=== PATIENT | male | born 1960 | race Caucasian/White ===

== ENCOUNTER → 2016-11-17 | Outpatient (CLI) | payer OTHER | END | disposition home or self-care (01) | LOC: RADMRIMAIN 17:49 | PROVIDERS: ATTEND Psychiatry & Neurology Neurology | DX: Z53.9 Procedure and treatment not carried out, unspecified reason (principal) ==

== ENCOUNTER → 2016-11-17 | Outpatient (CLI) | payer OTHER ==
--- NOTE | 2016-11-17 19:25 | MR ---
EXAMINATION TYPE: MR cspine/lspine wo con DATE OF EXAM: 11/17/2016 COMPARISON: CT lumbar spine 04/13/2016, CT cervical spine 04/13/2016 HISTORY: neck and low back pain x1 year, getting worse TECHNIQUE: Multiplanar, multisequence imaging of the lumbar and cervical spine is performed without I V contrast. FINDINGS: Cervical spine MRI: There is multilevel spondylosis. Endplate discogenic marrow signal change is pres ent with associated loss of disc height and signal especially C3-4, C4-5 and C5-6. Cervical cord sign al is maintained. Cervical vertebral bodies show preserved height, minimal retrolisthesis grade 1 C2- 3, C3-4, C4-5. Hypertrophic change is suspected a component of diffuse idiopathic skeletal hyperostos is. C2-3: No significant abnormality C3-4: There is uncovertebral joint hypertrophy facet arthropathy encroaching to cause left-sided fora gregor encroachment. Posterior extension of endplate disc complex contacts the cervical cord, there is mild to moderate central stenosis. C4-5: Posterior extension of endplate disc complex causes anterior mass effect on the thecal sac and may contact the anterior cervical cord, there is right-sided greater than left foraminal encroachment . C5-6: Moderate to severe spinal stenosis is present due to posterior extension of endplate disc compl ex, there is bilateral foraminal encroachment. C6-7: Unremarkable C7-T1: Within normal limits IMPRESSION: Multilevel degenerative disc disease, foraminal encroachment, spinal stenosis greatest at C5-6. Lumbar spine MRI: Lumbar vertebral bodies show preserved height and alignment. There is multilevel sp ondylosis. Some endplate discogenic marrow signal changes noted. Schmorl's node present at the superi or endplate of L2. L5-S1: Facet arthropathy change with hypertrophy of the ligamentum flavum is noted. Circumferential p osterior broad-based disc bulge extends laterally to cause bilateral foraminal encroachment. L4-5: Facet arthropathy changes encroaches upon the lateral recesses left greater than right. No sign ificant foraminal encroachment or central stenosis. No evident disc herniation. L3-4: Posterior broad-based disc bulge causes anterior mass effect on the thecal sac. Hypertrophic ch rohit of the ligamentum flavum causes lateral recess encroachment, only minimal central canal stenosis . Right-sided greater than left foraminal encroachment due to circumferential extension of endplate d isc complex. L2-3: Minimal posterior broad-based disc bulge causes only slight anterior mass effect on the thecal sac. There is some facet arthropathy change. L1-2: Facet arthropathy with hypertrophic change of the ligamentum flavum encroaches on the lateral r ecesses left greater than right. No significant foraminal encroachment or sizable disc herniation. IMPRESSION: Multilevel degenerative disc disease, facet arthropathy, foraminal encroachment.
== END ==
LOC: RADMRIMAIN 17:46
PROVIDERS: ATTEND Psychiatry & Neurology Neurology
DX: M99.71 Connective tissue and disc stenosis of intervertebral foramina of cervical region (principal); M50.30 Other cervical disc degeneration, unspecified cervical region; M51.36 Other intervertebral disc degeneration, lumbar region; M46.86 Other specified inflammatory spondylopathies, lumbar region; M99.73 Connective tissue and disc stenosis of intervertebral foramina of lumbar region
CPT/HCPCS: 72141; 72148

== ENCOUNTER → 2017-06-07 | Outpatient (CLI) | payer OTHER ==
[2017-06-07 13:56] LABS: Appearance,Urine Clear (Clear); Bilirubin,Urine Negative (Negative); Blood,Urine Negative (Negative); Color,Urine Yellow; Glucose,Urine (UA) Negative (Negative); Ketones,Urine Negative (Negative); Leukocyte Esterase,Urine Negative (Negative); Nitrite,Urine Negative (Negative); PH, Urine 5.5 (5.0-8.0); Protein,Urine Negative (Negative); Specific Gravity,Urine 1.011 (1.001-1.035); Urobilinogen,Urine <2.0 mg/dL (<2.0)
--- NOTE | 2017-06-07 16:31 | XR ---
EXAMINATION TYPE: XR chest 2V DATE OF EXAM: 06/07/2017 COMPARISON: Prior chest x-ray 01/25/2016 HISTORY: Preop TECHNIQUE: Frontal and lateral views of the chest are obtained. FINDINGS: No significant interval change. Prominent lung volume could be indicative of underlying CO PD. Flowing anterior osteophytes in the thoracic spine could be due to diffuse idiopathic skeletal hy perostosis. Apical pleural thickening is stable on the right. The heart is small. Pulmonary vasculari ty and michelle not significantly changed. IMPRESSION: No acute cardiopulmonary process. Stable apical pleural scarring. Correlate for COPD, CHRISTOPHER TONG.
== END | disposition home or self-care (01) ==
LOC: LABPAT 13:09
PROVIDERS: ATTEND Orthopaedic Surgery Orthopaedic Surgery of the Spine
DX: Z01.818 Encounter for other preprocedural examination (principal); J98.4 Other disorders of lung; M48.02 Spinal stenosis, cervical region
CPT/HCPCS: 71046; 81003; 93005

== ENCOUNTER → 2017-06-10 | Outpatient (CLI) | payer OTHER ==
[2017-06-10 10:59] LABS: Basophils # (A) 0.1 k/uL (0-0.2); Basophils % (A) 1 %; Eosinophils # (A) 0.2 k/uL (0-0.7); Eosinophils % (A) 2 %; HCT 47.8 % (39.0-53.0); HGB 15.4 gm/dL (13.0-17.5); Lymphocytes # (A) 1.4 k/uL (1.0-4.8); Lymphocytes % (A) 21 %; MCH 31.1 pg (25.0-35.0); MCHC 32.1 g/dL (31.0-37.0); MCV 96.9 fL (80.0-100.0); Mean Platelet Volume 7.2; Monocytes # (A) 0.7 k/uL (0-1.0); Monocytes % (A) 10 %; Neutrophils # (A) 4.5 k/uL (1.3-7.7); Neutrophils % (A) 65 %; Platelet Count 188 k/uL (150-450); RBC 4.94 m/uL (4.30-5.90); RDW 13.2 % (11.5-15.5); WBC 6.9 k/uL (3.8-10.6)
[2017-06-10 11:15] LABS: INR 1.1 (<1.2); Partial Thromboplastin Time 23.1 sec (22.0-30.0); Prothrombin Time 10.4 sec (9.0-12.0)
[2017-06-10 11:18] LABS: Anion Gap 7 mmol/L; Blood Urea Nitrogen 10 mg/dL (9-20); Calcium 9.1 mg/dL (8.4-10.2); Carbon Dioxide 29 mmol/L (22-30); Chloride 105 mmol/L (98-107); Glucose 91 mg/dL (74-99); Potassium 4.4 mmol/L (3.5-5.1); Sodium 141 mmol/L (137-145)
== END | disposition home or self-care (01) ==
LOC: LABPAT 10:10
PROVIDERS: ATTEND Orthopaedic Surgery Orthopaedic Surgery of the Spine
DX: Z01.818 Encounter for other preprocedural examination (principal); M48.02 Spinal stenosis, cervical region
CPT/HCPCS: 36415; 80048; 85025; 85610; 85730

== ENCOUNTER 2017-06-21 05:39 | Inpatient (IN) | payer OTHER ==
[2017-06-15 08:55] VITALS: BMI 23.0
[~2017-06-21 05:39] MED LIST: BACITRACIN 50,000 UNIT, POLYMYXIN B 500,000 UNIT in SODIUM CHLORIDE 0.9% IRRIGATIO 1,00... IRRIGATION ONE; ceFAZolin IN SWFI 2 GM/20 ML SYRINGE IVP ONE
[2017-06-21] MEDS ORDERED: LACTATED RINGERS 1,000 ML IV SCH (05:53)
[2017-06-21] MEDS ORDERED: DEXAMETHASONE SOD PHOSPHATE 10 MG/ML 1 ML VIAL IV ONE (05:53)
[2017-06-21] MEDS ORDERED: HYDROmorphone 0.5 MG/0.5 ML SYRINGE IVP PRN (05:53)
[2017-06-21] MEDS ORDERED: ONDANSETRON 4 MG/2 ML VIAL IVP ONE (05:53)
[2017-06-21] MEDS ORDERED: LIDOCAINE 1% 20 ML VIAL (10MG/ML) FOR IV START INTRADERMA ONE (06:42)
[2017-06-21] MEDS ORDERED: BUPIVACAINE (PF) 0.25% 30 ML VIAL SQ ONE (08:02)
[2017-06-21] MEDS ORDERED: THROMBIN (BOVINE) 5,000 UNIT VIAL TOPICAL ONE (08:13)
[2017-06-21] MEDS ORDERED: GELATIN SPONGE,ABSORB (LARGE) 1 EACH SPONGE TOPICAL ONE (08:13)
--- NOTE | 2017-06-21 09:00 | XR ---
Cervical spine HISTORY: Needle placement Single lateral view of the cervical spine submitted. Correlation to MR cervical spine 11/17/2016 There is a needle at the intervertebral disc space of C4-5. Degenerative disc changes are again noted . Endotracheal tube noted incidentally. There are overlying leads, probe in the nasopharynx region. IMPRESSION: Orthopedic localization.
[2017-06-21] MEDS ORDERED: DIAZEPAM 5 MG TAB PO PRN (10:07)
[2017-06-21] MEDS ORDERED: MAGNESIUM HYDROXIDE 2,400 MG/10 ML CUP PO PRN (10:07)
[2017-06-21] MEDS ORDERED: MORPHINE SULFATE 4 MG/ML SYRINGE IVP PRN (10:07)
[2017-06-21] MEDS ORDERED: HYDROcodone/APAP 5-325MG 1 EACH TAB PO PRN (10:08)
[2017-06-21] MEDS ORDERED: ONDANSETRON 4 MG/2 ML VIAL IVP PRN (10:08)
--- NOTE | 2017-06-21 10:14 | P.OP ---
Date of Procedure: 06/21/17 Preoperative Diagnosis: Severe cervical stenosis C3 4 C4 5 C5 6 Large osteophyte C3 4 C4 5 C5 6 Degenerative disc disease Upper extremity radiculopathy Upper extremity weakness Postoperative Diagnosis: Same Anesthesia: GETA Pathology: none sent Condition: stable Disposition: PACU Description of Procedure: BRIEF OPERATIVE NOTE Preoperative Diagnosis: Severe cervical stenosis C3 4 C4 5 C5 6, herniated nucleus was stenosis C3 4 C4 5 C5 6, large osteophyte C3 4 C4 5 C5 6, degenerative disc disease, upper extremity radiculopathy, upper extremity weakness Postoperative Diagnosis: Same Procedure: Anterior cervical decompression with discectomy and fusion C3 4 C4 5 C5 6 Removal of large osteophyte C3 4 C4 5 C5 6 Placement of interbody graft C3 4 C4 5 C5 6 Application of anterior cervical plate C3 4 5 6 Surgeon: Dr. Cooper Process Control Operator: Mikey Johnson is present throughout the entire the case persistence during positioning, dissection, exposure, visualization, and all crucial elements of the case as well as closure. Anesthesia: General anesthesia per anesthesiologist Estimated blood loss: Approximately 100 mL Complications: None apparent Components implanted: K2M Garfield anterior cervical plate system and screws with Vikos interbody allograft bone graft and 1 mL of DBX bone putty Disposition: To recovery room in good stable condition. OPERATIVE INDICATIONS The patient has had long-standing issues in their neck and upper extremities. His found have severe disc degeneration and very large osteophytes at his anterior cervical spine. He also had severe stenosis at C3 4 C4 5 C5 6 which correlated with his neck and upper extremity symptoms. The patient has been through conservative treatment. He is not having a prolonged benefit despite aggressive conservative care We discussed various treatment options including surgery, and the patient wishes to proceed with surgery We discussed the risk, patient's alternatives and benefits of surgery including but not limited to, risk of bleeding risk of infection, risk of need for further surgery, risk of decreased, loss of motion, muscle function, malunion nonunion, hardware failure , nerve damage, paralysis, heart attack, and . OPERATIVE SUMMARY After discussing all the risks, patient alternatives and benefits at length, the patient elected to proceed with surgical intervention, signed informed consent, and presented for their procedure. The patient was seen and examined in the preoperative holding area and the surgical site was marked. The patient was given antibiotics and brought to the operating room. The patient was positioned on the operating room table in a supine position being careful to pad any bony prominences and pressure points. The patient was sedated and intubated by anesthesia in standard fashion. Once the airway and C- spine were stabilized the patient's arms were padded and tucked at her side, with her shoulders gently taped. The head was placed in a donut pad with the neck in good neutral alignment and position. We were careful to maintain the patient's cervical spine and good neutral alignment and position throughout. The patient was prepped and draped in a normal standard fashion. An appropriate timeout and keystone protocol performed. We were able to proceed with the surgery. The local wound area was infiltrated with local anesthetic. An incision was made transversely approximately 2-1/2 cm over the appropriate levels at C4 5. Dissection was taken down subcutaneously to the level of the platysma which was split in line with its fibers. Dissection was taken with a carotid approach, with the trachea and esophagus medial and the carotid sheath laterally. We dissected down to the anterior surface of the vertebral bodies. There are very large osteophytes throughout his anterior cervical spine from C3 to C6 which were exposed. Intraoperative x-ray was taken which showed a marker at the appropriate level of C4 5. With the appropriate level positively confirmed, we were able to proceed with discectomy at the appropriate levels starting at C56 and then moving C4 5 and then moving C3 4. All of the operative levels were exposed appropriately. I had to remove very large osteophytes from each of the levels in order down to the anterior vertebral body appropriately. The patient had all their twitches back, and there was no evidence of recurrent laryngeal issue. The wound was copiously irrigated and suctioned dry as had been done periodically throughout the case. At the appropriate level/levels, from C3 to C6 I established an annulotomy with an 11 blade scalpel. A discectomy was performed with a combination of pituitary rongeurs, curettes, a high-speed bur, and Kerrison rongeurs. Note was made of severe disc degeneration at each of the levels with significant disc protrusion and herniation causing significant stenosis particular to the right. The posterior longitudinal ligament was taken down as were any posterior osteophytes. This gave good central and bilateral foraminal decompression. There is no evidence of any dural tear or leak. The endplates were prepared with a high-speed bur. With the endplates in good parallel position, I was able to size for the appropriate size interbody graft. The wound was irrigated and suctioned dry the graft was prepared and malleted into position. It had good alignment and position with the anterior surface flush with the anterior surface of the vertebral bodies. This was done similarly the appropriate levels first at C56 and then C4 5 and at C34. With the grafts intact, I was able to measure and contour and appropriate sized plate. The plate was positioned at the midline over the appropriate levels from C3 to C6. Screw holes were established with a hand drill and drill guide. Screws were placed in good alignment and position with excellent bony purchase. They were seated under the locking device. The construct was checked and found to be stable. Intraoperative x-ray was taken which showed good alignment and position of the implants at the appropriate levels. There was no evidence of any dural tear or leak. Good hemostasis was maintained. The wound was copiously irrigated and suctioned dry as had been done periodically throughout the case. The platysma was closed with absorbable suture. The subcutaneous tissue was closed. The subcuticular tissue was closed with absorbable suture. The wound was cleaned and dried and dressed appropriately. A soft cervical collar was placed appropriately. The patient was woken up by anesthesia, extubated, transferred back gently to their hospital bed and brought to the recovery room in good stable condition. The patient will be admitted to the hospital for appropriate postoperative care , medical management and monitoring. We will continue to follow them closely about the postoperative course.
[2017-06-21] MEDS ORDERED: MORPHINE SULFATE 10 MG/ML SYRINGE IVP ONE (10:42)
[2017-06-21] MEDS: MORPHINE SULFATE 4 MG/ML SYRINGE IVP PRN ×5 (10:42→21:43)
[2017-06-21] MEDS: SODIUM CHLORIDE 0.9% 1,000 ML IV SCH ×2 (12:10→20:22)
--- NOTE | 2017-06-21 13:26 | XR ---
Limited cervical spine HISTORY: Status post anterior cervical fusion and discectomy Single lateral view of the cervical spine correlated to previous of same date earlier time. There is been interval anterior cervical fusion and discectomy at C3-C6. Intervertebral spacing veloc ity in place. Patient is intubated. There are overlying artifacts. Alignment not significantly change d, near-anatomic. IMPRESSION: Orthopedic follow-up.
[2017-06-21] MEDS: ceFAZolin IN SWFI 2 GM/20 ML SYRINGE IVP SCH (16:22)
[2017-06-21] MEDS: HYDROcodone/APAP 10-325MG 1 EACH TAB PO PRN (20:22)
[2017-06-21] MEDS: BENZOCAINE/MENTHOL LOZENG 1 EACH LOZENGE MUCOUS MEM PRN (22:21)
[2017-06-22] MEDS: ceFAZolin IN SWFI 2 GM/20 ML SYRINGE IVP SCH (00:50)
[2017-06-22] MEDS: MORPHINE SULFATE 4 MG/ML SYRINGE IVP PRN (04:14)
[2017-06-22] MEDS: HYDROcodone/APAP 10-325MG 1 EACH TAB PO PRN (06:03)
[2017-06-22] MEDS: BENZOCAINE/MENTHOL LOZENG 1 EACH LOZENGE MUCOUS MEM PRN (08:14)
[2017-06-22] MEDS: SODIUM CHLORIDE 0.9% 1,000 ML IV SCH (08:15)
[2017-06-22 08:18] VITALS: BP 133/88; PULSE 51; RESP 16; TEMP 98.8
--- NOTE | 2017-06-22 08:39 | P.DS ---
Providers Date of admission: 06/21/17 05:39 Attending physician: Barrett Cooper Primary care physician: [facility] [place] Course: The patient presented on the day of admission as per his operative note. He underwent anterior cervical decompression with discectomy and fusion at C3 to C6 for his severe cervical stenosis with large osteophytes degenerative disc disease and upper extremity radiculopathy. He feels his symptoms have made some mild improvement thus far and his neck is doing well. He has been able to have some soft foods and is ambulatory around his room and into the hallways. Physical Exam The incision site is clean dry and intact. There is no erythema no drainage. There is no purulence no evidence of infection. His neck is soft and supple. There is some mild swelling at his anterior neck without any tension. Abdomen soft and nontender. Chest has good excursion with deep inspiration and expiration. The patient has active and passive range of motion intact at the upper and lower extremities. There is no acute change in neurologic status. He has good strength in his bilateral upper and lower extremities unchanged from prior to surgery. Hospital Course Postoperative day #1 status post anterior cervical discectomy with decompression and fusion C3 4 C4 5 and C5 6 for his severe cervical stenosis with degenerative disc disease large osteophytes at upper extremity radiculopathy The patient has been making good progress postoperatively. They have completed the prophylactic antibiotics without any signs or symptoms of infection. The patient has been able to advance their diet, and is tolerating diet adequately. The pain was initially controlled with IV medications and is now controlled appropriately with oral medications. The patient has been able to increase their mobilization. The patient has progressed appropriately. I think they are in good stable condition for discharge today. I like him to ice his anterior neck to help alleviate some the swelling over the next few days. They will be sent home with appropriate prescriptions. I answered their questions to the best of my ability in a language that they can understand and they are agreeable with the plan. They will follow up as directed in approximately 2 weeks or sooner if he is having any problems. Patient Condition at Discharge: Good Plan - Discharge Summary Discharge Rx Participant: Yes New Discharge Prescriptions: New HYDROcodone/APAP 10-325MG [Davis 10-325] 1 tab PO Q6H PRN #90 tab PRN Reason: Pain No Action Metoprolol Tartrate [Lopressor] 25 mg PO DAILY Naproxen 500 mg PO BID PRN PRN Reason: Headache HYDROcodone/APAP 10-325MG [Davis 10-325] 1 tab PO Q6H PRN PRN Reason: Pain Discharge Medication List Metoprolol Tartrate [Lopressor] 25 mg PO DAILY 01/25/16 [History] Naproxen 500 mg PO BID PRN 04/13/16 [History] HYDROcodone/APAP 10-325MG [Davis 10-325] 1 tab PO Q6H PRN 06/15/17 [History] HYDROcodone/APAP 10-325MG [Davis 10-325] 1 tab PO Q6H PRN #90 tab 06/22/17 [Rx] Follow up Appointment(s)/Referral(s): Barrett Cooper DO [Doctor of Osteopathic Medicine] - 2 Weeks (With Mikey Campuzano at Dr. Cooper's office) Activity/Diet/Wound Care/Special Instructions: Keep site clean. May shower with waterproof Tegaderm intact. On Monday the patient may remove dressing and then may shower with area uncovered, but leave Steri-Strips intact and allow them to fray off on their own. Avoid heavy or rigorous activity. No repetitive activities. No overhead work. May ambulate to tolerance. Ice to anterior neck 3-4 times a day over the next 3-4 days. Discharge Disposition: HOME SELF-CARE
[2017-06-22] MEDS ORDERED: METOPROLOL TARTRATE 25 MG TAB PO SCH (09:00)
[2017-06-22] MEDS ORDERED: SENNOSIDES-DOCUSATE SODIUM 1 EACH TAB PO SCH ×2 (09:00)
== END 2017-06-22 09:50 | disposition home or self-care (01) | DRG 473 ==
LOC: 2ORMAIN 05:39 → 5MS5E 10:17 → 5ONC 15:32
PROVIDERS: ADMIT Orthopaedic Surgery Orthopaedic Surgery of the Spine; ATTEND Orthopaedic Surgery Orthopaedic Surgery of the Spine
PROC: 0RB30ZZ Excision of Cervical Vertebral Disc, Open Approach (ICD-10-PCS; 2017-06-21)
PROC: 0RG20K0 Fusion of 2 or more Cervical Vertebral Joints with Nonautologous Tissue Substitute, Anterior Approach, Anterior Column, Open Approach (ICD-10-PCS; principal; 2017-06-21 08:00)
DX: M48.02 Spinal stenosis, cervical region (principal); F17.210 Nicotine dependence, cigarettes, uncomplicated; I10 Essential (primary) hypertension; M25.78 Osteophyte, vertebrae; M47.22 Other spondylosis with radiculopathy, cervical region; M50.11 Cervical disc disorder with radiculopathy, high cervical region; M51.16 Intervertebral disc disorders with radiculopathy, lumbar region; M47.26 Other spondylosis with radiculopathy, lumbar region; H91.90 Unspecified hearing loss, unspecified ear; Z79.899 Other long term (current) drug therapy
CPT/HCPCS: 72020; 86850; 86900; 86901

== ENCOUNTER → 2018-05-29 | Outpatient (CLI) | payer OTHER ==
[2018-05-29 10:19] LABS: Basophils # (A) 0.1 k/uL (0-0.2); Basophils % (A) 1 %; Eosinophils # (A) 0.1 k/uL (0-0.7); Eosinophils % (A) 2 %; HCT 41.7 % (39.0-53.0); HGB 13.3 gm/dL (13.0-17.5); Lymphocytes # (A) 1.4 k/uL (1.0-4.8); Lymphocytes % (A) 23 %; MCH 30.6 pg (25.0-35.0); MCHC 31.9 g/dL (31.0-37.0); MCV 95.9 fL (80.0-100.0); Mean Platelet Volume 7.4; Monocytes # (A) 0.5 k/uL (0-1.0); Monocytes % (A) 8 %; Neutrophils # (A) 3.7 k/uL (1.3-7.7); Neutrophils % (A) 63 %; Platelet Count 165 k/uL (150-450); RBC 4.35 m/uL (4.30-5.90); RDW 13.4 % (11.5-15.5); WBC 5.8 k/uL (3.8-10.6)
[2018-05-29 16:33] LABS: Albumin 4.5 g/dL (3.80-4.90); Albumin/Globulin Ratio 2.5 (1.60-3.17); Anion Gap 6.3 mmol/L (4.00-12.00); Calcium 9.1 mg/dL (8.7-10.3); Carbon Dioxide 27.7 mmol/L (21.6-31.8); Globulin 1.8 g/dL (1.6-3.3); Potassium 4.8 mmol/L (3.5-5.5); Total Bilirubin 0.6 mg/dL (0.3-1.2); Total Protein 6.3 g/dL (6.2-8.2)
[2018-05-29 17:09] LABS: Total Protein,CSF 36 mg/dL (12-60)
[2018-05-29 17:19] LABS: Appearance,CSF Clear; CSF Tube Number 4; CSF Tube Volume 3; Nucleated Cells, CSF 1 u/L (0-5); Red Blood Cell,CSF 0 u/L (0-10)
[2018-05-29 17:25] LABS: Folate, Serum 10.7 ng/mL; Vitamin D 25 Hydroxy 10.5 ng/mL (30.0-100.0)
[2018-05-29 18:35] LABS: Hepatitis B Core IgM Non-Reactive (Non-Reactive); Hepatitis B Surface AB- Quant 3.5 mIU/mL
[2018-05-29 20:10] LABS: Hemoglobin A1C 5.2 % (4.0-6.0)
[2018-05-31 07:40] LABS: Vit B1(Thiamine) 63 ug/L (38-122)
[2018-05-31 12:04] LABS: IgG - CSF 1.4 mg/dL (0.0 - 3.4); IgG/Albumin Index (CSF) 0.46 (0.00 - 0.77); Immunoglobulin G 819 mg/dL (700 - 1600)
== END | disposition home or self-care (01) ==
LOC: LABWHC1 08:38
PROVIDERS: ATTEND Psychiatry & Neurology Pain Medicine
DX: G37.9 Demyelinating disease of central nervous system, unspecified (principal)
CPT/HCPCS: 36415; 80053; 82040; 82042; 82306; 82607; 82746; 82784; 83036; 83873; 83916; 84157; 84207; 84425; 84439; 84443; 84481; 84591; 85025; 86704; 86705; 86706; 86787; 87340; 87390; 87801; 89050

== ENCOUNTER → 2018-06-15 | Outpatient (CLI) | payer OTHER | END | disposition home or self-care (01) | LOC: LABWHC1 12:06 | PROVIDERS: ATTEND Psychiatry & Neurology Pain Medicine | DX: E55.9 Vitamin D deficiency, unspecified (principal) | CPT/HCPCS: 36415; 82306 ==

== ENCOUNTER 2018-08-04 17:15 | Emergency (ER) | payer OTHER ==
[2018-08-04 17:26] VITALS: BP 140/84; PULSE 74; TEMP 97.2
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
[2018-08-04 19:04] LABS: Amphetamine Screen,Urine Not Detected (NotDetected); Barbiturate Screen,Urine Not Detected (NotDetected); Benzodiazepines Screen,Urine Not Detected (NotDetected); Cocaine Screen,Urine Not Detected (NotDetected); Methadone Screen, Urine Not Detected (NotDetected); Opiate Screen,Urine Not Detected (NotDetected); Oxycodone Screen, Urine Not Detected (NotDetected); Phencyclidine Screen,Urine Not Detected (NotDetected); Tricyclic Antidepressant,Urine Not Detected (NotDetected); Urn Cannabinoid Scrn Not Detected (NotDetected)
[2018-08-04 19:55] VITALS: RESP 19
== END 2018-08-04 23:05 | disposition home or self-care (01) ==
LOC: EC 17:15
DX: F10.129 Alcohol abuse with intoxication, unspecified (principal); F17.200 Nicotine dependence, unspecified, uncomplicated; Z79.899 Other long term (current) drug therapy
CPT/HCPCS: 80306; 82075; 99285

== ENCOUNTER 2018-09-24 11:17 | Day surgery (SDC) | payer OTHER, MEDICARE ==
[2018-09-24 12:45] VITALS: TEMP 97.8
[2018-09-24] MEDS ORDERED: LACTATED RINGERS 1,000 ML IV ONE (12:56)
[2018-09-24] MEDS ORDERED: LIDOCAINE 1% 20 ML VIAL (10MG/ML) FOR IV START INTRADERMA ONE (12:57)
[2018-09-24] MEDS ORDERED: LIDOCAINE 1% INJ 10MG/ML (20 ML MDV) ONE (13:07)
[2018-09-24] MEDS ORDERED: PROPOFOL 10 MG/ML 20 ML VIAL IV ONE (13:07)
--- NOTE | 2018-09-24 13:39 | P.PCN ---
Date of Procedure: 09/24/18 Procedure(s) Performed: Procedure: Total colonoscopy. Preoperative diagnosis: Screening for neoplasia. Postoperative diagnosis: Less than ideal preparation, otherwise, exam within normal limits. Preparation: HalfLytely prep. Sedation: Was provided by anesthesia. Brief clinical history: The patient is a 58-year-old male who is scheduled for this evaluation for screening for neoplasia age being his risk factor. There is no family history of colon cancer. The patient has no abdominal complaints, ove rt bleeding or anemia. Apparently, he was noted to have blood in his stools. This would be his first colonoscopy. Procedure: With the patient on his left lateral decubitus position and after informed consent and adequate sedation, the perianal area was inspected and it did not show any fissures or fistulas. There were no masses felt on digital rectal examination. The Olympus CFH 190 L videocolonoscope was then inserted in the rectum in the usual fashion and advanced to the cecum. Unfortunately, the preparation was less than ideal and there was thick fecal secretions and fecal debris in various areas that I could not completely wash. The mucosa appeared healthy. No obvious polyps or tumors were seen or any obvious diverticular disease or other pathology. I retroflexed the endoscope in the rectum before the endoscope was withdrawn. The patient tolerated the procedure well. Plan: In the absence of family history of colon cancer of finding of polyps today, I recommended repeat exam in 10 years. However, in light of his less than ideal preparation, I would start by repeat colonoscopy in 5 years before going to the 10 years schedule. He will follow-up with you as planned.
[2018-09-24 13:45] VITALS: PULSE 73; RESP 18
[2018-09-24 13:48] VITALS: BP 134/80
[2018-09-24] MEDS ORDERED: LACTATED RINGERS 1,000 ML IV SCH (13:48)
[2018-09-24] MEDS ORDERED: LIDOCAINE 1% 20 ML VIAL (10MG/ML) FOR IV START INTRADERMA PRN (13:48)
== END 2018-09-24 14:02 | disposition home or self-care (01) ==
LOC: ORWHC2ENDO 11:17
DX: K92.1 Melena (principal); K21.9 Gastro-esophageal reflux disease without esophagitis; I10 Essential (primary) hypertension; H91.90 Unspecified hearing loss, unspecified ear; Z79.899 Other long term (current) drug therapy
CPT/HCPCS: 45378; J2001; J2704

== ENCOUNTER 2019-03-30 19:30 | Observation (INO) | payer OTHER, MEDICARE ==
[2019-03-30 19:39] VITALS: RESP 18
[2019-03-30] MEDS ORDERED: SODIUM CHLORIDE 0.9% 500 ML 500 ML IV STA (19:40)
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
[2019-03-30 20:07] LABS: Basophils % (A) 1 %; Eosinophils # (A) 0.1 k/uL (0-0.7); Eosinophils % (A) 2 %; HCT 39.4 % (39.0-53.0); HGB 13.7 gm/dL (13.0-17.5); Lymphocytes # (A) 1.8 k/uL (1.0-4.8); Lymphocytes % (A) 34 %; MCH 33.1 pg (25.0-35.0); MCHC 34.6 g/dL (31.0-37.0); MCV 95.5 fL (80.0-100.0); Mean Platelet Volume 7.7; Monocytes # (A) 0.3 k/uL (0-1.0); Monocytes % (A) 6 %; Neutrophils % (A) 56 %; Platelet Count 159 k/uL (150-450); RBC 4.13 m/uL (4.30-5.90); RDW 13.8 % (11.5-15.5); WBC 5.4 k/uL (3.8-10.6)
[2019-03-30 20:17] LABS: Calcium 8.8 mg/dL (8.4-10.2); Magnesium 1.7 mg/dL (1.6-2.3); Partial Thromboplastin Time 26.5 sec (22.0-30.0); Prothrombin Time 10.5 sec (9.0-12.0); Total Bilirubin 0.4 mg/dL (0.2-1.3); Total Protein 6.5 g/dL (6.3-8.2)
--- NOTE | 2019-03-30 20:41 | XR ---
EXAMINATION TYPE: XR chest 2V DATE OF EXAM: 03/30/2019 COMPARISON: Chest x-ray 04/06/2018 HISTORY: Chest pain TECHNIQUE: Frontal and lateral views of the chest are obtained. FINDINGS: Cardiomediastinal silhouette is within normal limits. The lungs are hyperinflated with prominent inte rstitial markings, in keeping with emphysematous changes. No focal airspace consolidation. No pleural effusion or pneumothorax. Lower cervical ACDF has been performed. There are mid/lower thoracic findi ngs of diffuse idiopathic skeletal hyperostosis. IMPRESSION: 1. No acute cardiopulmonary process. 2. Emphysematous changes.
[2019-03-30 22:36] LABS: Appearance,Urine Clear (Clear); Bilirubin,Urine Negative (Negative); Blood,Urine Negative (Negative); Color,Urine Light Yellow; Glucose,Urine (UA) Negative (Negative); Ketones,Urine Negative (Negative); Leukocyte Esterase,Urine Negative (Negative); Nitrite,Urine Negative (Negative); PH, Urine 5.5 (5.0-8.0); Protein,Urine Negative (Negative); Specific Gravity,Urine 1.007 (1.001-1.035); Urobilinogen,Urine <2.0 mg/dL (<2.0)
[2019-03-30 22:48] LABS: Amphetamine Screen,Urine Not Detected (NotDetected); Barbiturate Screen,Urine Detected (NotDetected); Benzodiazepines Screen,Urine Not Detected (NotDetected); Cocaine Screen,Urine Not Detected (NotDetected); Methadone Screen, Urine Not Detected (NotDetected); Opiate Screen,Urine Not Detected (NotDetected); Oxycodone Screen, Urine Not Detected (NotDetected); Phencyclidine Screen,Urine Not Detected (NotDetected); Tricyclic Antidepressant,Urine Not Detected (NotDetected); Urn Cannabinoid Scrn Not Detected (NotDetected)
[2019-03-30] MEDS ORDERED: NITROGLYCERIN SL TABS 0.4 MG TAB SUBLINGUAL PRN (22:57)
[2019-03-31] MEDS ORDERED: HYDROcodone/APAP 7.5-325MG 1 EACH TAB PO PRN (00:44)
[2019-03-31] MEDS: GABAPENTIN 300 MG CAP PO SCH ×2 (00:56→19:53)
[2019-03-31 02:42] LABS: Cholesterol 139 mg/dL (<200); HDL Cholesterol 55 mg/dL (40-60); LDL Cholesterol,Calculated 55 mg/dL (0-99); Triglycerides 143 mg/dL (<150)
[2019-03-31] MEDS: ASPIRIN 325 MG TAB PO SCH (17:39)
[2019-03-31] MEDS ORDERED: BUTALB/APAP/CAFF 50-325-40MG TAB PO PRN (17:53)
[2019-04-01] MEDS ORDERED: IPRATROPIUM-ALBUTEROL 3 ML NEB INHALATION PRN (00:12)
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
[2019-04-01] MEDS ORDERED: DOBUTamine DRIP for NUC MED 500 MG in DEXTROSE/WATER 1 250ML.BAG IV ONE (07:00)
[2019-04-01] MEDS ORDERED: PANTOPRAZOLE 40 MG TABLET PO SCH (07:30)
[2019-04-01] MEDS ORDERED: BACLOFEN 10 MG TAB PO SCH (09:00)
[2019-04-01] MEDS ORDERED: LORATADINE 10 MG TAB PO SCH (09:00)
[2019-04-01] MEDS ORDERED: MONTELUKAST 10 MG TAB PO SCH (09:00)
[2019-04-01] MEDS ORDERED: ATORVASTATIN 10 MG TAB PO SCH (09:00)
[2019-04-01] MEDS ORDERED: METOPROLOL TARTRATE 25 MG TAB PO SCH (09:00)
[2019-04-01 10:35] VITALS: TEMP 98.1
[2019-04-01 11:49] VITALS: BP 149/99; PULSE 63
--- NOTE | 2019-04-01 12:07 | P.DS ---
Providers Date of admission: 03/30/19 22:57 Attending physician: Michelle Talbert Consults: 03/30/19 22:57 Consult Physician Urgent Consulting Provider: [facility] Consult Reason/Comments: chest pain - smoker, HTN Do you want consulting provider notified?: Yes, Notify in am Primary care physician: Serafin Mcdonald [facility] Course: 59-year-old male with a known history of hypertension, GERD, hearing disorder and chronic neck pain, spinal stenosis and history of neck surgery and chronic intermittent left upper and lower extremity numbness, on follow-up with his neurologist as an outpatient came to ER with complaints of chest pain is with shortness of breath and nausea. Patient says that she was eating dinner and suddenly developed pressure-like sensation mainly mid retrosternal felt like heaviness and someone sitting on his chest. Patient did have nausea and 1 episode of vomiting. Patient says that she also had left upper and lower extremity numbness at the time. No diaphoresis. No headache or dizziness or lightheadedness. Patient presents to ER where EMS. Patient does smoke an daily basis. UDS is positive for barbiturates Troponin 3 negative EKG showed normal sinus rhythm. Chest x-ray showed no acute cardiopulmonary process. 04/01/2019 Patient doesn't have any chest pain anymore. Patient will undergo stresses if that's negative patient will be discharged patient just pain appears to be secondary to gastric reflux disease we'll cut down his aspirin to baby aspirin patient will continue his Protonix patient will follow with primary care physician as an outpatient. PHYSICAL EXAMINATION: GENERAL: The patient is alert and oriented x3, not in any acute distress. Well developed, well nourished. HEENT: Pupils are round and equally reacting to light. EOMI. No scleral icterus. No conjunctival pallor. Normocephalic, atraumatic. No pharyngeal erythema. No thyromegaly. CARDIOVASCULAR: S1 and S2 present. No murmurs, rubs, or gallops. PULMONARY: Chest is clear to auscultation, no wheezing or crackles. ABDOMEN: Soft, nontender, nondistended, normoactive bowel sounds. No palpable organomegaly. MUSCULOSKELETAL: No joint swelling or deformity. EXTREMITIES: No cyanosis, clubbing, or pedal edema. NEUROLOGICAL: Gross neurological examination did not reveal any focal deficits. SKIN: No rashes. For rest of the chronic medical problems hospital physician course please refer to dictation of H&P from Dr. Talbert from yesterday Patient Condition at Discharge: Stable Plan - Discharge Summary Discharge Rx Participant: Yes New Discharge Prescriptions: New Aspirin 81 mg PO DAILY #30 chewable Continue HYDROcodone/APAP 7.5-325MG [[place] 7.5-325] 1 tab PO TID PRN PRN Reason: Pain Baclofen [Lioresal] 10 mg PO DAILY Metoprolol Tartrate [Lopressor] 25 mg PO DAILY Pantoprazole [Protonix] 40 mg PO DAILY Atorvastatin [Lipitor] 30 mg PO DAILY Butalb/Acetaminophen/Caffeine [Fioricet 50-325-40] 1 tab PO TID PRN PRN Reason: Headache Gabapentin [Neurontin] 900 mg PO QAM Gabapentin [Neurontin] 600 mg PO HS Loratadine 10 mg PO DAILY Montelukast [Singulair] 10 mg PO DAILY Discontinued Aspirin 325 mg PO DAILY PRN PRN Reason: Headache Discharge Medication List Baclofen [Lioresal] 10 mg PO DAILY 08/04/18 [History] HYDROcodone/APAP 7.5-325MG [[place] 7.5-325] 1 tab PO TID PRN 08/04/18 [History] Metoprolol Tartrate [Lopressor] 25 mg PO DAILY 09/11/18 [History] Pantoprazole [Protonix] 40 mg PO DAILY 09/11/18 [History] Atorvastatin [Lipitor] 30 mg PO DAILY 03/30/19 [History] Butalb/Acetaminophen/Caffeine [Fioricet 50-325-40] 1 tab PO TID PRN 03/30/19 [History] Gabapentin [Neurontin] 600 mg PO HS 03/30/19 [History] Gabapentin [Neurontin] 900 mg PO QAM 03/30/19 [History] Loratadine 10 mg PO DAILY 03/30/19 [History] Montelukast [Singulair] 10 mg PO DAILY 03/30/19 [History] Aspirin 81 mg PO DAILY #30 chewable 04/01/19 [Rx] Follow up Appointment(s)/Referral(s): Lexii Betancourt MD [Primary Care Provider] - 3 Days Discharge Disposition: HOME SELF-CARE
[2019-04-01] MEDS: ASPIRIN 325 MG TAB PO SCH (13:03)
--- NOTE | 2019-04-01 13:04 | P.PN ---
Subjective Progress Note Date: 04/01/19 This is a 59-year-old gentleman with history of hypertension, GERD, spinal stenosis with prior neck surgery who presented to the hospital with symptoms of chest pain, shortness of breath and nausea. Patient also complained of some left upper extremity numbness and left lower extremity numbness. EKG on presentation here showed normal sinus rhythm with no acute changes. Troponins were negative 3. The patient was seen in consultation yesterday by cardiology and recommended today to undergo a dobutamine stress echo which was performed today. The patient was seen and examined this morning, denied any further chest discomfort. Objective - Vital Signs Vital signs: Vital Signs Temp 98.1 F 04/01/19 11:46 Pulse 63 04/01/19 11:46 Resp 18 04/01/19 11:46 BP 149/99 04/01/19 11:46 Pulse Ox 93 L 04/01/19 08:00 Intake & Output 03/31/19 04/01/19 04/01/19 18:59 06:59 18:59 Intake Total 480 Balance 480 Weight 67 kg Intake: Oral 480 Other: # Voids 1 - Exam PHYSICAL EXAMINATION: GENERAL: 59-year-old gentleman in no acute distress at the time of my examination HEENT: Head is atraumatic, normocephalic. Pupils equal, round. Sclera anicteric. Conjunctiva are clear. Mucous membranes of the mouth are moist. Neck is supple. There is no elevated jugular venous pressure. No carotid bruit is heard. HEART EXAMINATION: Heart S1, S2 normal. No murmur or gallop heard. CHEST EXAMINATION: Lungs are clear to auscultation and precussion. No chest wall tenderness is noted on palpation or with deep breathing. ABDOMEN: Soft, nontender. Bowel sounds are heard. No organomegaly noted. EXTREMITIES: 2+ peripheral pulses with no evidence of peripheral edema and no calf tenderness noted. NEUROLOGIC patient is awake, alert and oriented 3 . . - Labs CBC & Chem 7: 03/30/19 19:50 03/30/19 19:50 Assessment and Plan Plan: Assessment and plan #1 atypical chest discomfort with negative troponins, no EKG changes noted. #2 drug screen positive for barbiturates #3 nicotine dependence #4 spinal stenosis Plan Patient scheduled today to undergo dobutamine echocardiographic study as well as an echo. If those are normal then from our perspective the patient be discharged home today. DNP note has been reviewed, I agree with a documented findings and plan of care. Patient was seen and examined.
--- NOTE | 2019-04-01 15:55 | ECHOS ---
STRESS ECHOCARDIOGRAM DATE: April 01, 2019 INDICATIONS: Chest pain MEDICATIONS: BASELINE HEART RATE: 64 BASELINE BLOOD PRESSURE: 133/75 MAXIMUM HEART RATE: 148. MAXIMUM BLOOD PRESSURE: 143/46 85% MPHR: 135 100% MPHR: 159 METS: MAXIMUM STAGE REACHED: 3 TOTAL EXERCISE TIME: 7:00 CLINICAL INFORMATION: STRESS DATA: Heart rate is 64, pressure is 133/75 mmHg. Baseline EKG showed sinus mechanism. The dobutamine infusion at a dose of 10 mcg/kg per minute was initiated and increased to 30 mcg/kg per minute per protocol. Max heart rate was 140 which is about 88% of maximum predicted heart rate. Maximum blood pressure was 143/46 mmHg. Clinically the patient did not experience any symptoms of chest pain or chest discomfort during the testing or on recovery. The EKG did not show any significant ST or T-wave abnormalities concerning for ischemia. ECHOCARDIOGRAM IMAGES: On echocardiogram images from parasternal long axis view, parasternal short axis view apical 4 chamber and apical 2 chamber view were obtained as the baseline images, at low dose dobutamine infusion, at peak heart rate as well as on recovery. The echocardiogram images showed good augmentation in the left ventricular systolic function without any evidence of wall motion abnormalities concerning for ischemia. CONCLUSION: 1. Normal EKG in response to dobutamine. 2. Normal echocardiogram in response to dobutamine. MMODL / IJN: [id number] /
--- NOTE | 2019-04-01 17:46 | CONS ---
CONSULTATION DATE OF CONSULTATION: 03/31/2019 Mr. Rahman is a 59-year-old gentleman who is seen for the evaluation of chest pain. Patient's medical records reviewed. The patient has a history of hypertension, hearing disorder, chronic neck pain, spinal stenosis, history of neck surgery. The patient came with a complaint of chest pain. Patient had a left precordial chest discomfort which lasted only for 4-5 minutes. It was not associated with any significant shortness of breath. The patient has been having occasional chest pain on and off and has been followed by Dr. Prieto Lobo in the past. He has a previous cardiac workup which has been negative. According to the patient he says he had a cardiac catheterization done, but we do not have any records in the chart here. The patient at present is pain-free. The patient continues to smoke 1 pack per day. PAST MEDICAL HISTORY: Includes history of spinal stenosis, hearing disorder, the patient has implantation and right ear with bilateral hearing aids. MEDICATIONS: Home medications include baclofen, metoprolol 25 mg daily, Protonix once a day, Lipitor 30 mg daily, aspirin once a day, gabapentin and Singulair 10 mg daily. PHYSICAL EXAMINATION: At present reveals a 59-year-old gentleman who does not appear to be in any acute distress. The patient's blood pressure is 132/81 mmHg, heart rate is 61 per minute, oxygen saturation is 95%. Head ENT examination is negative. Neck is supple. There is no increase in jugular venous pressure. Both the carotid pulses are felt. There is no bruit. Chest is symmetrical. Heart the PMI is not felt. First and second heart sounds are normal. Lungs are clinically clear to auscultation and percussion. Abdomen is negative. Extremities: Peripheral pulsations are 2+. EKG shows a normal sinus rhythm without any acute changes. Cardiac enzymes are normal. FINAL IMPRESSION: This patient is admitted with chest pain. The chest pain is atypical chest pain. EKGs and cardiac enzymes are normal. Patient had a previous cardiac workup which has been normal. In view of that, we will recommend the patient to be evaluated with a stress echocardiographic study. If the stress test is normal, patient can be discharged home and follow up with Dr. Prieto Lobo as an outpatient. Thank you for the consultation. MMODL / IJN: [id number] /
== END 2019-04-01 18:05 | disposition home or self-care (01) ==
LOC: EC 19:30 → 3SCARD 22:57
PROVIDERS: ADMIT Internal Medicine; ATTEND Internal Medicine
DX: R07.89 Other chest pain (principal); R78.89 Finding of other specified substances, not normally found in blood; J43.9 Emphysema, unspecified; K21.9 Gastro-esophageal reflux disease without esophagitis; H91.90 Unspecified hearing loss, unspecified ear; I10 Essential (primary) hypertension; M48.00 Spinal stenosis, site unspecified; M54.2 Cervicalgia; M54.9 Dorsalgia, unspecified; G89.29 Other chronic pain; R20.0 Anesthesia of skin; F17.210 Nicotine dependence, cigarettes, uncomplicated; Z79.899 Other long term (current) drug therapy; Z79.82 Long term (current) use of aspirin; Z97.4 Presence of external hearing-aid; Z87.19 Personal history of other diseases of the digestive system; Z90.89 Acquired absence of other organs; Z98.890 Other specified postprocedural states; Z96.89 Presence of other specified functional implants; Z87.828 Personal history of other (healed) physical injury and trauma; Z98.42 Cataract extraction status, left eye; Z98.41 Cataract extraction status, right eye; Z80.9 Family history of malignant neoplasm, unspecified
CPT/HCPCS: 93005 ×2; 96360; 99285; 36415; 93351; 83880; 80061; 80053; 83690; 83735; 84484 ×2; 85025; 85610; 85730; 81003; 80306; 71046; G0378 ×3

== ENCOUNTER → 2020-02-05 | Outpatient (CLI) | payer MEDICARE, OTHER ==
[2020-02-06 03:51] LABS: Chol/HDL Ratio 3.04; LDL Cholesterol,Calculated 92.8 mg/dL (0.0-131.0); VLDL Calculation 17.2 mg/dL (5.00-40.00)
== END | disposition home or self-care (01) ==
LOC: LABWHC1 13:21
PROVIDERS: ATTEND Psychiatry & Neurology Pain Medicine
DX: Z51.81 Encounter for therapeutic drug level monitoring (principal)
CPT/HCPCS: 36415; 80061

== ENCOUNTER → 2020-02-12 | Outpatient (CLI) | payer MEDICARE, OTHER ==
--- NOTE | 2020-02-12 08:34 | CT ---
EXAMINATION TYPE: CT angio head neck DATE OF EXAM: 02/12/2020 HISTORY: Left sided arm numbness and involuntary movements COMPARISON: None. CT DLP: 1210.9 mGycm. Automated Exposure Control for Dose Reduction was Utilized. TECHNIQUE: CT head performed without contrast. CTA scan of the head and neck are performed without a nd with IV Contrast, patient injected with 65 mL of Isovue 370, axial images are obtained, coronal an d sagittal reformatted images are reviewed. Three-D reconstructed images are created on an [facility] [employer] workstation and reviewed. FINDINGS: Carotid/Vascular Structures: Normal. Vessel origins from aortic arch. Right common carotid artery anurag ws normal origin from right brachiocephalic artery. Moderate eccentric calcified plaque right carotid bulb extends into proximal internal carotid artery where there is more moderate mixed and noncalcifi ed plaque. Stenosis approaching but under 50% is present. Remainder of right common and internal awad tid artery shows no significant stenosis. Minimal calcified plaque supraclinoid segment. Mild to moderate mixed plaque begins just past carotid bulb without significant stenosis in proximal left internal carotid artery. Remainder of common and internal carotid artery show no significant rivka que or stenosis. Patent bilateral external carotid arteries with focal moderate noncalcified plaque o n the right causing stenosis approaching 50%. No significant plaque or stenosis on the left. There is slightly larger dominant left vertebral artery. Vertebral arteries are patent to basilar maria eugenia ction. There is hypoplastic bilateral posterior indicating arteries. There is no significant focal st enosis or aneurysmal change in the posterior circulation. There is a hypoplastic anterior communicati ng artery. There is no significant focal stenosis or aneurysmal change in the anterior circulation. Other: Noncontrast CT shows no acute intracranial hemorrhage or midline shift. Evidence of right mast oid surgery. Mild age related atrophy and chronic small vessel ischemic changes. Mild to moderate emphysematous change of visualized upper lungs with moderate right apical consolidat ion and/or atelectatic change Anterior fusion plate with artificial disc material at C3-C6 levels. Satisfactory alignment. Severe a nterior spurring C2-C3 level. Mild to moderate spurring and disc space narrowing C6-C7 level. Nasal septum deviated to right of midline. IMPRESSION: 1. Mild to moderate plaque near bilateral carotid bulbs extending into proximal internal carotid sigrid rosemarie, findings greater on the right. No hemodynamically significant stenosis seen in either internal carotid artery. 2. No significant stenosis or aneurysmal change at the level of the [place].
== END | disposition home or self-care (01) ==
LOC: RADCTMAIN 07:13
PROVIDERS: ATTEND Psychiatry & Neurology Neurology
DX: I65.23 Occlusion and stenosis of bilateral carotid arteries (principal)
CPT/HCPCS: 70496; 70498; Q9967

== ENCOUNTER 2020-04-16 18:15 | Emergency (ER) | payer MEDICARE, OTHER ==
[2020-04-16 18:19] VITALS: BP 132/98; PULSE 92; RESP 18; TEMP 98.1
[2020-04-16] MEDS ORDERED: HYDROmorphone 1 MG/ML 1 ML SYRINGE IM STA (18:22)
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
--- NOTE | 2020-04-16 19:23 | XR ---
History: ITS.REASON XR Reason: pain Exam: XR PELVIS 2 images Comparison: 04/13/2016 FINDINGS: No fracture or dislocation. Patient is rotated to the right. Considering rotation the SI joints and pubic symphysis appear within limits. IMPRESSION: No fracture or dislocation. Exam: XR RIGHT HIP 2 views Comparison: FINDINGS: No fracture or dislocation. Mild to moderate lateral joint space narrowing again suggested. Shape and appearance of the right femoral head again appears unchanged. IMPRESSION: No fracture or dislocation. Mild to moderate lateral joint space narrowing again suggested.
--- NOTE | 2020-04-16 19:25 | XR ---
History: ITS.REASON XR Reason: pain Exam: XR L SPINE 3 views Comparison: FINDINGS: No evidence of acute fracture or malalignment. Spondylosis/discogenic change noted. IMPRESSION: No evidence of acute fracture or malalignment.
[2020-04-16] MEDS ORDERED: predniSONE 10 MG TAB PO STA ×2 (19:31→19:34)
== END 2020-04-16 20:08 | disposition home or self-care (01) ==
LOC: EC 18:15
DX: M25.551 Pain in right hip (principal); M48.061 Spinal stenosis, lumbar region without neurogenic claudication; K21.9 Gastro-esophageal reflux disease without esophagitis; I10 Essential (primary) hypertension; F17.200 Nicotine dependence, unspecified, uncomplicated; Z98.42 Cataract extraction status, left eye; Z98.41 Cataract extraction status, right eye; Z79.899 Other long term (current) drug therapy; Z86.14 Personal history of Methicillin resistant Staphylococcus aureus infection
CPT/HCPCS: 99283 ×2; 96372 ×2; 72100; 73502; J1170; J7512

== ENCOUNTER 2020-06-21 17:33 | Inpatient (IN) | payer MEDICARE, OTHER ==
[2020-06-21] MEDS ORDERED: SODIUM CHLORIDE 0.9% 1,000 ML IV STA (17:56)
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
[2020-06-21 18:28] LABS: African American GFR (CKD) >90 (>60 ml/min/1.73 sqM); Alcohol 56 mg/dL; Anion Gap 7 mmol/L; Blood Urea Nitrogen 12 mg/dL (9-20); Carbon Dioxide 21 mmol/L (22-30); Chloride 102 mmol/L (98-107); Glucose 116 mg/dL (74-99); Magnesium 1.8 mg/dL (1.6-2.3); Non-African American GFR(CKD) 80 (>60 ml/min/1.73 sqM); Potassium 3.9 mmol/L (3.5-5.1); Sodium 130 mmol/L (137-145)
[2020-06-21 18:43] LABS: Basophils % (A) 1 %; Eosinophils # (A) 0.3 k/uL (0-0.7); Eosinophils % (A) 6 %; HCT 37.1 % (39.0-53.0); HGB 13.1 gm/dL (13.0-17.5); Lymphocytes % (A) 23 %; MCH 33.7 pg (25.0-35.0); MCHC 35.3 g/dL (31.0-37.0); MCV 95.4 fL (80.0-100.0); Mean Platelet Volume 9.1; Monocytes # (A) 0.3 k/uL (0-1.0); Monocytes % (A) 8 %; Neutrophils # (A) 2.7 k/uL (1.3-7.7); Neutrophils % (A) 61 %; RBC 3.89 m/uL (4.30-5.90); RDW 13.4 % (11.5-15.5); WBC 4.5 k/uL (3.8-10.6)
[2020-06-21 19:19] LABS: Platelet Count 60 k/uL (150-450)
[2020-06-21] MEDS ORDERED: NALOXONE 0.4 MG/ML 1 ML VIAL IV PRN (19:47)
[2020-06-21] MEDS ORDERED: LORazepam 2 MG/ML INJ IV PRN ×4 (19:48→19:52)
[2020-06-21] MEDS ORDERED: THIAMINE 100 MG/ML 2 ML VIAL IM STA (19:52)
[2020-06-21] MEDS: SODIUM CHLORIDE 0.9% 1,000 ML IV SCH (20:14)
[2020-06-21] MEDS: THIAMINE 100 MG TAB PO SCH (20:23)
[2020-06-21] MEDS ORDERED: HYDROcodone/APAP 7.5-325MG 1 EACH TAB PO PRN (21:01)
[2020-06-21] MEDS ORDERED: BUTALB/APAP/CAFF 50-325-40MG TAB PO PRN (21:01)
[2020-06-21] MEDS ORDERED: TEMAZEPAM 15 MG CAP PO PRN (21:02)
[2020-06-21] MEDS: MECLIZINE 25 MG TAB PO SCH (21:12)
[2020-06-21 22:45] LABS: Appearance,Urine Clear (Clear); Bilirubin,Urine Negative (Negative); Blood,Urine Negative (Negative); Color,Urine Colorless; Glucose,Urine (UA) Negative (Negative); Ketones,Urine Negative (Negative); Leukocyte Esterase,Urine Negative (Negative); Nitrite,Urine Negative (Negative); Protein,Urine Negative (Negative); Specific Gravity,Urine 1.006 (1.001-1.035); Urobilinogen,Urine <2.0 mg/dL (<2.0)
[2020-06-21 23:09] LABS: Amphetamine Screen,Urine Not Detected (NotDetected); Barbiturate Screen,Urine Detected (NotDetected); Benzodiazepines Screen,Urine Not Detected (NotDetected); Cocaine Screen,Urine Not Detected (NotDetected); Methadone Screen, Urine Not Detected (NotDetected); Opiate Screen,Urine Not Detected (NotDetected); Oxycodone Screen, Urine Not Detected (NotDetected); Phencyclidine Screen,Urine Not Detected (NotDetected); Tricyclic Antidepressant,Urine Not Detected (NotDetected); Urn Cannabinoid Scrn Not Detected (NotDetected)
--- NOTE | 2020-06-21 23:20 | HP ---
HISTORY AND PHYSICAL CHIEF COMPLAINTS: Seizure disorder. HISTORY OF PRESENT ILLNESS: This 60-year-old gentleman with a past medical history of multiple medical problems including GERD, history of hypertension, history of musculoskeletal disease, history of spinal stenosis, history of hearing difficulty, history of MRSA, being followed by Dr. Betancourt in the outpatient setting is complaining of multiple seizures. The patient was apparently evaluated by Dr. Acuna and nonepileptic seizures considered as a possibility. The patient admitted for evaluation and treatment. There is no history of fever, rigors. No headache, loss of consciousness or seizures. The patient is found to be hyponatremia. Patient reports the patient also drinks about 1 or 2 drinks per day. The serum alcohol was found to be 56. PAST MEDICAL HISTORY: History of GERD, hypertension, history muscular spinal stenosis. MEDICATIONS: Prior to admission include home medications, omeprazole, Lopressor, Antivert, loratadine, Latanoprost, Gill. Neurontin, Fioricet p.r.n., Lipitor, aspirin. Doses are reviewed. ALLERGIES: None. FAMILY HISTORY: History of cancer in the family. SOCIAL HISTORY: History of smoking, alcohol as mentioned earlier. REVIEW OF SYSTEMS: ENT diminished hearing. No diminished vision. CARDIOVASCULAR: No angina or palpitations. RESPIRATIONS: No cough, hemoptysis. GI: No nausea or vomiting. : No dysuria or hematuria. NERVOUS SYSTEM as mentioned earlier. ALLERGY/IMMUNOLOGY: No asthma or hayfever. MUSCULOSKELETAL: As mentioned earlier. HEMATOLOGY/ONCOLOGY: No history of anemia. ENDOCRINE: No history of diabetes or hypothyroidism. CONSTITUTIONAL: As mentioned earlier. DERMATOLOGY negative. RHEUMATOLOGY: Negative. PSYCHIATRIC: As mentioned earlier. PHYSICAL EXAMINATION: The patient is alert and oriented times three. Pulse 79, blood pressure 128/76, respiration 18, temperature 97.2, pulse ox 99% on room air. HEENT: Conjunctivae normal. Oral mucosa moist. NECK is no jugular venous distention. No carotid bruit. No lymph node enlargement. Cardiovascular system: S1, S2 muffled. No S3, no S4. RESPIRATORY: Breath sounds diminished in the bases. No rhonchi. No crackles. ABDOMEN: Soft, nontender. No mass palpable. LEGS: No edema. No swelling. NERVOUS SYSTEM: Higher functions as mentioned earlier. Moves all 4 limbs. No focal motor or sensory deficits. LYMPHATICS: No lymph nodes palpable in the neck, axillae or groin. SKIN: No ulcer, no rash and no bleeding. JOINTS: No active deforming arthropathy. LABS: WBC 4.2, hemoglobin 13.1, platelets 60. Sodium 130. ASSESSMENT: 1. Acute seizure disorder with possible breakthrough seizures. 2. History of previous seizure or nonepileptic seizures. 3. Thrombocytopenia. 4. History of ETOH. 5. Hyponatremia. 6. Elevated random glucose. 7. Mild hypercalcemia. 8. History of hypertension. 9. History of hearing difficulty. 10.Gastroesophageal reflux disease. 11.History of degenerative joint disease. 12.History of spinal stenosis. 13.History bilateral hearing aids. 14.History of MRSA. 15.History of tonsillectomy. 16.History of nicotine dependence. 17.History of ETOH. 18.FULL CODE. RECOMMENDATIONS AND DISCUSSION: This 60-year-old gentleman presented with multiple complex medical issues, we will monitor the patient closely. Continue the current management. Symptomatic treatment. I recommend empiric Keppra and neurology evaluation. EEG has been done previously. Otherwise, resume the home medications. CIWA protocol. Prognosis guarded because of multiple complex medical issues. Further recommendations to follow. A copy of dictation being forwarded to Dr. Betancourt who is the primary physician. MMODL / IJN: [id number] /
[2020-06-22 09:28] LABS: African American GFR (CKD) 82.9 (60.0-200.0); Albumin 3.7 g/dL (3.80-4.90); Albumin/Globulin Ratio 1.54 (1.60-3.17); Anion Gap 3.5 mmol/L (4.00-12.00); BUN/Creat Ratio 11.82 Ratio (12.00-20.00); Calcium 8.3 mg/dL (8.7-10.3); Carbon Dioxide 25.5 mmol/L (21.6-31.8); Globulin 2.4 g/dL (1.6-3.3); Non-African American GFR(CKD) 71.6 (60.0-200.0); Potassium 4.3 mmol/L (3.5-5.5); Total Bilirubin 0.2 mg/dL (0.3-1.2); Total Protein 6.1 g/dL (6.2-8.2)
[2020-06-22] MEDS: ASPIRIN 81 MG PO SCH (10:12)
[2020-06-22] MEDS: PANTOPRAZOLE 40 MG TABLET PO SCH (10:12)
[2020-06-22] MEDS: BACLOFEN 10 MG TAB PO SCH ×2 (10:13→20:40)
[2020-06-22] MEDS: METOPROLOL TARTRATE 25 MG TAB PO SCH (10:13)
[2020-06-22] MEDS: GABAPENTIN 300 MG CAP PO SCH ×2 (10:13→15:06)
[2020-06-22] MEDS: THIAMINE 100 MG TAB PO SCH ×2 (10:13→16:59)
[2020-06-22] MEDS: MECLIZINE 25 MG TAB PO SCH ×3 (10:13→20:40)
[2020-06-22] MEDS: LORATADINE 10 MG TAB PO SCH (10:14)
[2020-06-22] MEDS ORDERED: levETIRAcetam 500 MG TAB PO STA (10:15)
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
[2020-06-22 11:18] LABS: African American GFR (CKD) 93.1 (60.0-200.0); Calcium 8.1 mg/dL (8.7-10.3); Non-African American GFR(CKD) 80.3 (60.0-200.0); Potassium 4.5 mmol/L (3.5-5.5)
[2020-06-22 13:18] LABS: Basophils # (A) 0.04 X 10*3/uL (0.00-0.10); Basophils % (A) 0.7 %; Eosinophils # (A) 0.15 X 10*3/uL (0.04-0.35); Eosinophils % (A) 2.7 %; HCT 39.8 % (39.6-50.0); HGB 13.3 g/dL (13.0-17.0); Lymphocytes # (A) 1.27 X 10*3/uL (0.90-5.00); Lymphocytes % (A) 23.2 %; MCH 32.1 pg (27.0-32.0); MCHC 33.4 g/dL (32.0-37.0); MCV 96.1 fL (80.0-97.0); Mean Platelet Volume 10.4 fL (9.5-12.2); Monocytes # (A) 0.62 X 10*3/uL (0.20-1.00); Monocytes % (A) 11.3 %; Neutrophils # (A) 3.38 X 10*3/uL (1.80-7.70); Neutrophils % (A) 61.9 %; Platelet Count 124 X 10*3/uL (140-440); RBC 4.14 X 10*6/uL (4.40-5.60); RDW 13.8 % (11.5-14.5); WBC 5.47 X 10*3/uL (4.50-10.00)
--- NOTE | 2020-06-22 13:18 | CT ---
EXAMINATION TYPE: CT brain wo con DATE OF EXAM: 06/22/2020 HISTORY: multiple seizures in short time per patient CT DLP: 1099.4 mGycm. Automated Exposure Control for Dose Reduction was Utilized. TECHNIQUE: CT scan of the head is performed without contrast. COMPARISON: CT brain April 13, 2016. FINDINGS: There is no acute intracranial hemorrhage or midline shift identified. There is mild diff use ventricular and sulcal prominence consistent with diffuse age-related cerebral atrophy. Caballero-whit e matter differentiation fairly well-maintained. The globes are intact and the visualized sinuses ar e clear. IMPRESSION: No acute intracranial hemorrhage or midline shift. There is mild diffuse age-related ce rebral atrophy redemonstrated.
[2020-06-22] MEDS: MULTIVITAMINS, THERA 1 EACH TAB PO SCH (15:06)
[2020-06-22] MEDS: FOLIC ACID 1 MG TAB PO SCH (15:06)
--- NOTE | 2020-06-22 16:38 | EEG ---
ELECTROENCEPHALOGRAM REPORT DATE OF SERVICE: 06/22/2020. CLINICAL HISTORY: This is a 60-year-old gentleman with recurrent jerking of the left upper and lower extremities. The video EEG is obtained to evaluate for seizure and epileptiform activity. Relevant medication is Keppra. EEG TYPE: A routine 21 channel EEG is performed with video using the 10/20 electrode placement system. DESCRIPTION: Wakefulness and drowsiness are obtained. During wakefulness, there is a posterior dominant rhythm of low to moderate voltage, reactive, well modulated, of 9-10 hertz activity. During drowsiness, there is slowing attenuation of the background activity. There is no physiological stage II sleep. The interictal and ictal none. ACTIVATION PROCEDURES: Photic stimulation did not evoke a posterior driving response. There is no abnormality during the photic stimulation. Hyperventilation is performed and there is no abnormality during hyperventilation. CLINICAL INTERPRETATION: This is a normal routine EEG. There are no focal slowing, epileptiform discharge or seizure on the EEG. Clinical correlation is recommended. XIOMARA / DEBORAH: [id number] / RODNEY
[2020-06-22] MEDS: SODIUM CHLORIDE 0.9% 1,000 ML IV SCH (20:00)
--- NOTE | 2020-06-22 20:10 | PN ---
PROGRESS NOTE DATE OF SERVICE: 06/22/2020 This 60-year-old gentleman admitted with seizure disorder also had a history of significant ETOH. Dr. Ramey has seen the patient. Diffuse mild cerebral atrophy is noted on the CT scan and Dr. Ramey has recommended Keppra 500 mg twice daily on an empirical basis. EEG was done which showed a normal routine EEG. Past medical history reviewed. REVIEW OF SYSTEMS: CARDIOVASCULAR SYSTEM: No angina, palpitations. RESPIRATORY SYSTEM: As mentioned earlier. GI: As mentioned earlier. : No dysuria or retention. NERVOUS SYSTEM: No numbness, weakness. CURRENT MEDICATIONS: Reviewed. They include Fioricet, [place], aspirin, Lipitor, folic acid, Neurontin. Doses are reviewed. PHYSICAL EXAMINATION: Alert and oriented x3. Pulse 78, blood pressure 148/80, respiration 18, temperature 98.2. HEENT: Conjunctivae normal. NECK: No jugular venous distention. CARDIOVASCULAR SYSTEM: S1, S2 muffled. RESPIRATORY SYSTEM: Breath sounds diminished at the bases. No rhonchi. No crackles. ABDOMEN: Soft, non-tender. LEGS: No edema. No swelling. NERVOUS SYSTEM: No focal deficit. LABS: WBC 4.7, hemoglobin 13.2, platelets 124. Other labs are noted. UA noted. ASSESSMENT: 1. Acute seizure disorder with possible breakthrough seizures. 2. History of previous seizure or nonepileptic seizures. 3. History of ETOH. 4. Thrombocytopenia. 5. Hyponatremia. 6. Elevated random glucose. 7. Mild hypercalcemia. 8. History of hypertension. 9. History of hearing difficulties. 10.Gastroesophageal reflux disease. 11.History of degenerative joint disease. 12.History of spinal stenosis. 13.History of bilateral hearing acquired immunodeficiency syndrome. 14.History of methicillin-resistant Staphylococcus aeruginosa. 15.History of tonsillectomy. 16.History of nicotine dependence. 17.FULL CODE. RECOMMENDATIONS AND DISCUSSION: I recommend to continue current medications, continue with the monitoring, symptomatic treatment. Otherwise at this time I would recommend continuing with Keppra. CIWA protocol. Gait training. Alcohol cessation advised. Possible rehab. Prognosis guarded because of multiple complex medical issues. Further recommendations to follow. MMODL / IJN: [id number] /
[2020-06-22] MEDS: levETIRAcetam 500 MG TAB PO SCH (20:40)
[2020-06-22] MEDS ORDERED: GABAPENTIN 300 MG CAP PO SCH (21:00)
[2020-06-22] MEDS ORDERED: ATORVASTATIN 20 MG TAB PO SCH (21:00)
[2020-06-22] MEDS ORDERED: LATANOPROST 0.005% OPHTH DROPS 2.5 ML BTL BOTH EYES SCH (21:00)
[2020-06-23] MEDS: ASPIRIN 81 MG PO SCH (08:12)
[2020-06-23] MEDS: METOPROLOL TARTRATE 25 MG TAB PO SCH (08:12)
[2020-06-23] MEDS: BACLOFEN 10 MG TAB PO SCH (08:13)
[2020-06-23] MEDS: PANTOPRAZOLE 40 MG TABLET PO SCH (08:13)
[2020-06-23] MEDS: levETIRAcetam 500 MG TAB PO SCH (08:13)
[2020-06-23] MEDS: MECLIZINE 25 MG TAB PO SCH (08:13)
[2020-06-23] MEDS: LORATADINE 10 MG TAB PO SCH (08:14)
[2020-06-23] MEDS: THIAMINE 100 MG TAB PO SCH (08:14)
[2020-06-23] MEDS: GABAPENTIN 300 MG CAP PO SCH ×2 (08:14→12:54)
[2020-06-23 09:18] LABS: African American GFR (CKD) 105.7 (60.0-200.0); Anion Gap 2.5 mmol/L (4.00-12.00); BUN/Creat Ratio 14.44 Ratio (12.00-20.00); Calcium 8.7 mg/dL (8.7-10.3); Carbon Dioxide 28.5 mmol/L (21.6-31.8); Non-African American GFR(CKD) 91.2 (60.0-200.0); Potassium 4.3 mmol/L (3.5-5.5)
[2020-06-23 09:24] LABS: Basophils # (A) 0.05 X 10*3/uL (0.00-0.10); Basophils % (A) 0.9 %; Eosinophils # (A) 0.16 X 10*3/uL (0.04-0.35); HCT 41.2 % (39.6-50.0); HGB 13.7 g/dL (13.0-17.0); Lymphocytes # (A) 1.61 X 10*3/uL (0.90-5.00); Lymphocytes % (A) 29.7 %; MCH 32.2 pg (27.0-32.0); MCHC 33.3 g/dL (32.0-37.0); MCV 96.7 fL (80.0-97.0); Mean Platelet Volume 10.4 fL (9.5-12.2); Monocytes # (A) 0.69 X 10*3/uL (0.20-1.00); Monocytes % (A) 12.7 %; Neutrophils # (A) 2.89 X 10*3/uL (1.80-7.70); Neutrophils % (A) 53.3 %; Platelet Count 126 X 10*3/uL (140-440); RBC 4.26 X 10*6/uL (4.40-5.60); RDW 14.1 % (11.5-14.5); WBC 5.42 X 10*3/uL (4.50-10.00)
[2020-06-23] MEDS: MULTIVITAMINS, THERA 1 EACH TAB PO SCH (12:54)
[2020-06-23] MEDS: FOLIC ACID 1 MG TAB PO SCH (12:55)
[2020-06-23 13:42] VITALS: BP 151/80; PULSE 63; RESP 17; TEMP 97.7
--- NOTE | 2020-06-23 15:53 | P.PN ---
Subjective Progress Note Date: 06/23/20 The patient was seen at bedside and that he stated that he is doing much better today compared that to his initial presentation. He denies any further jerking of any extremities. He denies of any paresthesia, visual disturbance, headaches, difficulty getting his words out. Objective - Vital Signs Vital signs: Vital Signs Temp 97.7 F 06/23/20 13:41 Pulse 63 06/23/20 13:41 Resp 17 06/23/20 13:41 BP 151/80 06/23/20 13:41 Pulse Ox 99 06/23/20 13:41 Intake & Output 06/22/20 06/23/20 06/23/20 18:59 06:59 18:59 Intake Total 530 1330 Balance 530 1330 Intake: Intake, IV Titration 230 230 Amount Sodium Chloride 0.9% 1, 230 230 000 ml @ 20 mls/hr IV . Q24H JERICA Rx#:[id number] Oral 300 1100 Other: # Voids 2 2 - Exam GENERAL: The patient is lying in bed and is not in acute distress. NEUROLOGICAL: Higher mental function: The patient is awake, alert, oriented to self, place and time. Patient is following commands. No aphasia and no neglect. Cranial nerves: The pupils are round, equal and reactive to light and accommodation. Visual thomas are full to confrontation throughout. Extraocular movement is intact no nystagmus is noted. Facial sensation is normal to touch throughout. The facial strength is normal throughout. Hearing is normal bilaterally to hand rub. Tongue is midline and moved [id number]-[id number] without any difficulty. No dysarthria is noted. Shoulder shrug is normal bilaterally. Motor: Gait is deferred. The strength is 5 over 5 throughout. Normal tone and bulk. Cerebellum: Normal finger to nose bilaterally. Sensation: Sensation is normal to touch throughout. Reflexes (right/left): 3+ over bilateral patellar. Otherwise 2+ throughout. Plantars are downgoing bilaterally. - Labs CBC & Chem 7: 06/23/20 06:35 06/23/20 06:35 Labs: Abnormal Lab Results - Last 24 Hours (Table) 06/23/20 06/23/20 Range/Units 06:35 06:35 RBC 4.26 L (4.40-5.60) X 10*6/uL MCH 32.2 H (27.0-32.0) pg Plt Count 126 L (140-440) X 10*3/uL Chloride 110 H (96-109) mmol/L Anion Gap 2.50 L (4.00-12.00) mmol/L Assessment and Plan Assessment: This is a 60-year-old gentleman that presented to the emergency department on 06/21/2020 for recurrent seizure episodes. Patient stated that he had similar episodes the last 2-3 years and had extensive workup by his neurologist (Dr. Acuna) and at [facility] and he was told all work-up was normal and uncertain what those episodes were. He is not on antiepileptic drug. * Recurrent jerking of left side seems focal seizure without loss of consciousness (had witnessed 8 episodes of numbness of left upper and lower extremity then jerking of left upper extremity lasting 10-15 seconds). (These episode seem atypical for alcohol withdrawl seizures). Patient stated he had extensive work-up by his neurologist and was told it was uncertain of the episodes. * Mild hyponatremia likely due to significant alcohol use (sodium is 130) * Thrombocytopenia likely due to significant alcohol use * History of significant Cervical stenosis s/p decompression and fusion 2-3 years ago * Chronic alcohol use (alcohol level at 56) and cutting down in the last one month * History of hypertension * Tobacco use (1/2 PPD for years) Plan: The patient was started on CIWA protocol and we'll defer the management to the primary team. Patient was started on folic acid 1 mg daily and thiamine 100 mg 1 tablet twice a day by the ED team. ionized calcium: 4.9 (normal). CT of the head: It is reported as no acute intracranial hemorrhage or midline shift. There is mild diffuse age-related cerebral atrophy redemonstrated. Routine EE06/22/2020 is normal routine EEG. There are no focal slowing, perform discharges or seizure on EEG. Continue Keppra 500mg 1 tab bid. Patient is to follow-up with his neurologist locally at [place] as well as he follows up at [place] and was told to follow-up with his neurologist since he had extensive workup and MRI so we will not pursue with further workup Consider patient to get long-term EEG or epilepsy monitoring unit to the exactly dealing with whether these episodes are truly seizure or nonepileptic in nature as an outpatient. The patient was counseled on alcohol cessation and tobacco use. Upon discharge the patient needs to follow-up with his neurologist (Dr. Acuna) within 1-2 week (has appointment on 07/06/20) and he said he follows-up at [facility]. Regarding his seizures, patient is to avoid driving for 6 months per [place] DMV untill seizure free. He is to avoid heavy machinery, avoid heights or swimming unassisted. The plan is discussed with the patient and his nurse. There is no further workup needed at this time. Patient is clear from a neurology perspective. Ja Ramey MD Neuro-Hospitalist Time with Patient: Less than 30
--- NOTE | 2020-06-23 22:18 | DS ---
DISCHARGE SUMMARY DATE OF SERVICE: 06/23/2020 FINAL DIAGNOSES: 1. Acute seizure disorder with possible breakthrough seizures. 2. Previous history of seizures or nonepileptic seizure. 3. History of ETOH. 4. Thrombocytopenia. 5. Hyponatremia. 6. Elevated random glucose. 7. Mild hypercalcemia. 8. History of hypertension. 9. History of hearing difficulty. 10.Gastroesophageal reflux disease. 11.Degenerative joint disease. 12.History of spinal stenosis. 13.Bilateral hearing difficulties. 14.History of methicillin-resistant Staphylococcus aeruginosa. 15.History of tonsillectomy. 16.History of nicotine dependence. 17.FULL CODE. DISCHARGE DISPOSITION: The patient will be discharged in stable condition with guarded prognosis. Neurology cleared the patient for discharge. HISTORY OF PRESENT ILLNESS: This 60-year-old gentleman with a past medical history of multiple medical problems was admitted with seizure disorder and multiple other medical problems, as mentioned earlier. The patient was treated symptomatically. Neurology saw the patient. Medications were adjusted. Recommended close outpatient followup. EEG did not show any acute abnormality. On exam, vitals are stable. CARDIOVASCULAR SYSTEM: S1, S2 muffled. ABDOMEN: Soft. NERVOUS SYSTEM: No focal deficit. DISCHARGE ADVICE AND MEDICATIONS: 1. Diet is cardiac. 2. Activity limited until followup. 3. Follow up with Dr. Betancourt in 2-3 days. 4. Follow up with Dr. Acuna as recommended. 5. Antivert 25 mg p.o. t.i.d. 6. Butalbital 1 tablet t.i.d. p.r.n. 7. Latanoprost 1 drop daily. 8. Lioresal 10 mg b.i.d. 9. Lipitor 20 mg at bedtime. 10.Lopressor 25 mg daily. 11.Loratadine 10 mg daily. 12.Neurontin 300 mg b.i.d. at bedtime. 13.[place] 7.5 mg t.i.d. p.r.n. 14.Omeprazole 40 mg daily. 15.Aspirin 81 mg daily. 16.Folic acid 1 mg daily. 17.Keppra 500 mg p.o. b.i.d. 18.Multivitamins 1 p.o. daily. 19.Thiamine 100 mg p.o. b.i.d. MMODL / IJN: [id number] / [facility]
== END 2020-06-23 15:50 | disposition home or self-care (01) | DRG 101 ==
LOC: EC 17:33 → SUPCPDRO 17:33 → 4SSUR 19:47
PROVIDERS: ADMIT Hospitalist; ATTEND Hospitalist
DX: G40.909 Epilepsy, unspecified, not intractable, without status epilepticus (principal); E87.1 Hypo-osmolality and hyponatremia; E83.52 Hypercalcemia; D69.59 Other secondary thrombocytopenia; F17.210 Nicotine dependence, cigarettes, uncomplicated; H91.8X3 Other specified hearing loss, bilateral; I10 Essential (primary) hypertension; K21.9 Gastro-esophageal reflux disease without esophagitis; M19.90 Unspecified osteoarthritis, unspecified site; M48.00 Spinal stenosis, site unspecified; Z71.41 Alcohol abuse counseling and surveillance of alcoholic; Z71.6 Tobacco abuse counseling; Y90.2 Blood alcohol level of 40-59 mg/100 ml; Z79.82 Long term (current) use of aspirin; Z79.899 Other long term (current) drug therapy; Z80.9 Family history of malignant neoplasm, unspecified; Z86.14 Personal history of Methicillin resistant Staphylococcus aureus infection; Z97.4 Presence of external hearing-aid; Z20.822 Contact with and (suspected) exposure to COVID-19; Z98.49 Cataract extraction status, unspecified eye; Z72.89 Other problems related to lifestyle; Z98.1 Arthrodesis status; Z90.89 Acquired absence of other organs
CPT/HCPCS: 36415; 70450; 80048; 80053; 80306; 80320; 81003; 82330; 83735; 85025; 87635; 93005; 94760; 95816; 96360; 96361; 96372; 99285

== ENCOUNTER 2020-10-07 18:14 | Observation (INO) | payer MEDICARE, OTHER ==
[2020-10-07 18:29] LABS: Basophils % (A) 1 %; Eosinophils # (A) 0.2 k/uL (0-0.7); Eosinophils % (A) 3 %; HCT 37.2 % (39.0-53.0); HGB 12.9 gm/dL (13.0-17.5); Lymphocytes # (A) 1.6 k/uL (1.0-4.8); Lymphocytes % (A) 26 %; MCH 33.7 pg (25.0-35.0); MCHC 34.7 g/dL (31.0-37.0); MCV 97.2 fL (80.0-100.0); Monocytes # (A) 0.6 k/uL (0-1.0); Monocytes % (A) 9 %; Neutrophils # (A) 3.7 k/uL (1.3-7.7); Neutrophils % (A) 60 %; Platelet Count 106 k/uL (150-450); RBC 3.82 m/uL (4.30-5.90); RDW 13.7 % (11.5-15.5); WBC 6.2 k/uL (3.8-10.6)
[2020-10-07 18:44] LABS: Partial Thromboplastin Time 25.2 sec (22.0-30.0); Prothrombin Time 10.7 sec (9.0-12.0)
[2020-10-07 18:46] LABS: Albumin 3.8 g/dL (3.5-5.0); Calcium 8.7 mg/dL (8.4-10.2); Magnesium 1.9 mg/dL (1.6-2.3); Potassium 4.1 mmol/L (3.5-5.1); Total Bilirubin 0.4 mg/dL (0.2-1.3); Total Protein 6.2 g/dL (6.3-8.2)
--- NOTE | 2020-10-07 19:14 | XR ---
EXAMINATION TYPE: XR chest 2V DATE OF EXAM: 10/07/2020 COMPARISON: Prior chest x-ray 03/30/2019, CT 02/12/2020 HISTORY: Chest pain TECHNIQUE: Frontal and lateral views of the chest are obtained. FINDINGS: There is no focal air space opacity, pleural effusion, or pneumothorax seen. The cardiac silhouette size is within normal limits. Apical pleural thickening on the right is stable, postop francoise nges again noted to the cervical spine, there are overlying leads The osseous structures are intact, there is thoracic spondylosis. IMPRESSION: No acute cardiopulmonary process. There is underlying emphysema.
[2020-10-07] MEDS ORDERED: NALOXONE 0.4 MG/ML 1 ML VIAL IV PRN (19:30)
[2020-10-07] MEDS ORDERED: ACETAMINOPHEN TAB 325 MG TAB PO PRN (19:30)
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
[2020-10-07] MEDS: MORPHINE SULFATE 4 MG/ML SYRINGE IV PRN (19:38)
[2020-10-08] MEDS: MORPHINE SULFATE 4 MG/ML SYRINGE IV PRN ×3 (03:28→12:07)
[2020-10-08] MEDS ORDERED: CAFFEINE CITRATE 60 MG/3 ML VIAL IV PRN (08:21)
[2020-10-08] MEDS ORDERED: AMINOPHYLLINE 500 MG/20 ML VIAL IV PRN (08:21)
[2020-10-08] MEDS ORDERED: REGADENOSON 0.4 MG/5 ML SYRINGE IV PRN (08:21)
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
--- NOTE | 2020-10-08 12:24 | NM ---
EXAMINATION TYPE: NM stress lexiscan cardiolite DATE OF EXAM: 10/08/2020 COMPARISON: NONE HISTORY: Chest pain TECHNIQUE: After the intravenous administration of 9.77 mCi Tc 99m Sestamibi - Cardiolite resting SP ECT images acquired 60 minutes post injection. The patient received 0.4mg Lexiscan, 25 mCi Tc 99m Sestamibi - Stress images obtained 40 minutes post injection FINDINGS: Review of stress and rest SPECT images demonstrates no distinct perfusion abnormality. Gated analysi s shows normal wall motion with an estimated left ventricular ejection fraction of 62 %. IMPRESSION: No scintigraphic evidence for reversible ischemia.
[2020-10-08] MEDS ORDERED: BACLOFEN 10 MG TAB PO PRN (13:11)
[2020-10-08] MEDS ORDERED: HYDROcodone/APAP 7.5-325MG 1 EACH TAB PO PRN (13:11)
[2020-10-08] MEDS ORDERED: PANTOPRAZOLE 40 MG TABLET PO SCH (13:15)
[2020-10-08 14:49] LABS: Amylase 97 U/L (30-110); Lipase 572 U/L (23-300)
[2020-10-08] MEDS ORDERED: MORPHINE SULFATE 4 MG/ML SYRINGE IVP PRN (15:22)
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
--- NOTE | 2020-10-08 15:48 | EST ---
EXERCISE STRESS DATE OF SERVICE: 10/08/2020 LUMASON: INDICATIONS: Chest pain MEDICATIONS: BASELINE HEART RATE: 64 BASELINE BLOOD PRESSURE: 137/75 MAXIMUM HEART RATE: 103 MAXIMUM BLOOD PRESSURE: 153/79 85% MPHR: 134 100% MPHR: 158 METS: N/A MAXIMUM STAGE REACHED: N/A TOTAL EXERCISE TIME: N/A CLINICAL INFORMATION: Baseline rhythm is sinus mechanism rate 64, normal axis and intervals nonspecific ST-T wave changes baseline blood pressure 137/75 mmHg. Patient received injection of Lexiscan. Electrocardiograph monitoring revealed rare PVCs. There was no evidence of diagnostic ischemic ST deviation. Cardiolite was injected per protocol. CONCLUSION: 1. Nondiagnostic electrocardiograph stress testing. 2. Nuclear images will be reported separately. MMODL / IJN: [id number] /
[2020-10-08] MEDS: SODIUM CHLORIDE 0.9% 1,000 ML IV SCH (16:16)
[2020-10-08] MEDS: PANTOPRAZOLE 40 MG TABLET PO SCH (17:58)
[2020-10-08] MEDS: THIAMINE 100 MG TAB PO SCH (17:58)
[2020-10-08] MEDS: levETIRAcetam 500 MG TAB PO SCH (20:14)
[2020-10-08] MEDS: HEPARIN SODIUM,PORCINE/PF 5,000 UNIT/0.5 ML SYRINGE SQ SCH (20:15)
[2020-10-08] MEDS ORDERED: ATORVASTATIN 10 MG TAB PO SCH (21:00)
[2020-10-08] MEDS ORDERED: LATANOPROST 0.005% OPHTH DROPS 2.5 ML BTL BOTH EYES SCH (21:00)
[2020-10-08] MEDS ORDERED: GABAPENTIN 300 MG CAP PO SCH (21:00)
[2020-10-09] MEDS: SODIUM CHLORIDE 0.9% 1,000 ML IV SCH (06:15)
[2020-10-09 07:53] VITALS: BP 128/75; PULSE 75; RESP 18; TEMP 97.6
[2020-10-09] MEDS: THIAMINE 100 MG TAB PO SCH (08:38)
[2020-10-09] MEDS: PANTOPRAZOLE 40 MG TABLET PO SCH (08:39)
[2020-10-09] MEDS: levETIRAcetam 500 MG TAB PO SCH (08:39)
[2020-10-09] MEDS: HEPARIN SODIUM,PORCINE/PF 5,000 UNIT/0.5 ML SYRINGE SQ SCH (08:39)
[2020-10-09] MEDS ORDERED: MULTIVITAMINS, THERA 1 EACH TAB PO SCH (09:00)
[2020-10-09] MEDS ORDERED: LOSARTAN 25 MG TAB PO SCH (09:00)
[2020-10-09] MEDS ORDERED: FOLIC ACID 1 MG TAB PO SCH (09:00)
[2020-10-09] MEDS ORDERED: GABAPENTIN 300 MG CAP PO SCH (09:00)
[2020-10-09] MEDS ORDERED: ASPIRIN 81 MG PO SCH (09:00)
[2020-10-09] MEDS ORDERED: METOPROLOL TARTRATE 25 MG TAB PO SCH (09:00)
[2020-10-09] MEDS ORDERED: CLOPIDOGREL 75 MG TAB PO SCH (09:00)
--- NOTE | 2020-10-10 22:58 | P.DS ---
Providers Date of admission: 10/07/20 19:30 Expected date of discharge: 10/09/20 Attending physician: Kelly Colbert Primary care physician: [facility] Hospital Course: Final Diagnosis Acute pancreatitis likely EtOH related Atypical chest pain. Ruled out ACS. Lexiscan Stress test is negative. Alcohol use on a daily basis Mild thrombocytopenia with platelet count 106 Ongoing nicotine addiction GERD Hypertension Hearing disorder/deafness on hearing aids Peripheral neuropathy bilateral lower extremity likely etiology related. DVT prophylaxis Discharge disposition Patient is being discharged in a stable condition with guarded prognosis to home. Patient will follow-up with the [facility] in the outpatient setting upon discharge. Total time taken is greater than 35 minutes. Hospital course Patient is a 60-year-old male with a known history of GERD, hypertension, hearing disorder, currently with a smoker and daily alcohol use quit 3 weeks ago placed to ER with the complaints of chest pain. Patient states that he d eveloped chest pain mid retrosternal and epigastric region 7 out of 10 in severity, around 5:45 AM yesterday morning and has been present on and off since then. No complaints of radiation of the pain. Patient has is with shortness of breath. No headache or dizziness or lightheadedness. No fever no chills. No cough or sputum production. No leg swelling. Denied any recent illnesses. Otherwise patient does smoke on a daily basis and states that he quit drinking alcohol about 3 weeks ago. Laboratory data showed WBC 6.2 hemoglobin 12.9 and platelets 102 Sodium 134 potassium 4.1 chloride 103 bicarb is 26 BUN 14 and creatinine 1.06 Magnesium 1.9, AST and ALT 19 alk phos 78 Lipase level DLXXII, amylase 97 Troponin 3 negative and d-dimer is 0.41 10/09/2020 Patient is seen in follow up this morning and tolerating diet with improvement in abdominal pain. Patient is asking to go home. Patient was evaluated by cardiology and will follow up outpatient. Stress test was negative. Patient in structed to avoid alcohol and follow strict diet. Currently no reports of chest pain, shortness of breath, or palpitations. Patient is afebrile. No reports of nausea or vomiting and patient is tolerating diet. Patient will be discharged to home today. On exam vital signs are stable. Cardio S1, S2 are muffled. Respiratory system shows diminished breath sounds at the bases with some expiratory wheezing noted. Abdomen is soft and nontender. Nervous system shows no focal deficits. Please refer to medication reconciliation sheet for a list of medications. Patient Condition at Discharge: Stable Plan - Discharge Summary Discharge Rx Participant: No New Discharge Prescriptions: Continue HYDROcodone/APAP 7.5-325MG [[place] 7.5-325] 1 tab PO TID PRN PRN Reason: Pain Baclofen [Lioresal] 10 mg PO BID PRN PRN Reason: Muscle Pain Metoprolol Tartrate [Lopressor] 25 mg PO DAILY Atorvastatin [Lipitor] 10 mg PO HS Butalb/Acetaminophen/Caffeine [Fioricet 50-325-40] 1 tab PO TID PRN PRN Reason: Headache Gabapentin [Neurontin] 300 mg PO BID@0900,1300 Gabapentin [Neurontin] 600 mg PO HS Loratadine 10 mg PO DAILY PRN PRN Reason: Allergy Symptoms Aspirin 81 mg PO DAILY #30 chewable Latanoprost/Pf [Latanoprost 0.005% Eye Drop] 1 drop BOTH EYES HS Meclizine [Antivert] 25 mg PO TID PRN PRN Reason: Vertigo Omeprazole 40 mg PO DAILY Thiamine [Vitamin B-1] 100 mg PO BID-W/MEALS 30 Days #60 tab Multivitamins, Thera [Multivitamin (formulary)] 1 tab PO DAILY Folic Acid 1 mg PO DAILY Naproxen [Naprosyn] 500 mg PO BID PRN PRN Reason: Pain Clopidogrel Bisulfate [Plavix] 75 mg PO DAILY Losartan Potassium [Cozaar] 25 mg PO DAILY levETIRAcetam [Keppra] 500 mg PO BID Lidocaine 5% Patch [Lidoderm 5% Patch] 1 patch TOPICAL DAILY PRN PRN Reason: Pain Discharge Medication List Baclofen [Lioresal] 10 mg PO BID PRN 08/04/18 [History] HYDROcodone/APAP 7.5-325MG [[place] 7.5-325] 1 tab PO TID PRN 08/04/18 [History] Metoprolol Tartrate [Lopressor] 25 mg PO DAILY 09/11/18 [History] Atorvastatin [Lipitor] 10 mg PO HS 03/30/19 [History] Butalb/Acetaminophen/Caffeine [Fioricet 50-325-40] 1 tab PO TID PRN 03/30/19 [History] Gabapentin [Neurontin] 300 mg PO BID@0900,1300 12/07/19 [History] Gabapentin [Neurontin] 600 mg PO HS 03/30/19 [History] Loratadine 10 mg PO DAILY PRN 03/30/19 [History] Aspirin 81 mg PO DAILY #30 chewable 04/01/19 [Rx] Latanoprost/Pf [Latanoprost 0.005% Eye Drop] 1 drop BOTH EYES HS 06/21/20 [History] Meclizine [Antivert] 25 mg PO TID PRN 06/21/20 [History] Omeprazole 40 mg PO DAILY 06/21/20 [History] Thiamine [Vitamin B-1] 100 mg PO BID-W/MEALS 30 Days #60 tab 06/23/20 [Rx] Clopidogrel Bisulfate [Plavix] 75 mg PO DAILY 10/07/20 [History] Folic Acid 1 mg PO DAILY 10/07/20 [History] Lidocaine 5% Patch [Lidoderm 5% Patch] 1 patch TOPICAL DAILY PRN 10/07/20 [His tory] Losartan Potassium [Cozaar] 25 mg PO DAILY 10/07/20 [History] Multivitamins, Thera [Multivitamin (formulary)] 1 tab PO DAILY 10/07/20 [History] Naproxen [Naprosyn] 500 mg PO BID PRN 10/07/20 [History] levETIRAcetam [Keppra] 500 mg PO BID 10/07/20 [History] Follow up Appointment(s)/Referral(s): [facility],Clinic [Primary Care Provider] - 1-2 days Patient Instructions/Handouts: Pancreatitis (GEN), Low Fiber Diet (GEN), Full Liquid Diet (GEN) Activity/Diet/Wound Care/Special Instructions: Activity Limited until follow-up Follow-up with primary care provider upon discharge Continue current heart healthy diet Follow-up cardiology outpatient Avoid alcohol intake Continue with full liquid diet for now and slowly advanced to low fiber as tolerated Discharge Disposition: HOME SELF-CARE
== END 2020-10-09 12:43 | disposition home or self-care (01) ==
LOC: EC 18:14 → 6NMEDSUR 19:30
PROVIDERS: ADMIT Hospitalist; ATTEND Hospitalist
DX: K85.90 Acute pancreatitis without necrosis or infection, unspecified (principal); R07.89 Other chest pain; F10.99 Alcohol use, unspecified with unspecified alcohol-induced disorder; D69.6 Thrombocytopenia, unspecified; Z20.822 Contact with and (suspected) exposure to COVID-19; F17.210 Nicotine dependence, cigarettes, uncomplicated; K21.9 Gastro-esophageal reflux disease without esophagitis; I10 Essential (primary) hypertension; E78.5 Hyperlipidemia, unspecified; G57.93 Unspecified mononeuropathy of bilateral lower limbs; H91.90 Unspecified hearing loss, unspecified ear; J43.9 Emphysema, unspecified; I42.9 Cardiomyopathy, unspecified; M48.00 Spinal stenosis, site unspecified; H26.9 Unspecified cataract; Z79.899 Other long term (current) drug therapy; Z79.82 Long term (current) use of aspirin; Z16.24 Resistance to multiple antibiotics; Z97.4 Presence of external hearing-aid; Z80.9 Family history of malignant neoplasm, unspecified
CPT/HCPCS: 96376 ×2; 96372 ×2; 96374; 99285; 36415; 93005 ×2; 93017; 85379; 80053; 82150; 83690; 83735; 84484 ×2; 85025; 85610; 85730; 87635; 71046; 78452; G0378 ×3; A9500; J2270 ×2; J2785; J1644 ×2

== ENCOUNTER 2020-10-14 17:43 | Emergency (ER) | payer MEDICARE, OTHER ==
[2020-10-14 18:12] VITALS: BP 125/66; PULSE 68; RESP 18; TEMP 98.1
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
[2020-10-14 19:16] LABS: Basophils # (A) 0.1 k/uL (0-0.2); Basophils % (A) 1 %; Eosinophils # (A) 0.2 k/uL (0-0.7); Eosinophils % (A) 3 %; HCT 36.3 % (39.0-53.0); HGB 12.2 gm/dL (13.0-17.5); Lymphocytes # (A) 1.1 k/uL (1.0-4.8); Lymphocytes % (A) 19 %; MCH 33.1 pg (25.0-35.0); MCHC 33.5 g/dL (31.0-37.0); MCV 98.7 fL (80.0-100.0); Mean Platelet Volume 7.5; Monocytes # (A) 0.4 k/uL (0-1.0); Monocytes % (A) 8 %; Neutrophils # (A) 3.7 k/uL (1.3-7.7); Neutrophils % (A) 67 %; RBC 3.67 m/uL (4.30-5.90); RDW 13.8 % (11.5-15.5); WBC 5.6 k/uL (3.8-10.6)
[2020-10-14 19:18] LABS: Platelet Count 221 k/uL (150-450)
[2020-10-14 19:43] LABS: Albumin 3.5 g/dL (3.5-5.0); Calcium 8.9 mg/dL (8.4-10.2); Potassium 4.3 mmol/L (3.5-5.1); Total Bilirubin 0.4 mg/dL (0.2-1.3); Total Protein 5.8 g/dL (6.3-8.2)
[2020-10-14 20:22] LABS: Amphetamine Screen,Urine Not Detected (NotDetected); Barbiturate Screen,Urine Detected (NotDetected); Benzodiazepines Screen,Urine Not Detected (NotDetected); Cocaine Screen,Urine Not Detected (NotDetected); Methadone Screen, Urine Not Detected (NotDetected); Opiate Screen,Urine Not Detected (NotDetected); Oxycodone Screen, Urine Not Detected (NotDetected); Phencyclidine Screen,Urine Not Detected (NotDetected); Tricyclic Antidepressant,Urine Not Detected (NotDetected); Urn Cannabinoid Scrn Not Detected (NotDetected)
== END 2020-10-14 21:32 | disposition home or self-care (01) ==
LOC: EC 17:43
DX: R56.9 Unspecified convulsions (principal); I10 Essential (primary) hypertension; K21.9 Gastro-esophageal reflux disease without esophagitis; F17.200 Nicotine dependence, unspecified, uncomplicated; Z79.82 Long term (current) use of aspirin; Z79.899 Other long term (current) drug therapy
CPT/HCPCS: 36415; 80053; 80306; 85025; 99285

== ENCOUNTER 2021-03-01 18:24 | Observation (INO) | payer MEDICARE, OTHER ==
[2021-03-01] MEDS ORDERED: ASPIRIN 81 MG PO STA (18:34)
[2021-03-01] MEDS ORDERED: NITROGLYCERIN OINT 1 INCH/GM PACKET TOPICAL STA (18:34)
[2021-03-01] MEDS ORDERED: NITROGLYCERIN SL TABS 0.4 MG TAB SUBLINGUAL STA (18:34)
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
[2021-03-01 18:54] LABS: Basophils % (A) 1 %; Eosinophils # (A) 0.1 k/uL (0-0.7); Eosinophils % (A) 1 %; HCT 40.9 % (39.0-53.0); HGB 14.1 gm/dL (13.0-17.5); Lymphocytes # (A) 1.9 k/uL (1.0-4.8); Lymphocytes % (A) 32 %; MCH 33.6 pg (25.0-35.0); MCHC 34.5 g/dL (31.0-37.0); MCV 97.5 fL (80.0-100.0); Mean Platelet Volume 7.2; Monocytes # (A) 0.3 k/uL (0-1.0); Monocytes % (A) 5 %; Neutrophils # (A) 3.4 k/uL (1.3-7.7); Neutrophils % (A) 58 %; Platelet Count 200 k/uL (150-450); RDW 13.8 % (11.5-15.5); WBC 5.8 k/uL (3.8-10.6)
[2021-03-01 19:05] LABS: ALT 29 U/L (4-49); AST 56 U/L (17-59); African American GFR (CKD) >90 (>60 ml/min/1.73 sqM); Albumin 3.8 g/dL (3.5-5.0); Alkaline Phosphatase 61 U/L (38-126); Anion Gap 13 mmol/L; Blood Urea Nitrogen 7 mg/dL (9-20); Calcium 8.5 mg/dL (8.4-10.2); Carbon Dioxide 17 mmol/L (22-30); Chloride 93 mmol/L (98-107); Glucose 94 mg/dL (74-99); Magnesium 1.6 mg/dL (1.6-2.3); Non-African American GFR(CKD) >90 (>60 ml/min/1.73 sqM); Potassium 4.2 mmol/L (3.5-5.1); Sodium 123 mmol/L (137-145); Total Bilirubin 0.5 mg/dL (0.2-1.3); Total Protein 6.3 g/dL (6.3-8.2)
[2021-03-01 19:18] LABS: INR 0.9 (<1.2); Partial Thromboplastin Time 26.7 sec (22.0-30.0); Prothrombin Time 10.2 sec (9.0-12.0)
[2021-03-01] MEDS ORDERED: NITROGLYCERIN SL TABS 0.4 MG TAB SUBLINGUAL PRN (19:44)
--- NOTE | 2021-03-01 20:02 | XR ---
EXAMINATION TYPE: XR chest 2V DATE OF EXAM: 03/01/2021 COMPARISON: 10/07/2020 HISTORY: Chest pain TECHNIQUE: 2 views FINDINGS: Heart is normal. Lungs are clear of infiltrate. There is no heart failure. There is pleural thickening at the right lung apex. There is no pleural effusion. There are chest leads. Bony thorax is intact. IMPRESSION: There is increasing pleural thickening at the right lung apex which is slowly increasing compared to old chest x-rays back to 2015. This probably relates to scarring. Normal heart.
[2021-03-01] MEDS: SODIUM CHLORIDE 0.9% 1,000 ML IV SCH (20:23)
[2021-03-01] MEDS: NITROGLYCERIN OINT 1 INCH/GM PACKET TOPICAL SCH (23:48)
[2021-03-01] MEDS ORDERED: ONDANSETRON 4 MG/2 ML VIAL IVP PRN (23:54)
[2021-03-02] MEDS: NITROGLYCERIN OINT 1 INCH/GM PACKET TOPICAL SCH (03:49)
[2021-03-02] MEDS: METOPROLOL TARTRATE 25 MG TAB PO SCH (08:37)
[2021-03-02] MEDS: LOSARTAN 25 MG TAB PO SCH (08:37)
[2021-03-02] MEDS ORDERED: ASPIRIN 325 MG TAB PO SCH (09:00)
[2021-03-02] MEDS: ASPIRIN 81 MG PO SCH (10:05)
[2021-03-02] MEDS: SODIUM CHLORIDE 0.9% 1,000 ML IV SCH ×2 (10:09→20:02)
--- NOTE | 2021-03-02 10:19 | CONS ---
CONSULTATION Mr. Rahman is a 61-year-old male who is followed by Dr. Lobo and Dr. Betancourt and presented with symptoms of chest discomfort. The discomfort occurred yesterday at home, worse when he was eating, lasted for a few hours. At the time of my evaluation, he is pain-free. The patient has no prior documented history of obstructive coronary artery disease. He was in the hospital in September of this year with symptoms of chest discomfort and at that time underwent myocardial perfusion imaging that revealed no evidence of inducible ischemia. Patient is reasonably active physically, has no significant chest discomfort or dyspnea on exertion. He denies any dizziness or palpitations. He denies any clear PND, orthopnea or peripheral edema. His coronary risk factors are remarkable for history of chronic tobacco use, history of hypertension. He is nondiabetic. He is hyperlipidemic. MEDICATIONS: His medications include Lipitor 10 mg daily, Neurontin, hydrocodone, losartan 25 mg daily, Lopressor 25 mg daily, omeprazole, thiamine and Keppra. REVIEW OF SYSTEMS: RESPIRATORY SYSTEM: He has dyspnea on exertion, history of chronic tobacco use. GI SYSTEM: No recent GI bleeding. No peptic ulcer disease. SYSTEM: No dysuria or hematuria. NERVOUS SYSTEM: No history of seizure. He was told that he may have had a stroke in the past by Dr. Acuna. PHYSICAL EXAMINATION: Ezbxv-gkicl-oyrg-old male, alert, oriented, in no apparent distress. Blood pressure running in the 130s to 150s with a heart rate in the 90s. HEAD: Normocephalic. EYES: Sclerae anicteric. NECK: Good carotid upstroke. No bruit. No jugular venous distention. LUNGS: Clear to auscultation. HEART: Regular rate and rhythm. S1, S2. No S3. No S4. No rub. Chest wall no tenderness. According to him, there was tenderness in the chest yesterday reproducing the pain. ABDOMEN: Soft, nontender. Positive bowel sounds. No organomegaly. EXTREMITIES: No edema. Intact distal pulses. LAB DATA: Troponin less than 0.012 for three samples. BUN creatinine 7 and 0.66. Potassium 4.2, hemoglobin 14.1. EKG revealed a sinus mechanism, rate of 102, normal axis and intervals, nonspecific ST-T wave changes. Chest x-ray revealed no evidence of congestive heart failure. IMPRESSION: 1. Chest discomfort with some atypical features for ischemic heart disease, probably noncardiac. Patient had myocardial perfusion imaging obtained recently that revealed no evidence of inducible ischemia. 2. History of hypertension. 3. History of chronic tobacco use. 4. Hyperlipidemia. RECOMMENDATIONS: From the cardiac standpoint, no further cardiac workup is needed at this time. Patient should be able to be discharged home and followed as an outpatient with Dr. Lobo. Thank you for this consult. Will follow with you. MMODL / IJN: [id number] /
[2021-03-02 10:53] LABS: Chol/HDL Ratio 1.77 Ratio; HDL Cholesterol 87.7 mg/dL (40.00-60.00)
[2021-03-02 11:17] LABS: Triglycerides 47.8 mg/dL (0.00-149.00); VLDL Calculation 9.56 mg/dL (5.00-40.00)
[2021-03-02] MEDS ORDERED: HYDROcodone/APAP 7.5-325MG 1 EACH TAB PO PRN (18:28)
[2021-03-02] MEDS ORDERED: MECLIZINE 25 MG TAB PO PRN (18:28)
[2021-03-02] MEDS ORDERED: NAPROXEN 250 MG TAB PO PRN (18:28)
[2021-03-02] MEDS ORDERED: BUTALB/APAP/CAFF 50-325-40MG TAB PO PRN (18:28)
[2021-03-02] MEDS ORDERED: BACLOFEN 10 MG TAB PO PRN (18:28)
[2021-03-02] MEDS: PANTOPRAZOLE 40 MG TABLET PO SCH (19:59)
[2021-03-02] MEDS: levETIRAcetam 500 MG TAB PO SCH (20:00)
--- NOTE | 2021-03-02 20:02 | HP ---
HISTORY AND PHYSICAL DATE OF SERVICE: 03/02/2021. CHIEF COMPLAINT: Chest pain. HISTORY OF PRESENT ILLNESS: This 61-year-old gentleman with a past medical history of multiple medical problems including chest pain, history of hearing disorder, history of hypertension, history of DJD, history of spinal stenosis, being followed by Dr. Betancourt in the outpatient setting, was complaining of chest pain. The patient came to the emergency room and the pain was mostly on the central part and the pain aggravated after vacuuming the floor, and the patient being closely monitored. The troponins are found to be less than 0.012. Cholesterol level is also normal. Covid 19 was negative. The patient's sodium is found to be 123. The EKG showed some nonspecific ST-T changes and chest x-ray was also done showed some increasing pleural thickening. Cardiology has seen the patient and recommended to continue observation. The patient apparently recently had a myocardial perfusion imaging which did not show any acute abnormality. There is no history of fever, rigors, chills at this time. PAST MEDICAL HISTORY: History of chest pain, GERD, hearing defect, hypertension, musculoskeletal disorder. MEDICATIONS: Home medications are: Keppra, vitamin B12, omeprazole, Naprosyn, Lopressor, Antivert, Cozaar, [place], Neurontin, folic acid, Fioricet, Lioresal, Lipitor, aspirin. Doses reviewed. ALLERGIES: None. FAMILY HISTORY: Family history of cancer in the family. SOCIAL HISTORY: History of occasional alcohol intake and history of daily smoking. The patient had 2- 24 ounce beers also. REVIEW OF SYSTEMS: ENT: No diminished vision. Diminished hearing present. CARDIOVASCULAR as mentioned. RESPIRATORY: As mentioned earlier. GI: No nausea. No vomiting. : No dysuria. NERVOUS SYSTEM: No numbness or weakness. ALLERGY/IMMUNOLOGY: No asthma or hayfever. MUSCULOSKELETAL: As mentioned earlier. HEMATOLOGY/ONCOLOGY: No history of anemia. ENDOCRINE: No history of diabetes or hypothyroidism. CONSTITUTIONAL: As mentioned earlier. DERMATOLOGY negative. RHEUMATOLOGY Negative. PSYCHIATRIC: As mentioned earlier. PHYSICAL EXAMINATION: Alert and oriented times three. Pulse 79, blood pressure 153/76, respirations 16, temperature 98.8, pulse ox 97% on room air. HEENT: Conjunctivae normal. NECK: No JVD. CARDIOVASCULAR: S1, S2 muffled. RESPIRATION: Breath sounds diminished in the bases. No rhonchi. No crackles. ABDOMEN: Soft, nontender. No mass palpable. LEGS: No edema. No swelling. NERVOUS SYSTEM: Higher functions as mentioned earlier. Moves all four limbs. No focal motor or sensory deficits. LYMPHATICS: No lymph nodes palpable in the neck, axillae or groin. SKIN: No ulcers. No rashes. No bleeding. JOINTS: No active deforming arthropathy. LABS: WBC 5.8 and sodium 133, potassium 123. ASSESSMENT: 1. Chest pain for evaluation. Rule out unstable angina. 2. Hyponatremia. 3. Recent negative stress test. 4. History of gastroesophageal reflux disease. 5. Hard of hearing. 6. Hypertension. 7. History of spinal stenosis. 8. History of MRSA. 9. History of ear surgery. 10.History of nicotine dependence. 11.Possible alcohol bingeing. RECOMMENDATIONS: This 61-year-old gentleman who presented with multiple complex medical issues, at this time, I recommend to continue the current management. Continue symptomatic treatment. We will increase ambulation and continue symptomatic treatment. I would also recommend observation for any alcohol withdrawal symptoms. Home medication will be continued. Prognosis guarded because of multiple complex medical issues. Further recommendations to follow. A copy of this dictation being forwarded to Dr. Betancourt who is the primary physician. Proton pump inhibitors also will be recommended. MMODL / IJN: [id number] /
[2021-03-02] MEDS ORDERED: GABAPENTIN 300 MG CAP PO SCH (21:00)
[2021-03-02] MEDS ORDERED: ATORVASTATIN 10 MG TAB PO SCH (21:00)
[2021-03-02 22:36] LABS: Appearance,Urine Clear (Clear); Bilirubin,Urine Negative (Negative); Blood,Urine Negative (Negative); Color,Urine Yellow; Glucose,Urine (UA) Negative (Negative); Ketones,Urine Negative (Negative); Leukocyte Esterase,Urine Negative (Negative); Nitrite,Urine Negative (Negative); PH, Urine 7.5 (5.0-8.0); Protein,Urine Negative (Negative); Specific Gravity,Urine 1.009 (1.001-1.035); Urobilinogen,Urine <2.0 mg/dL (<2.0)
[2021-03-03] MEDS ORDERED: THIAMINE 100 MG TAB PO SCH (07:30)
[2021-03-03] MEDS: PANTOPRAZOLE 40 MG TABLET PO SCH (08:57)
[2021-03-03] MEDS ORDERED: FOLIC ACID 1 MG TAB PO SCH (09:00)
[2021-03-03] MEDS ORDERED: NON FORMULARY DRUG (Omeprazole [Omeprazole] 40 MG Capsule.Dr) PO SCH (09:00)
[2021-03-03] MEDS: ASPIRIN 81 MG PO SCH (09:12)
[2021-03-03] MEDS: METOPROLOL TARTRATE 25 MG TAB PO SCH (09:13)
[2021-03-03] MEDS: levETIRAcetam 500 MG TAB PO SCH (09:13)
[2021-03-03] MEDS: LOSARTAN 25 MG TAB PO SCH (09:14)
[2021-03-03] MEDS: GABAPENTIN 300 MG CAP PO SCH ×2 (09:16→12:01)
[2021-03-03] MEDS: SODIUM CHLORIDE 0.9% 1,000 ML IV SCH (10:25)
[2021-03-03 12:43] LABS: African American GFR (CKD) 110.2 (60.0-200.0); Anion Gap 10.5 mmol/L (4.00-12.00); BUN/Creat Ratio 7.63 Ratio (12.00-20.00); Blood Urea Nitrogen 6.1 mg/dL (9.0-27.0); Calcium 8.5 mg/dL (8.7-10.3); Carbon Dioxide 22.5 mmol/L (21.6-31.8); Non-African American GFR(CKD) 95.1 (60.0-200.0); Potassium 4.2 mmol/L (3.5-5.5)
[2021-03-03 12:53] LABS: Basophils # (A) 0.03 X 10*3/uL (0.00-0.10); Basophils % (A) 0.6 %; Eosinophils # (A) 0.06 X 10*3/uL (0.04-0.35); Eosinophils % (A) 1.3 %; HCT 39.3 % (39.6-50.0); HGB 13.3 g/dL (13.0-17.0); Lymphocytes # (A) 1.62 X 10*3/uL (0.90-5.00); Lymphocytes % (A) 34.7 %; MCH 32.2 pg (27.0-32.0); MCHC 33.8 g/dL (32.0-37.0); MCV 95.2 fL (80.0-97.0); Mean Platelet Volume 9.8 fL (9.5-12.2); Monocytes # (A) 0.73 X 10*3/uL (0.20-1.00); Monocytes % (A) 15.6 %; Neutrophils # (A) 2.22 X 10*3/uL (1.80-7.70); Neutrophils % (A) 47.6 %; Platelet Count 137 X 10*3/uL (140-440); RBC 4.13 X 10*6/uL (4.40-5.60); WBC 4.67 X 10*3/uL (4.50-10.00)
[2021-03-03 13:50] VITALS: BP 117/70; PULSE 67; RESP 14; TEMP 97.4
--- NOTE | 2021-03-03 23:07 | DS ---
DISCHARGE SUMMARY DATE OF SERVICE: 03/03/2021 FINAL DIAGNOSES: 1. Chest pain, possible unstable angina. Myocardial infarction ruled out. 2. Hyponatremia. 3. Recent negative stress test. 4. History of gastroesophageal reflux disease. 5. History of hard of hearing. 6. Hypertension. 7. History of spinal stenosis. 8. History of MRSA. 9. History of ear surgery. 10.History nicotine dependence. 11.Possible alcohol bingeing. DISCHARGE DISPOSITION: The patient will be discharged in stable condition with guarded prognosis. HISTORY OF PRESENT ILLNESS: This 61-year-old gentleman with a past medical history of multiple medical problems, being followed by Dr. Betancourt in the outpatient setting, was admitted with chest pain. Cardiology saw the patient and recommended outpatient followup. Myocardial infarction was ruled out. The patient also had hyponatremia, possibly secondary to alcohol. Sodium improved to 132 and the patient will be discharged in stable condition with guarded prognosis at this time. Calcium was 8.5, glucose 117, platelets 137. On exam, vitals are stable. CARDIOVASCULAR: S1, S2 muffled. Abdomen soft. Nervous system: No focal deficits. DISCHARGE ADVICE AND MEDICATIONS: 1. Diet is cardiac. 2. Activity limited until followup. 3. Follow up with Dr. Betancourt in 2-3 days. 4. Follow up with Dr. Prieto Lobo in 2 weeks. 5. Antivert 25 mg t.i.d. p.r.n. 6. Cozaar 25 mg p.o. daily. 7. Butalbital 50/325 mg p.o. t.i.d. 8. Folic acid 1 mg p.o. daily. 9. Keppra 1000 mg p.o. daily. 10.Lioresal 10 mg b.i.d. p.r.n. 11.Lipitor 10 mg at bedtime. 12.Lopressor 25 mg p.o. daily. 13.Naprosyn 500 mg p.o. b.i.d. 14.Neurontin 300 mg p.o. b.i.d. and mg p.o. at bedtime. 15.[place] 7.5 mg t.i.d. p.r.n. 16.Omeprazole 40 mg p.o. daily. 17.Aspirin 81 mg p.o. daily. 18.Protonix 40 mg b.i.d. 19.Thiamine 100 mg p.o. b.i.d. Once again, the patient will be discharged in stable condition with guarded prognosis. XIOMARA / DEBORAH: [id number] / RODNEY
== END 2021-03-03 15:27 | disposition home or self-care (01) ==
LOC: EC 18:24 → 6NMEDSUR 19:44
PROVIDERS: ADMIT Hospitalist; ATTEND Hospitalist
DX: R07.89 Other chest pain (principal); E87.1 Hypo-osmolality and hyponatremia; K21.9 Gastro-esophageal reflux disease without esophagitis; E78.5 Hyperlipidemia, unspecified; Z20.822 Contact with and (suspected) exposure to COVID-19; I10 Essential (primary) hypertension; J92.9 Pleural plaque without asbestos; M48.00 Spinal stenosis, site unspecified; H91.90 Unspecified hearing loss, unspecified ear; M62.9 Disorder of muscle, unspecified; Z79.899 Other long term (current) drug therapy; Z79.02 Long term (current) use of antithrombotics/antiplatelets; Z79.82 Long term (current) use of aspirin; M19.90 Unspecified osteoarthritis, unspecified site; Z98.41 Cataract extraction status, right eye; Z98.42 Cataract extraction status, left eye; Z96.1 Presence of intraocular lens; Z97.4 Presence of external hearing-aid; Z86.14 Personal history of Methicillin resistant Staphylococcus aureus infection; Z80.9 Family history of malignant neoplasm, unspecified
CPT/HCPCS: 99285; 96361 ×2; 96374; 36415; 93005; 85379; 84300; 83930; 80061; 80053; 80048; 85652; 83735; 84484 ×2; 85025 ×2; 85610; 85730; 86140; 81003; 83935; 87635; 71046; G0378 ×3; J2405

== ENCOUNTER 2021-04-05 12:14 | Emergency (ER) | payer MEDICARE, OTHER ==
[2021-04-05] MEDS ORDERED: MECLIZINE 25 MG TAB PO STA (13:03)
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
--- NOTE | 2021-04-05 13:59 | CT ---
EXAMINATION TYPE: CT brain wo con DATE OF EXAM: 04/05/2021 COMPARISON: 06/22/2020 HISTORY: 61-year-old male Headache with dizziness TECHNIQUE: Examination was done in axial plane without intravenous contrast. Coronal and sagittal r econstructions performed. CT DLP: 1089.4 mGycm Automated exposure control for dose reduction was used. FINDINGS: There is no evidence of acute intracranial hemorrhage, acute ischemic changes, mass, mass-effect, or extra-axial fluid collection. There is no effacement of cerebral sulci or basal subarachnoid cister ns. There is no hydrocephalus. There is no midline shift. Caballero-white matter distinction is preserv ed. Partially empty sella is unchanged. Mild patchy white matter hypodensities unchanged. Rightward nasal septal deviation. Previous resection changes into the right mastoid air cells. Orbits and globes are intact. IMPRESSION: Mild patchy burden of chronic small vessel ischemic disease. No acute intracranial abnormality seen. Previous right mastoidectomy.
[2021-04-05 14:08] LABS: Basophils % (A) 1 %; Eosinophils # (A) 0.1 k/uL (0-0.7); Eosinophils % (A) 2 %; HCT 40.1 % (39.0-53.0); HGB 13.3 gm/dL (13.0-17.5); Lymphocytes # (A) 1.8 k/uL (1.0-4.8); Lymphocytes % (A) 27 %; MCH 33.9 pg (25.0-35.0); MCHC 33.1 g/dL (31.0-37.0); MCV 102.3 fL (80.0-100.0); Macrocytosis Slight; Mean Platelet Volume 8.2; Monocytes # (A) 0.5 k/uL (0-1.0); Monocytes % (A) 8 %; Neutrophils # (A) 3.9 k/uL (1.3-7.7); Neutrophils % (A) 60 %; Platelet Count 163 k/uL (150-450); RBC 3.93 m/uL (4.30-5.90); RDW 13.9 % (11.5-15.5); WBC 6.5 k/uL (3.8-10.6)
[2021-04-05 14:22] LABS: Partial Thromboplastin Time 23.7 sec (22.0-30.0); Prothrombin Time 10.4 sec (9.0-12.0)
[2021-04-05 14:27] LABS: ALT 19 U/L (4-49); AST 25 U/L (17-59); African American GFR (CKD) >90 (>60 ml/min/1.73 sqM); Albumin 3.7 g/dL (3.5-5.0); Alkaline Phosphatase 60 U/L (38-126); Anion Gap 6 mmol/L; Blood Urea Nitrogen 10 mg/dL (9-20); Carbon Dioxide 26 mmol/L (22-30); Chloride 104 mmol/L (98-107); Glucose 87 mg/dL (74-99); Non-African American GFR(CKD) >90 (>60 ml/min/1.73 sqM); Potassium 4.2 mmol/L (3.5-5.1); Sodium 136 mmol/L (137-145); Total Bilirubin 0.3 mg/dL (0.2-1.3); Total Protein 6.2 g/dL (6.3-8.2)
[2021-04-05 15:41] VITALS: BP 118/80; PULSE 64; RESP 20; TEMP 98.6
== END 2021-04-05 15:39 | disposition home or self-care (01) ==
LOC: EC 12:14
DX: R42 Dizziness and giddiness (principal); B20 Human immunodeficiency virus [HIV] disease; K21.9 Gastro-esophageal reflux disease without esophagitis; I10 Essential (primary) hypertension; F17.200 Nicotine dependence, unspecified, uncomplicated; H91.90 Unspecified hearing loss, unspecified ear; Z79.899 Other long term (current) drug therapy
CPT/HCPCS: 36415; 70450; 80053; 83735; 84484; 85025; 85610; 85730; 93005; 99284

== ENCOUNTER 2021-06-16 15:23 | Observation (INO) | payer MEDICARE, OTHER ==
[2021-06-16] MEDS ORDERED: SODIUM CHLORIDE 0.9% 1,000 ML IV STA ×2 (17:04→20:30)
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
[2021-06-16 17:49] LABS: ALT 34 U/L (4-49); AST 77 U/L (17-59); African American GFR (CKD) >90 (>60 ml/min/1.73 sqM); Albumin 4.3 g/dL (3.5-5.0); Alkaline Phosphatase 78 U/L (38-126); Anion Gap 13 mmol/L; Blood Urea Nitrogen 5 mg/dL (9-20); Carbon Dioxide 22 mmol/L (22-30); Chloride 95 mmol/L (98-107); Glucose 65 mg/dL (74-99); Non-African American GFR(CKD) >90 (>60 ml/min/1.73 sqM); Potassium 4.4 mmol/L (3.5-5.1); Sodium 130 mmol/L (137-145); Total Bilirubin 0.6 mg/dL (0.2-1.3); Total Protein 7.1 g/dL (6.3-8.2)
[2021-06-16 17:50] LABS: Basophils % (A) 1 %; Eosinophils # (A) 0.1 k/uL (0-0.7); Eosinophils % (A) 1 %; HCT 45.7 % (39.0-53.0); HGB 14.9 gm/dL (13.0-17.5); Lymphocytes # (A) 1.9 k/uL (1.0-4.8); Lymphocytes % (A) 43 %; MCH 32.3 pg (25.0-35.0); MCHC 32.7 g/dL (31.0-37.0); Mean Platelet Volume 7.1; Monocytes # (A) 0.3 k/uL (0-1.0); Monocytes % (A) 7 %; Neutrophils % (A) 44 %; Platelet Count 189 k/uL (150-450); RBC 4.62 m/uL (4.30-5.90); RDW 13.6 % (11.5-15.5); WBC 4.5 k/uL (3.8-10.6)
[2021-06-16 17:55] LABS: Prothrombin Time 10.5 sec (9.0-12.0)
--- NOTE | 2021-06-16 17:58 | XR ---
EXAMINATION TYPE: XR chest 2V DATE OF EXAM: 06/16/2021 COMPARISON: 03/01/2021 HISTORY: Weakness TECHNIQUE: Frontal and lateral views of the chest are obtained. FINDINGS: There is no focal air space opacity, pleural effusion, or pneumothorax seen. The cardiac silhouette size is within normal limits. The osseous structures are intact. Bilateral nipple shadow s seen. IMPRESSION: No acute cardiopulmonary process.
[2021-06-16 19:17] LABS: Appearance,Urine Clear (Clear); Bilirubin,Urine Negative (Negative); Blood,Urine Negative (Negative); Color,Urine Light Yellow; Glucose,Urine (UA) Negative (Negative); Ketones,Urine 1+ (Negative); Leukocyte Esterase,Urine Negative (Negative); Nitrite,Urine Negative (Negative); Protein,Urine Negative (Negative); Specific Gravity,Urine 1.003 (1.001-1.035); Urobilinogen,Urine <2.0 mg/dL (<2.0)
[2021-06-16] MEDS ORDERED: ACETAMINOPHEN TAB 325 MG TAB PO PRN (20:31)
[2021-06-16] MEDS ORDERED: NALOXONE 0.4 MG/ML 1 ML VIAL IV PRN (20:31)
[2021-06-17 03:01] LABS: Basophils # (A) 0.1 k/uL (0-0.2); Basophils % (A) 2 %; Eosinophils # (A) 0.1 k/uL (0-0.7); Eosinophils % (A) 2 %; HCT 41.5 % (39.0-53.0); HGB 13.9 gm/dL (13.0-17.5); Lymphocytes # (A) 1.5 k/uL (1.0-4.8); Lymphocytes % (A) 38 %; MCH 33.2 pg (25.0-35.0); MCHC 33.6 g/dL (31.0-37.0); MCV 98.8 fL (80.0-100.0); Mean Platelet Volume 7.3; Monocytes # (A) 0.3 k/uL (0-1.0); Monocytes % (A) 7 %; Neutrophils # (A) 1.9 k/uL (1.3-7.7); Neutrophils % (A) 48 %; Platelet Count 153 k/uL (150-450); RDW 13.5 % (11.5-15.5)
[2021-06-17 08:13] VITALS: BP 143/75; PULSE 75; RESP 18; TEMP 98.6
[2021-06-17 10:07] LABS: African American GFR (CKD) 116.4 (60.0-200.0); Albumin 3.8 g/dL (3.8-4.9); Albumin/Globulin Ratio 1.9 (1.60-3.17); Anion Gap 11.9 mmol/L (10.00-18.00); Calcium 8.5 mg/dL (8.7-10.3); Carbon Dioxide 25.1 mmol/L (20.0-27.5); Non-African American GFR(CKD) 100.4 (60.0-200.0); Potassium 4.2 mmol/L (3.5-5.5); Total Bilirubin 0.2 mg/dL (0.30-1.20); Total Protein 5.8 g/dL (6.2-8.2)
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
--- NOTE | 2021-06-17 12:03 | P.DS ---
Providers Date of admission: 06/16/21 20:31 Attending physician: Kelly Colbert Primary care physician: Serafin Mcdonald [facility] Course: Refer to my history of present illness for further details Plan - Discharge Summary New Discharge Prescriptions: No Action HYDROcodone/APAP 7.5-325MG [[place] 7.5-325] 1 tab PO TID PRN PRN Reason: Pain Baclofen [Lioresal] 10 mg PO BID PRN PRN Reason: Muscle Pain Metoprolol Tartrate [Lopressor] 25 mg PO DAILY Atorvastatin [Lipitor] 10 mg PO HS Butalb/Acetaminophen/Caffeine [Fioricet 50-325-40] 1 tab PO TID PRN PRN Reason: Headache Gabapentin [Neurontin] 300 mg PO BID@0900,1300 Gabapentin [Neurontin] 600 mg PO HS Meclizine [Antivert] 25 mg PO TID PRN PRN Reason: Vertigo Omeprazole 40 mg PO DAILY Naproxen [Naprosyn] 500 mg PO BID PRN PRN Reason: Pain levETIRAcetam [Keppra] 1,000 mg PO DIRECTED Lidocaine 5% Patch [Lidoderm] 1 patch TOPICAL HS Aspirin 81 mg PO DAILY 30 Days #30 tab Discharge Medication List Baclofen [Lioresal] 10 mg PO BID PRN 08/04/18 [History] HYDROcodone/APAP 7.5-325MG [[place] 7.5-325] 1 tab PO TID PRN 08/04/18 [History] Metoprolol Tartrate [Lopressor] 25 mg PO DAILY 09/11/18 [History] Atorvastatin [Lipitor] 10 mg PO HS 03/30/19 [History] Butalb/Acetaminophen/Caffeine [Fioricet 50-325-40] 1 tab PO TID PRN 03/30/19 [History] Gabapentin [Neurontin] 300 mg PO BID@0900,1300 03/30/19 [History] Gabapentin [Neurontin] 600 mg PO HS 03/30/19 [History] Meclizine [Antivert] 25 mg PO TID PRN 06/21/20 [History] Omeprazole 40 mg PO DAILY 06/21/20 [History] Naproxen [Naprosyn] 500 mg PO BID PRN 10/07/20 [History] levETIRAcetam [Keppra] 1,000 mg PO DIRECTED 03/01/21 [History] Aspirin 81 mg PO DAILY 30 Days #30 tab 03/03/21 [Rx] Lidocaine 5% Patch [Lidoderm] 1 patch TOPICAL HS 06/16/21 [History] Follow up Appointment(s)/Referral(s): Lexii Betancourt MD [Primary Care Provider] - 3 Days Patient Instructions/Handouts: Dehydration (DC) Discharge Disposition: HOME SELF-CARE
== END 2021-06-17 12:26 | disposition home or self-care (01) ==
LOC: EC 15:23 → 6NMEDSUR 20:31
PROVIDERS: ADMIT Hospitalist; ATTEND Hospitalist
DX: E86.0 Dehydration (principal); E87.1 Hypo-osmolality and hyponatremia; E87.2 Acidosis; E86.1 Hypovolemia; I10 Essential (primary) hypertension; K21.9 Gastro-esophageal reflux disease without esophagitis; E78.5 Hyperlipidemia, unspecified; G40.909 Epilepsy, unspecified, not intractable, without status epilepticus; M48.00 Spinal stenosis, site unspecified; H91.93 Unspecified hearing loss, bilateral; F17.210 Nicotine dependence, cigarettes, uncomplicated; Z20.822 Contact with and (suspected) exposure to COVID-19; Z79.82 Long term (current) use of aspirin; Z79.899 Other long term (current) drug therapy; Z97.4 Presence of external hearing-aid; Z96.89 Presence of other specified functional implants; Z87.828 Personal history of other (healed) physical injury and trauma; Z98.1 Arthrodesis status; Z86.14 Personal history of Methicillin resistant Staphylococcus aureus infection; Z98.49 Cataract extraction status, unspecified eye; Z86.16 Personal history of COVID-19; Z98.890 Other specified postprocedural states; Z71.6 Tobacco abuse counseling; Z80.9 Family history of malignant neoplasm, unspecified
CPT/HCPCS: 96361 ×2; 96365; 99285; 36415; 93005; 80053 ×2; 85652; 83605 ×2; 84484; 85025 ×2; 85610; 85730; 86140; 81003; 87040; 84145; 87635; 71046; G0378 ×2; J0696

== ENCOUNTER → 2021-07-20 | Outpatient (CLI) | payer OTHER ==
--- NOTE | 2021-07-20 11:42 | CT ---
EXAMINATION TYPE: CT chest wo con DATE OF EXAM: 07/20/2021 INDICATION: Abnormal PHYSICAL CT DLP: 142.2 mGy.cm Automated Exposure Control for Dose Reduction was Utilized. TECHNIQUE AND CONTRAST: CT scan of the chest without IV contrast administration. COMPARISON: No previous CT scan is available for comparison. FINDINGS: Right apical pleural-based thick fibrotic changes/scarring with traction bronchiectasis and right hil ar up lifting. 12 mm pleural-based nodule is seen at the posterior aspect of the right lung base. Oth er scattered smaller bilateral pulmonary nodules measuring up to 4 mm. Centrilobular emphysematous ch anges most evident involving the right lower lobe. Patent trachea and main bronchi. No pleural effusi on. No gross cardiomegaly. Scattered arterial and coronary atherosclerotic calcifications. No pathologica lly enlarged lymph nodes in the chest by this nonenhanced CT scan. No pericardial effusion. Unremarka ble upper abdomen. Degenerative changes of the thoracic spine. No gross aggressive bone lesion. IMPRESSION: Right apical pulmonary chronic fibrotic changes and COPD changes as described above. 12 mm right lung base nodule, for further PET scan assessment. Alternatively, follow-up CT scan in 2- 3 months can be considered. Other incidental findings as described above.
== END | disposition home or self-care (01) ==
LOC: RADCTMAIN 11:00
PROVIDERS: ATTEND Family Medicine
DX: J84.10 Pulmonary fibrosis, unspecified (principal); J44.9 Chronic obstructive pulmonary disease, unspecified; R91.1 Solitary pulmonary nodule
CPT/HCPCS: 71250

== ENCOUNTER 2021-08-25 04:15 | Emergency (ER) | payer MEDICARE, OTHER ==
[2021-08-25 04:37] VITALS: BP 121/74; PULSE 78; RESP 16; TEMP 97.9
--- NOTE | 2021-08-25 04:57 | XR ---
EXAMINATION TYPE: XR Hip Complete LT DATE OF EXAM: 08/25/2021 COMPARISON: NONE HISTORY: Fall. Pain TECHNIQUE: 2 views FINDINGS: There is no fracture nor dislocation. There is mild acetabular spurring. Acetabulum is inta ct. Sacroiliac joint is intact. IMPRESSION: No acute abnormality of the left hip.
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
== END 2021-08-25 06:39 | disposition home or self-care (01) ==
LOC: EC 04:15
DX: S79.812A Other specified injuries of left hip, initial encounter (principal); K21.9 Gastro-esophageal reflux disease without esophagitis; Z79.83 Long term (current) use of bisphosphonates; I10 Essential (primary) hypertension; F17.200 Nicotine dependence, unspecified, uncomplicated; W18.30XA Fall on same level, unspecified, initial encounter
CPT/HCPCS: 73502; 99284

== ENCOUNTER → 2021-11-05 | Outpatient (CLI) | payer MEDICARE, OTHER ==
--- NOTE | 2021-11-05 15:10 | PE ---
EXAMINATION TYPE: PET CT fusion skull to thigh DATE OF EXAM: 11/05/2021 COMPARISON: Chest CT July 20, 2021 HISTORY: Solitary pulmonary nodule, abnormal CT TECHNIQUE: Following the intravenous administration of 10.1 mCi of F-18 FDG, whole body images are p erformed from the skull base to the midthigh. Images are reviewed on the computer in the coronal, ax ial, and sagittal planes. Reconstructed rotating images are created on independent workstation and r eviewed on the computer. A localization and attenuation correction CT is performed in conjunction w ith the PET scan. Blood glucose level equals 55 SCAN: Initial Scan FINDINGS: SKULL BASE AND NECK: No areas abnormal hypermetabolic uptake. CHEST, MEDIASTINUM, AND HILAR REGION: Persistent mild underlying emphysematous change. Persistent mil [id number] right apical pleural/parenchymal scarring. Prior visualized 12 mm right basilar nodule posteriorly is redemonstrated near axial image 135 measuring 12 x 4 mm and is ametabolic. No areas of abnormal hypermetabolic uptake. ABDOMEN AND PELVIS: Normal excretion. Patient has little intra-abdominal fat. No adrenal masses. No a bnormal hypermetabolic uptake. OSSEOUS STRUCTURES: No abnormal hypermetabolic uptake. OTHER CT: Calcified plaque bilateral carotid bulb level. Multilevel spurring in the spine. Facet arth ropathy lower lumbar levels. IMPRESSION: No abnormal hypermetabolic uptake to suggest malignancy. Continued CT monitoring of small pulmonary nodules is advised.
== END | disposition home or self-care (01) ==
LOC: RADPETMAIN 11:45
DX: R91.1 Solitary pulmonary nodule (principal); R91.8 Other nonspecific abnormal finding of lung field
CPT/HCPCS: 78815; A9552

== ENCOUNTER 2021-11-10 16:03 | Observation (INO) | payer MEDICARE, OTHER ==
[2021-11-10] MEDS ORDERED: SODIUM CHLORIDE 0.9% 1,000 ML IV STA (17:02)
[2021-11-10 17:21] LABS: Glucose,Whole Blood 84 mg/dL (70-110)
[2021-11-10 17:26] LABS: Basophils # (A) 0.1 k/uL (0-0.2); Basophils % (A) 1 %; Eosinophils # (A) 0.2 k/uL (0-0.7); Eosinophils % (A) 5 %; HCT 39.2 % (39.0-53.0); HGB 12.8 gm/dL (13.0-17.5); Lymphocytes # (A) 1.9 k/uL (1.0-4.8); Lymphocytes % (A) 41 %; MCH 32.8 pg (25.0-35.0); MCHC 32.6 g/dL (31.0-37.0); MCV 100.6 fL (80.0-100.0); Macrocytosis Slight; Mean Platelet Volume 7.3; Monocytes # (A) 0.3 k/uL (0-1.0); Monocytes % (A) 5 %; Neutrophils # (A) 2.1 k/uL (1.3-7.7); Neutrophils % (A) 45 %; Platelet Count 210 k/uL (150-450); RBC 3.89 m/uL (4.30-5.90); RDW 13.9 % (11.5-15.5); WBC 4.7 k/uL (3.8-10.6)
[2021-11-10 17:35] LABS: Partial Thromboplastin Time 26.2 sec (22.0-30.0); Prothrombin Time 10.7 sec (9.0-12.0)
[2021-11-10 17:40] LABS: ALT 67 U/L (4-49); AST 74 U/L (17-59); African American GFR (CKD) >90 (>60 ml/min/1.73 sqM); Albumin 3.7 g/dL (3.5-5.0); Alkaline Phosphatase 61 U/L (38-126); Anion Gap 7 mmol/L; Blood Urea Nitrogen 3 mg/dL (9-20); Calcium 8.1 mg/dL (8.4-10.2); Carbon Dioxide 22 mmol/L (22-30); Chloride 101 mmol/L (98-107); Glucose 81 mg/dL (74-99); Non-African American GFR(CKD) >90 (>60 ml/min/1.73 sqM); Potassium 4.2 mmol/L (3.5-5.1); Sodium 130 mmol/L (137-145); Total Bilirubin 0.2 mg/dL (0.2-1.3); Total Protein 6.1 g/dL (6.3-8.2)
--- NOTE | 2021-11-10 17:55 | CT ---
EXAMINATION TYPE: CT brain wo con DATE OF EXAM: 11/10/2021 COMPARISON: 04/23/2021 HISTORY: left side weakness CT DLP: 1066.4 mGycm Automated exposure control for dose reduction was used. Ventricles have normal size. There is no mass effect or midline shift. No sign of intracranial hemorr noy. The calvarium is intact. No evidence of cerebral edema. Skull base is intact. There is previous surgery at the right mastoid sinus. There is normal sella turcica. IMPRESSION: No acute intracranial abnormality. No change.
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
--- NOTE | 2021-11-10 19:00 | US ---
EXAMINATION TYPE: US venous doppler duplex LE LT DATE OF EXAM: 11/10/2021 6:32 PM COMPARISON: US 2009 CLINICAL HISTORY: calf pain. Left calf pain SIDE PERFORMED: Left TECHNIQUE: The lower extremity deep venous system is examined utilizing real time linear array sonog earl with graded compression, doppler sonography and color-flow sonography. VESSELS IMAGED: Common Femoral Vein Deep Femoral Vein Greater Saphenous Vein * Femoral Vein Popliteal Vein Small Saphenous Vein * Proximal Calf Veins (* superficial vessels) Left Leg: Appears negative for DVT IMPRESSION: No evidence of deep vein thrombosis in the left leg.
[2021-11-10] MEDS ORDERED: NALOXONE 0.4 MG/ML 1 ML VIAL IV PRN (19:43)
[2021-11-10] MEDS ORDERED: ASPIRIN 325 MG TAB PO STA (19:43)
[2021-11-10] MEDS: SODIUM CHLORIDE 0.9% 1,000 ML IV SCH (20:07)
[2021-11-10] MEDS: HYDROcodone/APAP 7.5-325MG 1 EACH TAB PO PRN (22:27)
[2021-11-10] MEDS: ATORVASTATIN 10 MG TAB PO SCH (22:28)
[2021-11-11] MEDS: ASPIRIN 81 MG PO SCH (07:52)
[2021-11-11] MEDS: GABAPENTIN 300 MG CAP PO SCH ×2 (07:52→15:47)
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
[2021-11-11] MEDS: SODIUM CHLORIDE 0.9% 1,000 ML IV SCH (10:20)
[2021-11-11] MEDS ORDERED: MECLIZINE 25 MG TAB PO PRN (12:17)
[2021-11-11 13:01] LABS: African American GFR (CKD) >90 (>60 ml/min/1.73 sqM); Anion Gap 3 mmol/L; Blood Urea Nitrogen 10 mg/dL (9-20); Calcium 8.5 mg/dL (8.4-10.2); Carbon Dioxide 26 mmol/L (22-30); Chloride 104 mmol/L (98-107); Glucose 83 mg/dL (74-99); Non-African American GFR(CKD) >90 (>60 ml/min/1.73 sqM); Potassium 4.6 mmol/L (3.5-5.1); Sodium 133 mmol/L (137-145)
--- NOTE | 2021-11-11 14:03 | CT ---
EXAMINATION TYPE: CT lumbar spine wo con CT DLP: 364.7 mGycm, Automated exposure control for dose reduction was used. DATE OF EXAM: 11/11/2021 1:13 PM COMPARISON: CT PET 11/03/2021. CLINICAL INDICATION:Male, 61 years old with history of left leg weakness. back pain, Back pain TECHNIQUE: Multiple axial images were obtained from the midportion of T11 through the sacroiliac amy nts. Soft tissue and bone windows in coronal and sagittal planes were obtained and reviewed. FINDINGS: Alignment: There are 5 lumbar type vertebral bodies within normal alignment. Bone: There is an acute fracture through the left iliac bone without displacement. Multilevel osteophyte formation present throughout the spine. Mild loss of disc height is scattered t hroughout the spine. Mild degeneration changes of the sacroiliac joints. Discs: T12-L1: No spinal canal or neural foraminal stenosis is identified. L1-L2: No spinal canal stenosis is identified. Facet joint arthropathy is present resulting in severe bilateral neural foraminal stenosis. L2-L3: No spinal canal stenosis is identified. Facet joint arthropathy is present resulting in modera te bilateral neural foraminal stenosis. L3-L4: Disc bulge with mild to moderate spinal canal stenosis. Spinal canal stenosis is identified. F acet joint arthropathy is present resulting in severe right and moderate left neural foraminal stenos is. L4-L5: Disc bulge with facet arthropathy with mild spinal canal stenosis.Facet joint arthropathy is present resulting in moderate bilateral neural foraminal stenosis. L5-S1: No spinal canal stenosis is identified. Facet joint arthropathy is present resulting in modera te to severe bilateral neural foraminal stenosis. Other: Moderate to severe atherosclerosis of the arterial vasculature. IMPRESSION: 1. Acute fracture through the left iliac bone without displacement. Correlate with history of trauma, consider full evaluation of the pelvic structures with CT pelvis without IV contrast. 2. Multilevel disc degeneration changes with multilevel neural foraminal stenosis narrowing worse at L5-S1 bilaterally, right L3-L4 and bilateral L1 and L2 with neural foraminal stenosis.
--- NOTE | 2021-11-11 15:08 | MR ---
EXAMINATION TYPE: MR brain wo/w con DATE OF EXAM: 11/11/2021 COMPARISON: PET 11/05/2021, CT brain 11/10/2021 HISTORY: Seizure TECHNIQUE: Multiplanar, multisequence images of the brain and brainstem is performed without and with IV contras t, utilizing 6 mL intravenous Gadavist . FINDINGS: Diffusion weighted images demonstrate no evidence of a recent infarct or other diffusion ab normality. There is no extra-axial fluid collection with scattered high T2 signal areas/foci through out the deep white matter signal abnormality. The ventricular system and cisternal spaces are normal in size and appearance. The brain volume is age appropriate. Midline structures demonstrate normal morphology. The craniocervical junction appears within normal limits. Post contrast images demonstrate no abnormal enhancement. The dural venous sinuses appear pa tent. The visualized sinuses are clear and the globes are intact. IMPRESSION: 1. No evidence of intracranial mass, acute/subacute infarct, or abnormal enhancement. 2. Nonspecific white matter changes, likely related to small vessel ischemic disease
[2021-11-11] MEDS: PANTOPRAZOLE 40 MG TABLET PO SCH (15:47)
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
--- NOTE | 2021-11-11 18:04 | EEG ---
ELECTROENCEPHALOGRAM REPORT DATE OF SERVICE: 11/11/2021 CLINICAL HISTORY: This is a 61-year-old gentleman with episodes of jerking of the left side. The video EEG is obtained to evaluate for seizure epileptiform activity. Relevant medication is Depakote. EEG TYPE: A routine 21-channel EEG is performed with video using the 10/20 electrode system. DESCRIPTION: Wakefulness is obtained. During awake state, the posterior-dominant rhythm consists of low to moderate voltage of 8 to 8.5 hertz activity. There was no physiological stage 2 sleep architecture. There is no focal slowing. Interictal and ictal is none. ACTIVATION PROCEDURE: Photic stimulation did not evoke a posterior driving response. There is no abnormality during the photic stimulation. Hyperventilation is not performed. CLINICAL INTERPRETATION: This is a normal routine EEG. There is no focal slowing, epileptiform discharges or seizure on the EEG. Clinical correlation is recommended. XIOMARA / DEBORAH: [id number] /
[2021-11-11] MEDS: levETIRAcetam 500 MG TAB PO SCH (21:28)
[2021-11-11] MEDS: HYDROcodone/APAP 7.5-325MG 1 EACH TAB PO PRN (21:28)
[2021-11-11] MEDS: DIVALPROEX ER 500 MG TAB.ER.24H PO SCH (21:28)
[2021-11-11] MEDS: ATORVASTATIN 10 MG TAB PO SCH (21:28)
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
[2021-11-12] MEDS: SODIUM CHLORIDE 0.9% 1,000 ML IV SCH ×2 (00:34→13:10)
[2021-11-12] MEDS ORDERED: HEPARIN SODIUM,PORCINE/PF 5,000 UNIT/0.5 ML SYRINGE SQ SCH (08:00)
[2021-11-12 08:27] VITALS: BP 147/80; PULSE 63; RESP 16; TEMP 98.7
[2021-11-12] MEDS: ASPIRIN 81 MG PO SCH (08:42)
[2021-11-12] MEDS: PANTOPRAZOLE 40 MG TABLET PO SCH (08:42)
[2021-11-12] MEDS: levETIRAcetam 500 MG TAB PO SCH (08:42)
[2021-11-12] MEDS: DIVALPROEX ER 500 MG TAB.ER.24H PO SCH (08:42)
[2021-11-12] MEDS: GABAPENTIN 300 MG CAP PO SCH (08:46)
[2021-11-12] MEDS ORDERED: METOPROLOL TARTRATE 25 MG TAB PO SCH (09:00)
[2021-11-12] MEDS ORDERED: CLOPIDOGREL 75 MG TAB PO SCH (09:00)
[2021-11-12 09:08] LABS: ALT 58 U/L (10-49); AST 48 U/L (14-35); African American GFR (CKD) 110.2 (60.0-200.0); Albumin 3.6 g/dL (3.8-4.9); Alkaline Phosphatase 72 U/L (41-126); BUN/Creat Ratio 10.88 Ratio (12.00-20.00); Blood Urea Nitrogen 8.7 mg/dL (9.0-27.0); Chloride 101 mmol/L (96-109); Glucose 86 mg/dL (70-110); Non-African American GFR(CKD) 95.1 (60.0-200.0); Potassium 4.4 mmol/L (3.5-5.5); Sodium 135 mmol/L (135-145); Total Bilirubin <0.15 mg/dL (0.30-1.20); Total Protein 5.6 g/dL (6.2-8.2)
--- NOTE | 2021-11-12 10:30 | P.PN ---
Subjective Progress Note Date: 11/12/21 The patient is seen at bedside and states he is doing better. No further jerking of any extremities. I spoke with inpatient pharmacy and he notified them he was not taking Keppra but to me he stated he was taking it and possibly missed a pill rarely. He denies of any new neurological deficits. Objective - Vital Signs Vital signs: Vital Signs Temp 98.7 F 11/12/21 08:00 Pulse 63 11/12/21 08:00 Resp 16 11/12/21 08:46 BP 147/80 11/12/21 08:00 Pulse Ox 99 11/12/21 08:00 FiO2 Intake & Output 11/11/21 11/12/21 11/12/21 18:59 06:59 18:59 Intake Total 940 118 Balance 940 118 Intake: Oral 940 118 Other: Voiding Method Urinal Urinal Urinal # Voids 2 - Exam GENERAL: The patient is lying in bed and is not in acute distress. NEUROLOGICAL: Higher mental function: The patient is awake, alert, oriented to self, place and time. Patient is following commands. No aphasia and no neglect. Cranial nerves: The pupils are round, equal and reactive to light and accommodation. Visual thomas are full to confrontation throughout. Extraocular movement is intact no nystagmus is noted. Facial sensation is normal to touch throughout. The facial strength is normal throughout. Hearing is mildly decreasedl bilaterally to hand rub (patient has hearing aids on). Tongue is midline and moved [id number] without any difficulty. No dysarthria is noted. Shoulder shrug is normal bilaterally. Motor: Gait is antalgic and slight drift on left side (patient stated old). The strength is left knee extension is 4+ to 5- and ankle dorsiflexion/flexion is 4+ (stated old). Otherwise 5 over 5 throughout. Normal tone and bulk. Cerebellum: Normal finger to nose bilaterally. Sensation: Sensation is normal to touch throughout. Plantars are downgoing bilaterally. Some other workup in our facility during his hospital visit consisted of AST of 74 ALT of 67, calcium is 8.1, sodium is 130. CT of the head is reported as no acute intracranial abnormality. No change. I personally reviewed the CT of the head and I agree with the report Venous duplex of lower extremities reported as no evidence of DVT in the left leg Routine EEG is normal. There is no focal slowing, epileptiform discharges or seizure on EEG. MRI the brain is reported as no evidence of intracranial mass, acute/subacute infarct or abnormal enhancement. Nonspecific white matter changes, likely related to small vessel ischemic disease. CT lumbar is reported as acute fracture through the left iliac bone without displacement. Correlate with history of trauma, consider full evaluation of the pelvis structure with CT pelvis without IV contrast. Multilevel disc degeneration changes with multilevel neural 4 mental stenosis narrowing worse at L5-S1 bilaterally, right L3-L4 and bilateral L1-L2 with neuroforaminal stenosis. In the body reported as reported that patient has moderate to severe bilateral neuroforaminal stenosis over L5-S1 CT pelvis is written reported as redemonstration of the left posterior iliac bone fracture with no displacement. No additional fracture within the pelvis are identified. This does appear to extend to the sacroiliac joint on the left. End stage osteoarthritis of the hips - Labs CBC & Chem 7: 11/10/21 17:08 11/12/21 04:44 Labs: Abnormal Lab Results - Last 24 Hours (Table) 11/11/21 11/12/21 Range/Units 12:25 04:44 Sodium 133 L (137-145) mmol/L Anion Gap 7.00 L (10.00-18.00) mmol/L BUN 8.7 L (9.0-27.0) mg/dL BUN/Creatinine Ratio 10.88 L (12.00-20.00) Ratio Total Bilirubin <0.15 L (0.30-1.20) mg/dL AST 48 H (14-35) U/L ALT 58 H (10-49) U/L Total Protein 5.6 L (6.2-8.2) g/dL Albumin 3.6 L (3.8-4.9) g/dL Assessment and Plan Assessment: Uncontrollable jerking of left side for the past 3-4 years without LOC appears possible focal motor seizures. Patient stated he had extensive work-up by his outpatient neuroogist (multiple EEG's, MRI Brain, C-spine and L-spine and were negative cause of his symptoms that was reported to him). He stated he has missed Keppra rarely. Is on Keppra and Depakote. Acute left iliac fracture Left lower leg weakness and according to him this is chronic Lumbosacral neural foraminal stenosis prominent in L5-S1 Cervical stenosis status post decompression and fusion Chronic mild hyponatremia Chronic alcohol use and he stated that he cut down and now he currently socially drinks alcohol Hypertension Tobacco use Plan: Continue Depakote 500mg ER 1 tab bid and Keppra 500mg 1 tab bid his home medications. Consulted Dr. Cooper (Orthopedic team). I highly recommend the patient to obtain an epilepsy monitoring unit as outpatient since according to him he is having 3-4 episodes of jerking on the left side to capture these episodes. Every 4 hours neuro checks Physical therapy and occupation therapy are consulted. Patient was counseled on tobacco cessation We'll defer the rest of the medical management to the primary team Upon discharge the patient needs to follow-up with his neurologist (Dr. Acuna's team) within 1-2 weeks. No additional work-up is needed from neurological perspective. Will sign off. Please reconsult if needed. Ja Ramey M.D. Neuro-Hospitalist Time with Patient: Less than 30
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
--- NOTE | 2021-11-17 16:31 | P.DS ---
Providers Date of admission: 11/10/21 19:43 Expected date of discharge: 11/12/21 Attending physician: Kelly Colbert Consults: 11/10/21 19:43 Consult Physician Routine Consulting Provider: Ja Ramey Consult Reason/Comments: Left leg weakness, gait instability Do you want consulting provider notified?: Yes 11/11/21 15:39 Consult Physician Routine Consulting Provider: Moise Valenzuela Consult Reason/Comments: iliac fracture Do you want consulting provider notified?: Yes Primary care physician: Serafin Shultz Hospital Course: Final diagnosis Left sided iliac bone fracture. Left lower extremity weakness unable to bear weight. History of jerking movements of the left side for the past 3 to 4 years. Patient had neurologic work-up as an outpatient which was essentially negative as per patient Cervical degenerative disc disease and cervical stenosis Mild hypovolemic hyponatremia Hypertension Hearing result/deafness and right ear implant Current everyday smoker DVT prophylaxis Discharge disposition Patient is being discharged in a stable condition with guarded prognosis to home . Patient will follow-up with Dr. Betancourt in the outpatient setting upon discharge. Patient is to follow-up with orthopedics Dr. Cooper as scheduled. Total time taken is greater than 35 minutes. Hospital course This is a 61-year-old male who was recently admitted with increasing leg we akness and multiple falls with difficulty and ambulate in. Patient was evaluated by neurology along with orthopedics and patient normally follows with Dr. Cooper and recommend follow-up as patient was seen by orthopedics here recommending conservative management as there was an acute fracture through the left iliac bone without any displacement. Patient has been walking with no difficulties and agreeable to follow-up in the outpatient setting. Patient to continue with pain management and also follow-up with primary care provider on discharge. Patient reports to feeling well and would like to go home. Currently no reports of chest pain, shortness of breath, or palpitations. Patient is afebrile. No reports of nausea or vomiting and patient is tolerating diet. Patient will be discharged home today. Physical exam: Gen: This is a 61-year-old male awake, alert and oriented 3, thin built HEENT: Head is atraumatic, normocephalic. Pupils equal, round. Sclerae is anicteric. NECK: Supple. No JVD. No lymphadenopathy. No thyromegaly. LUNGS: Clear to auscultation. No wheezes or rhonchi. No intercostal retractions. HEART: Regular rate and rhythm. No murmur. ABDOMEN: Soft. Bowel sounds are present. No masses. No tenderness. EXTREMITIES: No pedal edema. No calf tenderness. NEUROLOGICAL: Patient is awake, alert and oriented x3. Cranial nerves 2 through 12 are grossly intact. Please refer to medication reconciliation sheet for a list of medications. The impression and plan of care has been dictated by Irina Schwartz, Nurse Practitioner as directed. Dr. Gali MD I have performed a history and examination and MDM of this patient, discussed the same with the dictator, and agree with the dictator's assessment and plan as written ,documented as a scribe. Based on total visit time, I have performed more than 50% of the visit. Patient Condition at Discharge: Stable Plan - Discharge Summary Discharge Rx Participant: Yes New Discharge Prescriptions: Continue HYDROcodone/APAP 7.5-325MG [[place] 7.5-325] 1 tab PO TID PRN PRN Reason: Pain Baclofen [Lioresal] 10 mg PO BID PRN PRN Reason: Muscle Pain Metoprolol Tartrate [Lopressor] 25 mg PO DAILY Atorvastatin [Lipitor] 10 mg PO HS Butalb/Acetaminophen/Caffeine [Fioricet 50-325-40] 1 tab PO TID PRN PRN Reason: Headache Gabapentin [Neurontin] 300 mg PO BID@0900,1300 Gabapentin [Neurontin] 600 mg PO HS Meclizine [Antivert] 25 mg PO TID PRN PRN Reason: Vertigo Omeprazole 40 mg PO DAILY Naproxen [Naprosyn] 500 mg PO BID PRN PRN Reason: Pain Divalproex ER [Depakote ER] 500 mg PO BID Clopidogrel [Plavix] 75 mg PO DAILY levETIRAcetam [Keppra] 500 mg PO BID Aspirin 81 mg PO DAILY 30 Days #30 tab Discharge Medication List Baclofen [Lioresal] 10 mg PO BID PRN 08/04/18 [History] HYDROcodone/APAP 7.5-325MG [[place] 7.5-325] 1 tab PO TID PRN 08/04/18 [History] Metoprolol Tartrate [Lopressor] 25 mg PO DAILY 09/11/18 [History] Atorvastatin [Lipitor] 10 mg PO HS 03/30/19 [History] Butalb/Acetaminophen/Caffeine [Fioricet 50-325-40] 1 tab PO TID PRN 03/30/19 [History] Gabapentin [Neurontin] 300 mg PO BID@0900,1300 03/30/19 [History] Gabapentin [Neurontin] 600 mg PO HS 03/30/19 [History] Meclizine [Antivert] 25 mg PO TID PRN 06/21/20 [History] Omeprazole 40 mg PO DAILY 06/21/20 [History] Naproxen [Naprosyn] 500 mg PO BID PRN 10/07/20 [History] Aspirin 81 mg PO DAILY 30 Days #30 tab 03/03/21 [Rx] Clopidogrel [Plavix] 75 mg PO DAILY 11/10/21 [History] Divalproex ER [Depakote ER] 500 mg PO BID 11/10/21 [History] levETIRAcetam [Keppra] 500 mg PO BID 11/11/21 [History] Follow up Appointment(s)/Referral(s): Lexii Betancourt MD [Primary Care Provider] - 1-2 days Barrett Cooper DO [Doctor of Osteopathic Medicine] - 1 Week Activity/Diet/Wound Care/Special Instructions: Activity Limited until follow-up Follow-up primary care provider on discharge Follow-up with Dr. Cooper orthopedics in the outpatient setting Continue taking medications as prescribed Discharge Disposition: HOME SELF-CARE
== END 2021-11-12 14:43 | disposition home or self-care (01) ==
LOC: EC 16:03 → 6NMEDSUR 19:43
PROVIDERS: ADMIT Hospitalist; ATTEND Hospitalist
DX: E86.0 Dehydration (principal); S32.302A Unspecified fracture of left ilium, initial encounter for closed fracture; X58.XXXA Exposure to other specified factors, initial encounter; I10 Essential (primary) hypertension; E87.1 Hypo-osmolality and hyponatremia; E86.1 Hypovolemia; Z86.16 Personal history of COVID-19; F17.210 Nicotine dependence, cigarettes, uncomplicated; Z96.20 Presence of otological and audiological implant, unspecified; M51.37 Other intervertebral disc degeneration, lumbosacral region; M48.07 Spinal stenosis, lumbosacral region; I20.9 Angina pectoris, unspecified; K21.9 Gastro-esophageal reflux disease without esophagitis; H91.90 Unspecified hearing loss, unspecified ear; G40.909 Epilepsy, unspecified, not intractable, without status epilepticus; Z86.14 Personal history of Methicillin resistant Staphylococcus aureus infection; Z98.1 Arthrodesis status; Z98.49 Cataract extraction status, unspecified eye; Z80.9 Family history of malignant neoplasm, unspecified; Z79.02 Long term (current) use of antithrombotics/antiplatelets; Z79.82 Long term (current) use of aspirin; Z79.899 Other long term (current) drug therapy
CPT/HCPCS: 96361 ×3; 96372; 96360; 99285; 36415; 95816; 93005; 97162; 80053 ×2; 80048; 84484; 85025; 85610; 85730; 93971; 72192; 72131; 70450; 70553; G0378 ×3; A9585; J1644

== ENCOUNTER 2021-12-31 12:55 | Emergency (ER) | payer MEDICARE, OTHER ==
[2021-12-31 13:03] VITALS: TEMP 98.1
[2021-12-31] MEDS ORDERED: ONDANSETRON 4 MG/2 ML VIAL IVP STA (13:28)
[2021-12-31] MEDS ORDERED: SODIUM CHLORIDE 0.9% 1,000 ML IV STA (13:28)
[2021-12-31 13:47] LABS: Basophils % (A) 1 %; Eosinophils # (A) 0.1 k/uL (0-0.7); Eosinophils % (A) 1 %; HCT 40.7 % (39.0-53.0); HGB 13.6 gm/dL (13.0-17.5); Lymphocytes # (A) 1.9 k/uL (1.0-4.8); Lymphocytes % (A) 27 %; MCH 32.8 pg (25.0-35.0); MCHC 33.3 g/dL (31.0-37.0); MCV 98.3 fL (80.0-100.0); Mean Platelet Volume 8.3; Monocytes # (A) 0.5 k/uL (0-1.0); Monocytes % (A) 7 %; Neutrophils # (A) 4.4 k/uL (1.3-7.7); Neutrophils % (A) 63 %; Platelet Count 112 k/uL (150-450); RBC 4.14 m/uL (4.30-5.90); RDW 14.4 % (11.5-15.5); WBC 6.9 k/uL (3.8-10.6)
[2021-12-31 14:00] LABS: INR 0.9 (<1.2); Partial Thromboplastin Time 26.6 sec (22.0-30.0); Prothrombin Time 10.2 sec (9.0-12.0)
[2021-12-31 14:10] LABS: ALT 25 U/L (4-49); AST 55 U/L (17-59); African American GFR (CKD) >90 (>60 ml/min/1.73 sqM); Albumin 4.2 g/dL (3.5-5.0); Alkaline Phosphatase 66 U/L (38-126); Anion Gap 14 mmol/L; Blood Urea Nitrogen 5 mg/dL (9-20); Calcium 8.6 mg/dL (8.4-10.2); Carbon Dioxide 21 mmol/L (22-30); Chloride 91 mmol/L (98-107); Glucose 101 mg/dL (74-99); Magnesium 1.6 mg/dL (1.6-2.3); Non-African American GFR(CKD) >90 (>60 ml/min/1.73 sqM); Sodium 126 mmol/L (137-145); Total Bilirubin 0.6 mg/dL (0.2-1.3); Total Protein 6.5 g/dL (6.3-8.2)
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
[2021-12-31 14:28] LABS: Appearance,Urine Clear (Clear); Bilirubin,Urine Negative (Negative); Blood,Urine Negative (Negative); Color,Urine Yellow; Glucose,Urine (UA) Negative (Negative); Ketones,Urine Negative (Negative); Leukocyte Esterase,Urine Negative (Negative); Nitrite,Urine Negative (Negative); PH, Urine 5.5 (5.0-8.0); Protein,Urine Negative (Negative); Specific Gravity,Urine 1.007 (1.001-1.035); Urobilinogen,Urine <2.0 mg/dL (<2.0)
[2021-12-31 14:53] VITALS: BP 155/80; PULSE 78; RESP 16
== END 2021-12-31 14:51 | disposition home or self-care (01) ==
LOC: EC 12:55
DX: E86.0 Dehydration (principal); E87.1 Hypo-osmolality and hyponatremia; I10 Essential (primary) hypertension; K21.9 Gastro-esophageal reflux disease without esophagitis; Z79.83 Long term (current) use of bisphosphonates; F17.200 Nicotine dependence, unspecified, uncomplicated; Z20.822 Contact with and (suspected) exposure to COVID-19
CPT/HCPCS: 36415; 93005; 80053; 83735; 85025; 85610; 85730; 81003; 87635; 99284; 96374; 96361; J2405

== ENCOUNTER 2022-05-17 14:54 | Emergency (ER) | payer MEDICARE, OTHER ==
[2022-05-17 15:09] VITALS: RESP 18; TEMP 97.2
[2022-05-17] MEDS ORDERED: MORPHINE SULFATE 4 MG/ML SYRINGE IV STA (15:38)
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
[2022-05-17 16:07] LABS: Basophils % (A) 1 %; Eosinophils # (A) 0.1 k/uL (0-0.7); Eosinophils % (A) 2 %; HCT 39.3 % (39.0-53.0); HGB 13.1 gm/dL (13.0-17.5); Lymphocytes # (A) 1.1 k/uL (1.0-4.8); Lymphocytes % (A) 17 %; MCH 32.4 pg (25.0-35.0); MCHC 33.4 g/dL (31.0-37.0); Mean Platelet Volume 7.5; Monocytes # (A) 0.4 k/uL (0-1.0); Monocytes % (A) 7 %; Neutrophils # (A) 4.7 k/uL (1.3-7.7); Neutrophils % (A) 72 %; Platelet Count 195 k/uL (150-450); RBC 4.05 m/uL (4.30-5.90); RDW 14.5 % (11.5-15.5); WBC 6.5 k/uL (3.8-10.6)
[2022-05-17 16:16] LABS: ALT 18 U/L (4-49); AST 26 U/L (17-59); African American GFR (CKD) >90 (>60 ml/min/1.73 sqM); Albumin 3.9 g/dL (3.5-5.0); Alkaline Phosphatase 75 U/L (38-126); Anion Gap 3 mmol/L; Blood Urea Nitrogen 9 mg/dL (9-20); Calcium 8.7 mg/dL (8.4-10.2); Carbon Dioxide 26 mmol/L (22-30); Chloride 105 mmol/L (98-107); Glucose 86 mg/dL (74-99); Magnesium 1.9 mg/dL (1.6-2.3); Non-African American GFR(CKD) >90 (>60 ml/min/1.73 sqM); Potassium 4.2 mmol/L (3.5-5.1); Sodium 134 mmol/L (137-145); Total Bilirubin 0.5 mg/dL (0.2-1.3); Total Protein 6.5 g/dL (6.3-8.2)
[2022-05-17 16:24] LABS: Partial Thromboplastin Time 24.3 sec (22.0-30.0); Prothrombin Time 10.8 sec (9.0-12.0)
--- NOTE | 2022-05-17 16:28 | XR ---
EXAMINATION TYPE: XR chest 2V DATE OF EXAM: 05/17/2022 COMPARISON: 06/16/2021 HISTORY: Shortness of breath TECHNIQUE: Frontal and lateral views of the chest are obtained. FINDINGS: Scattered senescent parenchymal changes noted. Hyperinflation compatible with COPD. No evidence for infiltrate. No evidence for atelectasis. Heart size is stable. Mediastinal structures are stable and grossly unremarkable. No evidence for hilar prominence. Degenerative changes dorsal spine. IMPRESSION: 1. No evidence for acute pulmonary disease.
[2022-05-17 19:00] VITALS: BP 136/86; PULSE 65
== END 2022-05-17 19:13 | disposition home or self-care (01) ==
LOC: EC 14:54
DX: M54.6 Pain in thoracic spine (principal); K21.9 Gastro-esophageal reflux disease without esophagitis; F17.200 Nicotine dependence, unspecified, uncomplicated; Z79.82 Long term (current) use of aspirin; Z79.899 Other long term (current) drug therapy; Z79.02 Long term (current) use of antithrombotics/antiplatelets
CPT/HCPCS: 36415; 85379; 80053; 83735; 84484; 85025; 85610; 85730; 71046; 99284; 96374; J2270; 93005

== ENCOUNTER → 2023-01-06 | Outpatient (CLI) | payer MEDICARE, OTHER ==
--- NOTE | 2023-01-06 12:47 | CT ---
EXAMINATION TYPE: CT chest w con DATE OF EXAM: 01/06/2023 COMPARISON: 07/20/2021, 11/05/2021 HISTORY: 62-year-old male h/o lung nodule f/u TECHNIQUE: Contiguous axial scanning of the chest after the administration of 100 mL of Isovue 300. Coronal/sagittal reconstructions performed. CT DLP: 146.4mGycm. Automatic exposure control utilized for a dose reduction. FINDINGS: Heart normal size without pericardial effusion. Ectatic aortic root at 3.8 cm. Bovine configuration to the aortic arch with mild atherosclerotic calcifications. Scattered mediastinal lymph nodes measuring up to 7 mm are unchanged. No progressive thoracic lymphad enopathy identified. There is moderate to advanced emphysematous change. Right apical pleural parenchymal scarring is alex lar. Some adherent secretions/debris along the roof of the right mainstem bronchus. Mild diffuse bron chial wall thickening. A 4 mm peripheral left basilar pulmonary nodule remains unchanged. 4 mm right lower lobe pulmonary nodule, axial image 29 is unchanged. A 1.3 cm subpleural nodule posterior right base measured 1.2 cm, previously. Some adjacent pleural pa renchymal opacity is noted. Visualized upper abdomen shows no gross abnormality. Bones: [facility] mid and lower thoracic spine with accentuated lower thoracic kyphosis. IMPRESSION: 1. COPD with moderate to advanced emphysema. 2. Right basal pleural parenchymal scarring. A subpleural nodule here measures 1.3 cm versus 1.2 cm, previously. Very indolent behavior suggests a benign etiology. Consider ongoing annual surveillance f ollow-up. A 4 mm left basilar pulmonary nodule is also stable. 3. DISH mid and lower thoracic spine.
== END | disposition home or self-care (01) ==
LOC: RADCTMAIN 10:19
PROVIDERS: ATTEND Internal Medicine
DX: J43.9 Emphysema, unspecified (principal); M48.14 Ankylosing hyperostosis [Forestier], thoracic region; J94.8 Other specified pleural conditions; R91.1 Solitary pulmonary nodule
CPT/HCPCS: 71260; Q9967

== ENCOUNTER 2023-07-04 15:21 | Emergency (ER) | payer OTHER ==
[2023-07-04 16:47] LABS: Basophils % (A) 0 %; Eosinophils # (A) 0.1 k/uL (0-0.7); Eosinophils % (A) 1 %; HCT 38.8 % (39.0-53.0); HGB 13.1 gm/dL (13.0-17.5); Lymphocytes # (A) 1.3 k/uL (1.0-4.8); Lymphocytes % (A) 16 %; MCHC 33.7 g/dL (31.0-37.0); MCV 103.7 fL (80.0-100.0); Macrocytosis Slight; Mean Platelet Volume 7.9; Monocytes # (A) 0.6 k/uL (0-1.0); Monocytes % (A) 7 %; Neutrophils # (A) 6.1 k/uL (1.3-7.7); Neutrophils % (A) 74 %; Platelet Count 120 k/uL (150-450); RBC 3.74 m/uL (4.30-5.90); RDW 14.6 % (11.5-15.5); WBC 8.2 k/uL (3.8-10.6)
[2023-07-04 16:57] LABS: ALT 12 U/L (4-49); AST 24 U/L (17-59); African American GFR (CKD) >90 (>60 ml/min/1.73 sqM); Albumin 3.7 g/dL (3.5-5.0); Alkaline Phosphatase 82 U/L (38-126); Anion Gap 8 mmol/L; Blood Urea Nitrogen 11 mg/dL (9-20); Calcium 8.8 mg/dL (8.4-10.2); Carbon Dioxide 26 mmol/L (22-30); Chloride 96 mmol/L (98-107); Glucose 82 mg/dL (74-99); Lipase 97 U/L (23-300); Magnesium 1.9 mg/dL (1.6-2.3); Non-African American GFR(CKD) >90 (>60 ml/min/1.73 sqM); Potassium 4.2 mmol/L (3.5-5.1); Sodium 130 mmol/L (137-145); Total Bilirubin 0.4 mg/dL (0.2-1.3); Total Protein 6.4 g/dL (6.3-8.2)
[2023-07-04 17:03] LABS: Partial Thromboplastin Time 22.3 sec (22.0-30.0); Prothrombin Time 11.1 sec (10.0-12.5)
[2023-07-04 17:05] LABS: NT-Pro-B-Type Natriuretic Pept 153 pg/mL
--- NOTE | 2023-07-04 17:30 | XR ---
EXAMINATION TYPE: XR chest 2V DATE OF EXAM: 07/04/2023 COMPARISON: 05/17/2022 HISTORY: 63-year-old male with chest pain TECHNIQUE: PA and lateral views FINDINGS: Normal size. Aorta and pulmonary vasculature are within normal limits. Hyperinflation. Nodular densit y at the left base likely nipple shadow. There is dish in the lower thoracic spine. Accentuated lower thoracic process. Right apical pleural-parenchymal scarring. No consolidation or pleural effusion ot herwise seen. Mild interstitial prominence is unchanged. ACDF hardware. IMPRESSION: COPD and chronic appearing changes. No definite acute process.
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
[2023-07-04 22:05] VITALS: RESP 18
[2023-07-04 23:38] VITALS: BP 152/70; PULSE 78; TEMP 98.2
== END 2023-07-04 23:10 | disposition home or self-care (01) ==
LOC: EC 15:21
DX: R07.81 Pleurodynia (principal); J44.9 Chronic obstructive pulmonary disease, unspecified; K21.9 Gastro-esophageal reflux disease without esophagitis; I10 Essential (primary) hypertension; F17.200 Nicotine dependence, unspecified, uncomplicated; Z79.899 Other long term (current) drug therapy; Z86.16 Personal history of COVID-19
CPT/HCPCS: 36415; 71046; 80053; 83690; 83735; 83880; 84484; 85025; 85610; 85730; 93005; 99285

== ENCOUNTER 2023-08-29 10:13 | Inpatient (IN) | payer OTHER, MEDICARE ==
[2023-08-29 11:06] LABS: Basophils % (A) 0 %; Eosinophils # (A) 0.2 k/uL (0-0.7); Eosinophils % (A) 3 %; HCT 41.9 % (39.0-53.0); HGB 13.6 gm/dL (13.0-17.5); Lymphocytes # (A) 1.1 k/uL (1.0-4.8); Lymphocytes % (A) 14 %; MCH 33.5 pg (25.0-35.0); MCHC 32.5 g/dL (31.0-37.0); Macrocytosis Slight; Mean Platelet Volume 8.1; Monocytes # (A) 0.5 k/uL (0-1.0); Monocytes % (A) 6 %; Neutrophils # (A) 5.6 k/uL (1.3-7.7); Neutrophils % (A) 73 %; RBC 4.06 m/uL (4.30-5.90); RDW 15.1 % (11.5-15.5); WBC 7.7 k/uL (3.8-10.6)
[2023-08-29] MEDS: SODIUM CHLORIDE 0.9% 1,000 ML IV STA ×3 (11:10→13:58)
[2023-08-29 11:11] LABS: Platelet Count 194 k/uL (150-450)
[2023-08-29] MEDS: ONDANSETRON 4 MG/2 ML VIAL IVP STA (11:12)
[2023-08-29] MEDS: MORPHINE SULFATE 4 MG/ML SYRINGE IVP STA ×2 (11:14→14:12)
[2023-08-29 11:16] LABS: Partial Thromboplastin Time 26.1 sec (22.0-30.0); Prothrombin Time 11.1 sec (10.0-12.5)
[2023-08-29] MEDS: PANTOPRAZOLE 40 MG/10 ML VIAL IVP STA (11:19)
[2023-08-29 11:25] LABS: ALT 11 U/L (4-49); African American GFR (CKD) >90 (>60 ml/min/1.73 sqM); Albumin 3.5 g/dL (3.5-5.0); Amylase 52 U/L (30-110); Anion Gap 8 mmol/L; Blood Urea Nitrogen 10 mg/dL (9-20); Calcium 8.3 mg/dL (8.4-10.2); Carbon Dioxide 22 mmol/L (22-30); Chloride 95 mmol/L (98-107); Glucose 83 mg/dL (74-99); Lipase 206 U/L (23-300); Non-African American GFR(CKD) >90 (>60 ml/min/1.73 sqM); Sodium 125 mmol/L (137-145); Total Bilirubin 0.5 mg/dL (0.2-1.3); Total Protein 6.4 g/dL (6.3-8.2)
[2023-08-29 11:32] LABS: AST 30 U/L (17-59); Alkaline Phosphatase 90 U/L (38-126); Potassium 4.8 mmol/L (3.5-5.1)
[2023-08-29 11:35] LABS: Appearance,Urine Clear (Clear); Bilirubin,Urine Negative (Negative); Blood,Urine Negative (Negative); Color,Urine Colorless; Glucose,Urine (UA) Negative (Negative); Ketones,Urine Negative (Negative); Leukocyte Esterase,Urine Negative (Negative); Nitrite,Urine Negative (Negative); Protein,Urine Negative (Negative); Specific Gravity,Urine 1.007 (1.001-1.035); Urobilinogen,Urine <2.0 mg/dL (<2.0)
--- NOTE | 2023-08-29 13:33 | CT ---
EXAMINATION TYPE: CT abdomen pelvis w con DATE OF EXAM: 08/29/2023 COMPARISON: NONE HISTORY: 63-year-old male with lower abdominal pain TECHNIQUE: Contiguous axial scanning of the abdomen and pelvis following administration of 100 ml Iso vic 300 IV contrast. Delayed images through the kidneys and coronal/sagittal reconstructions perform ed. CT DLP: 600.9 mGycm Automated exposure control for dose reduction was used. FINDINGS: Mild pectus excavatum. Heart normal size without pericardial effusion. There are trace pleu ral effusions. Moderate underlying emphysematous change. Some septal lines at the posterior lung base s. Mild circumferential wall thickening distal esophagus. Severe gastric fold thickening and mucosal hyperemia. There is mild abdominal and moderate pelvic asc ites. [id number] free intraperitoneal air is also noted. No focal liver lesion or biliary ductal dilatation. Portal venous system is patent. The main pancreat ic duct is borderline to mildly dilated at 3 mm. Gallbladder, adrenal glands, kidneys, and spleen within normal limits. Retroaortic left renal vein. No dilated small bowel. Scattered [id number]-[id number] stool throughout the colon. Bladder urine distended. Moderate pelvic ascites. No pelvic adenopathy seen. Bones: [facility] lower thoracic spine. IMPRESSION: 1. SEVERE GASTRIC WALL THICKENING IN CONJUNCTION WITH MILD TO MODERATE FREE AIR AND FREE FLUID. CONSI YAMILET GASTRITIS WITH PERFORATED GASTRIC ULCER. SURGICAL EVALUATION RECOMMENDED. CRITICAL FINDINGS MARIO D TO IN THE ER AT 1:20 PM. 2. TRACE PLEURAL EFFUSIONS. UNDERLYING COPD. SOME SEPTAL LINES AT LUNG BASES COULD REFLECT MILD FLUID OVERLOAD STATE. CLINICALLY CORRELATE.
[2023-08-29] MEDS ORDERED: NALOXONE 0.4 MG/ML 1 ML VIAL IV PRN (13:44)
[2023-08-29] MEDS ORDERED: ONDANSETRON 4 MG/2 ML VIAL IVP PRN (13:44)
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
[2023-08-29] MEDS: PIPERACILLIN-TAZOBACTAM 3.375 GM in SODIUM CHLORIDE 0.9% 100 ML IVPB STA (13:59)
[2023-08-29] MEDS ORDERED: MORPHINE SULFATE 4 MG/ML SYRINGE IVP PRN (14:08)
[2023-08-29] MEDS: IV FLUID CONTINUATION 200 ML IV ONE (14:39)
[2023-08-29] MEDS: IV FLUID CONTINUATION 700 ML IV ONE (14:39)
[2023-08-29] MEDS ORDERED: IPRATROPIUM-ALBUTEROL 3 ML NEB ONE (15:01)
[2023-08-29] MEDS: IPRATROPIUM 0.5 MG/2.5 ML NEBU INHALATION ONE (15:06)
[2023-08-29] MEDS: DEXAMETHASONE SOD PHOSPHATE 4 MG/ML 1 ML VIAL IVP ONE (15:15)
[2023-08-29] MEDS: ONDANSETRON 4 MG/2 ML VIAL IVP ONE (15:15)
[2023-08-29] MEDS ORDERED: LORazepam 2 MG/ML INJ IV PRN (15:27)
[2023-08-29] MEDS ORDERED: LORazepam 1 MG TAB PO PRN ×3 (15:27)
[2023-08-29] MEDS ORDERED: LORazepam 0.5 MG TAB PO PRN (15:27)
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
[2023-08-29] MEDS ORDERED: NICOTINE GUM (POLACRILEX) 2 MG GUM BUCCAL PRN (15:42)
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
[2023-08-29] MEDS ORDERED: SUCCINYLCHOLINE CHLORIDE 200 MG/10 ML VIAL IV ONE (16:13)
[2023-08-29] MEDS ORDERED: CALCIUM CHLORIDE 100 MG/ML 10 ML SYRINGE ONE (16:13)
[2023-08-29] MEDS ORDERED: PHENYLEPHRINE-0.9% NACL SYG 1,000 MCG/10 ML SYRINGE ONE (16:13)
[2023-08-29] MEDS ORDERED: fentaNYL (PF) 50 MCG/ML 2 ML AMP ONE (16:13)
[2023-08-29] MEDS ORDERED: PROPOFOL 10 MG/ML 20 ML VIAL IV ONE (16:13)
[2023-08-29] MEDS ORDERED: LIDOCAINE 1% INJ 10MG/ML (20 ML MDV) ONE (16:13)
[2023-08-29] MEDS ORDERED: SODIUM BICARB 8.4% 50 ML SYR (1 MEQ/ML) ONE (16:13)
[2023-08-29] MEDS ORDERED: ROCURONIUM 10 MG/ML (5 ML VIAL) IV ONE (16:13)
[2023-08-29] MEDS ORDERED: MIDAZOLAM 2 MG/2 ML VIAL ONE (16:13)
[2023-08-29] MEDS: LACTATED RINGERS 1,000 ML IV ONE ×3 (16:30→19:03)
[2023-08-29] MEDS: METRONIDAZOLE NS PMX IV ONE (16:55)
[2023-08-29] MEDS: SODIUM CHLORIDE 0.9% IV ONE (16:55)
[2023-08-29] MEDS: IV FLUID CONTINUATION 500 ML IV ONE (17:00)
[2023-08-29] MEDS ORDERED: ACETAMINOPHEN IV (For NPO) 1,000 MG in EMPTY BAG 1 BAG IVPB PRN (19:16)
--- NOTE | 2023-08-29 19:29 | P.OP ---
Date of Procedure: 08/29/23 Procedure(s) Performed: PREOPERATIVE DIAGNOSIS: Peritonitis with pneumoperitoneum POSTOPERATIVE DIAGNOSIS: Perforated proximal posterior gastric ulcer PROCEDURE: Exploratory laparotomy, subtotal gastrectomy, Ariel-en-Y gastrojejunostomy SURGEON: Alayna EBL: 50 cc ANESTHESIA: General COMPLICATIONS: None OPERATIVE PROCEDURE: Patient placed on the operating table in supine position per the patient was placed under general anesthesia. Abdomen prepped and draped sterilely. Upper midline incision made. As soon as I identified that the perforation was from the stomach the incision was lengthened from the subxiphoid to the infraumbilical location. The [place] was utilized. Gastric leak fluid was evacuated. Cultures were taken. The anterior wall of the stomach had some induration proximally along the lesser curvature but no visible perforation was noted. I entered into the lesser sac by dividing the gastrocolic omentum using LigaSure. In doing so a large perforation of the proximal posterior gastric wall along the lesser curvature was seen. The hole was approximately 2 to 3 cm in diameter. This was not amenable to simple closure. The edges were quite thickened and there was significant induration. It was decided to proceed with subtotal gastrectomy given the operative findings. The stomach was mobilized using LigaSure and 0 silk ties. The duodenum was then divided using a linear [place] 45 blue load stapler. The staple line appeared viable. Once we mobilized the stomach proximal to the ulcer site I placed a 25 EEA anvil into the proximal gastric pouch. I then divided the stomach proximal to the ulcer using the [place] 45 mm green load stapler. The anvil was brought out from the anterior wall of the stomach and a 3-0 silk pursestring suture was used to secure around the anvil. The proximal jejunum was then inspected. A site was chosen approximately 15 cm from the ligament of Treitz. The bowel was divided. The distal portion was brought up to the stomach through a small window in the mesocolon. The staple line was removed. The EEA stapler was utilized through that opening and a anastomosis took place between the antimesenteric portion of the jejunum Ariel limb and the distal aspect of the anterior wall of the stomach. The end of the jejunum at that location was divided then using a linear blue load [place] 45 stapler. 3-0 GI silk sutures were used to take some of the tension off the anastomosis proximally. At that time a [id number] anastomosis took place between the antimesenteric portion of the jejunum proximally and distally. This was performed by firing a 45 mm blue load stapler between the 2 portions of bowel after a small enterotomy was made. The defect was then closed transversely using a running imbricating 3-0 Vicryl suture. 3-0 GI silk Lembert sutures were then used after that. The anastomosis was widely patent and the Ariel limb was widely patent as well. I then closed the defect at the mesocolon using interrupted 3-0 GI silk sutures. Petersons space was closed as well using interrupted 3-0 GI silk sutures. The abdomen was then copiously irrigated with saline. No bleeding was seen. A drain was brought into the abdomen from the right upper quadrant across the anterior aspect of the duodenal stump and then anterior to our anastomosis as well. This was sutured in place using a 3-0 silk stitch. After full irrigation of approximately 4 L of saline the fascia was reapproximated using 2 separate double-stranded #1 PDS sutures. The skin was then reapproximated loosely using a stapler. Sterile dressings were applied. DISPOSITION: Stable to recovery room
[2023-08-29] MEDS ORDERED: Magnesium Replacement Protocol 1 EACH MISC MISCELLANE PRN (19:43)
[2023-08-29] MEDS ORDERED: Potassium Replacement Protocol 1 EACH MISC MISCELLANE PRN (19:43)
[2023-08-29 19:47] LABS: Glucose,Whole Blood 115 mg/dL (70-110)
[2023-08-29] MEDS: THIAMINE 100 MG/ML 2 ML VIAL IM SCH (19:53)
[2023-08-29] MEDS: metroNIDAZOLE-NS PMX 500 MG in SALINE 1 100ML.BAG IVPB STA (19:54)
[2023-08-29] MEDS: VALPROATE SODIUM 500 MG in SODIUM CHLORIDE 0.9% 100 ML IVPB SCH (20:02)
[2023-08-29] MEDS: propofoL 100 ML IV ONE (20:02)
[2023-08-29] MEDS: PANTOPRAZOLE 40 MG/10 ML VIAL IVP SCH (20:14)
[2023-08-29] MEDS: levETIRAcetam IV 500 MG/5 ML VIAL IVP SCH (20:14)
[2023-08-29] MEDS: FLUCONAZOLE IN NACL,ISO-OSM 100 MG in SALINE 1 50ML.BAG IVPB SCH (20:15)
[2023-08-29] MEDS: CHLORHEXIDINE GLUCONATE 15 ML CUP MUCOUS MEM SCH (20:15)
[2023-08-29 20:17] LABS: ABG Base Excess -1.8 mmol/L; ABG HCO3 25 mmol/L (21-25); ABG Oxygen Saturation 99.4 % (94-97); ABG PCO2 50 mmHg (35-45); ABG PO2 >400 mmHg (83-108); ABG TCO2 26 mmol/L (19-24); Allen Test Performed? Yes
[2023-08-29 21:08] LABS: HCT 38.7 % (39.0-53.0); HGB 12.4 gm/dL (13.0-17.5); MCH 33.6 pg (25.0-35.0); MCHC 32.2 g/dL (31.0-37.0); MCV 104.5 fL (80.0-100.0); Macrocytosis Moderate; Mean Platelet Volume 8.1; Platelet Count 150 k/uL (150-450); WBC 5.9 k/uL (3.8-10.6)
--- NOTE | 2023-08-29 22:17 | XR ---
EXAM: XR chest 1V portable CLINICAL INDICATION:Male, 63 years old with history of Tube placement; [facility] COMPARISON: CT abdomen pelvis 08/29/2023 . Chest x-ray 07/04/2023. TECHNIQUE: Chest single view. FINDINGS: Lines/tubes/devices: ET tube tip about 3.3 cm above the troy. NG tube extends into the left upper q uadrant with the sidehole above the GE junction and tip over the proximal stomach. Partially seen lef t upper quadrant drainage tube and midline skin charlie. Monitor leads and numerous extrinsic densities over the chest. Cardiomediastinum: Cardiac silhouette appears upper normal in size. Unremarkable mediastinal silhouette. Vasculature: No increased pulmonary vasculature. Lungs/pleura: Chronic senescent changes in the lungs with diffuse interstitial coarsening. No focal lung consolidat ion is seen. Hazy opacity of the lungs with some capping at the right greater than left lung apices, may suggest layering pleural effusions. Mild left basilar subsegmental atelectasis versus infiltrate. No visible pneumothorax; recommend upright view on future studies. Bones/soft tissues: Bony thorax appears grossly intact as seen, with mild degenerative changes noted.. Regional soft tiss ues appear unremarkable. IMPRESSION: 1. ET tube appears in good position. 2. NG tube should be advanced several additional centimeters followed by reimaging. 3. Chronic lung changes, with mild left basilar infiltrate or atelectasis suggested. Suspect small l ayering pleural effusions.
[2023-08-29] MEDS: IPRATROPIUM-ALBUTEROL 3 ML NEB INHALATION SCH (23:33)
[2023-08-30] MEDS: HYDROmorphone 0.5 MG/0.5 ML SYRINGE IVP PRN (00:02)
[2023-08-30] MEDS: PIPERACILLIN-TAZOBACTAM 3.375 GM in SODIUM CHLORIDE 0.9% 100 ML IVPB SCH (00:07)
[2023-08-30] MEDS: HEPARIN SODIUM,PORCINE 5,000 UNIT/ML 1 ML VIAL SQ SCH (00:08)
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
[2023-08-30 01:04] LABS: Glucose,Whole Blood 125 mg/dL (70-110)
[2023-08-30 03:14] LABS: ALT 18 U/L (4-49); AST 43 U/L (17-59); African American GFR (CKD) >90 (>60 ml/min/1.73 sqM); Albumin 2.2 g/dL (3.5-5.0); Alkaline Phosphatase 43 U/L (38-126); Anion Gap 2 mmol/L; Blood Urea Nitrogen 9 mg/dL (9-20); Calcium 7.8 mg/dL (8.4-10.2); Carbon Dioxide 25 mmol/L (22-30); Chloride 101 mmol/L (98-107); Glucose 114 mg/dL (74-99); Magnesium 1.6 mg/dL (1.6-2.3); Non-African American GFR(CKD) >90 (>60 ml/min/1.73 sqM); Potassium 4.9 mmol/L (3.5-5.1); Sodium 128 mmol/L (137-145); Total Bilirubin 0.6 mg/dL (0.2-1.3); Total Protein 4.6 g/dL (6.3-8.2)
[2023-08-30] MEDS: NOREPINEPHRINE 4 MG in SODIUM CHLORIDE 0.9% 250 ML IV SCH (03:29)
[2023-08-30 03:40] LABS: HCT 35.3 % (39.0-53.0); HGB 11.1 gm/dL (13.0-17.5); MCH 32.8 pg (25.0-35.0); MCHC 31.4 g/dL (31.0-37.0); MCV 104.5 fL (80.0-100.0); Macrocytosis Moderate; Mean Platelet Volume 9.3; Platelet Count 148 k/uL (150-450); RBC 3.38 m/uL (4.30-5.90); RDW 14.8 % (11.5-15.5); WBC 8.2 k/uL (3.8-10.6)
[2023-08-30 04:13] LABS: Band Neutrophils % 11 %; Lymphocytes # (M) 0.41 k/uL (1.0-4.8); Monocytes # (M) 0.33 k/uL (0-1.0); Neutrophils % (M) 80 %; Nucleated Red Blood Cells 0 /100 WBC (0-0); Total Cells Counted 100
[2023-08-30 04:14] LABS: Anisocytosis (M) Present
[2023-08-30 05:07] LABS: ABG Base Excess -0.5 mmol/L; ABG HCO3 25 mmol/L (21-25); ABG Oxygen Saturation 99.2 % (94-97); ABG PCO2 46 mmHg (35-45); ABG PH 7.35 (7.35-7.45); ABG PO2 132 mmHg (83-108); ABG TCO2 27 mmol/L (19-24); Allen Test Performed? Yes
[2023-08-30 06:16] LABS: Glucose,Whole Blood 113 mg/dL (70-110)
[2023-08-30] MEDS: MAGNESIUM SULFATE-D5W PMX 1 GM in DEXTROSE/WATER 1 100ML.BAG IVPB SCH (06:25)
--- NOTE | 2023-08-30 07:40 | XR ---
EXAMINATION TYPE: XR chest 1V portable DATE OF EXAM: 08/30/2023 COMPARISON: 08/29/2023 HISTORY: Tube placement TECHNIQUE: Single frontal view of the chest is obtained. FINDINGS: ET and NG tubes stable. Underlying emphysema. Overlying soft tissue artifact. Previous luke víctor cervical spine. Surgical charlie noted overlying the upper abdomen hypertrophic and degenerative changes. Underlying emphysematous changes with bilateral small effusion. Basilar consolidation. Stab le right apical pleural thickening. Correlate for mild venous congestion. IMPRESSION: 1. Stable pleural parenchymal changes correlate for mild CHF superimposed on a background of COPD. Un derlying pneumonia particularly at the left lung base not excluded.
[2023-08-30] MEDS: NICOTINE 14MG/24HR PATCH TRANSDERM SCH (08:44)
[2023-08-30] MEDS ORDERED: PANTOPRAZOLE 40 MG/10 ML VIAL IV SCH (09:00)
[2023-08-30] MEDS: HYDROmorphone 1 MG/ML 1 ML SYRINGE IVP PRN (09:51)
[2023-08-30 10:59] LABS: African American GFR (CKD) >90 (>60 ml/min/1.73 sqM); Anion Gap 5 mmol/L; Blood Urea Nitrogen 9 mg/dL (9-20); Carbon Dioxide 23 mmol/L (22-30); Chloride 101 mmol/L (98-107); Glucose 110 mg/dL (74-99); Non-African American GFR(CKD) >90 (>60 ml/min/1.73 sqM); Potassium 4.9 mmol/L (3.5-5.1); Sodium 129 mmol/L (137-145)
--- NOTE | 2023-08-30 11:39 | P.PN ---
Subjective Progress Note Date: 08/30/23 Principal diagnosis: Gastric perforation Patient remains on the ventilator. They are weaning off his sedation and patient is arousable. He appears comfortable currently. Nasogastric tube is in place with no output. VENUS drain is serosanguineous. Patient is on low-dose Levophed. White blood cell count remains normal. Hemoglobin stable. Patient is making urine. Objective - Vital Signs Vital signs: Vital Signs Temp 98.2 F 08/30/23 08:00 Pulse 83 08/30/23 11:31 Resp 14 08/30/23 11:31 BP 115/67 08/30/23 10:00 Pulse Ox 100 08/30/23 10:00 FiO2 40 08/30/23 11:26 Intake & Output 08/29/23 08/30/23 08/30/23 18:59 06:59 18:59 Intake Total 3750 1918.705 786.250 Output Total 1835 250 Balance 3750 83.705 536.250 Weight 65.771 kg 69.4 kg Intake: IV 3750 1760 690 Fluconazole in NaCl,Iso- 50 Osm 100 mg In Saline 1 50ml.bag @ 50 mls/hr IVPB DAILY@1900 [facility] Rx#: [id number] Magnesium Sulfate-D5w Pmx 100 1 gm In Dextrose/Water 1 100ml.bag @ 100 mls/hr IVPB Q1H [facility] Rx#: [id number] Piperacillin-Tazobactam 3 100 100 .375 gm In Sodium Chloride 0.9% 100 ml @ 200 mls/hr IVPB ONCE [facility] Rx#:[id number] Sodium Chloride 0.9% 1, 1310 390 000 ml @ 130 mls/hr IV . Q7H42M [facility] Rx#:[id number] Valproate Sodium 500 mg 100 100 In Sodium Chloride 0.9% 100 ml @ 100 mls/hr IVPB Q6HR [facility] Rx#:[id number] Intake, IV Titration 158.705 96.250 Amount Norepinephrine 4 mg In 48.532 Sodium Chloride 0.9% 250 ml @ 0.03 MCG/KG/MIN 7. 518 mls/hr IV .Q24H [facility] Rx#:[id number] propofoL 1,000 mg In 158.705 47.718 Empty Bag 1 bag @ 15 MCG/ KG/MIN 5.919 mls/hr IV . [id number] [facility] Rx#:[id number] Output: Drainage 30 30 Right Abdomen 30 30 Urine 1755 220 Estimated Blood Loss 50 Other: Voiding Method Indwelling Catheter Indwelling Catheter - Exam Abdomen: Soft, dressing in place, mild tenderness, VENUS serosanguineous - Labs CBC & Chem 7: 08/30/23 02:32 08/30/23 09:56 Labs: Abnormal Lab Results - Last 24 Hours (Table) 08/29/23 08/29/23 08/29/23 Range/Units 19:45 20:14 20:53 RBC 3.70 L (4.30-5.90) m/uL Hgb 12.4 L (13.0-17.5) gm/dL Hct 38.7 L (39.0-53.0) % MCV 104.5 H (80.0-100.0) fL Plt Count (150-450) k/uL Lymphocytes # (Manual) (1.0-4.8) k/uL ABG pH 7.30 L (7.35-7.45) ABG pCO2 50 H (35-45) mmHg ABG pO2 >400 H (83-108) mmHg ABG Total CO2 26 H (19-24) mmol/L ABG O2 Saturation 99.4 H (94-97) % Sodium (137-145) mmol/L Creatinine (0.66-1.25) mg/dL Glucose (74-99) mg/dL POC Glucose (mg/dL) 115 H (70-110) mg/dL Calcium (8.4-10.2) mg/dL Total Protein (6.3-8.2) g/dL Albumin (3.5-5.0) g/dL 08/30/23 08/30/23 08/30/23 Range/Units 01:03 02:32 02:32 RBC 3.38 L (4.30-5.90) m/uL Hgb 11.1 L (13.0-17.5) gm/dL Hct 35.3 L (39.0-53.0) % MCV 104.5 H (80.0-100.0) fL Plt Count 148 L (150-450) k/uL Lymphocytes # (Manual) 0.41 L (1.0-4.8) k/uL ABG pH (7.35-7.45) ABG pCO2 (35-45) mmHg ABG pO2 (83-108) mmHg ABG Total CO2 (19-24) mmol/L ABG O2 Saturation (94-97) % Sodium 128 L (137-145) mmol/L Creatinine 0.53 L (0.66-1.25) mg/dL Glucose 114 H (74-99) mg/dL POC Glucose (mg/dL) 125 H (70-110) mg/dL Calcium 7.8 L (8.4-10.2) mg/dL Total Protein 4.6 L (6.3-8.2) g/dL Albumin 2.2 L (3.5-5.0) g/dL 08/30/23 08/30/23 08/30/23 Range/Units 05:06 06:15 09:56 RBC (4.30-5.90) m/uL Hgb (13.0-17.5) gm/dL Hct (39.0-53.0) % MCV (80.0-100.0) fL Plt Count (150-450) k/uL Lymphocytes # (Manual) (1.0-4.8) k/uL ABG pH (7.35-7.45) ABG pCO2 46 H (35-45) mmHg ABG pO2 132 H (83-108) mmHg ABG Total CO2 27 H (19-24) mmol/L ABG O2 Saturation 99.2 H (94-97) % Sodium 129 L (137-145) mmol/L Creatinine 0.58 L (0.66-1.25) mg/dL Glucose 110 H (74-99) mg/dL POC Glucose (mg/dL) 113 H (70-110) mg/dL Calcium 8.0 L (8.4-10.2) mg/dL Total Protein (6.3-8.2) g/dL Albumin (3.5-5.0) g/dL Assessment and Plan (1) Perforated abdominal viscus Narrative/Plan: 63-year-old male status post exploratory laparotomy with subtotal gastrectomy for perforated posterior gastric ulceration. Keep gastric tube below intermittent suction. Weaning per pulmonary. Patient likely will be n.p.o. for a period of time. Recommend PICC line for both TPN and antibiotics. Continues broad-spectrum antibiotics. Continue antiacid therapy. Current Visit: Yes Status: Acute Code(s): R19.8 - OTH SYMPTOMS AND SIGNS INVOLVING THE DGSTV SYS AND ABDOMEN SNOMED Code(s): 52312374
[2023-08-30 11:57] LABS: Glucose,Whole Blood 122 mg/dL (70-110)
[2023-08-30] MEDS ORDERED: LORazepam 1 MG/0.5 ML VIAL IV PRN (14:10)
[2023-08-30] MEDS: DEXMEDETOMIDINE/0.9% NACL(PMX) 400 MCG in EMPTY BAG 1 BAG IV SCH (15:21)
--- NOTE | 2023-08-30 16:27 | P.PN ---
Subjective Progress Note Date: 08/30/23 (delayed charting seen at 0945) Patient is a 63-year-old male with a history of of hypertension, GERD, hearing loss, and seizure disorder who presented to the ER with acute onset abdominal pain. In the ER he underwent an extensive evaluation. On arrival his vital signs were remarkable for blood pressure of 171/96. Laboratory analysis included CBC, coags, CMP, amylase, lipase which were remarkable for sodium of 125. Urinalysis was negative. CT abdomen and pelvis demonstrated severe gastri c wall thickening with mild to moderate free air and free fluid possible gastritis with perforated gastric ulcer. Dr. Catalan was contacted and plans are for urgent surgical intervention. We were asked to consult for medical management. Was taken directly from the ER to the operating room was found to have a perforated posterior gastric ulcer which was treated with subtotal gastrectomy and Ariel-en-Y gastrojejunostomy. Postoperatively patient was admitted to the ICU on a ventilator requiring small amounts of Levophed. Patient seen and examined at bedside. Sedated on vent but opens eyes to touch. Nursing no unexpected acute events overnight Vital signs reviewed General: Ill-appearing, mild distress appears at stated age Cardiovascular: S1S2 reg, no murmur Lungs: Coarse breath sounds bilateral, no rhonchi, no rales, no accessory muscle use ET tube in place Abdominal: Soft, tender to palpation diffusely, midline dressing in place without soaked through Ext: No gross muscle atrophy, no edema b/l lower extremities, no contractures Neuro: Daily sedated on vent but moving all 4 extremities Psych: Sedated and opens eyes and moves extremities spontaneously, not following commands Assessment/Plan: Perforated posterior gastric ulcersubtotal gastrectomy and Ariel-en-Y gastrojejunostomy Hypovolemic shock -Protonix 40 mg IV push twice daily -Zosyn 3.375 g IV piggyback 3 times daily, fluconazole 100 mg IV piggyback daily -General surgery recommendations: PICC line to be placed for TPN and antibiotics. Continue broad-spectrum antibiotics biotics. Patient likely to be n.p.o. for an extended amount of time. -Critical care note reviewed: Continue with support. Possibly stopping propofol and using Precedex. -Await infectious disease consultation -Continue patient on lactated Ringer's at 130 cc/h -Wean Levophed as able Hypovolemic hyponatremia -Suspect secondary to fluid shifts -Continue lactated Ringer's at 130 cc/h -Repeat BMP at 1700 -Await urine sodium and urine osmolality as well as serum osmolality Acute blood loss anemia, anticipated outcome of surgery Thrombocytopenia, likely consumptive -No indication for transfusion -Follow CBC-check iron studies EtOH use -CIWA protocol with Ativan dosing per CIWA scale. -IV thiamine 100 mg daily -Hold folic acid as patient n.p.o. Angina, undetermined etiology - further work up once acute condition stabalized. Nicotine depenedency -Nicotine patch 14 mcg daily Hypertension -Follow blood pressures - currently on levo -Seizure disorder -Keppra 500 mg twice daily IV -Valproic sodium 500 mg IV piggyback 4 times daily Imaging: Chest x-ray is reviewed by myself shows possible mild increased pulmonary vascular congestion Data Review: Labs reviewed from today include CBC and basic metabolic profile which are remarkable for hemoglobin 11.1, platelets 148, sodium 129. This dictation was prepared using [employer] voice recognition software. Th ough every attempt is made to correct errors during dictation some may still exist. Objective - Vital Signs Vital signs: Vital Signs Temp 98.0 F 08/30/23 12:00 Pulse 88 08/30/23 15:57 Resp 12 08/30/23 15:00 BP 122/57 08/30/23 15:00 Pulse Ox 100 08/30/23 15:00 FiO2 40 08/30/23 13:01 Intake & Output 08/29/23 08/30/23 08/30/23 18:59 06:59 18:59 Intake Total 3750 1234.552 7619.471 Output Total 1835 420 Balance 3750 83.705 1010.471 Weight 65.771 kg 69.4 kg Intake: IV 3750 1760 1310 Fluconazole in NaCl,Iso- 50 Osm 100 mg In Saline 1 50ml.bag @ 50 mls/hr IVPB DAILY@1900 [facility] Rx#: [id number] Magnesium Sulfate-D5w Pmx 100 1 gm In Dextrose/Water 1 100ml.bag @ 100 mls/hr IVPB Q1H [facility] Rx#: [id number] Piperacillin-Tazobactam 3 100 100 .375 gm In Sodium Chloride 0.9% 100 ml @ 200 mls/hr IVPB ONCE [facility] Rx#:[id number] Sodium Chloride 0.9% 1, 1310 910 000 ml @ 130 mls/hr IV . Q7H42M [facility] Rx#:[id number] Valproate Sodium 500 mg 100 200 In Sodium Chloride 0.9% 100 ml @ 100 mls/hr IVPB Q6HR [facility] Rx#:[id number] Intake, IV Titration 158.705 120.471 Amount Norepinephrine 4 mg In 67.787 Sodium Chloride 0.9% 250 ml @ 0.03 MCG/KG/MIN 7. 518 mls/hr IV .Q24H [facility] Rx#:[id number] propofoL 1,000 mg In 158.705 52.684 Empty Bag 1 bag @ 15 MCG/ KG/MIN 5.919 mls/hr IV . [id number] [facility] Rx#:[id number] Output: Drainage 30 30 Right Abdomen 30 30 Urine 1755 390 Estimated Blood Loss 50 Other: Voiding Method Indwelling Catheter Indwelling Catheter - Labs CBC & Chem 7: 08/30/23 02:32 08/30/23 09:56 Labs: Abnormal Lab Results - Last 24 Hours (Table) 08/29/23 08/29/23 08/29/23 Range/Units 19:45 20:14 20:53 RBC 3.70 L (4.30-5.90) m/uL Hgb 12.4 L (13.0-17.5) gm/dL Hct 38.7 L (39.0-53.0) % MCV 104.5 H (80.0-100.0) fL Plt Count (150-450) k/uL Lymphocytes # (Manual) (1.0-4.8) k/uL ABG pH 7.30 L (7.35-7.45) ABG pCO2 50 H (35-45) mmHg ABG pO2 >400 H (83-108) mmHg ABG Total CO2 26 H (19-24) mmol/L ABG O2 Saturation 99.4 H (94-97) % Sodium (137-145) mmol/L Creatinine (0.66-1.25) mg/dL Glucose (74-99) mg/dL POC Glucose (mg/dL) 115 H (70-110) mg/dL Calcium (8.4-10.2) mg/dL Total Protein (6.3-8.2) g/dL Albumin (3.5-5.0) g/dL 08/30/23 08/30/23 08/30/23 Range/Units 01:03 02:32 02:32 RBC 3.38 L (4.30-5.90) m/uL Hgb 11.1 L (13.0-17.5) gm/dL Hct 35.3 L (39.0-53.0) % MCV 104.5 H (80.0-100.0) fL Plt Count 148 L (150-450) k/uL Lymphocytes # (Manual) 0.41 L (1.0-4.8) k/uL ABG pH (7.35-7.45) ABG pCO2 (35-45) mmHg ABG pO2 (83-108) mmHg ABG Total CO2 (19-24) mmol/L ABG O2 Saturation (94-97) % Sodium 128 L (137-145) mmol/L Creatinine 0.53 L (0.66-1.25) mg/dL Glucose 114 H (74-99) mg/dL POC Glucose (mg/dL) 125 H (70-110) mg/dL Calcium 7.8 L (8.4-10.2) mg/dL Total Protein 4.6 L (6.3-8.2) g/dL Albumin 2.2 L (3.5-5.0) g/dL 08/30/23 08/30/23 08/30/23 Range/Units 05:06 06:15 09:56 RBC (4.30-5.90) m/uL Hgb (13.0-17.5) gm/dL Hct (39.0-53.0) % MCV (80.0-100.0) fL Plt Count (150-450) k/uL Lymphocytes # (Manual) (1.0-4.8) k/uL ABG pH (7.35-7.45) ABG pCO2 46 H (35-45) mmHg ABG pO2 132 H (83-108) mmHg ABG Total CO2 27 H (19-24) mmol/L ABG O2 Saturation 99.2 H (94-97) % Sodium 129 L (137-145) mmol/L Creatinine 0.58 L (0.66-1.25) mg/dL Glucose 110 H (74-99) mg/dL POC Glucose (mg/dL) 113 H (70-110) mg/dL Calcium 8.0 L (8.4-10.2) mg/dL Total Protein (6.3-8.2) g/dL Albumin (3.5-5.0) g/dL 08/30/23 Range/Units 11:55 RBC (4.30-5.90) m/uL Hgb (13.0-17.5) gm/dL Hct (39.0-53.0) % MCV (80.0-100.0) fL Plt Count (150-450) k/uL Lymphocytes # (Manual) (1.0-4.8) k/uL ABG pH (7.35-7.45) ABG pCO2 (35-45) mmHg ABG pO2 (83-108) mmHg ABG Total CO2 (19-24) mmol/L ABG O2 Saturation (94-97) % Sodium (137-145) mmol/L Creatinine (0.66-1.25) mg/dL Glucose (74-99) mg/dL POC Glucose (mg/dL) 122 H (70-110) mg/dL Calcium (8.4-10.2) mg/dL Total Protein (6.3-8.2) g/dL Albumin (3.5-5.0) g/dL
[2023-08-30 17:24] LABS: African American GFR (CKD) >90 (>60 ml/min/1.73 sqM); Anion Gap 7 mmol/L; Blood Urea Nitrogen 11 mg/dL (9-20); Carbon Dioxide 20 mmol/L (22-30); Chloride 103 mmol/L (98-107); Glucose 98 mg/dL (74-99); Non-African American GFR(CKD) >90 (>60 ml/min/1.73 sqM); Sodium 130 mmol/L (137-145)
[2023-08-30 17:30] LABS: Potassium 5.2 mmol/L (3.5-5.1)
[2023-08-30 18:05] LABS: Glucose,Whole Blood 98 mg/dL (70-110)
[2023-08-30] MEDS: SODIUM CHLORIDE 0.9% 1,000 ML IV SCH (22:00)
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
[2023-08-31 02:18] LABS: Glucose,Whole Blood 50 mg/dL (70-110)
[2023-08-31 02:18] LABS: Glucose,Whole Blood 67 mg/dL (70-110)
[2023-08-31] MEDS ORDERED: DEXTROSE 50% SYRINGE 50 ML IVP PRN ×2 (02:39→02:44)
[2023-08-31] MEDS: DEXTROSE 50% SYRINGE 50 ML IVP PRN (02:55)
[2023-08-31 04:17] LABS: Glucose,Whole Blood 79 mg/dL (70-110)
[2023-08-31 05:34] LABS: HCT 33.5 % (39.0-53.0); HGB 10.6 gm/dL (13.0-17.5); MCH 33.2 pg (25.0-35.0); MCHC 31.6 g/dL (31.0-37.0); Macrocytosis Moderate; Mean Platelet Volume 8.8; Platelet Count 161 k/uL (150-450); RBC 3.19 m/uL (4.30-5.90); RDW 15.1 % (11.5-15.5); WBC 8.4 k/uL (3.8-10.6)
[2023-08-31 06:02] LABS: ALT 15 U/L (4-49); AST 34 U/L (17-59); African American GFR (CKD) >90 (>60 ml/min/1.73 sqM); Albumin 2.3 g/dL (3.5-5.0); Alkaline Phosphatase 55 U/L (38-126); Anion Gap 2 mmol/L; Blood Urea Nitrogen 9 mg/dL (9-20); Calcium 7.6 mg/dL (8.4-10.2); Carbon Dioxide 24 mmol/L (22-30); Chloride 103 mmol/L (98-107); Glucose 70 mg/dL (74-99); Non-African American GFR(CKD) >90 (>60 ml/min/1.73 sqM); Phosphorus 2.7 mg/dL (2.5-4.5); Potassium 4.2 mmol/L (3.5-5.1); Sodium 129 mmol/L (137-145); Total Bilirubin 0.5 mg/dL (0.2-1.3); Total Protein 4.7 g/dL (6.3-8.2)
[2023-08-31 06:35] LABS: Glucose,Whole Blood 59 mg/dL (70-110)
[2023-08-31 07:03] LABS: Glucose,Whole Blood 100 mg/dL (70-110)
[2023-08-31] MEDS: LIDOCAINE 1% INJ 10MG/ML (20 ML MDV) SQ ONE (07:59)
--- NOTE | 2023-08-31 08:25 | IR ---
EXAMINATION TYPE: IR cvc insert >=5 years DATE OF EXAM: 08/31/2023 COMPARISON: NONE HISTORY: Fluoroscopy time. Fluoroscopy was provided to the referring clinician.
[2023-08-31] MEDS: DEXTROSE 10% IN WATER 500 ML in EMPTY BAG 1 BAG IV SCH (08:44)
--- NOTE | 2023-08-31 08:54 | P.OP ---
Date of Procedure: 08/31/23 Preoperative Diagnosis: Need for long-term IV antibiotic therapy as well as total parenteral nutrition support. Postoperative Diagnosis: Same. Procedure(s) Performed: Ultrasound and fluoroscopically guided placement of a PICC via the left basilic vein approach. Anesthesia: local Surgeon: Trever Cloud Estimated Blood Loss (ml): 5 Urine output (ml): 0 Pathology: none sent Condition: stable Disposition: no change Description of Procedure: Patient was brought to the cardiac catheterization suite. The left upper extremity sterilely prepped and draped in usual manner. Utilizing ultrasound the left basilic vein was identified. This was free of visible thrombus and normally compressible. 1% Xylocaine was utilized for local anesthesia tissue overlying the vein. Through this anesthetized area with the aid of ultrasound a micropuncture needle was utilized to cannulate the vein. Once cannulated soft a guidewire was advanced into the vein. The needle was withdrawn and the PICC sheath and dilator were advanced over the guidewire. The guidewire was advanced to the central venous system and was measured to a length of 38 cm. The catheter was subsequently cut to the length of 38 cm. The dilator was withdrawn and the catheter advanced over the guidewire into the central venous system. The guidewire was removed and the sheath was peeled away. Fluoroscopy demonstrated the catheter to be in good position. Blood was easily aspirated th rough both ports and both ports were then flushed with heparinized saline solution. The catheter was then secured to the skin with nylon suture. Appropriate dressings were applied. Patient tolerated the procedure well and was taken to his room in satisfactory and stable condition. Total fluoroscopy time: 12 seconds.
[2023-08-31] MEDS: IPRATROPIUM-ALBUTEROL 3 ML NEB INHALATION SCH (09:08)
--- NOTE | 2023-08-31 11:40 | P.PN ---
Subjective Progress Note Date: 08/31/23 CHIEF COMPLAINT: Gastric perforation HISTORY OF PRESENT ILLNESS: Patient is postop day #1 status post exploratory laparotomy, subtotal gastrectomy, Ariel-en-Y gastrojejunostomy. Patient extubated yesterday. He reports his pain is controlled. He has his PICC line placed and to be starting TPN today. Denies any nausea or vomiting. VENUS drain with 200 mL serosanguineous output through the day yesterday and 60 mL output this morning. Afebrile. Mildly tachycardic. WBC 8.4 Hgb 10.67 was 1.9 potassium 4.2 creatinine 0.54 PHYSICAL EXAM: VITAL SIGNS: Reviewed. GENERAL: no acute distress. HEENT: No sclera icterus. Extraocular movements grossly intact. Moist buccal mucosa. Head is atraumatic, normocephalic. ABDOMEN: Soft. Nondistended. Incision site dressing clean dry and intact. VENUS drain serosanguineous NEUROLOGIC: Alert and oriented. Cranial nerves II through XII grossly intact. ASSESSMENT: 1. Perforated gastric ulcer 2. Peritonitis 3. Sepsis 4. Alcohol use disorder PLAN: -Patient to start TPN today for nutrition support -Continue antibiotics -Keep patient n.p.o. -Add IV Tylenol for pain management -Continue IV Protonix twice a day -Encourage incentive spirometer use -DVT prophylaxis subcu heparin Physician Nurse Extern note has been reviewed by physician. Signing provider agrees with the documented findings, assessment, and plan of care. I have personally seen and examined the patient, reviewed the [employer] /PAs history, exam and MDM and agree with the assessment and plan as written. Based on total visit time, I have performed more than 50% of the visit. As above: Patient seems to be doing better today. Pain is well-controlled between a 3 and a 5. VENUS drain is serosanguineous. Making urine. Labs noted. White blood cell count normal. Continue n.p.o. for now. Begin TPN. Possibly begin sips of liquids in the next day or so. Avoid carbonation. Continue aggre ssive antiacid use. Continue antibiotics. Follow cultures. I will be out of town until Monday. Dr. Trevino will be covering me. Objective - Vital Signs Vital signs: Vital Signs Temp 97.9 F 08/31/23 04:00 Pulse 101 H 08/31/23 09:23 Resp 16 08/31/23 09:23 BP 163/85 08/31/23 09:00 Pulse Ox 94 L 08/31/23 09:08 FiO2 40 08/30/23 13:01 Intake & Output 08/30/23 08/31/23 08/31/23 18:59 06:59 18:59 Intake Total 2280.471 1910 500 Output Total 770 990 315 Balance 1510.471 920 185 Weight 70 kg Intake: IV 2160 1910 490 Fluconazole in NaCl,Iso- 50 Osm 100 mg In Saline 1 50ml.bag @ 50 mls/hr IVPB DAILY@1900 [facility] Rx#: [id number] Magnesium Sulfate-D5w Pmx 100 1 gm In Dextrose/Water 1 100ml.bag @ 100 mls/hr IVPB Q1H [facility] Rx#: [id number] Piperacillin-Tazobactam 3 200 .375 gm In Sodium Chloride 0.9% 100 ml @ 200 mls/hr IVPB ONCE ST[facility] Rx#:[id number] Piperacillin-Tazobactam 3 100 100 .375 gm In Sodium Chloride 0.9% 100 ml @ 25 mls/hr IVPB Q8HR [facility] Rx# :[id number] Sodium Chloride 0.9% 1, 1430 390 000 ml @ 130 mls/hr IV . Q7H42M [facility] Rx#:[id number] Sodium Chloride 0.9% 1, 1560 130 000 ml @ 130 mls/hr IV . Q7H42M [facility] Rx#:[id number] Valproate Sodium 500 mg 300 200 In Sodium Chloride 0.9% 100 ml @ 100 mls/hr IVPB Q6HR [facility] Rx#:[id number] Intake, IV Titration 120.471 10 Amount Dextrose 10% in Water 500 10 ml In Empty Bag 1 bag @ 10 mls/hr IV .Q24H [facility] Rx #:[id number] Norepinephrine 4 mg In 67.787 Sodium Chloride 0.9% 250 ml @ 0.03 MCG/KG/MIN 7. 518 mls/hr IV .Q24H [facility] Rx#:[id number] propofoL 1,000 mg In 52.684 Empty Bag 1 bag @ 15 MCG/ KG/MIN 5.919 mls/hr IV . [id number] [facility] Rx#:[id number] Output: Drainage 130 70 60 Right Abdomen 130 70 60 Urine 640 920 255 Other: Voiding Method Indwelling Catheter Indwelling Catheter Indwelling Catheter - Labs CBC & Chem 7: 08/31/23 05:17 08/31/23 12:24 Labs: Abnormal Lab Results - Last 24 Hours (Table) 08/30/23 08/30/23 08/30/23 Range/Units 09:56 10:00 10:00 RBC (4.30-5.90) m/uL Hgb (13.0-17.5) gm/dL Hct (39.0-53.0) % MCV (80.0-100.0) fL Sodium 129 L (137-145) mmol/L Potassium (3.5-5.1) mmol/L Carbon Dioxide (22-30) mmol/L Creatinine 0.58 L (0.66-1.25) mg/dL Glucose 110 H (74-99) mg/dL POC Glucose (mg/dL) (70-110) mg/dL Calcium 8.0 L (8.4-10.2) mg/dL Total Protein (6.3-8.2) g/dL Albumin (3.5-5.0) g/dL Urine Osmolality 357 L (400-1100) mOsm/kg Ur Random Sodium <20 L (40-220) mmol/L 08/30/23 08/30/23 08/31/23 Range/Units 11:55 16:37 02:15 RBC (4.30-5.90) m/uL Hgb (13.0-17.5) gm/dL Hct (39.0-53.0) % MCV (80.0-100.0) fL Sodium 130 L (137-145) mmol/L Potassium 5.2 H (3.5-5.1) mmol/L Carbon Dioxide 20 L (22-30) mmol/L Creatinine 0.59 L (0.66-1.25) mg/dL Glucose (74-99) mg/dL POC Glucose (mg/dL) 122 H 50 L (70-110) mg/dL Calcium 8.0 L (8.4-10.2) mg/dL Total Protein (6.3-8.2) g/dL Albumin (3.5-5.0) g/dL Urine Osmolality (400-1100) mOsm/kg Ur Random Sodium (40-220) mmol/L 08/31/23 08/31/23 08/31/23 Range/Units 02:17 05:17 05:17 RBC 3.19 L (4.30-5.90) m/uL Hgb 10.6 L (13.0-17.5) gm/dL Hct 33.5 L (39.0-53.0) % MCV 105.0 H (80.0-100.0) fL Sodium 129 L (137-145) mmol/L Potassium (3.5-5.1) mmol/L Carbon Dioxide (22-30) mmol/L Creatinine 0.54 L (0.66-1.25) mg/dL Glucose 70 L (74-99) mg/dL POC Glucose (mg/dL) 67 L (70-110) mg/dL Calcium 7.6 L (8.4-10.2) mg/dL Total Protein 4.7 L (6.3-8.2) g/dL Albumin 2.3 L (3.5-5.0) g/dL Urine Osmolality (400-1100) mOsm/kg Ur Random Sodium (40-220) mmol/L 08/31/23 Range/Units 06:33 RBC (4.30-5.90) m/uL Hgb (13.0-17.5) gm/dL Hct (39.0-53.0) % MCV (80.0-100.0) fL Sodium (137-145) mmol/L Potassium (3.5-5.1) mmol/L Carbon Dioxide (22-30) mmol/L Creatinine (0.66-1.25) mg/dL Glucose (74-99) mg/dL POC Glucose (mg/dL) 59 L (70-110) mg/dL Calcium (8.4-10.2) mg/dL Total Protein (6.3-8.2) g/dL Albumin (3.5-5.0) g/dL Urine Osmolality (400-1100) mOsm/kg Ur Random Sodium (40-220) mmol/L Microbiology - Last 24 Hours (Table) 08/29/23 18:10 Gram Stain - Preliminary Abdomen Wound Culture - Preliminary 08/29/23 13:40 Blood Culture - Preliminary Blood 08/29/23 13:55 Blood Culture - Preliminary Blood
[2023-08-31 12:00] LABS: Glucose,Whole Blood 70 mg/dL (70-110)
[2023-08-31] MEDS: ACETAMINOPHEN IV (For NPO) 1,000 MG in EMPTY BAG 1 BAG IVPB SCH (12:16)
--- NOTE | 2023-08-31 12:50 | P.PN ---
Subjective Progress Note Date: 08/31/23 Principal diagnosis: Perforated gastric ulcer, status postoperative day #2 following a exploratory laparotomy, subtotal gastrectomy, Ariel-en-Y gastrojejunostomy. Patient is a 63-year-old white male with past medical history significant for hypertension, alcoholism, seizure disorder, and current everyday smoker. Patient is currently sedated and intubated to the mechanical ventilator, unable to provide any information. After review of the ER documentation, patient presented yesterday morning with a chief complaint of abdominal pain radiating to the left abdomen with sudden onset. Mild associated nausea. A follow-up abdominal and pelvis CT demonstrated severe gastric wall thickening in conjunction with mild to moderate free air and free fluid. Suspected gastritis with perforated gastric ulcer. Patient was subsequently taken to the operating room for exploratory laparotomy, and underwent subtotal gastrectomy with Ariel-en-Y gastrojejunostomy. No significant reported perioperative complications. I am told he has received a total of 5 L crystalloid fluid perio peratively. No vasopressors at the moment. Patient was reportedly difficult to extubate in recovery, and subsequently transferred to the intensive care unit. We were consulted for ICU management and postoperative ventilator management. Follow-up chest x-ray shows the endotracheal tube 3.3 cm above the troy. NG tube extends into the left upper quadrant of the stomach. Chronic lung changes with likely left basilar atelectasis. Possible trace pleural effusions. Patient is currently in the intensive care unit, intubated on the mechanical ventilator. Currently sedated on propofol which is infusing at 40 mcg/kg/min. He is synchronous with mechanical ventilator. Peak pressures 19. Current ventilator settings include assist-control, respiratory rate 14, tidal volume 450, FiO2 of 40%, PEEP of 5. These were adjusted earlier by Dr. Moser after initial blood gas of PaO2 greater than 400, pCO2 of 50, pH of 7.3. Postoperative CBC includes a WBC count of 5.9, hemoglobin 12.4, hematocrit 38.7, platelets 150. Most recent CMP from yesterday includes a sodium of 125, testing 4.8, chloride 95, serum bicarb 22, BUN 10, creatinine 0.63, glucose 83. LFTs not elevated. Total bilirubin 0.5. Pancreatic enzymes not elevated. UA unremarkable. Lactated Ringer's infusing at 130 MLS per hour. Patient was started on a combination of Zosyn and fluconazole for abdominal sepsis. Currently afebrile.. Analgesics ordered. Blood pressure remains normotensive. Midline abdominal incision appears approximated with clean and dry and intact postoperative dressing. There is a VENUS drain which is compressed. Serosanguineous drainage, approximately 30 MLS has been drained so far. He has multiple superficial diffusely located excoriations. Bedside nurse states the patient had bedbug infestation on arrival, he has been decontaminated in the emergency room. Last reported drink was prior to coming to the emergency room yesterday. CIWA protocol will be initiated. Patient will be monitored in the intensive care unit. Patient was noted today on 08/31/2023, remains in the ICU, patient was extubated yesterday, and he tolerated the extubation well. However the patient is developing hypoglycemia, and he was placed on D10 at 10 MLS per hour, patient had a PICC line today, and he is supposed to have TPN started today. In the meantime the patient is doing well,On 2 L nasal cannula, not in distress, he is hemodynamically stable. Not requiring any pressors. WBC count today is 8.4 hem oglobin is 10.6 basic metabolic profile is normal renal profile is normal, patient remains on antibiotics in the form of Zosyn he also remains on fluconazole. Patient remains on the CIWA protocol also Objective - Vital Signs Vital signs: Vital Signs Temp 97.9 F 08/31/23 04:00 Pulse 98 08/31/23 12:38 Resp 18 08/31/23 12:38 BP 139/65 08/31/23 12:00 Pulse Ox 96 08/31/23 11:00 FiO2 40 08/30/23 13:01 Intake & Output 08/30/23 08/31/23 08/31/23 18:59 06:59 18:59 Intake Total 2280.471 1910 780 Output Total 770 990 440 Balance 1510.471 920 340 Weight 70 kg Intake: IV 2160 1910 750 Fluconazole in NaCl,Iso- 50 Osm 100 mg In Saline 1 50ml.bag @ 50 mls/hr IVPB DAILY@1900 [facility] Rx#: [id number] Magnesium Sulfate-D5w Pmx 100 1 gm In Dextrose/Water 1 100ml.bag @ 100 mls/hr IVPB Q1H [facility] Rx#: [id number] Piperacillin-Tazobactam 3 200 .375 gm In Sodium Chloride 0.9% 100 ml @ 200 mls/hr IVPB ONCE [facility] Rx#:[id number] Piperacillin-Tazobactam 3 100 100 .375 gm In Sodium Chloride 0.9% 100 ml @ 25 mls/hr IVPB Q8HR [facility] Rx# :[id number] Sodium Chloride 0.9% 1, 1430 650 000 ml @ 130 mls/hr IV . Q7H42M [facility] Rx#:[id number] Sodium Chloride 0.9% 1, 1560 130 000 ml @ 130 mls/hr IV . Q7H42M [facility] Rx#:[id number] Valproate Sodium 500 mg 300 200 In Sodium Chloride 0.9% 100 ml @ 100 mls/hr IVPB Q6HR [facility] Rx#:[id number] Intake, IV Titration 120.471 30 Amount Dextrose 10% in Water 500 30 ml In Empty Bag 1 bag @ 10 mls/hr IV .Q24H [facility] Rx #:[id number] Norepinephrine 4 mg In 67.787 Sodium Chloride 0.9% 250 ml @ 0.03 MCG/KG/MIN 7. 518 mls/hr IV .Q24H [facility] Rx#:[id number] propofoL 1,000 mg In 52.684 Empty Bag 1 bag @ 15 MCG/ KG/MIN 5.919 mls/hr IV . [id number] [facility] Rx#:[id number] Output: Drainage 130 70 60 Right Abdomen 130 70 60 Urine 640 920 380 Other: Voiding Method Indwelling Catheter Indwelling Catheter Indwelling Catheter - Exam GENERAL EXAM: Revealed a 63-year-old white male pleasant in no distress, on 2 L nasal cannula HEAD: Normocephalic and atraumatic EYES: Normal reaction of pupils, equal size. NOSE: Clear with pink turbinates. THROAT: No erythema or exudates. NECK: No masses, no JVD. Xerosis. CHEST: No chest wall deformity. LUNGS: Clear bilaterally no crackles rhonchi or wheezes CVS: S1 and S2 normal with no audible murmur, regular rhythm. No extra heart sounds ABDOMEN: No hepatosplenomegaly, hypoactive, no guarding or rigidity. Midline abdominal incision appears approximated. Postoperative incisional dressing clean, dry. VENUS drain compressed, with a minimal amount of serosanguineous output. SKIN: Diffuse secondary areas of superficial excoriation CENTRAL NERVOUS SYSTEM: Alert and oriented x 3 no gross focal deficits alert and oriented x 3 no focal EXTREMITIES: No clubbing edema or cyanosis. Psychiatric: Normal mood affect and normal mental status examination - Labs CBC & Chem 7: 08/31/23 05:17 08/31/23 05:17 Labs: Abnormal Lab Results - Last 24 Hours (Table) 08/30/23 08/30/23 08/30/23 Range/Units 10:00 10:00 16:37 RBC (4.30-5.90) m/uL Hgb (13.0-17.5) gm/dL Hct (39.0-53.0) % MCV (80.0-100.0) fL Sodium 130 L (137-145) mmol/L Potassium 5.2 H (3.5-5.1) mmol/L Carbon Dioxide 20 L (22-30) mmol/L Creatinine 0.59 L (0.66-1.25) mg/dL Glucose (74-99) mg/dL POC Glucose (mg/dL) (70-110) mg/dL Calcium 8.0 L (8.4-10.2) mg/dL Total Protein (6.3-8.2) g/dL Albumin (3.5-5.0) g/dL Urine Osmolality 357 L (400-1100) mOsm/kg Ur Random Sodium <20 L (40-220) mmol/L 08/31/23 08/31/23 08/31/23 Range/Units 02:15 02:17 05:17 RBC (4.30-5.90) m/uL Hgb (13.0-17.5) gm/dL Hct (39.0-53.0) % MCV (80.0-100.0) fL Sodium 129 L (137-145) mmol/L Potassium (3.5-5.1) mmol/L Carbon Dioxide (22-30) mmol/L Creatinine 0.54 L (0.66-1.25) mg/dL Glucose 70 L (74-99) mg/dL POC Glucose (mg/dL) 50 L 67 L (70-110) mg/dL Calcium 7.6 L (8.4-10.2) mg/dL Total Protein 4.7 L (6.3-8.2) g/dL Albumin 2.3 L (3.5-5.0) g/dL Urine Osmolality (400-1100) mOsm/kg Ur Random Sodium (40-220) mmol/L 08/31/23 08/31/23 Range/Units 05:17 06:33 RBC 3.19 L (4.30-5.90) m/uL Hgb 10.6 L (13.0-17.5) gm/dL Hct 33.5 L (39.0-53.0) % MCV 105.0 H (80.0-100.0) fL Sodium (137-145) mmol/L Potassium (3.5-5.1) mmol/L Carbon Dioxide (22-30) mmol/L Creatinine (0.66-1.25) mg/dL Glucose (74-99) mg/dL POC Glucose (mg/dL) 59 L (70-110) mg/dL Calcium (8.4-10.2) mg/dL Total Protein (6.3-8.2) g/dL Albumin (3.5-5.0) g/dL Urine Osmolality (400-1100) mOsm/kg Ur Random Sodium (40-220) mmol/L Microbiology - Last 24 Hours (Table) 08/29/23 18:10 Gram Stain - Preliminary Abdomen Wound Culture - Preliminary 08/29/23 13:40 Blood Culture - Preliminary Blood 08/29/23 13:55 Blood Culture - Preliminary Blood Assessment and Plan Assessment: Impression: Perforated gastric ulcer, status postoperative day #2 following a exploratory laparotomy, subtotal gastrectomy, Ariel-en-Y gastrojejunostomy. Following the procedure, patient was left intubated and transferred to intensive care unit. History of alcoholism, last reported drink yesterday prior to coming in Chronic ongoing tobacco dependence History of right basilar 1.3 cm subpleural pulmonary nodule, follow up outpatient History of COPD, not active History of seizure disorder, no obvious seizure-like activity noted. History hearing disorder Recommendation: Continue present supportive care measures, patient was extubated yesterday, tolerated extubation well, Continue CIWA protocol, Continue antibiotics/Zosyn and continue Diflucan as per ID recommendation Continue GI DVT prophylaxis Could consider transferring the patient later today to a medical surgical floor. Encourage incentive spirometry Early ambulation Will continue to follow Time with Patient: Less than 30
[2023-08-31 13:10] LABS: African American GFR (CKD) >90 (>60 ml/min/1.73 sqM); Anion Gap 2 mmol/L; Blood Urea Nitrogen 9 mg/dL (9-20); Carbon Dioxide 26 mmol/L (22-30); Chloride 103 mmol/L (98-107); Glucose 75 mg/dL (74-99); Non-African American GFR(CKD) >90 (>60 ml/min/1.73 sqM); Potassium 3.9 mmol/L (3.5-5.1); Sodium 131 mmol/L (137-145)
[2023-08-31] MEDS: MVI, ADULT NO.4 WITH VIT K 10 ML, TRACE (CONC-1ML/DOSE) 1 ML in AMINO ACID 5%-D20W+LYTE... IV ONE (13:53)
[2023-08-31 14:26] VITALS: BMI 22.8
[2023-08-31 16:28] LABS: % Iron Saturation 3.57 (15.00-50.00); Iron 9 UG/DL (65-175); Total Iron Binding Capacity 252 UG/DL (228-460)
[2023-08-31 17:12] LABS: Glucose,Whole Blood 112 mg/dL (70-110)
--- NOTE | 2023-08-31 20:00 | P.PN ---
Subjective Progress Note Date: 08/31/23 Patient is a 63-year-old male with a history of of hypertension, GERD, hearing loss, and seizure disorder who presented to the ER with acute onset abdominal pain. In the ER he underwent an extensive evaluation. On arrival his vital signs were remarkable for blood pressure of 171/96. Laboratory analysis included CBC, coags, CMP, amylase, lipase which were remarkable for sodium of 125. Urinalysis was negative. CT abdomen and pelvis demonstrated severe gastric wall thickening with mild to moderate free air and free fluid possible gastritis with perforated gastric ulcer. Dr. Catalan was contacted and plans are for urgent surgical intervention. We were asked to consult for medical managem ent. Was taken directly from the ER to the operating room was found to have a perforated posterior gastric ulcer which was treated with subtotal gastrectomy and Ariel-en-Y gastrojejunostomy. Postoperatively patient was admitted to the ICU on a ventilator requiring small amounts of Levophed. He was able to be weaned off of Levophed and was extubated 08/30/2023. He had a PICC line placed and was started on TPN. infectious disease consulted. He is slightly confused and cannot tell me why he is here. He denies any significant abdominal pain or nausea. Vital signs reviewed General: Ill-appearing, mild distress appears at stated age Cardiovascular: S1S2 reg, no murmur Lungs: Coarse breath sounds bilateral, no rhonchi, no rales, no accessory muscle use Abdominal: Soft, tender to palpation diffusely, midline dressing in place without soaked through Ext: No gross muscle atrophy, no edema b/l lower extremities, no contractures Neuro: Cranial nerves II through XII grossly intact, moving all 4 extremities independently Psych: Alert, oriented to self, flat affect Assessment/Plan: Perforated posterior gastric ulcersubtotal gastrectomy and Ariel-en-Y gastrojejunostomy Hypovolemic shock -Protonix 40 mg IV push twice daily -Zosyn 3.375 g IV piggyback 3 times daily D # 3, fluconazole 100 mg IV piggyback daily D #3 - TPN D #1 -Pulmonary note reviewed: Supportive care, CIWA protocol, ID recommendations, transfer out of ICU -Surgery recommendations reviewed: Start TPN, continue antibiotics, continue n.p.o., continue Protonix -Await further infectious disease recommendations Hypoglycemia secondary to poor oral intake - Add dextrose 10% at 10 cc/h until TPN available Hypovolemic hyponatremia -Continue with normal saline at 130 cc/h until TPN available -Follow sodiums -Repeat BMP at 1300 Acute blood loss anemia, anticipated outcome of surgery Thrombocytopenia, resolved -No indication for transfusion -Follow CBC-check iron studies EtOH use -CIWA protocol with Ativan dosing per CIWA scale. -IV thiamine 100 mg daily -Hold folic acid as patient n.p.o. Angina, undetermined etiology - further work up once acute condition stabalized. Nicotine depenedency -Nicotine patch 14 mcg daily Hypertension -Follow blood pressures - off levo on metoprolol at home but strict NPO, may need scheduled IV labetalol vs hydralazine -Seizure disorder -Keppra 500 mg twice daily IV -Valproic sodium 500 mg IV piggyback 4 times daily Imaging: None new Data Review: Labs reviewed from today include CBC and basic metabolic profile which are remarkable for hemoglobin 10.6, sodium 129, glucose 70, ferritin 138 This dictation was prepared using [employer] voice recognition software. Though every attempt is made to correct errors during dictation some may still exist. Objective - Vital Signs Vital signs: Vital Signs Temp 97.8 F 08/31/23 15:00 Pulse 96 08/31/23 16:14 Resp 13 08/31/23 15:00 BP 147/72 08/31/23 15:00 Pulse Ox 96 08/31/23 15:00 FiO2 40 08/30/23 13:01 Intake & Output 08/31/23 08/31/23 09/01/23 06:59 18:59 06:59 Intake Total 1910 910 Output Total 990 620 Balance 920 290 Weight 70 kg 70 kg Intake: IV 1910 880 Fluconazole in NaCl,Iso- 50 Osm 100 mg In Saline 1 50ml.bag @ 50 mls/hr IVPB DAILY@1900 [facility] Rx#: [id number] Piperacillin-Tazobactam 3 100 100 .375 gm In Sodium Chloride 0.9% 100 ml @ 25 mls/hr IVPB Q8HR [facility] Rx# :[id number] Sodium Chloride 0.9% 1, 1430 780 000 ml @ 130 mls/hr IV . Q7H42M [facility] Rx#:[id number] Sodium Chloride 0.9% 1, 130 000 ml @ 130 mls/hr IV . Q7H42M [facility] Rx#:[id number] Valproate Sodium 500 mg 200 In Sodium Chloride 0.9% 100 ml @ 100 mls/hr IVPB Q6HR [facility] Rx#:[id number] Intake, IV Titration 30 Amount Dextrose 10% in Water 500 30 ml In Empty Bag 1 bag @ 10 mls/hr IV .Q24H [facility] Rx #:[id number] Output: Drainage 70 110 Right Abdomen 70 110 Urine 920 510 Other: Voiding Method Indwelling Catheter Indwelling Catheter - Labs CBC & Chem 7: 08/31/23 05:17 08/31/23 12:24 Labs: Abnormal Lab Results - Last 24 Hours (Table) 08/30/23 08/30/23 08/31/23 Range/Units 10:00 10:00 02:15 RBC (4.30-5.90) m/uL Hgb (13.0-17.5) gm/dL Hct (39.0-53.0) % MCV (80.0-100.0) fL Sodium (137-145) mmol/L Creatinine (0.66-1.25) mg/dL Glucose (74-99) mg/dL POC Glucose (mg/dL) 50 L (70-110) mg/dL Calcium (8.4-10.2) mg/dL Iron (65-175) UG/DL % Saturation (15.00-50.00) Transferrin (204.0-354.0) mg/dL Total Protein (6.3-8.2) g/dL Albumin (3.5-5.0) g/dL Urine Osmolality 357 L (400-1100) mOsm/kg Ur Random Sodium <20 L (40-220) mmol/L 08/31/23 08/31/23 08/31/23 Range/Units 02:17 05:17 05:17 RBC 3.19 L (4.30-5.90) m/uL Hgb 10.6 L (13.0-17.5) gm/dL Hct 33.5 L (39.0-53.0) % MCV 105.0 H (80.0-100.0) fL Sodium 129 L (137-145) mmol/L Creatinine 0.54 L (0.66-1.25) mg/dL Glucose 70 L (74-99) mg/dL POC Glucose (mg/dL) 67 L (70-110) mg/dL Calcium 7.6 L (8.4-10.2) mg/dL Iron 9 L (65-175) UG/DL % Saturation 3.57 L (15.00-50.00) Transferrin 180.0 L (204.0-354.0) mg/dL Total Protein 4.7 L (6.3-8.2) g/dL Albumin 2.3 L (3.5-5.0) g/dL Urine Osmolality (400-1100) mOsm/kg Ur Random Sodium (40-220) mmol/L 08/31/23 08/31/23 08/31/23 Range/Units 06:33 12:24 17:10 RBC (4.30-5.90) m/uL Hgb (13.0-17.5) gm/dL Hct (39.0-53.0) % MCV (80.0-100.0) fL Sodium 131 L (137-145) mmol/L Creatinine 0.57 L (0.66-1.25) mg/dL Glucose (74-99) mg/dL POC Glucose (mg/dL) 59 L 112 H (70-110) mg/dL Calcium 8.0 L (8.4-10.2) mg/dL Iron (65-175) UG/DL % Saturation (15.00-50.00) Transferrin (204.0-354.0) mg/dL Total Protein (6.3-8.2) g/dL Albumin (3.5-5.0) g/dL Urine Osmolality (400-1100) mOsm/kg Ur Random Sodium (40-220) mmol/L Microbiology - Last 24 Hours (Table) 08/29/23 18:10 Gram Stain - Preliminary Abdomen Wound Culture - Preliminary 08/29/23 13:40 Blood Culture - Preliminary Blood 08/29/23 13:55 Blood Culture - Preliminary Blood
[2023-09-01 02:03] LABS: Glucose,Whole Blood 107 mg/dL (70-110)
[2023-09-01 05:48] LABS: Glucose,Whole Blood 121 mg/dL (70-110)
[2023-09-01 07:32] LABS: Ionized Calcium 4.7 mg/dL (4.5-5.3)
[2023-09-01 07:43] LABS: ALT 12 U/L (4-49); AST 29 U/L (17-59); African American GFR (CKD) >90 (>60 ml/min/1.73 sqM); Albumin 2.2 g/dL (3.5-5.0); Albumin/Globulin Ratio 0.9; Alkaline Phosphatase 60 U/L (38-126); Anion Gap 1 mmol/L; Blood Urea Nitrogen 7 mg/dL (9-20); Calcium 7.8 mg/dL (8.4-10.2); Carbon Dioxide 27 mmol/L (22-30); Chloride 102 mmol/L (98-107); Globulin 2.4 g/dL; Glucose 107 mg/dL (74-99); Magnesium 1.9 mg/dL (1.6-2.3); Non-African American GFR(CKD) >90 (>60 ml/min/1.73 sqM); Phosphorus 2.5 mg/dL (2.5-4.5); Potassium 3.6 mmol/L (3.5-5.1); Sodium 130 mmol/L (137-145); Total Bilirubin 0.5 mg/dL (0.2-1.3); Total Protein 4.6 g/dL (6.3-8.2)
--- NOTE | 2023-09-01 07:57 | XR ---
EXAMINATION TYPE: XR chest 1V portable DATE OF EXAM: 09/01/2023 COMPARISON: 08/30/2023 HISTORY: Tube placement TECHNIQUE: Single frontal view of the chest is obtained. FINDINGS: ET and NG tube been removed but there is increasing bilateral airspace disease and pleural fluid. Left-sided PICC line seen. Biapical pleural thickening greater on the right stable. Underlyin g COPD suspected. Arthropathy of the shoulders and degenerative changes of the spine. Heart size stab le. Surgical charlie overlying the midline and there is a drain or tube overlying the abdomen. Postsu rgical change overlying the cervical spine IMPRESSION: Interval increasing bilateral airspace disease and pleural effusion could be associated with pulmonary edema or diffuse pneumonia\ARDS.
[2023-09-01 08:07] LABS: ABG Base Excess 3.1 mmol/L; ABG HCO3 27 mmol/L (21-25); ABG Oxygen Saturation 89.9 % (94-97); ABG PCO2 39 mmHg (35-45); ABG PH 7.45 (7.35-7.45); ABG TCO2 28 mmol/L (19-24); Allen Test Performed? Yes
[2023-09-01 08:09] LABS: HCT 33.6 % (39.0-53.0); HGB 10.7 gm/dL (13.0-17.5); Hypochromasia Slight; MCH 33.2 pg (25.0-35.0); MCHC 31.7 g/dL (31.0-37.0); MCV 104.6 fL (80.0-100.0); Macrocytosis Moderate; Mean Platelet Volume 8.7; Platelet Count 160 k/uL (150-450); RBC 3.21 m/uL (4.30-5.90); RDW 14.6 % (11.5-15.5); WBC 7.7 k/uL (3.8-10.6)
[2023-09-01] MEDS: FUROSEMIDE 10 MG/ML 4 ML VIAL IV STA (08:13)
[2023-09-01 08:17] LABS: ABG PO2 53 mmHg (83-108)
[2023-09-01 08:26] LABS: ALT 12 U/L (4-49); AST 29 U/L (17-59); African American GFR (CKD) >90 (>60 ml/min/1.73 sqM); Albumin 2.3 g/dL (3.5-5.0); Alkaline Phosphatase 55 U/L (38-126); Anion Gap 0 mmol/L; Blood Urea Nitrogen 6 mg/dL (9-20); Calcium 7.9 mg/dL (8.4-10.2); Carbon Dioxide 26 mmol/L (22-30); Chloride 102 mmol/L (98-107); Globulin 2.3 g/dL; Glucose 105 mg/dL (74-99); Non-African American GFR(CKD) >90 (>60 ml/min/1.73 sqM); Potassium 3.7 mmol/L (3.5-5.1); Sodium 128 mmol/L (137-145); Total Bilirubin 0.4 mg/dL (0.2-1.3); Total Protein 4.6 g/dL (6.3-8.2)
[2023-09-01] MEDS: POTASSIUM CHLORIDE 10 MEQ in WATER FOR INJECTION 1 100ML.BAG IVPB SCH (11:19)
[2023-09-01 11:43] LABS: Glucose,Whole Blood 123 mg/dL (70-110)
--- NOTE | 2023-09-01 12:39 | CA ---
Transthoracic Echo Report Name: Irving Rahman Age: 63 Gender: M : 1960 Exam Date: 09/01/2023 10:25 Exam Location: [place] [facility] Ht (in): 69 Wt (lb): 154 Ordering Physician: China Ford DO Attending/Referring Phys: [id number], Liliana [employer]istics Lead Megan Field RDCS Procedure CPT: Indications: chf Cardiac Hx: Technical Quality: Technically difficult study Contrast 1: Total Dose (mL): Contrast 2: Total Dose (mL): MEASUREMENTS (Male / Female) Normal Values 2D ECHO LV Diastolic Diameter PLAX 4.0 cm 4.2 - 5.9 / 3.9 - 5.3 cm LV Systolic Diameter PLAX 2.3 cm IVS Diastolic Thickness 0.9 cm 0.6 - 1.0 / 0.6 - 0.9 cm LVPW Diastolic Thickness 0.7 cm 0.6 - 1.0 / 0.6 - 0.9 cm LV Relative Wall Thickness 0.4 RV Internal Dim ED PLAX 1.6 cm LA Systolic Diameter LX 3.5 cm 3.0 - 4.0 / 2.7 - 3.8 cm LV Diastolic Volume MOD BP 39.1 cm??? 67 - 155 / 56 - 104 cm??? LV Systolic Volume MOD BP 19.4 cm??? 22 - 58 / 19 - 49 cm??? LV Ejection Fraction MOD BP 50.5 % >= 55 % LV Diastolic Volume MOD 4C 39.9 cm??? LV Systolic Volume MOD 4C 20.3 cm??? LV Ejection Fraction MOD 4C 49.1 % LV Diastolic Length 4C 6.8 cm LV Systolic Length 4C 6.2 cm LV Diastolic Volume MOD 2C 39.1 cm??? LV Systolic Volume MOD 2C 16.7 cm??? LV Ejection Fraction MOD 2C 57.3 % LV Diastolic Length 2C 6.9 cm LV Systolic Length 2C 5.6 cm M-MODE Aortic Root Diameter MM 3.5 cm LA Systolic Diameter MM 3.2 cm LA Ao Ratio MM 0.9 DOPPLER AV Peak Velocity 109.8 cm/s AV Peak Gradient 4.8 mmHg Mitral E Point Velocity 85.8 cm/s Mitral A Point Velocity 92.3 cm/s Mitral E to A Ratio 0.9 MV Deceleration Time 283.9 ms MV E' Velocity 7.3 cm/s Mitral E to MV E' Ratio 11.7 TR Peak Velocity 303.5 cm/s TR Peak Gradient 36.8 mmHg Right Ventricular Systolic Press 46.8 mmHg FINDINGS Left Ventricle Left ventricular ejection fraction is estimated at 50%. Mildly decreased left ventricular ejection fraction. No obvious regional wall motion abnormalities. Left ventricular cavity size normal. Right Ventricle Normal right ventricular size and function. Mild pulmonary hypertension. Right Atrium Normal right atrial size. Left Atrium Normal left atrial size. Mitral Valve Structurally normal mitral valve. Oqyk-es-gmnqzlqq mitral regurgitation. Mitral valve thickened. Aortic Valve Trileaflet aortic valve. No aortic valve stenosis or regurgitation. Tricuspid Valve Structurally normal tricuspid valve. Mild to moderate tricuspid regurgitation. Pulmonic Valve Structurally normal pulmonic valve. Trace pulmonic regurgitation. No pulmonic stenosis. Pericardium Left pleural effusion. Aorta Aorta at upper limits of normal. CONCLUSIONS Low normal LV systolic function was EF at 50% Buqb-eq-jdunsmqz mitral regurgitation Mild to moderate tricuspid regurgitation Previewed by: Dr. Nic Hart MD (Electronically Signed) Final Date: 01 Sep 2023 12:38
--- NOTE | 2023-09-01 12:40 | P.PN ---
Subjective Progress Note Date: 09/01/23 CHIEF COMPLAINT: Gastric perforation HISTORY OF PRESENT ILLNESS: Patient is postop day #2 status post exploratory laparotomy, subtotal gastrectomy, Ariel-en-Y gastrojejunostomy. Patient transferred out of the ICU. He is currently on a regular medical floor. She is lying in bed comfortably. However, he is tachycardic and has had increase in his oxygen needs. He is currently at 15 L. Chest x-ray interval increasing bilateral airspace disease and pleural effusion could be associated with pulmonary edema or diffuse pneumonia/ARDS. Case was discussed with pulmonary service. They will be through to evaluate him. Patient did receive a dose of IV Lasix this morning. Afebrile. WBC 7.7 Hgb 10.7 platelets 160 sodium 128 potassium 3.7 creatinine 0.47. VENUS drain 65 mL serosanguineous output Patient seen and examined by Dr. Trevino who is covering for Dr. Catalan PHYSICAL EXAM: VITAL SIGNS: Reviewed. GENERAL: no acute distress. ABDOMEN: Soft. Nondistended. Incision site dressing clean dry and intact. VENUS drain serosanguineous NEUROLOGIC: Alert and oriented. Cranial nerves II through XII grossly intact. ASSESSMENT: 1. Perforated gastric ulcer 2. Peritonitis 3. Sepsis 4. Alcohol use disorder PLAN: -Increased oxygen demands and being evaluated by pulmonary service -Continue TPN for nutrition support -Continue antibiotics -Keep patient n.p.o. -Continue pain management. Resume IV Tylenol -Continue IV Protonix twice a day -Encourage incentive spirometer use -DVT prophylaxis subcu heparin Physician Composition Instructor note has been reviewed by physician. Signing provider agrees with the documented findings, assessment, and plan of care. Objective - Vital Signs Vital signs: Vital Signs Temp 97.8 F 09/01/23 07:10 Pulse 107 H 09/01/23 08:32 Resp 17 09/01/23 02:00 BP 157/83 09/01/23 07:10 Pulse Ox 95 09/01/23 08:32 FiO2 40 08/30/23 13:01 Intake & Output 08/31/23 09/01/23 09/01/23 18:59 06:59 18:59 Intake Total 910 Output Total 620 1365 Balance 290 -1365 Weight 70 kg Intake: IV 880 Piperacillin-Tazobactam 3 100 .375 gm In Sodium Chloride 0.9% 100 ml @ 25 mls/hr IVPB Q8HR [facility] Rx# :[id number] Sodium Chloride 0.9% 1, 780 000 ml @ 130 mls/hr IV . Q7H42M [facility] Rx#:[id number] Intake, IV Titration 30 Amount Dextrose 10% in Water 500 30 ml In Empty Bag 1 bag @ 10 mls/hr IV .Q24H [facility] Rx #:[id number] Output: Drainage 110 65 Right Abdomen 110 65 Urine 510 1300 Uretheral (Coello) 1300 Other: Voiding Method Indwelling Catheter Indwelling Catheter - Labs CBC & Chem 7: 09/01/23 07:55 09/01/23 07:46 Labs: Abnormal Lab Results - Last 24 Hours (Table) 08/31/23 08/31/23 08/31/23 Range/Units 05:17 12:24 17:10 RBC (4.30-5.90) m/uL Hgb (13.0-17.5) gm/dL Hct (39.0-53.0) % MCV (80.0-100.0) fL ABG pO2 (83-108) mmHg ABG HCO3 (21-25) mmol/L ABG Total CO2 (19-24) mmol/L ABG O2 Saturation (94-97) % Sodium 131 L (137-145) mmol/L BUN (9-20) mg/dL Creatinine 0.57 L (0.66-1.25) mg/dL Glucose (74-99) mg/dL POC Glucose (mg/dL) 112 H (70-110) mg/dL Calcium 8.0 L (8.4-10.2) mg/dL Iron 9 L (65-175) UG/DL % Saturation 3.57 L (15.00-50.00) Transferrin 180.0 L (204.0-354.0) mg/dL Total Protein (6.3-8.2) g/dL Albumin (3.5-5.0) g/dL 09/01/23 09/01/23 09/01/23 Range/Units 05:47 06:48 07:46 RBC (4.30-5.90) m/uL Hgb (13.0-17.5) gm/dL Hct (39.0-53.0) % MCV (80.0-100.0) fL ABG pO2 (83-108) mmHg ABG HCO3 (21-25) mmol/L ABG Total CO2 (19-24) mmol/L ABG O2 Saturation (94-97) % Sodium 130 L 128 L (137-145) mmol/L BUN 7 L 6 L (9-20) mg/dL Creatinine 0.48 L 0.47 L (0.66-1.25) mg/dL Glucose 107 H 105 H (74-99) mg/dL POC Glucose (mg/dL) 121 H (70-110) mg/dL Calcium 7.8 L 7.9 L (8.4-10.2) mg/dL Iron (65-175) UG/DL % Saturation (15.00-50.00) Transferrin (204.0-354.0) mg/dL Total Protein 4.6 L 4.6 L (6.3-8.2) g/dL Albumin 2.2 L 2.3 L (3.5-5.0) g/dL 09/01/23 09/01/23 Range/Units 07:55 07:59 RBC 3.21 L (4.30-5.90) m/uL Hgb 10.7 L (13.0-17.5) gm/dL Hct 33.6 L (39.0-53.0) % MCV 104.6 H (80.0-100.0) fL ABG pO2 53 L* (83-108) mmHg ABG HCO3 27 H (21-25) mmol/L ABG Total CO2 28 H (19-24) mmol/L ABG O2 Saturation 89.9 L (94-97) % Sodium (137-145) mmol/L BUN (9-20) mg/dL Creatinine (0.66-1.25) mg/dL Glucose (74-99) mg/dL POC Glucose (mg/dL) (70-110) mg/dL Calcium (8.4-10.2) mg/dL Iron (65-175) UG/DL % Saturation (15.00-50.00) Transferrin (204.0-354.0) mg/dL Total Protein (6.3-8.2) g/dL Albumin (3.5-5.0) g/dL Microbiology - Last 24 Hours (Table) 08/29/23 18:10 Gram Stain - Final Abdomen Wound Culture - Final 08/29/23 18:10 Anaerobic Culture - Preliminary Abdomen 08/29/23 13:55 Blood Culture - Preliminary Blood 08/29/23 13:40 Blood Culture - Preliminary Blood
[2023-09-01] MEDS: ACETAMINOPHEN IV (For NPO) 1,000 MG in EMPTY BAG 1 BAG IVPB SCH (13:13)
--- NOTE | 2023-09-01 13:48 | P.PN ---
Subjective Progress Note Date: 09/01/23 Patient is a 63-year-old white male with past medical history significant for hypertension, alcoholism, seizure disorder, and current everyday smoker. Patient is currently sedated and intubated to the mechanical ventilator, unable to provide any information. After review of the ER documentation, patient presented yesterday morning with a chief complaint of abdominal pain radiating to the left abdomen with sudden onset. Mild associated nausea. A follow-up abdominal and pelvis CT demonstrated severe gastric wall thickening in conjunction with mild to moderate free air and free fluid. Suspected gastritis with perforated gastric ulcer. Patient was subsequently taken to the operating room for exploratory laparotomy, and underwent subtotal gastrectomy with Ariel-en-Y gastrojejunostomy. No significant reported perioperative complications. I am told he has received a total of 5 L crystalloid fluid perioperatively. No vasopressors at the moment. Patient was reportedly difficult to extubate in recovery, and subsequently transferred to the intensive care unit. We were consulted for ICU management and postoperative ventilator management. Follow-up chest x-ray shows the endotracheal tube 3.3 cm above the troy. NG tube extends into the left upper quadrant of the stomach. Chronic lung changes with likely left basilar atelectasis. Possible trace pleural effusions. Patient is currently in the intensive care unit, intubated on the mechanical ventilator. Currently sedated on propofol which is infusing at 40 mcg/kg/min. He is synchronous with mechanical ventilator. Peak pressures 19. Current ventilator settings include assist-control, respiratory rate 14, tidal volume 450, FiO2 of 40%, PEEP of 5. These were adjusted earlier by Dr. Moser after initial blood gas of PaO2 greater than 400, pCO2 of 50, pH of 7.3. Postoperative CBC includes a WBC count of 5.9, hemoglobin 12.4, hematocrit 38.7, platelets 150. Most recent CMP from yesterday includes a sodium of 125, testing 4.8, chloride 95, serum bicarb 22, BUN 10, creatinine 0.63, glucose 83. LFTs not elevated. Total bilirubin 0.5. Pancreatic enzymes not elevated. UA unremarkable. Lactated Ringer's infusing at 130 MLS per hour. Patient was started on a combination of Zosyn and fluconazole for abdominal sepsis. C urrently afebrile.. Analgesics ordered. Blood pressure remains normotensive. Midline abdominal incision appears approximated with clean and dry and intact postoperative dressing. There is a VENUS drain which is compressed. Serosanguineous drainage, approximately 30 MLS has been drained so far. He has multiple superficial diffusely located excoriations. Bedside nurse states the patient had bedbug infestation on arrival, he has been decontaminated in the emergency room. Last reported drink was prior to coming to the emergency room yesterday. CIWA protocol will be initiated. Patient will be monitored in the intensive care unit. Patient was noted today on 08/31/2023, remains in the ICU, patient was extubated yesterday, and he tolerated the extubation well. However the patient is develop ing hypoglycemia, and he was placed on D10 at 10 MLS per hour, patient had a PICC line today, and he is supposed to have TPN started today. In the meantime the patient is doing well,On 2 L nasal cannula, not in distress, he is hemodynamically stable. Not requiring any pressors. WBC count today is 8.4 hemoglobin is 10.6 basic metabolic profile is normal renal profile is normal, patient remains on antibiotics in the form of Zosyn he also remains on fluconazole. Patient remains on the CIWA protocol also The patient is seen today September 01, 2023 in follow-up on the regular medical floor. He is currently resting in bed. Awake and alert in no acute distress. He did develop increasing shortness of breath overnight. He was requiring up to 15 L high flow nasal cannula this morning. Chest x-ray shows interval increase in bilateral airspace disease and pleural effusions. Could be associated with pulmonary edema. Blood cultures revealed no growth. Abdominal wound cultures revealed no growth. White count 7.7. Hemoglobin 10.7. Platelets 160. Sodium 128. Potassium 3.7. Bicarb 26. BUN 6. Creatinine 0.47. Glucose 105. Arterial blood gases on 100% of oxygen revealed a PaO2 of 53, P CO2 of 39 and a pH of 7.45. Echocardiogram revealed preserved left ventricular systolic function with ejection fraction of 50%. No significant valvular heart disease. He was given Lasix 40 mg IVP x 1 this morning. He is continued on Zosyn and bronchodilators. He remains on TPN and lipids for nutritional support. He is on fluconazole. NicoDerm patch in place. Objective - Vital Signs Vital signs: Vital Signs Temp 97.8 F 09/01/23 07:10 Pulse 97 09/01/23 12:00 Resp 17 09/01/23 02:00 BP 157/83 09/01/23 07:10 Pulse Ox 95 09/01/23 08:32 FiO2 40 08/30/23 13:01 Intake & Output 08/31/23 09/01/23 09/01/23 18:59 06:59 18:59 Intake Total 910 Output Total 620 1365 1999 Balance 786 -9805 -1999 Weight 70 kg Intake: IV 880 Piperacillin-Tazobactam 3 100 .375 gm In Sodium Chloride 0.9% 100 ml @ 25 mls/hr IVPB Q8HR [facility] Rx# :[id number] Sodium Chloride 0.9% 1, 780 000 ml @ 130 mls/hr IV . Q7H42M [facility] Rx#:[id number] Intake, IV Titration 30 Amount Dextrose 10% in Water 500 30 ml In Empty Bag 1 bag @ 10 mls/hr IV .Q24H [facility] Rx #:[id number] Output: Drainage 110 65 Right Abdomen 110 65 Urine 510 1300 2000 Uretheral (Coello) 1300 2000 Other: Voiding Method Indwelling Catheter Indwelling Catheter Indwelling Catheter - Exam GENERAL EXAM: Alert, 63-year-old male, sitting up in bed, on 15 L high flow nasal cannula, fairly comfortable in no apparent distress. HEAD: Normocephalic. EYES: Normal reaction of pupils, equal size. NOSE: Clear with pink turbinates. THROAT: No erythema or exudates. NECK: No masses, no JVD. CHEST: No chest wall deformity. LUNGS: Equal air entry with bilateral scattered rhonchi, crackles in the bases. CVS: S1 and S2 normal with no audible murmur, regular rhythm. ABDOMEN: Dressing clean dry and intact. VENUS drain in place with serosanguineous output, no guarding or rigidity. SPINE: No scoliosis or deformity SKIN: No rashes CENTRAL NERVOUS SYSTEM: No focal deficits, tone is normal in all 4 extremities. EXTREMITIES: There is no peripheral edema. No clubbing, no cyanosis. Peripheral pulses are intact. - Labs CBC & Chem 7: 09/01/23 07:55 09/01/23 07:46 Labs: Abnormal Lab Results - Last 24 Hours (Table) 08/31/23 08/31/23 09/01/23 Range/Units 05:17 17:10 05:47 RBC (4.30-5.90) m/uL Hgb (13.0-17.5) gm/dL Hct (39.0-53.0) % MCV (80.0-100.0) fL ABG pO2 (83-108) mmHg ABG HCO3 (21-25) mmol/L ABG Total CO2 (19-24) mmol/L ABG O2 Saturation (94-97) % Sodium (137-145) mmol/L BUN (9-20) mg/dL Creatinine (0.66-1.25) mg/dL Glucose (74-99) mg/dL POC Glucose (mg/dL) 112 H 121 H (70-110) mg/dL Calcium (8.4-10.2) mg/dL Iron 9 L (65-175) UG/DL % Saturation 3.57 L (15.00-50.00) Transferrin 180.0 L (204.0-354.0) mg/dL Total Protein (6.3-8.2) g/dL Albumin (3.5-5.0) g/dL 09/01/23 09/01/23 09/01/23 Range/Units 06:48 07:46 07:55 RBC 3.21 L (4.30-5.90) m/uL Hgb 10.7 L (13.0-17.5) gm/dL Hct 33.6 L (39.0-53.0) % MCV 104.6 H (80.0-100.0) fL ABG pO2 (83-108) mmHg ABG HCO3 (21-25) mmol/L ABG Total CO2 (19-24) mmol/L ABG O2 Saturation (94-97) % Sodium 130 L 128 L (137-145) mmol/L BUN 7 L 6 L (9-20) mg/dL Creatinine 0.48 L 0.47 L (0.66-1.25) mg/dL Glucose 107 H 105 H (74-99) mg/dL POC Glucose (mg/dL) (70-110) mg/dL Calcium 7.8 L 7.9 L (8.4-10.2) mg/dL Iron (65-175) UG/DL % Saturation (15.00-50.00) Transferrin (204.0-354.0) mg/dL Total Protein 4.6 L 4.6 L (6.3-8.2) g/dL Albumin 2.2 L 2.3 L (3.5-5.0) g/dL 09/01/23 09/01/23 Range/Units 07:59 11:42 RBC (4.30-5.90) m/uL Hgb (13.0-17.5) gm/dL Hct (39.0-53.0) % MCV (80.0-100.0) fL ABG pO2 53 L* (83-108) mmHg ABG HCO3 27 H (21-25) mmol/L ABG Total CO2 28 H (19-24) mmol/L ABG O2 Saturation 89.9 L (94-97) % Sodium (137-145) mmol/L BUN (9-20) mg/dL Creatinine (0.66-1.25) mg/dL Glucose (74-99) mg/dL POC Glucose (mg/dL) 123 H (70-110) mg/dL Calcium (8.4-10.2) mg/dL Iron (65-175) UG/DL % Saturation (15.00-50.00) Transferrin (204.0-354.0) mg/dL Total Protein (6.3-8.2) g/dL Albumin (3.5-5.0) g/dL Microbiology - Last 24 Hours (Table) 08/29/23 18:10 Gram Stain - Final Abdomen Wound Culture - Final 08/29/23 18:10 Anaerobic Culture - Preliminary Abdomen 08/29/23 13:55 Blood Culture - Preliminary Blood 08/29/23 13:40 Blood Culture - Preliminary Blood Assessment and Plan Assessment: Perforated gastric ulcer, status postoperative day #3 following a exploratory laparotomy, subtotal gastrectomy, Ariel-en-Y gastrojejunostomy. Following the procedure, patient was left intubated and transferred to intensive care unit. Currently extubated Acute hypoxemic respiratory failure requiring 15 L high flow nasal cannula secondary to fluid volume overload History of alcoholism, last reported drink 1 day prior to coming in Chronic ongoing tobacco dependence History of right basilar 1.3 cm subpleural pulmonary nodule, follow up outpatient History of COPD, not active History of seizure disorder, no obvious seizure-like activity noted. History hearing disorder Plan: The patient was seen and evaluated Chest x-ray, labs and medications reviewed Echocardiogram reviewed Given Kalie 40 mg IVP x 1 IVs to KVO Titrate down the FiO2 as tolerated Continue antibiotics Continue bronchodilators Continue CIWA protocol NicoDerm patch in place Increase use of the incentive spirometer Increase his activity as tolerated Follow-up chest x-ray in a.m. We will continue to follow I have personally seen and examined the patient, performed the documentation and the assessment and plan as written. Number of minutes spent on the visit: 10.
[2023-09-01] MEDS ORDERED: 1: MVI, ADULT NO.4 WITH VIT K 10 ML, TRACE (CONC-1ML/DOSE) 1 ML in AMINO ACID 5%-D20W+LY IV SCH (14:00)
[2023-09-01] MEDS: 1: MVI, ADULT NO.4 WITH VIT K 10 ML, TRACE (CONC-1ML/DOSE) 1 ML in AMINO ACID 5%-D20W+LY IV SCH (15:55)
[2023-09-01] MEDS: FAT EMULSION 20% 250 ML in EMPTY BAG 1 BAG IV SCH (16:07)
--- NOTE | 2023-09-01 16:28 | P.PN ---
Subjective Progress Note Date: 09/01/23 Principal diagnosis: Reason for follow-up is perforated peptic ulcer Patient is a 63-year-old male with a past medical history significant for hypertension seizure disorder deafness reflux chest pain patient has been brought into the hospital for evaluation of abdominal pain patient diagnosed with perforated gastric ulcer, in this patient who is status post explorative laparotomy subtotal gastrectomy and gastrojejunostomy. On today's evaluation that is 09/01/2023, Patient is afebrile patient is currently on 15 L high flow nasal cannula oxygen however denies having any shortness of breath, the patient denies any chest pain or cough, the patient denies any nausea vomiting still complaining of abdominal pain but no diarrhea. Patient white count is 7.7 creatinine 0.47 abdominal cultures pending Objective - Vital Signs Vital signs: Vital Signs Temp 97.8 F 09/01/23 07:10 Pulse 107 H 09/01/23 08:32 Resp 17 09/01/23 02:00 BP 157/83 09/01/23 07:10 Pulse Ox 95 09/01/23 08:32 FiO2 40 08/30/23 13:01 Intake & Output 08/31/23 09/01/23 09/01/23 18:59 06:59 18:59 Intake Total 910 Output Total 620 1365 Balance 290 -1365 Weight 70 kg Intake: IV 880 Piperacillin-Tazobactam 3 100 .375 gm In Sodium Chloride 0.9% 100 ml @ 25 mls/hr IVPB Q8HR [facility] Rx# :[id number] Sodium Chloride 0.9% 1, 780 000 ml @ 130 mls/hr IV . Q7H42M [facility] Rx#:[id number] Intake, IV Titration 30 Amount Dextrose 10% in Water 500 30 ml In Empty Bag 1 bag @ 10 mls/hr IV .Q24H [facility] Rx #:[id number] Output: Drainage 110 65 Right Abdomen 110 65 Urine 510 1300 Uretheral (Coello) 1300 Other: Voiding Method Indwelling Catheter Indwelling Catheter - Exam GENERAL DESCRIPTION: An elderly male lying in bed in no distress RESPIRATORY SYSTEM: Unlabored breathing , coarse breath sound bilaterally HEART: S1 S2 regular rate and rhythm , ABDOMEN: Soft , mild tenderness EXTREMITIES: No edema feet - Labs CBC & Chem 7: 09/01/23 07:55 09/01/23 07:46 Labs: Abnormal Lab Results - Last 24 Hours (Table) 08/31/23 08/31/23 08/31/23 Range/Units 05:17 12:24 17:10 RBC (4.30-5.90) m/uL Hgb (13.0-17.5) gm/dL Hct (39.0-53.0) % MCV (80.0-100.0) fL ABG pO2 (83-108) mmHg ABG HCO3 (21-25) mmol/L ABG Total CO2 (19-24) mmol/L ABG O2 Saturation (94-97) % Sodium 131 L (137-145) mmol/L BUN (9-20) mg/dL Creatinine 0.57 L (0.66-1.25) mg/dL Glucose (74-99) mg/dL POC Glucose (mg/dL) 112 H (70-110) mg/dL Calcium 8.0 L (8.4-10.2) mg/dL Iron 9 L (65-175) UG/DL % Saturation 3.57 L (15.00-50.00) Transferrin 180.0 L (204.0-354.0) mg/dL Total Protein (6.3-8.2) g/dL Albumin (3.5-5.0) g/dL 09/01/23 09/01/23 09/01/23 Range/Units 05:47 06:48 07:46 RBC (4.30-5.90) m/uL Hgb (13.0-17.5) gm/dL Hct (39.0-53.0) % MCV (80.0-100.0) fL ABG pO2 (83-108) mmHg ABG HCO3 (21-25) mmol/L ABG Total CO2 (19-24) mmol/L ABG O2 Saturation (94-97) % Sodium 130 L 128 L (137-145) mmol/L BUN 7 L 6 L (9-20) mg/dL Creatinine 0.48 L 0.47 L (0.66-1.25) mg/dL Glucose 107 H 105 H (74-99) mg/dL POC Glucose (mg/dL) 121 H (70-110) mg/dL Calcium 7.8 L 7.9 L (8.4-10.2) mg/dL Iron (65-175) UG/DL % Saturation (15.00-50.00) Transferrin (204.0-354.0) mg/dL Total Protein 4.6 L 4.6 L (6.3-8.2) g/dL Albumin 2.2 L 2.3 L (3.5-5.0) g/dL 09/01/23 09/01/23 Range/Units 07:55 07:59 RBC 3.21 L (4.30-5.90) m/uL Hgb 10.7 L (13.0-17.5) gm/dL Hct 33.6 L (39.0-53.0) % MCV 104.6 H (80.0-100.0) fL ABG pO2 53 L* (83-108) mmHg ABG HCO3 27 H (21-25) mmol/L ABG Total CO2 28 H (19-24) mmol/L ABG O2 Saturation 89.9 L (94-97) % Sodium (137-145) mmol/L BUN (9-20) mg/dL Creatinine (0.66-1.25) mg/dL Glucose (74-99) mg/dL POC Glucose (mg/dL) (70-110) mg/dL Calcium (8.4-10.2) mg/dL Iron (65-175) UG/DL % Saturation (15.00-50.00) Transferrin (204.0-354.0) mg/dL Total Protein (6.3-8.2) g/dL Albumin (3.5-5.0) g/dL Microbiology - Last 24 Hours (Table) 08/29/23 18:10 Gram Stain - Final Abdomen Wound Culture - Final 08/29/23 18:10 Anaerobic Culture - Preliminary Abdomen 08/29/23 13:55 Blood Culture - Preliminary Blood 08/29/23 13:40 Blood Culture - Preliminary Blood Assessment and Plan (1) Perforated abdominal viscus Current Visit: Yes Status: Acute Code(s): R19.8 - OTH SYMPTOMS AND SIGNS INVOLVING THE DGSTV SYS AND ABDOMEN SNOMED Code(s): 93847337 (2) Peritonitis Current Visit: Yes Status: Acute Code(s): K65.9 - PERITONITIS, UNSPECIFIED SNOMED Code(s): 51183357 Plan: 1patient presented hospital with acute abdominal pain and this patient has been diagnosed with perforated gastric ulcer status post laparotomy partial gastrectomy and gastrojejunostomy need to cover for the enteric gram-negative as well as cannula to the likely pathogen for the peritonitis component 2-blood and abdominal cultures obtained which are currently pending 3-patient is afebrile white count has been normal, patient to continue Zosyn 3.375 g every 8 hours and Diflucan and monitor clinical course closely Dictation was produced using [employer] dictation software. please excuse any grammatical, word or spelling errors. Time with Patient: Less than 30
--- NOTE | 2023-09-01 16:28 | P.PN ---
Subjective Progress Note Date: 08/31/23 Principal diagnosis: Reason for follow-up is perforated peptic ulcer Patient is a 63-year-old male with a past medical history significant for hypertension seizure disorder deafness reflux chest pain patient has been brought into the hospital for evaluation of abdominal pain patient diagnosed with perforated gastric ulcer, in this patient who is status post explorative laparotomy subtotal gastrectomy and gastrojejunostomy. On today's evaluation that is 08/31/2023, the patient has been extubated this morning patient is afebrile and is breathing comfortably on 2 L nasal cannula oxygen, patient denies having any chest pain he did have a cough still, neck abdominal pain but no nausea vomiting and no diarrhea reported. Patient white count is 8.4 creatinine 0.57 Objective - Vital Signs Vital signs: Vital Signs Temp 97.9 F 08/31/23 04:00 Pulse 98 08/31/23 12:38 Resp 18 08/31/23 12:38 BP 139/65 08/31/23 12:00 Pulse Ox 96 08/31/23 11:00 FiO2 40 08/30/23 13:01 Intake & Output 08/30/23 08/31/23 08/31/23 18:59 06:59 18:59 Intake Total 2280.471 1910 910 Output Total 770 990 570 Balance 1510.471 920 340 Weight 70 kg 70 kg Intake: IV 2160 1910 880 Fluconazole in NaCl,Iso- 50 Osm 100 mg In Saline 1 50ml.bag @ 50 mls/hr IVPB DAILY@1900 [facility] Rx#: [id number] Magnesium Sulfate-D5w Pmx 100 1 gm In Dextrose/Water 1 100ml.bag @ 100 mls/hr IVPB Q1H [facility] Rx#: [id number] Piperacillin-Tazobactam 3 200 .375 gm In Sodium Chloride 0.9% 100 ml @ 200 mls/hr IVPB ONCE [facility] Rx#:[id number] Piperacillin-Tazobactam 3 100 100 .375 gm In Sodium Chloride 0.9% 100 ml @ 25 mls/hr IVPB Q8HR [facility] Rx# :[id number] Sodium Chloride 0.9% 1, 1430 780 000 ml @ 130 mls/hr IV . Q7H42M [facility] Rx#:[id number] Sodium Chloride 0.9% 1, 1560 130 000 ml @ 130 mls/hr IV . Q7H42M [facility] Rx#:[id number] Valproate Sodium 500 mg 300 200 In Sodium Chloride 0.9% 100 ml @ 100 mls/hr IVPB Q6HR [facility] Rx#:[id number] Intake, IV Titration 120.471 30 Amount Dextrose 10% in Water 500 30 ml In Empty Bag 1 bag @ 10 mls/hr IV .Q24H [facility] Rx #:[id number] Norepinephrine 4 mg In 67.787 Sodium Chloride 0.9% 250 ml @ 0.03 MCG/KG/MIN 7. 518 mls/hr IV .Q24H [facility] Rx#:[id number] propofoL 1,000 mg In 52.684 Empty Bag 1 bag @ 15 MCG/ KG/MIN 5.919 mls/hr IV . [id number] [facility] Rx#:[id number] Output: Drainage 130 70 60 Right Abdomen 130 70 60 Urine 640 920 510 Other: Voiding Method Indwelling Catheter Indwelling Catheter Indwelling Catheter - Exam GENERAL DESCRIPTION: An elderly male lying in bed in no distress RESPIRATORY SYSTEM: Unlabored breathing , coarse breath sound bilaterally HEART: S1 S2 regular rate and rhythm , ABDOMEN: Soft , mild tenderness EXTREMITIES: No edema feet - Labs CBC & Chem 7: 09/01/23 07:55 09/01/23 07:46 Labs: Abnormal Lab Results - Last 24 Hours (Table) 08/30/23 08/30/23 08/30/23 Range/Units 10:00 10:00 16:37 RBC (4.30-5.90) m/uL Hgb (13.0-17.5) gm/dL Hct (39.0-53.0) % MCV (80.0-100.0) fL Sodium 130 L (137-145) mmol/L Potassium 5.2 H (3.5-5.1) mmol/L Carbon Dioxide 20 L (22-30) mmol/L Creatinine 0.59 L (0.66-1.25) mg/dL Glucose (74-99) mg/dL POC Glucose (mg/dL) (70-110) mg/dL Calcium 8.0 L (8.4-10.2) mg/dL Total Protein (6.3-8.2) g/dL Albumin (3.5-5.0) g/dL Urine Osmolality 357 L (400-1100) mOsm/kg Ur Random Sodium <20 L (40-220) mmol/L 08/31/23 08/31/23 08/31/23 Range/Units 02:15 02:17 05:17 RBC (4.30-5.90) m/uL Hgb (13.0-17.5) gm/dL Hct (39.0-53.0) % MCV (80.0-100.0) fL Sodium 129 L (137-145) mmol/L Potassium (3.5-5.1) mmol/L Carbon Dioxide (22-30) mmol/L Creatinine 0.54 L (0.66-1.25) mg/dL Glucose 70 L (74-99) mg/dL POC Glucose (mg/dL) 50 L 67 L (70-110) mg/dL Calcium 7.6 L (8.4-10.2) mg/dL Total Protein 4.7 L (6.3-8.2) g/dL Albumin 2.3 L (3.5-5.0) g/dL Urine Osmolality (400-1100) mOsm/kg Ur Random Sodium (40-220) mmol/L 08/31/23 08/31/23 08/31/23 Range/Units 05:17 06:33 12:24 RBC 3.19 L (4.30-5.90) m/uL Hgb 10.6 L (13.0-17.5) gm/dL Hct 33.5 L (39.0-53.0) % MCV 105.0 H (80.0-100.0) fL Sodium 131 L (137-145) mmol/L Potassium (3.5-5.1) mmol/L Carbon Dioxide (22-30) mmol/L Creatinine 0.57 L (0.66-1.25) mg/dL Glucose (74-99) mg/dL POC Glucose (mg/dL) 59 L (70-110) mg/dL Calcium 8.0 L (8.4-10.2) mg/dL Total Protein (6.3-8.2) g/dL Albumin (3.5-5.0) g/dL Urine Osmolality (400-1100) mOsm/kg Ur Random Sodium (40-220) mmol/L Microbiology - Last 24 Hours (Table) 08/29/23 18:10 Gram Stain - Preliminary Abdomen Wound Culture - Preliminary 08/29/23 13:40 Blood Culture - Preliminary Blood 08/29/23 13:55 Blood Culture - Preliminary Blood Assessment and Plan (1) Peritonitis Current Visit: Yes Status: Acute Code(s): K65.9 - PERITONITIS, UNSPECIFIED SNOMED Code(s): 94243761 (2) Perforated abdominal viscus Current Visit: Yes Status: Acute Code(s): R19.8 - OTH SYMPTOMS AND SIGNS INVOLVING THE DGSTV SYS AND ABDOMEN SNOMED Code(s): 02725052 Plan: 1patient presented hospital with acute abdominal pain and this patient has been diagnosed with perforated gastric ulcer status post laparotomy partial gastrec tisha and gastrojejunostomy need to cover for the enteric gram-negative as well as cannula to the likely pathogen for the peritonitis component 2-blood and abdominal cultures obtained which are currently pending 3-patient is currently covered with Zosyn 3.375 g every 8 hours and Diflucan and monitor clinical course closely Dictation was produced using [employer] dictation software. please excuse any gr ammatical, word or spelling errors. Time with Patient: Less than 30
[2023-09-01 18:29] LABS: Glucose,Whole Blood 141 mg/dL (70-110)
--- NOTE | 2023-09-01 19:06 | P.PN ---
Subjective Progress Note Date: 09/01/23 (delayed charting seen at 0745) Patient is a 63-year-old male with a history of of hypertension, GERD, hearing loss, and seizure disorder who presented to the ER with acute onset abdominal pain. In the ER he underwent an extensive evaluation. On arrival his vital signs were remarkable for blood pressure of 171/96. Laboratory analysis included CBC, coags, CMP, amylase, lipase which were remarkable for sodium of 125. Urinalysis was negative. CT abdomen and pelvis demonstrated severe gastri c wall thickening with mild to moderate free air and free fluid possible gastritis with perforated gastric ulcer. Dr. Catalan was contacted and plans are for urgent surgical intervention. We were asked to consult for medical management. Was taken directly from the ER to the operating room was found to have a perforated posterior gastric ulcer which was treated with subtotal gastrectomy and Ariel-en-Y gastrojejunostomy. Postoperatively patient was admitted to the ICU on a ventilator requiring small amounts of Levophed. He was able to be weaned off of Levophed and was extubated 08/30/2023. He had a PICC line placed and was started on TPN. Infectious disease consulted. He became hypoxic on the morning of 08/31 and was found to have acute fluid overload and started on Lasix. Patient seen and examined at bedside. Has had worsening hypoxia this morning per nursing. He does eyes any complaints of shortness of breath. Vital signs reviewed General: Ill-appearing, mild distress appears at stated age Cardiovascular: S1S2 reg, no murmur Lungs: Coarse breath sounds bilateral, no rhonchi, no rales, no accessory muscle use Abdominal: Soft, tender to palpation diffusely, midline dressing in place without soaked through Ext: No gross muscle atrophy, no edema b/l lower extremities, no contractures Neuro: Cranial nerves II through XII grossly intact, moving all 4 extremities independently Psych: Alert, oriented to self, flat affect Assessment/Plan: Perforated posterior gastric ulcer s/p subtotal gastrectomy and Ariel-en-Y gastrojejunostomy Hypovolemic shock, resolved -Protonix 40 mg IV push twice daily -Zosyn 3.375 g IV piggyback 3 times daily D # 4, fluconazole 100 mg IV piggyback daily D #4 - TPN D #2 -Surgery note reviewed: Resume IV Tylenol -Infectious disease note reviewed: Continue on Zosyn and Diflucan -Pulmonary note reviewed: Continue with diuretics. Acute hypoxic respiratory failure Fluid overload without CHF -Chest x-ray ordered and reviewed which shows increased pulmonary vascular congestion with left-sided pleural effusion -Stat ABG ordered which shows PaO2 of 53. Patient increased to 15 L high flow -Lasix 40 mg IV push x 1 given -Echocardiogram ordered: Ejection fraction 50%, mild pulmonary hypertension, no other significant findings Hypovolemic hyponatremia -Follow sodiums -Repeat BMP in AM Acute blood loss anemia, anticipated outcome of surgery Thrombocytopenia, resolved -No indication for transfusion -Follow CBC-check iron studies EtOH use -CIWA protocol with Ativan dosing per CIWA scale. -IV thiamine 100 mg daily -Hold folic acid as patient n.p.o. Angina, undetermined etiology - further work up once acute condition stabalized. Nicotine depenedency -Nicotine patch 14 mcg daily Hypertension -Follow blood pressures - off levo on metoprolol at home but strict NPO, may need scheduled IV labetalol vs hydralazine -Seizure disorder -Keppra 500 mg twice daily IV -Valproic sodium 500 mg IV piggyback 4 times daily Hypoglycemia secondary to poor oral intake, resolved Imaging: Chest x-ray ordered and reviewed which shows increased pulmonary vascular congestion with left-sided pleural effusion Data Review: Labs reviewed from today include CBC and CMP which are remarkable for hemoglobin 10.7, sodium 128. This dictation was prepared using [employer] voice recognition software. Though every attempt is made to correct errors during dictation some may still exist. Objective - Vital Signs Vital signs: Vital Signs Temp 97.6 F 09/01/23 14:48 Pulse 96 09/01/23 16:19 Resp 17 09/01/23 14:48 BP 155/81 09/01/23 14:48 Pulse Ox 97 09/01/23 16:10 FiO2 40 08/30/23 13:01 Intake & Output 09/01/23 09/01/23 09/02/23 06:59 18:59 06:59 Output Total 1365 4240 Balance -1365 -4240 Weight 70 kg Output: Drainage 65 40 Right Abdomen 65 40 Urine 1300 4200 Uretheral (Coello) 1300 2000 Other: Voiding Method Indwelling Catheter Indwelling Catheter - Labs CBC & Chem 7: 09/01/23 07:55 09/01/23 07:46 Labs: Abnormal Lab Results - Last 24 Hours (Table) 09/01/23 09/01/23 09/01/23 Range/Units 05:47 06:48 07:46 RBC (4.30-5.90) m/uL Hgb (13.0-17.5) gm/dL Hct (39.0-53.0) % MCV (80.0-100.0) fL ABG pO2 (83-108) mmHg ABG HCO3 (21-25) mmol/L ABG Total CO2 (19-24) mmol/L ABG O2 Saturation (94-97) % Sodium 130 L 128 L (137-145) mmol/L BUN 7 L 6 L (9-20) mg/dL Creatinine 0.48 L 0.47 L (0.66-1.25) mg/dL Glucose 107 H 105 H (74-99) mg/dL POC Glucose (mg/dL) 121 H (70-110) mg/dL Calcium 7.8 L 7.9 L (8.4-10.2) mg/dL Total Protein 4.6 L 4.6 L (6.3-8.2) g/dL Albumin 2.2 L 2.3 L (3.5-5.0) g/dL 09/01/23 09/01/23 09/01/23 Range/Units 07:55 07:59 11:42 RBC 3.21 L (4.30-5.90) m/uL Hgb 10.7 L (13.0-17.5) gm/dL Hct 33.6 L (39.0-53.0) % MCV 104.6 H (80.0-100.0) fL ABG pO2 53 L* (83-108) mmHg ABG HCO3 27 H (21-25) mmol/L ABG Total CO2 28 H (19-24) mmol/L ABG O2 Saturation 89.9 L (94-97) % Sodium (137-145) mmol/L BUN (9-20) mg/dL Creatinine (0.66-1.25) mg/dL Glucose (74-99) mg/dL POC Glucose (mg/dL) 123 H (70-110) mg/dL Calcium (8.4-10.2) mg/dL Total Protein (6.3-8.2) g/dL Albumin (3.5-5.0) g/dL 09/01/23 Range/Units 18:27 RBC (4.30-5.90) m/uL Hgb (13.0-17.5) gm/dL Hct (39.0-53.0) % MCV (80.0-100.0) fL ABG pO2 (83-108) mmHg ABG HCO3 (21-25) mmol/L ABG Total CO2 (19-24) mmol/L ABG O2 Saturation (94-97) % Sodium (137-145) mmol/L BUN (9-20) mg/dL Creatinine (0.66-1.25) mg/dL Glucose (74-99) mg/dL POC Glucose (mg/dL) 141 H (70-110) mg/dL Calcium (8.4-10.2) mg/dL Total Protein (6.3-8.2) g/dL Albumin (3.5-5.0) g/dL Microbiology - Last 24 Hours (Table) 08/29/23 18:10 Gram Stain - Final Abdomen Wound Culture - Final 08/29/23 18:10 Anaerobic Culture - Preliminary Abdomen 08/29/23 13:55 Blood Culture - Preliminary Blood 08/29/23 13:40 Blood Culture - Preliminary Blood
[2023-09-01] MEDS: FUROSEMIDE 10 MG/ML 4 ML VIAL IV SCH (20:10)
[2023-09-02 00:13] LABS: Glucose,Whole Blood 127 mg/dL (70-110)
[2023-09-02 06:09] LABS: Glucose,Whole Blood 129 mg/dL (70-110)
[2023-09-02 06:49] LABS: HCT 33.4 % (39.0-53.0); HGB 10.7 gm/dL (13.0-17.5); MCH 33.1 pg (25.0-35.0); MCHC 32.1 g/dL (31.0-37.0); MCV 102.9 fL (80.0-100.0); Macrocytosis Slight; Mean Platelet Volume 8.4; Platelet Count 138 k/uL (150-450); RBC 3.24 m/uL (4.30-5.90); RDW 14.8 % (11.5-15.5); WBC 6.6 k/uL (3.8-10.6)
[2023-09-02 07:24] LABS: ALT 12 U/L (4-49); AST 27 U/L (17-59); African American GFR (CKD) >90 (>60 ml/min/1.73 sqM); Albumin 2.3 g/dL (3.5-5.0); Alkaline Phosphatase 82 U/L (38-126); Anion Gap 2 mmol/L; Blood Urea Nitrogen 10 mg/dL (9-20); Carbon Dioxide 30 mmol/L (22-30); Chloride 97 mmol/L (98-107); Globulin 2.4 g/dL; Glucose 115 mg/dL (74-99); Magnesium 1.7 mg/dL (1.6-2.3); Non-African American GFR(CKD) >90 (>60 ml/min/1.73 sqM); Phosphorus 3.5 mg/dL (2.5-4.5); Potassium 3.2 mmol/L (3.5-5.1); Sodium 129 mmol/L (137-145); Total Bilirubin 0.5 mg/dL (0.2-1.3); Total Protein 4.7 g/dL (6.3-8.2)
--- NOTE | 2023-09-02 10:23 | XR ---
EXAMINATION TYPE: XR chest 1V portable DATE OF EXAM: 09/02/2023 Comparison: 09/01/2023 Clinical History: 63-year-old male CHF Findings: Left PICC tip lower SVC. Heart upper limits of normal in size. Hyperinflation. Small left pleural eff usion persists. Bilateral airspace disease is slightly improving. Impression: COPD and superimposed pulmonary edema is slightly improving. Small left pleural effusion.
[2023-09-02] MEDS: MAGNESIUM SULFATE-D5W PMX 1 GM in DEXTROSE/WATER 1 100ML.BAG IVPB ONE (11:26)
[2023-09-02 11:44] LABS: Glucose,Whole Blood 111 mg/dL (70-110)
--- NOTE | 2023-09-02 12:42 | P.PN ---
Subjective Progress Note Date: 09/02/23 Principal diagnosis: Perforated gastric ulcer, status postoperative day #3 following a exploratory laparotomy, subtotal gastrectomy, Ariel-en-Y gastrojejunostomy. Patient is a 63-year-old white male with past medical history significant for hypertension, alcoholism, seizure disorder, and current everyday smoker. Patient is currently sedated and intubated to the mechanical ventilator, unable to provide any information. After review of the ER documentation, patient presented yesterday morning with a chief complaint of abdominal pain radiating to the left abdomen with sudden onset. Mild associated nausea. A follow-up abdominal and pelvis CT demonstrated severe gastric wall thickening in conjunction with mild to moderate free air and free fluid. Suspected gastritis with perforated gastric ulcer. Patient was subsequently taken to the operating room for exploratory laparotomy, and underwent subtotal gastrectomy with Ariel-en-Y gastrojejunostomy. No significant reported perioperative complications. I am told he has received a total of 5 L crystalloid fluid perio peratively. No vasopressors at the moment. Patient was reportedly difficult to extubate in recovery, and subsequently transferred to the intensive care unit. We were consulted for ICU management and postoperative ventilator management. Follow-up chest x-ray shows the endotracheal tube 3.3 cm above the troy. NG tube extends into the left upper quadrant of the stomach. Chronic lung changes with likely left basilar atelectasis. Possible trace pleural effusions. Patient is currently in the intensive care unit, intubated on the mechanical ventilator. Currently sedated on propofol which is infusing at 40 mcg/kg/min. He is synchronous with mechanical ventilator. Peak pressures 19. Current ventilator settings include assist-control, respiratory rate 14, tidal volume 450, FiO2 of 40%, PEEP of 5. These were adjusted earlier by Dr. Moser after initial blood gas of PaO2 greater than 400, pCO2 of 50, pH of 7.3. Postoperative CBC includes a WBC count of 5.9, hemoglobin 12.4, hematocrit 38.7, platelets 150. Most recent CMP from yesterday includes a sodium of 125, testing 4.8, chloride 95, serum bicarb 22, BUN 10, creatinine 0.63, glucose 83. LFTs not elevated. Total bilirubin 0.5. Pancreatic enzymes not elevated. UA unremarkable. Lactated Ringer's infusing at 130 MLS per hour. Patient was started on a combination of Zosyn and fluconazole for abdominal sepsis. Currently afebrile.. Analgesics ordered. Blood pressure remains normotensive. Midline abdominal incision appears approximated with clean and dry and intact postoperative dressing. There is a VENUS drain which is compressed. Serosanguineous drainage, approximately 30 MLS has been drained so far. He has multiple superficial diffusely located excoriations. Bedside nurse states the patient had bedbug infestation on arrival, he has been decontaminated in the emergency room. Last reported drink was prior to coming to the emergency room yesterday. CIWA protocol will be initiated. Patient will be monitored in the intensive care unit. Patient was noted today on 08/31/2023, remains in the ICU, patient was extubated yesterday, and he tolerated the extubation well. However the patient is developing hypoglycemia, and he was placed on D10 at 10 MLS per hour, patient had a PICC line today, and he is supposed to have TPN started today. In the meantime the patient is doing well,On 2 L nasal cannula, not in distress, he is hemodynamically stable. Not requiring any pressors. WBC count today is 8.4 hem oglobin is 10.6 basic metabolic profile is normal renal profile is normal, patient remains on antibiotics in the form of Zosyn he also remains on fluconazole. Patient remains on the CIWA protocol also Patient was evaluated today on 09/02/2023, patient is now on 10 L high flow nasal cannula, feeling better today compared to yesterday, patient has been diuresed for what seems to be a picture of congestive heart failure superimposed on underlying COPD, underlying pneumonia is not entirely ruled out but felt to be less likely nonetheless the patient is on antibiotics. At any rate his x-ray is better clinically the patient is feeling better, and he remains on diuretics. WBC count today is 6.6 hemoglobin 10.7. Potassium is a bit low at 3.2 renal profile is normal in spite of aggressive diuresis. Patient remains on Lasix at 40 mg IV push twice daily. Objective - Vital Signs Vital signs: Vital Signs Temp 97.8 F 09/02/23 07:01 Pulse 97 09/02/23 11:55 Resp 18 09/02/23 07:01 BP 148/76 09/02/23 07:01 Pulse Ox 94 L 09/02/23 07:01 FiO2 40 08/30/23 13:01 Intake & Output 09/01/23 09/02/23 09/02/23 18:59 06:59 18:59 Output Total 4244 3725 1760 Balance -4240 -3725 -1760 Weight 70 kg Output: Drainage 40 50 Right Abdomen 40 50 Urine 4200 3725 1710 Uretheral (Coello) 2000 Other: Voiding Method Indwelling Catheter Indwelling Catheter Indwelling Catheter - Exam GENERAL EXAM: Revealed a 63-year-old white male pleasant in no distress, on 10 L high flow nasal cannula HEAD: Normocephalic and atraumatic EYES: Normal reaction of pupils, equal size. NOSE: Clear with pink turbinates. THROAT: No erythema or exudates. NECK: No masses, no JVD. Xerosis. CHEST: No chest wall deformity. LUNGS: Crackles at the bases persist. CVS: S1 and S2 normal with no audible murmur, regular rhythm. No extra heart sounds ABDOMEN: No hepatosplenomegaly, postsurgical otherwise unremarkable. SKIN: Diffuse secondary areas of superficial excoriation CENTRAL NERVOUS SYSTEM: Alert and oriented x 3 no gross focal deficits alert and oriented x 3 no focal EXTREMITIES: No clubbing edema or cyanosis. Psychiatric: Normal mood affect and normal mental status examination - Labs CBC & Chem 7: 09/02/23 06:16 09/02/23 06:16 Labs: Abnormal Lab Results - Last 24 Hours (Table) 09/01/23 09/02/23 09/02/23 Range/Units 18:27 00:10 06:07 RBC (4.30-5.90) m/uL Hgb (13.0-17.5) gm/dL Hct (39.0-53.0) % MCV (80.0-100.0) fL Plt Count (150-450) k/uL Sodium (137-145) mmol/L Potassium (3.5-5.1) mmol/L Chloride (98-107) mmol/L Creatinine (0.66-1.25) mg/dL Glucose (74-99) mg/dL POC Glucose (mg/dL) 141 H 127 H 129 H (70-110) mg/dL Calcium (8.4-10.2) mg/dL Total Protein (6.3-8.2) g/dL Albumin (3.5-5.0) g/dL 05/03/1709/02/23 09/02/23 Range/Units 06:16 06:16 11:42 RBC 3.24 L (4.30-5.90) m/uL Hgb 10.7 L (13.0-17.5) gm/dL Hct 33.4 L (39.0-53.0) % MCV 102.9 H (80.0-100.0) fL Plt Count 138 L (150-450) k/uL Sodium 129 L (137-145) mmol/L Potassium 3.2 L (3.5-5.1) mmol/L Chloride 97 L (98-107) mmol/L Creatinine 0.52 L (0.66-1.25) mg/dL Glucose 115 H (74-99) mg/dL POC Glucose (mg/dL) 111 H (70-110) mg/dL Calcium 8.0 L (8.4-10.2) mg/dL Total Protein 4.7 L (6.3-8.2) g/dL Albumin 2.3 L (3.5-5.0) g/dL Microbiology - Last 24 Hours (Table) 08/29/23 18:10 Anaerobic Culture - Preliminary Abdomen 08/29/23 13:55 Blood Culture - Preliminary Blood 08/29/23 13:40 Blood Culture - Preliminary Blood Assessment and Plan Assessment: Impression: Perforated gastric ulcer, status postoperative day #4 following a exploratory laparotomy, subtotal gastrectomy, Ariel-en-Y gastrojejunostomy. Following the procedure, patient was left intubated and transferred to intensive care unit. History of alcoholism, last reported drink yesterday prior to coming in Acute diastolic congestive heart failure, improving with diuretics patient has preserved LV function and preserved ejection fraction based on echocardiogram Chronic ongoing tobacco dependence History of right basilar 1.3 cm subpleural pulmonary nodule, follow up outpatient History of COPD, not active History of seizure disorder, no obvious seizure-like activity noted. History hearing disorder Recommendation: Continue oxygen and titrate accordingly Continue Lasix 40 mg IV push twice daily Continue bronchodilators for presumptive underlying COPD Continue antibiotics for his abdominal sepsis although possibility of pneumonia is not entirely ruled out, but felt to be less likely Continue CIWA protocol, Continue antibiotics/Zosyn and continue Diflucan as per ID recommendation Continue GI DVT prophylaxis Encourage incentive spirometry Continue to monitor chest x-ray on a daily basis Ambulate Will continue to follow Time with Patient: Less than 30
[2023-09-02] MEDS: POTASSIUM CHLORIDE 20 MEQ in WATER FOR INJECTION 1 100ML.BAG IVPB SCH (12:44)
--- NOTE | 2023-09-02 14:37 | P.PN ---
Subjective Progress Note Date: 09/02/23 Patient is a 63-year-old male with a history of of hypertension, GERD, hearing loss, and seizure disorder who presented to the ER with acute onset abdominal pain. In the ER he underwent an extensive evaluation. On arrival his vital signs were remarkable for blood pressure of 171/96. Laboratory analysis included CBC, coags, CMP, amylase, lipase which were remarkable for sodium of 125. Urinalysis was negative. CT abdomen and pelvis demonstrated severe gastric wall thickening with mild to moderate free air and free fluid possible gastritis with perforated gastric ulcer. Dr. Catalan was contacted and plans are for urgent surgical intervention. We were asked to consult for medical managem ent. Was taken directly from the ER to the operating room was found to have a perforated posterior gastric ulcer which was treated with subtotal gastrectomy and Ariel-en-Y gastrojejunostomy. Postoperatively patient was admitted to the ICU on a ventilator requiring small amounts of Levophed. He was able to be weaned off of Levophed and was extubated 08/30/2023. He had a PICC line placed and was started on TPN. Infectious disease consulted. He became hypoxic on the morning of 08/31 and was found to have acute fluid overload and started on Lasix. Echo showed preserved EF. Patient seen and examined at bedside. Part of his hearing aid is missing and it was very difficult to communicate. He does tell me he is not in too much pain. That he passed gas. And that he wants to take a shower. Vital signs reviewed General: non-toxic, no distress, appears at stated age Cardiovascular: S1S2 reg, no murmur Lungs: Coarse breath sounds bilateral, no rhonchi, no rales, no accessory muscle use Abdominal: Soft, tender to palpation diffusely, midline dressing in place without soaked through Ext: No gross muscle atrophy, no edema b/l lower extremities, no contractures Neuro: Cranial nerves II through XII grossly intact, moving all 4 extremities independently Psych: Alert, oriented to self, flat affect Assessment/Plan: Perforated posterior gastric ulcer s/p subtotal gastrectomy and Ariel-en-Y gastrojejunostomy Hypovolemic shock, resolved -Protonix 40 mg IV push twice daily -Zosyn 3.375 g IV piggyback 3 times daily D # 5, fluconazole 100 mg IV piggyback daily D #5 - TPN D #3 -Await further surgery recommendations -Infectious disease note reviewed from 09/01/2023: Continue with Zosyn and Diflucan. Acute hypoxic respiratory failure Fluid overload without CHF -Chest x-ray ordered and reviewed which shows increased pulmonary vascular congestion with left-sided pleural effusion -Lasix 40 mg IV push x 1 given -Echocardiogram ordered: Ejection fraction 50%, mild pulmonary hypertension, no other significant findings -Pulmonary note reviewed: Continue to monitor chest x-ray on a daily basis, continue with Lasix. Hypovolemic hyponatremia -Follow sodiums -Repeat BMP in AM Acute blood loss anemia, anticipated outcome of surgery Thrombocytopenia, resolved -No indication for transfusion -Follow CBC-check iron studies Hypokalemia -Being replaced with TPN -Repeat in a.m. EtOH use -CIWA protocol with Ativan dosing per CIWA scale. -IV thiamine 100 mg daily -Hold folic acid as patient n.p.o. Angina, undetermined etiology - further work up once acute condition stabilized. Nicotine dependency -Nicotine patch 14 mcg daily Hypertension -Follow blood pressures - start hydralazine 5 mg IVP q 6 hours, hold for SBP <140 -Seizure disorder -Keppra 500 mg twice daily IV -Valproic sodium 500 mg IV piggyback 4 times daily Hypoglycemia secondary to poor oral intake, resolved Imaging: Chest x-ray from 09/01 is reviewed by myself shows significant improvement in pulmonary edema with decreased size of left pleural effusion Data Review: -Labs reviewed from today include CBC and basic metabolic profile which are remarkable for hemoglobin 10.7, platelets 138, sodium 129, potassium 3.2, magnesium 1.7 This dictation was prepared using [employer] voice recognition software. Though every attempt is made to correct errors during dictation some may still exist. Objective - Vital Signs Vital signs: Vital Signs Temp 97.8 F 09/02/23 07:01 Pulse 97 09/02/23 11:55 Resp 18 09/02/23 07:01 BP 148/76 09/02/23 07:01 Pulse Ox 94 L 09/02/23 07:01 FiO2 40 08/30/23 13:01 Intake & Output 09/01/23 09/02/23 09/02/23 18:59 06:59 18:59 Output Total 4245 3725 1760 Balance -4240 -3725 -1760 Weight 70 kg Output: Drainage 40 50 Right Abdomen 40 50 Urine 4200 3725 1710 Uretheral (Coello) 1999 Other: Voiding Method Indwelling Catheter Indwelling Catheter Indwelling Catheter - Labs CBC & Chem 7: 09/02/23 06:16 09/02/23 06:16 Labs: Abnormal Lab Results - Last 24 Hours (Table) 09/01/23 09/02/23 09/02/23 Range/Units 18:27 00:10 06:07 RBC (4.30-5.90) m/uL Hgb (13.0-17.5) gm/dL Hct (39.0-53.0) % MCV (80.0-100.0) fL Plt Count (150-450) k/uL Sodium (137-145) mmol/L Potassium (3.5-5.1) mmol/L Chloride (98-107) mmol/L Creatinine (0.66-1.25) mg/dL Glucose (74-99) mg/dL POC Glucose (mg/dL) 141 H 127 H 129 H (70-110) mg/dL Calcium (8.4-10.2) mg/dL Total Protein (6.3-8.2) g/dL Albumin (3.5-5.0) g/dL 09/02/23 09/02/23 09/02/23 Range/Units 06:16 06:16 11:42 RBC 3.24 L (4.30-5.90) m/uL Hgb 10.7 L (13.0-17.5) gm/dL Hct 33.4 L (39.0-53.0) % MCV 102.9 H (80.0-100.0) fL Plt Count 138 L (150-450) k/uL Sodium 129 L (137-145) mmol/L Potassium 3.2 L (3.5-5.1) mmol/L Chloride 97 L (98-107) mmol/L Creatinine 0.52 L (0.66-1.25) mg/dL Glucose 115 H (74-99) mg/dL POC Glucose (mg/dL) 111 H (70-110) mg/dL Calcium 8.0 L (8.4-10.2) mg/dL Total Protein 4.7 L (6.3-8.2) g/dL Albumin 2.3 L (3.5-5.0) g/dL Microbiology - Last 24 Hours (Table) 08/29/23 18:10 Anaerobic Culture - Preliminary Abdomen 08/29/23 13:55 Blood Culture - Preliminary Blood 08/29/23 13:40 Blood Culture - Preliminary Blood
[2023-09-02 16:50] LABS: Glucose,Whole Blood 112 mg/dL (70-110)
[2023-09-02] MEDS: hydrALAZINE HCL 20 MG/ML 1 ML VIAL IVP SCH (18:19)
--- NOTE | 2023-09-02 20:41 | P.PN ---
Subjective Progress Note Date: 09/02/23 Principal diagnosis: Reason for follow-up is perforated peptic ulcer Patient is a 63-year-old male with a past medical history significant for hypertension seizure disorder deafness reflux chest pain patient has been brought into the hospital for evaluation of abdominal pain patient diagnosed with perforated gastric ulcer, in this patient who is status post explorative laparotomy subtotal gastrectomy and gastrojejunostomy. On today's evaluation that is 09/02/2023, the patient continues to be afebrile, the patient is on 10 L high flow nasal cannula oxygen however breathing comfortably, the Pt denies having any chest pain or cough, the patient denies having any nausea vomiting abdominal pain is has decreased intensity mention passing gas but did not have any bowel movement yet. Patient white count is 6.6, creatinine 0.52 abdominal culture has been negative so far Objective - Vital Signs Vital signs: Vital Signs Temp 97.8 F 09/02/23 07:01 Pulse 97 09/02/23 08:34 Resp 18 09/02/23 07:01 BP 148/76 09/02/23 07:01 Pulse Ox 94 L 09/02/23 07:01 FiO2 40 08/30/23 13:01 Intake & Output 09/01/23 09/02/23 09/02/23 18:59 06:59 18:59 Output Total 4240 3725 50 Balance -4240 -3725 -50 Weight 70 kg Output: Drainage 40 50 Right Abdomen 40 50 Urine 4200 3725 Uretheral (Coello) 2000 Other: Voiding Method Indwelling Catheter Indwelling Catheter Indwelling Catheter - Exam GENERAL DESCRIPTION: An elderly male lying in bed in no distress RESPIRATORY SYSTEM: Unlabored breathing , coarse breath sound bilaterally HEART: S1 S2 regular rate and rhythm , ABDOMEN: Soft , mild tenderness EXTREMITIES: No edema feet - Labs CBC & Chem 7: 09/02/23 06:16 09/02/23 06:16 Labs: Abnormal Lab Results - Last 24 Hours (Table) 09/01/23 09/01/23 09/02/23 Range/Units 11:42 18:27 00:10 RBC (4.30-5.90) m/uL Hgb (13.0-17.5) gm/dL Hct (39.0-53.0) % MCV (80.0-100.0) fL Plt Count (150-450) k/uL Sodium (137-145) mmol/L Potassium (3.5-5.1) mmol/L Chloride (98-107) mmol/L Creatinine (0.66-1.25) mg/dL Glucose (74-99) mg/dL POC Glucose (mg/dL) 123 H 141 H 127 H (70-110) mg/dL Calcium (8.4-10.2) mg/dL Total Protein (6.3-8.2) g/dL Albumin (3.5-5.0) g/dL 09/02/23 09/02/23 09/02/23 Range/Units 06:07 06:16 06:16 RBC 3.24 L (4.30-5.90) m/uL Hgb 10.7 L (13.0-17.5) gm/dL Hct 33.4 L (39.0-53.0) % MCV 102.9 H (80.0-100.0) fL Plt Count 138 L (150-450) k/uL Sodium 129 L (137-145) mmol/L Potassium 3.2 L (3.5-5.1) mmol/L Chloride 97 L (98-107) mmol/L Creatinine 0.52 L (0.66-1.25) mg/dL Glucose 115 H (74-99) mg/dL POC Glucose (mg/dL) 129 H (70-110) mg/dL Calcium 8.0 L (8.4-10.2) mg/dL Total Protein 4.7 L (6.3-8.2) g/dL Albumin 2.3 L (3.5-5.0) g/dL Microbiology - Last 24 Hours (Table) 08/29/23 18:10 Anaerobic Culture - Preliminary Abdomen 08/29/23 13:55 Blood Culture - Preliminary Blood 08/29/23 13:40 Blood Culture - Preliminary Blood Assessment and Plan (1) Perforated abdominal viscus Current Visit: Yes Status: Acute Code(s): R19.8 - OTH SYMPTOMS AND SIGNS INVOLVING THE DGSTV SYS AND ABDOMEN SNOMED Code(s): 76870862 (2) Peritonitis Current Visit: Yes Status: Acute Code(s): K65.9 - PERITONITIS, UNSPECIFIED SNOMED Code(s): 06131790 Plan: 1patient presented hospital with acute abdominal pain and this patient has been diagnosed with perforated gastric ulcer status post laparotomy partial gastrectomy and gastrojejunostomy need to cover for the enteric gram-negative as well as cannula to the likely pathogen for the peritonitis component 2-blood and abdominal cultures obtained which are currently pending 3-patient is afebrile white count has been normal, patient abdominal culture has been negative for resistant pathogen, patient is covered with the Diflucan and Zosyn will transition to oral antibiotics when his oral intake improves Dictation was produced using [employer] dictation software. please excuse any grammatical, word or spelling errors. Time with Patient: Less than 30
--- NOTE | 2023-09-02 23:04 | P.PN ---
Subjective Patient seen and evaluated at bedside. Mild abdominal pain, using incentive spirometer Objective - Vital Signs Vital signs: Vital Signs Temp 98.2 F 09/02/23 19:42 Pulse 96 09/02/23 20:46 Resp 20 09/02/23 19:42 BP 162/80 09/02/23 19:42 Pulse Ox 98 09/02/23 19:42 FiO2 40 08/30/23 13:01 Intake & Output 09/02/23 09/02/23 09/03/23 06:59 18:59 06:59 Intake Total 1011 Output Total 3725 2960 Balance -0282 -9950 Intake: Intake, IV Titration 1011 Amount Mvi, Adult No.4 with Vit 1011 K 10 ml Trace (Conc-1Ml/ Dose) 1 ml In Amino Acid 5%-D20w+Lytes*E* 1,000 ml @ 75 mls/hr IV .BY DURATION [place] Rx#: [id number] Output: Drainage 50 Right Abdomen 50 Urine 3725 2910 Other: Voiding Method Indwelling Catheter Indwelling Catheter - Exam PHYSICAL EXAM: VITAL SIGNS: Reviewed. GENERAL: no acute distress. ABDOMEN: Soft. Nondistended. Incision site dressing clean dry and intact. VENUS drain serosanguineous NEUROLOGIC: Alert and oriented. Cranial nerves II through XII grossly intact. - Labs CBC & Chem 7: 09/02/23 06:16 09/02/23 06:16 Labs: Abnormal Lab Results - Last 24 Hours (Table) 09/02/23 09/02/23 09/02/23 Range/Units 00:10 06:07 06:16 RBC (4.30-5.90) m/uL Hgb (13.0-17.5) gm/dL Hct (39.0-53.0) % MCV (80.0-100.0) fL Plt Count (150-450) k/uL Sodium 129 L (137-145) mmol/L Potassium 3.2 L (3.5-5.1) mmol/L Chloride 97 L (98-107) mmol/L Creatinine 0.52 L (0.66-1.25) mg/dL Glucose 115 H (74-99) mg/dL POC Glucose (mg/dL) 127 H 129 H (70-110) mg/dL Calcium 8.0 L (8.4-10.2) mg/dL Total Protein 4.7 L (6.3-8.2) g/dL Albumin 2.3 L (3.5-5.0) g/dL 09/02/23 09/02/23 09/02/23 Range/Units 06:16 11:42 16:49 RBC 3.24 L (4.30-5.90) m/uL Hgb 10.7 L (13.0-17.5) gm/dL Hct 33.4 L (39.0-53.0) % MCV 102.9 H (80.0-100.0) fL Plt Count 138 L (150-450) k/uL Sodium (137-145) mmol/L Potassium (3.5-5.1) mmol/L Chloride (98-107) mmol/L Creatinine (0.66-1.25) mg/dL Glucose (74-99) mg/dL POC Glucose (mg/dL) 111 H 112 H (70-110) mg/dL Calcium (8.4-10.2) mg/dL Total Protein (6.3-8.2) g/dL Albumin (3.5-5.0) g/dL Microbiology - Last 24 Hours (Table) 08/29/23 18:10 Anaerobic Culture - Final Abdomen 08/29/23 13:55 Blood Culture - Preliminary Blood 08/29/23 13:40 Blood Culture - Preliminary Blood Assessment and Plan Assessment: ASSESSMENT: 1. Perforated gastric ulcer 2. Peritonitis 3. Sepsis 4. Alcohol use disorder PLAN: -Continue TPN for nutrition support -Continue antibiotics -Keep patient n.p.o. -Continue IV Protonix twice a day -Encourage incentive spirometer use -DVT prophylaxis subcu heparin
[2023-09-02 23:49] LABS: Glucose,Whole Blood 130 mg/dL (70-110)
[2023-09-02] MEDS: ARTIFICIAL TEARS-HYPROMELLOSE DROPS 15 ML BTL BOTH EYES PRN (23:52)
[2023-09-03 05:38] LABS: Glucose,Whole Blood 113 mg/dL (70-110)
[2023-09-03 07:22] LABS: ALT 10 U/L (4-49); AST 25 U/L (17-59); African American GFR (CKD) >90 (>60 ml/min/1.73 sqM); Albumin 2.3 g/dL (3.5-5.0); Alkaline Phosphatase 87 U/L (38-126); Anion Gap 4 mmol/L; Blood Urea Nitrogen 16 mg/dL (9-20); Calcium 8.2 mg/dL (8.4-10.2); Carbon Dioxide 30 mmol/L (22-30); Chloride 96 mmol/L (98-107); Globulin 2.4 g/dL; Glucose 102 mg/dL (74-99); Magnesium 1.9 mg/dL (1.6-2.3); Non-African American GFR(CKD) >90 (>60 ml/min/1.73 sqM); Phosphorus 3.2 mg/dL (2.5-4.5); Potassium 3.5 mmol/L (3.5-5.1); Sodium 130 mmol/L (137-145); Total Bilirubin 0.5 mg/dL (0.2-1.3); Total Protein 4.7 g/dL (6.3-8.2)
[2023-09-03] MEDS: POTASSIUM CHLORIDE 20 MEQ in WATER FOR INJECTION 1 100ML.BAG IVPB SCH (09:23)
[2023-09-03] MEDS: MAGNESIUM SULFATE-D5W PMX 1 GM in DEXTROSE/WATER 1 100ML.BAG IVPB ONE (09:24)
--- NOTE | 2023-09-03 09:27 | XR ---
EXAMINATION TYPE: XR chest 1V portable DATE OF EXAM: 09/03/2023 COMPARISON: 09/02/2023 HISTORY: 63-year-old male CHF TECHNIQUE: Semiupright AP portable view FINDINGS: ACF hardware. Left PICC tip lower SVC. Heart upper limits of normal in size. Groundglass ai rspace opacities left greater than right lungs persists without significant change. Small partially l ayering effusion on the left persists and IMPRESSION: Ongoing bilateral groundglass pulmonary edema, left greater than right. Partially layering small left pleural effusion persists as well.
--- NOTE | 2023-09-03 11:35 | P.PN ---
Subjective Progress Note Date: 09/03/23 patient is a limiting. He is currently bathroom having a bowel movement. On exam vital signs appear stable. Abdomen soft. Status post repair of gastric ulcer. Patient will have his diet advanced to ful l liquids. Objective - Vital Signs Vital signs: Vital Signs Temp 98.6 F 09/03/23 07:20 Pulse 94 09/03/23 11:25 Resp 20 09/03/23 07:20 BP 161/88 09/03/23 07:20 Pulse Ox 100 09/03/23 07:20 FiO2 40 08/30/23 13:01 Intake & Output 09/02/23 09/03/23 09/03/23 18:59 06:59 18:59 Intake Total 1000 Output Total 2960 2200 Balance -1959 -2199 Intake: Intake, IV Titration 1000 Amount Amino Acid 5%-D20w+Lytes* 1000 E* 1,000 ml @ 75 mls/hr IV .BY DURATION [facility] Rx#: [id number] Output: Drainage 50 Right Abdomen 50 Urine 2910 2200 Other: Voiding Method Indwelling Catheter Indwelling Catheter - Labs CBC & Chem 7: 09/02/23 06:16 09/03/23 05:50 Labs: Abnormal Lab Results - Last 24 Hours (Table) 09/02/23 09/02/23 09/02/23 Range/Units 11:42 16:49 23:44 Sodium (137-145) mmol/L Chloride (98-107) mmol/L Creatinine (0.66-1.25) mg/dL Glucose (74-99) mg/dL POC Glucose (mg/dL) 111 H 112 H 130 H (70-110) mg/dL Calcium (8.4-10.2) mg/dL Total Protein (6.3-8.2) g/dL Albumin (3.5-5.0) g/dL 09/03/23 09/03/23 Range/Units 05:35 05:50 Sodium 130 L (137-145) mmol/L Chloride 96 L (98-107) mmol/L Creatinine 0.50 L (0.66-1.25) mg/dL Glucose 102 H (74-99) mg/dL POC Glucose (mg/dL) 113 H (70-110) mg/dL Calcium 8.2 L (8.4-10.2) mg/dL Total Protein 4.7 L (6.3-8.2) g/dL Albumin 2.3 L (3.5-5.0) g/dL Microbiology - Last 24 Hours (Table) 08/29/23 18:10 Anaerobic Culture - Final Abdomen
[2023-09-03 11:58] LABS: Glucose,Whole Blood 113 mg/dL (70-110)
--- NOTE | 2023-09-03 14:25 | P.PN ---
Subjective Progress Note Date: 09/03/23 Principal diagnosis: Perforated gastric ulcer, status postoperative day #4 following a exploratory laparotomy, subtotal gastrectomy, Ariel-en-Y gastrojejunostomy. Patient is a 63-year-old white male with past medical history significant for hypertension, alcoholism, seizure disorder, and current everyday smoker. Patient is currently sedated and intubated to the mechanical ventilator, unable to provide any information. After review of the ER documentation, patient presented yesterday morning with a chief complaint of abdominal pain radiating to the left abdomen with sudden onset. Mild associated nausea. A follow-up abdominal and pelvis CT demonstrated severe gastric wall thickening in conjunction with mild to moderate free air and free fluid. Suspected gastritis with perforated gastric ulcer. Patient was subsequently taken to the operating room for exploratory laparotomy, and underwent subtotal gastrectomy with Ariel-en-Y gastrojejunostomy. No significant reported perioperative complications. I am told he has received a total of 5 L crystalloid fluid perio peratively. No vasopressors at the moment. Patient was reportedly difficult to extubate in recovery, and subsequently transferred to the intensive care unit. We were consulted for ICU management and postoperative ventilator management. Follow-up chest x-ray shows the endotracheal tube 3.3 cm above the troy. NG tube extends into the left upper quadrant of the stomach. Chronic lung changes with likely left basilar atelectasis. Possible trace pleural effusions. Patient is currently in the intensive care unit, intubated on the mechanical ventilator. Currently sedated on propofol which is infusing at 40 mcg/kg/min. He is synchronous with mechanical ventilator. Peak pressures 19. Current ventilator settings include assist-control, respiratory rate 14, tidal volume 450, FiO2 of 40%, PEEP of 5. These were adjusted earlier by Dr. Moser after initial blood gas of PaO2 greater than 400, pCO2 of 50, pH of 7.3. Postoperative CBC includes a WBC count of 5.9, hemoglobin 12.4, hematocrit 38.7, platelets 150. Most recent CMP from yesterday includes a sodium of 125, testing 4.8, chloride 95, serum bicarb 22, BUN 10, creatinine 0.63, glucose 83. LFTs not elevated. Total bilirubin 0.5. Pancreatic enzymes not elevated. UA unremarkable. Lactated Ringer's infusing at 130 MLS per hour. Patient was started on a combination of Zosyn and fluconazole for abdominal sepsis. Currently afebrile.. Analgesics ordered. Blood pressure remains normotensive. Midline abdominal incision appears approximated with clean and dry and intact postoperative dressing. There is a VENUS drain which is compressed. Serosanguineous drainage, approximately 30 MLS has been drained so far. He has multiple superficial diffusely located excoriations. Bedside nurse states the patient had bedbug infestation on arrival, he has been decontaminated in the emergency room. Last reported drink was prior to coming to the emergency room yesterday. CIWA protocol will be initiated. Patient will be monitored in the intensive care unit. Patient was noted today on 08/31/2023, remains in the ICU, patient was extubated yesterday, and he tolerated the extubation well. However the patient is developing hypoglycemia, and he was placed on D10 at 10 MLS per hour, patient had a PICC line today, and he is supposed to have TPN started today. In the meantime the patient is doing well,On 2 L nasal cannula, not in distress, he is hemodynamically stable. Not requiring any pressors. WBC count today is 8.4 hem oglobin is 10.6 basic metabolic profile is normal renal profile is normal, patient remains on antibiotics in the form of Zosyn he also remains on fluconazole. Patient remains on the CIWA protocol also Patient was evaluated today on 09/02/2023, patient is now on 10 L high flow nasal cannula, feeling better today compared to yesterday, patient has been diuresed for what seems to be a picture of congestive heart failure superimposed on underlying COPD, underlying pneumonia is not entirely ruled out but felt to be less likely nonetheless the patient is on antibiotics. At any rate his x-ray is better clinically the patient is feeling better, and he remains on diuretics. WBC count today is 6.6 hemoglobin 10.7. Potassium is a bit low at 3.2 renal profile is normal in spite of aggressive diuresis. Patient remains on Lasix at 40 mg IV push twice daily. Patient was reevaluated today on 09/03/2023, patient remains on 10 L high flow nasal cannula, patient has been diuresing significantly with Lasix every 12 hours, significant negative fluid balance noted in the last 2 days, nonetheless his chest x-ray continues to show a picture of groundglass pulmonary edema and small left-sided pleural effusion. His renal functioning seems to be reasonable, hence I will continue diuretics, in the meantime the patient is on antibiotics, it is not certain whether the patient may have sustained some a spiration pneumonia. I still believe the findings are mostly findings of congestive heart failure/diastolic in nature. Labs were reviewed BUN is 16 creatinine 0.5 sugar is 113. Objective - Vital Signs Vital signs: Vital Signs Temp 98.6 F 09/03/23 07:20 Pulse 94 09/03/23 11:25 Resp 20 09/03/23 07:20 BP 161/88 09/03/23 07:20 Pulse Ox 100 09/03/23 07:20 FiO2 40 08/30/23 13:01 Intake & Output 09/02/23 09/03/23 09/03/23 18:59 06:59 18:59 Intake Total 1000 Output Total 2960 2200 1400 Balance -1959 -2199 Intake: Intake, IV Titration 1000 Amount Amino Acid 5%-D20w+Lytes* 1000 E* 1,000 ml @ 75 mls/hr IV .BY DURATION [facility] Rx#: [id number] Output: Drainage 50 Right Abdomen 50 Urine 2910 2200 1400 Uretheral (Coello) 1400 Other: Voiding Method Indwelling Catheter Indwelling Catheter Indwelling Catheter - Exam GENERAL EXAM: Revealed a 63-year-old white male pleasant in no distress, on 10 L high flow nasal cannula HEAD: Normocephalic and atraumatic EYES: Normal reaction of pupils, equal size. NOSE: Clear with pink turbinates. THROAT: No erythema or exudates. NECK: No masses, no JVD. Xerosis. CHEST: No chest wall deformity. LUNGS: Crackles at the bases persist. CVS: S1 and S2 normal with no audible murmur, regular rhythm. No extra heart sounds ABDOMEN: No hepatosplenomegaly, postsurgical otherwise unremarkable. SKIN: Diffuse secondary areas of superficial excoriation CENTRAL NERVOUS SYSTEM: Alert and oriented x 3 no gross focal deficits alert and oriented x 3 no focal EXTREMITIES: No clubbing edema or cyanosis. Psychiatric: Normal mood affect and normal mental status examination - Labs CBC & Chem 7: 09/02/23 06:16 09/03/23 05:50 Labs: Abnormal Lab Results - Last 24 Hours (Table) 09/02/23 09/02/23 09/03/23 Range/Units 16:49 23:44 05:35 Sodium (137-145) mmol/L Chloride (98-107) mmol/L Creatinine (0.66-1.25) mg/dL Glucose (74-99) mg/dL POC Glucose (mg/dL) 112 H 130 H 113 H (70-110) mg/dL Calcium (8.4-10.2) mg/dL Total Protein (6.3-8.2) g/dL Albumin (3.5-5.0) g/dL 09/03/23 09/03/23 Range/Units 05:50 11:56 Sodium 130 L (137-145) mmol/L Chloride 96 L (98-107) mmol/L Creatinine 0.50 L (0.66-1.25) mg/dL Glucose 102 H (74-99) mg/dL POC Glucose (mg/dL) 113 H (70-110) mg/dL Calcium 8.2 L (8.4-10.2) mg/dL Total Protein 4.7 L (6.3-8.2) g/dL Albumin 2.3 L (3.5-5.0) g/dL Microbiology - Last 24 Hours (Table) 08/29/23 18:10 Anaerobic Culture - Final Abdomen Assessment and Plan Assessment: Impression: Perforated gastric ulcer, status postoperative day #5 following a exploratory laparotomy, subtotal gastrectomy, Ariel-en-Y gastrojejunostomy. Following the procedure, patient was left intubated and transferred to intensive care unit. History of alcoholism, last reported drink yesterday prior to coming in Acute diastolic congestive heart failure, improving with diuretics patient has preserved LV function and preserved ejection fraction based on echocardiogram Chronic ongoing tobacco dependence History of right basilar 1.3 cm subpleural pulmonary nodule, follow up outpat ient History of COPD, not active History of seizure disorder, no obvious seizure-like activity noted. History hearing disorder Possible aspiration pneumonia Recommendation: Continue oxygen and titrate accordingly Continue Lasix 40 mg IV push twice daily Continue bronchodilators for presumptive underlying COPD Continue antibiotics for his abdominal sepsis, this will also cover for potential and possible aspiration pneumonia. Continue CIWA protocol, Continue antibiotics/Zosyn and continue Diflucan as per ID recommendation Continue GI DVT prophylaxis Encourage incentive spirometry Continue to monitor chest x-ray on a daily basis Ambulate Will continue to follow Time with Patient: Less than 30
--- NOTE | 2023-09-03 14:29 | P.PN ---
Subjective Progress Note Date: 09/03/23 (delayed charting seen at 1005) Patient is a 63-year-old male with a history of of hypertension, GERD, hearing loss, and seizure disorder who presented to the ER with acute onset abdominal pain. In the ER he underwent an extensive evaluation. On arrival his vital signs were remarkable for blood pressure of 171/96. Laboratory analysis included CBC, coags, CMP, amylase, lipase which were remarkable for sodium of 125. Urinalysis was negative. CT abdomen and pelvis demonstrated severe gastri c wall thickening with mild to moderate free air and free fluid possible gastritis with perforated gastric ulcer. Dr. Catalan was contacted and plans are for urgent surgical intervention. We were asked to consult for medical management. Was taken directly from the ER to the operating room was found to have a perforated posterior gastric ulcer which was treated with subtotal gastrectomy and Ariel-en-Y gastrojejunostomy. Postoperatively patient was admitted to the ICU on a ventilator requiring small amounts of Levophed. He was able to be weaned off of Levophed and was extubated 08/30/2023. He had a PICC line placed and was started on TPN. Infectious disease consulted. He became hypoxic on the morning of 08/31 and was found to have acute fluid overload and started on Lasix. Echo showed preserved EF. He continued to improved. He was started on a diet on 09/03/23. Patient seen and examined at bedside. He is having some abdominal pain after sneezing today. He denies any nausea or vomiting. He states he had a bowel movement today. Vital signs reviewed General: non-toxic, no distress, appears at stated age Cardiovascular: S1S2 reg, no murmur Lungs: Ronchi bilateral bases, no accessory muscle use Abdominal: Soft, tender to palpation diffusely, midline dressing in place without soaked through Ext: No gross muscle atrophy, no edema b/l lower extremities, no contractures Neuro: Cranial nerves II through XII grossly intact, moving all 4 extremities independently Psych: Alert, oriented to self, flat affect Assessment/Plan: Perforated posterior gastric ulcer s/p subtotal gastrectomy and Ariel-en-Y gastrojejunostomy Hypovolemic shock, resolved -Protonix 40 mg IV push twice daily -Zosyn 3.375 g IV piggyback 3 times daily D # 6, fluconazole 100 mg IV piggyback daily D #6 - TPN D #4 -Surgery note reviewed: Status postrepair of gastric ulcer. Advance to full liquid diet -If patient tolerates full liquid diet could consider discontinuing TPN in AM. -Infectious disease note reviewed from 09/02/2023: Continue with Zosyn and Diflucan, transition to oral abx when tolerating a diet Acute hypoxic respiratory failure Fluid overload without CHF -Lasix 40 mg IV BID D # 3 -Echocardiogram ordered: Ejection fraction 50%, mild pulmonary hypertension, no other significant findings - Await further pulm recs Hyponatremia, initially hypovolemic, now due to poor solute intake. -on TPN -Repeat BMP in AM Acute blood loss anemia, anticipated outcome of surgery Iron deficiency anemia Thrombocytopenia, resolved -No indication for transfusion - follow CBC - No IV iron given possible intraabdominal infections, start ferrous sulfate 325 mg po daily Hypokalemia -Being replaced with TPN -Repeat in a.m. EtOH use -CIWA protocol with Ativan dosing per CIWA scale. -IV thiamine 100 mg daily - folic acid 1 mg PO daily Angina, undetermined etiology - further work up once acute condition stabilized. Nicotine dependency -Nicotine patch 14 mcg daily Hypertension -Follow blood pressures - D/c IV hydralazine - start metoprolol 25 mg po daily -Seizure disorder -Keppra 500 mg twice daily IV -Valproic sodium 500 mg IV piggyback 4 times daily -If patient continues to tolerate diet without any difficulties would consider transitioning off of IV Keppra and valproic acid and back on to oral. Hypoglycemia secondary to poor oral intake, resolved Imaging: Chest X-ray as reviewed by myself shows continued interstitial edema of the bilateral lungs. Data Review: Labs reviewed from today reveal sodium of 130, glucose 102. This dictation was prepared using [employer] voice recognition software. Though every attempt is made to correct errors during dictation some may still exist. Objective - Vital Signs Vital signs: Vital Signs Temp 98.6 F 09/03/23 07:20 Pulse 94 09/03/23 11:25 Resp 20 09/03/23 07:20 BP 161/88 09/03/23 07:20 Pulse Ox 100 09/03/23 07:20 FiO2 40 08/30/23 13:01 Intake & Output 09/02/23 09/03/23 09/03/23 18:59 06:59 18:59 Intake Total 1000 Output Total 2960 2200 1400 Balance -1959 -2199 -1399 Intake: Intake, IV Titration 1000 Amount Amino Acid 5%-D20w+Lytes* 1000 E* 1,000 ml @ 75 mls/hr IV .BY DURATION [facility] Rx#: [id number] Output: Drainage 50 Right Abdomen 50 Urine 2910 2200 1400 Uretheral (Coello) 1400 Other: Voiding Method Indwelling Catheter Indwelling Catheter Indwelling Catheter - Labs CBC & Chem 7: 09/02/23 06:16 09/03/23 05:50 Labs: Abnormal Lab Results - Last 24 Hours (Table) 09/02/23 09/02/23 09/03/23 Range/Units 16:49 23:44 05:35 Sodium (137-145) mmol/L Chloride (98-107) mmol/L Creatinine (0.66-1.25) mg/dL Glucose (74-99) mg/dL POC Glucose (mg/dL) 112 H 130 H 113 H (70-110) mg/dL Calcium (8.4-10.2) mg/dL Total Protein (6.3-8.2) g/dL Albumin (3.5-5.0) g/dL 09/03/23 09/03/23 Range/Units 05:50 11:56 Sodium 130 L (137-145) mmol/L Chloride 96 L (98-107) mmol/L Creatinine 0.50 L (0.66-1.25) mg/dL Glucose 102 H (74-99) mg/dL POC Glucose (mg/dL) 113 H (70-110) mg/dL Calcium 8.2 L (8.4-10.2) mg/dL Total Protein 4.7 L (6.3-8.2) g/dL Albumin 2.3 L (3.5-5.0) g/dL Microbiology - Last 24 Hours (Table) 08/29/23 18:10 Anaerobic Culture - Final Abdomen
[2023-09-03] MEDS: METOPROLOL TARTRATE 25 MG TAB PO SCH (15:57)
[2023-09-03 17:04] LABS: Glucose,Whole Blood 112 mg/dL (70-110)
[2023-09-03] MEDS: 1: MVI, ADULT NO.4 WITH VIT K 10 ML, TRACE (CONC-1ML/DOSE) 1 ML, POTASSIUM CHLORIDE 20 M IV SCH (21:15)
[2023-09-03 21:21] LABS: Glucose,Whole Blood 75 mg/dL (70-110)
[2023-09-04 05:25] LABS: Glucose,Whole Blood 102 mg/dL (70-110)
[2023-09-04 06:26] LABS: HCT 34.2 % (39.0-53.0); HGB 11.1 gm/dL (13.0-17.5); MCH 33.3 pg (25.0-35.0); MCHC 32.4 g/dL (31.0-37.0); MCV 102.7 fL (80.0-100.0); Macrocytosis Slight; Mean Platelet Volume 8.5; Platelet Count 158 k/uL (150-450); RBC 3.33 m/uL (4.30-5.90); RDW 14.5 % (11.5-15.5); WBC 7.1 k/uL (3.8-10.6)
[2023-09-04 06:58] LABS: African American GFR (CKD) >90 (>60 ml/min/1.73 sqM); Anion Gap 6 mmol/L; Blood Urea Nitrogen 22 mg/dL (9-20); Calcium 8.4 mg/dL (8.4-10.2); Carbon Dioxide 27 mmol/L (22-30); Chloride 97 mmol/L (98-107); Glucose 80 mg/dL (74-99); Magnesium 1.9 mg/dL (1.6-2.3); Non-African American GFR(CKD) >90 (>60 ml/min/1.73 sqM); Phosphorus 3.5 mg/dL (2.5-4.5); Potassium 3.7 mmol/L (3.5-5.1); Sodium 130 mmol/L (137-145)
[2023-09-04] MEDS: FOLIC ACID 1 MG TAB PO SCH (07:23)
[2023-09-04] MEDS: THIAMINE 100 MG TAB PO SCH (07:23)
--- NOTE | 2023-09-04 08:39 | XR ---
EXAMINATION TYPE: XR chest 1V portable DATE OF EXAM: 09/04/2023 7:15 AM CLINICAL INDICATION:Male, 63 years old with history of chf; COMPARISON: Chest radiographs from 09/03/2023. TECHNIQUE: XR chest 1V portable Frontal view of the chest. FINDINGS: Lungs/Pleura: There is no evidence of pleural effusion, focal consolidation, or pneumothorax. Pulmonary vascularity: Unremarkable. Heart/mediastinum: Cardiomediastinal silhouette is unremarkable. Musculoskeletal: No acute osseous pathology. There is fixation hardware in the lower cervical spine. Left PICC with tip at the superior cavoatrial junction/superior vena cava. IMPRESSION: Similar groundglass appearance of lungs with relative sparing of the right upper lung. Superimposed C OPD changes suspected.
[2023-09-04] MEDS: POTASSIUM CHLORIDE 20 MEQ in WATER FOR INJECTION 1 100ML.BAG IVPB ONE (09:08)
[2023-09-04 11:53] LABS: Glucose,Whole Blood 102 mg/dL (70-110)
--- NOTE | 2023-09-04 12:11 | P.PN ---
Subjective Progress Note Date: 09/04/23 Principal diagnosis: Gastric perforation Patient says his pain is continuing to improve. Much less then when he came to the hospital. Tolerating liquids although sparingly. No nausea. No vomiting. VENUS drain is serosanguineous. Coello catheter was removed today. White blood cell count remains normal. Objective - Vital Signs Vital signs: Vital Signs Temp 98.2 F 09/04/23 07:22 Pulse 93 09/04/23 11:54 Resp 18 09/04/23 07:22 BP 156/71 09/04/23 07:22 Pulse Ox 95 09/04/23 08:17 FiO2 40 08/30/23 13:01 Intake & Output 09/03/23 09/04/23 09/04/23 18:59 06:59 18:59 Intake Total 300 Output Total 1400 2309 Weight 70 kg Intake: Intake, IV Titration 300 Amount Magnesium Sulfate-D5w Pmx 100 1 gm In Dextrose/Water 1 100ml.bag @ 100 mls/hr IVPB ONCE ONE Rx#: [id number] Piperacillin-Tazobactam 3 100 .375 gm In Sodium Chloride 0.9% 100 ml @ 25 mls/hr IVPB Q8HR [facility] Rx# :[id number] Potassium Chloride 20 meq 50 In Water For Injection 1 100ml.bag @ 50 mls/hr IVPB Q2H [facility] Rx#: [id number] Potassium Chloride 20 meq 50 In Water For Injection 1 100ml.bag @ 50 mls/hr IVPB Q2H [facility] Rx#: [id number] Output: Drainage 10 10 Right Abdomen 10 10 Urine 1400 2300 2000 Uretheral (Coello) 1400 700 Other: Voiding Method Indwelling Catheter Indwelling Catheter Indwelling Catheter - Exam Abdomen: Soft, nondistended, incision clean and dry, minimal tenderness - Labs CBC & Chem 7: 09/04/23 05:35 09/04/23 05:35 Labs: Abnormal Lab Results - Last 24 Hours (Table) 09/03/23 09/04/23 09/04/23 Range/Units 17:02 05:35 05:35 RBC 3.33 L (4.30-5.90) m/uL Hgb 11.1 L (13.0-17.5) gm/dL Hct 34.2 L (39.0-53.0) % MCV 102.7 H (80.0-100.0) fL Sodium 130 L (137-145) mmol/L Chloride 97 L (98-107) mmol/L BUN 22 H (9-20) mg/dL Creatinine 0.57 L (0.66-1.25) mg/dL POC Glucose (mg/dL) 112 H (70-110) mg/dL Microbiology - Last 24 Hours (Table) 08/29/23 13:55 Blood Culture - Final Blood 08/29/23 13:40 Blood Culture - Final Blood Assessment and Plan (1) Perforated abdominal viscus Narrative/Plan: 63-year-old male with perforated gastric ulcer with sepsis. Doing better at this time. Continue weaning oxygen. Continue increasing activity. Continue full liquids without carbonation. Continue antibiotics and antiacid therapy. Current Visit: Yes Status: Acute Code(s): R19.8 - OTH SYMPTOMS AND SIGNS INVOLVING THE DGSTV SYS AND ABDOMEN SNOMED Code(s): 30651891
[2023-09-04] MEDS: FERROUS SULFATE 325 MG TAB PO SCH (12:53)
[2023-09-04] MEDS: [UNRECOGNIZED DRUG - REMARK] IV SCH (13:22)
--- NOTE | 2023-09-04 13:31 | P.PN ---
Subjective Progress Note Date: 09/04/23 Patient is a 63-year-old white male with past medical history significant for hypertension, alcoholism, seizure disorder, and current everyday smoker. Patient is currently sedated and intubated to the mechanical ventilator, unable to provide any information. After review of the ER documentation, patient presented yesterday morning with a chief complaint of abdominal pain radiating to the left abdomen with sudden onset. Mild associated nausea. A follow-up abdominal and pelvis CT demonstrated severe gastric wall thickening in conjunction with mild to moderate free air and free fluid. Suspected gastritis with perforated gastric ulcer. Patient was subsequently taken to the operating room for exploratory laparotomy, and underwent subtotal gastrectomy with Ariel-en-Y gastrojejunostomy. No significant reported perioperative complications. I am told he has received a total of 5 L crystalloid fluid perioperatively. No vasopressors at the moment. Patient was reportedly difficult to extubate in recovery, and subsequently transferred to the intensive care unit. We were consulted for ICU management and postoperative ventilator management. Follow-up chest x-ray shows the endotracheal tube 3.3 cm above the troy. NG tube extends into the left upper quadrant of the stomach. Chronic lung changes with likely left basilar atelectasis. Possible trace pleural effusions. Patient is currently in the intensive care unit, intubated on the mechanical ventilator. Currently sedated on propofol which is infusing at 40 mcg/kg/min. He is synchronous with mechanical ventilator. Peak pressures 19. Current ventilator settings include assist-control, respiratory rate 14, tidal volume 450, FiO2 of 40%, PEEP of 5. These were adjusted earlier by Dr. Moser after initial blood gas of PaO2 greater than 400, pCO2 of 50, pH of 7.3. Postoperative CBC includes a WBC count of 5.9, hemoglobin 12.4, hematocrit 38.7, platelets 150. Most recent CMP from yesterday includes a sodium of 125, testing 4.8, chloride 95, serum bicarb 22, BUN 10, creatinine 0.63, glucose 83. LFTs not elevated. Total bilirubin 0.5. Pancreatic enzymes not elevated. UA unremarkable. Lactated Ringer's infusing at 130 MLS per hour. Patient was started on a combination of Zosyn and fluconazole for abdominal sepsis. C urrently afebrile.. Analgesics ordered. Blood pressure remains normotensive. Midline abdominal incision appears approximated with clean and dry and intact postoperative dressing. There is a VENUS drain which is compressed. Serosanguineous drainage, approximately 30 MLS has been drained so far. He has multiple superficial diffusely located excoriations. Bedside nurse states the patient had bedbug infestation on arrival, he has been decontaminated in the emergency room. Last reported drink was prior to coming to the emergency room yesterday. CIWA protocol will be initiated. Patient will be monitored in the intensive care unit. Patient was noted today on 08/31/2023, remains in the ICU, patient was extubated yesterday, and he tolerated the extubation well. However the patient is develop ing hypoglycemia, and he was placed on D10 at 10 MLS per hour, patient had a PICC line today, and he is supposed to have TPN started today. In the meantime the patient is doing well,On 2 L nasal cannula, not in distress, he is hemodynamically stable. Not requiring any pressors. WBC count today is 8.4 hemoglobin is 10.6 basic metabolic profile is normal renal profile is normal, patient remains on antibiotics in the form of Zosyn he also remains on fluconazole. Patient remains on the CIWA protocol also The patient is seen today September 01, 2023 in follow-up on the regular medical floor. He is currently resting in bed. Awake and alert in no acute distress. He did develop increasing shortness of breath overnight. He was requiring up to 15 L high flow nasal cannula this morning. Chest x-ray shows interval increase in bilateral airspace disease and pleural effusions. Could be associated with pulmonary edema. Blood cultures revealed no growth. Abdominal wound cultures revealed no growth. White count 7.7. Hemoglobin 10.7. Platelets 160. Sodium 128. Potassium 3.7. Bicarb 26. BUN 6. Creatinine 0.47. Glucose 105. Arterial blood gases on 100% of oxygen revealed a PaO2 of 53, P CO2 of 39 and a pH of 7.45. Echocardiogram revealed preserved left ventricular systolic function with ejection fraction of 50%. No significant valvular heart disease. He was given Lasix 40 mg IVP x 1 this morning. He is continued on Zosyn and bronchodilators. He remains on TPN and lipids for nutritional support. He is on fluconazole. NicoDerm patch in place. Patient was evaluated today on 09/02/2023, patient is now on 10 L high flow nasal cannula, feeling better today compared to yesterday, patient has been diuresed for what seems to be a picture of congestive heart failure superimposed on underlying COPD, underlying pneumonia is not entirely ruled out but felt to be less likely nonetheless the patient is on antibiotics. At any rate his x-ray is better clinically the patient is feeling better, and he remains on diuretics. WBC count today is 6.6 hemoglobin 10.7. Potassium is a bit low at 3.2 renal profile is normal in spite of aggressive diuresis. Patient remains on Lasix at 40 mg IV push twice daily. Patient was reevaluated today on 09/03/2023, patient remains on 10 L high flow nasal cannula, patient has been diuresing significantly with Lasix every 12 hours, significant negative fluid balance noted in the last 2 days, nonetheless his chest x-ray continues to show a picture of groundglass pulmonary edema and small left-sided pleural effusion. His renal functioning seems to be reasonable, hence I will continue diuretics, in the meantime the patient is on antibiotics, it is not certain whether the patient may have sustained some aspiration pneumonia. I still believe the findings are mostly findings of congestive heart failure/diastolic in nature. Labs were reviewed BUN is 16 creatinine 0.5 sugar is 113. The patient is seen today September 04, 2023 in follow-up on the regular medical floor. He is currently resting in bed. Awake and alert in no acute distress. Maintaining O2 saturations in the 90s on 3 L/min per nasal cannula. He is receiving TPN at 73 mL/h. Chest x-ray continues to show similar groundglass appearance of the lungs with relative sparing of the right upper lung. Superimposed COPD. Blood cultures revealed no growth. Abdominal wound cultures revealed no growth. White count 7.1. Hemoglobin 11.1. Platelets 158. Sodium 130. Potassium 3.7. Bicarb 27. BUN 22. Creatinine 0.57. Glucose 102. He remains on bronchodilators. Continued on IV diuretics. Remains on Zosyn and valproic acid. Objective - Vital Signs Vital signs: Vital Signs Temp 98.2 F 09/04/23 13:20 Pulse 84 09/04/23 13:20 Resp 17 09/04/23 13:20 BP 144/71 09/04/23 13:20 Pulse Ox 98 09/04/23 13:20 FiO2 40 08/30/23 13:01 Intake & Output 09/03/23 09/04/23 09/04/23 18:59 06:59 18:59 Intake Total 300 Output Total 1400 0 2009 Balance -1099 Weight 70 kg Intake: Intake, IV Titration 300 Amount Magnesium Sulfate-D5w Pmx 100 1 gm In Dextrose/Water 1 100ml.bag @ 100 mls/hr IVPB ONCE ONE Rx#: [id number] Piperacillin-Tazobactam 3 100 .375 gm In Sodium Chloride 0.9% 100 ml @ 25 mls/hr IVPB Q8HR [facility] Rx# :[id number] Potassium Chloride 20 meq 50 In Water For Injection 1 100ml.bag @ 50 mls/hr IVPB Q2H [facility] Rx#: [id number] Potassium Chloride 20 meq 50 In Water For Injection 1 100ml.bag @ 50 mls/hr IVPB Q2H [facility] Rx#: [id number] Output: Drainage 10 10 Right Abdomen 10 10 Urine 1400 2300 2000 Uretheral (Coello) 1400 700 Other: Voiding Method Indwelling Catheter Indwelling Catheter Indwelling Catheter - Exam GENERAL EXAM: Alert, 63-year-old male, resting in bed, on 3 L nasal cannula, fairly comfortable in no apparent distress. HEAD: Normocephalic. EYES: Normal reaction of pupils, equal size. NOSE: Clear with pink turbinates. THROAT: No erythema or exudates. NECK: No masses, no JVD. CHEST: No chest wall deformity. LUNGS: Equal air entry with bilateral scattered rhonchi, crackles in the bases. CVS: S1 and S2 normal with no audible murmur, regular rhythm. ABDOMEN: Dressing clean dry and intact. VENUS drain in place with serosanguineous output, no guarding or rigidity. SPINE: No scoliosis or deformity SKIN: No rashes CENTRAL NERVOUS SYSTEM: No focal deficits, tone is normal in all 4 extremities. EXTREMITIES: There is no peripheral edema. No clubbing, no cyanosis. Peripheral pulses are intact. - Labs CBC & Chem 7: 09/04/23 05:35 09/04/23 05:35 Labs: Abnormal Lab Results - Last 24 Hours (Table) 09/03/23 09/04/23 09/04/23 Range/Units 17:02 05:35 05:35 RBC 3.33 L (4.30-5.90) m/uL Hgb 11.1 L (13.0-17.5) gm/dL Hct 34.2 L (39.0-53.0) % MCV 102.7 H (80.0-100.0) fL Sodium 130 L (137-145) mmol/L Chloride 97 L (98-107) mmol/L BUN 22 H (9-20) mg/dL Creatinine 0.57 L (0.66-1.25) mg/dL POC Glucose (mg/dL) 112 H (70-110) mg/dL Microbiology - Last 24 Hours (Table) 08/29/23 13:55 Blood Culture - Final Blood 08/29/23 13:40 Blood Culture - Final Blood Assessment and Plan Assessment: Perforated gastric ulcer, status postoperative exploratory laparotomy, subtotal gastrectomy, Ariel-en-Y gastrojejunostomy on 08/31/2023. Following the procedure, patient was left intubated and transferred to intensive care unit. Currently extubated Acute hypoxemic respiratory failure, improved and on 3 L nasal cannula History of alcoholism, last reported drink 1 day prior to coming in Chronic ongoing tobacco dependence History of right basilar 1.3 cm subpleural pulmonary nodule, follow up outpatient History of COPD, not active History of seizure disorder, no obvious seizure-like activity noted. History hearing disorder Plan: The patient was seen and evaluated Chest x-ray, labs and medications reviewed Discontinue antibiotics Titrate down the FiO2 as tolerated Continue bronchodilators Increase use of the incentive spirometer Increase his activity as tolerated We will continue to follow I have personally seen and examined the patient, performed the documentation and the assessment and plan as written. Number of minutes spent on the visit: 10.
--- NOTE | 2023-09-04 16:12 | P.PN ---
Subjective Progress Note Date: 09/04/23 Patient is a 63-year-old male with a history of of hypertension, GERD, hearing loss, and seizure disorder who presented to the ER with acute onset abdominal pain. In the ER he underwent an extensive evaluation. On arrival his vital signs were remarkable for blood pressure of 171/96. Laboratory analysis included CBC, coags, CMP, amylase, lipase which were remarkable for sodium of 125. Urinalysis was negative. CT abdomen and pelvis demonstrated severe gastric wall thickening with mild to moderate free air and free fluid possible gastritis with perforated gastric ulcer. Dr. Catalan was contacted and plans are for urgent surgical intervention. We were asked to consult for medical manage ment. Was taken directly from the ER to the operating room was found to have a perforated posterior gastric ulcer which was treated with subtotal gastrectomy and Ariel-en-Y gastrojejunostomy. Postoperatively patient was admitted to the ICU on a ventilator requiring small amounts of Levophed. He was able to be weaned off of Levophed and was extubated 08/30/2023. He had a PICC line placed and was started on TPN. Infectious disease consulted. He became hypoxic on the morning of 08/31 and was found to have acute fluid overload and started on Lasix. Echo showed preserved EF. He continued to improved. He was started on a diet on 09/03/23. Still remains on TPN, Lasix will be discontinued once patient is complaining on oral intake. Patient seen and examined at bedside. Some abdominal pain, but denies any other complaints. Very little oral intake. She remains on TPN. Coello catheter in place. Vital signs reviewed General: non-toxic, no distress, appears at stated age Cardiovascular: S1S2 reg, no murmur Lungs: Ronchi bilateral bases, no accessory muscle use Abdominal: Soft, tender to palpation diffusely, midline dressing in place without soaked through Ext: No gross muscle atrophy, no edema b/l lower extremities, no contractures Neuro: Cranial nerves II through XII grossly intact, moving all 4 extremities independently Psych: Alert, oriented to self, flat affect Assessment/Plan: Perforated posterior gastric ulcer s/p subtotal gastrectomy and Ariel-en-Y gastrojejunostomy Hypovolemic shock, resolved -Protonix 40 mg IV push twice daily -Zosyn 3.375 g IV piggyback 3 times daily D # 7, fluconazole 100 mg IV piggyback daily D #7 - TPN D #5 -Surgery note reviewed: Status postrepair of gastric ulcer. Continue liquid diet -If patient tolerates full liquid diet could consider discontinuing TPN -Infectious disease following, continue with Zosyn and Diflucan, transition to oral abx when tolerating a diet -Coello catheter to be discontinued today Acute hypoxic respiratory failure, resolving Fluid overload without CHF -Lasix 40 mg IV BID D # 4 -Echocardiogram showed ejection fraction 50%, mild pulmonary hypertension, no other significant findings -Pulmonology note reviewed, continue to wean oxygen Hyponatremia, initially hypovolemic, now due to poor solute intake. Stable -on TPN -Repeat BMP in AM Acute blood loss anemia, anticipated outcome of surgery stable Iron deficiency anemia Thrombocytopenia, resolved -No indication for transfusion - follow CBC - No IV iron given possible intraabdominal infections, start ferrous sulfate 325 mg po daily Hypokalemia, resolved EtOH use -IV thiamine 100 mg daily - folic acid 1 mg PO daily Angina, undetermined etiology - further work up once acute condition stabilized. Nicotine dependency -Nicotine patch 14 mcg daily Hypertension -Follow blood pressures -Continue metoprolol 25 daily -Seizure disorder -Keppra 500 mg twice daily IV -Valproic sodium 500 mg IV piggyback 4 times daily -If patient continues to tolerate diet without any difficulties would consider transitioning off of IV Keppra and valproic acid and back on to oral. Hypoglycemia secondary to poor oral intake, resolved Imaging: Chest X-ray independently interpreted, shows bilateral interstitial opacities more prominent on the right, slightly improved from yesterday Data Review: Hemoglobin 11.1, sodium 130, potassium 3.7, creatinine 0.57, magnesium 1.9, blood sugars range between 75-1 02 Thank you for allowing us to participate in the care of this pleasant patient. Do not hesitate to contact us with questions. Someone can be reached from the [facility] hospitalist group all hours of the day at [phone] or via FIGS. Objective - Vital Signs Vital signs: Vital Signs Temp 98.2 F 09/04/23 13:20 Pulse 90 09/04/23 15:53 Resp 17 09/04/23 13:20 BP 144/71 09/04/23 13:20 Pulse Ox 98 09/04/23 13:20 FiO2 40 08/30/23 13:01 Intake & Output 09/03/23 09/04/23 09/04/23 18:59 06:59 18:59 Intake Total 300 Output Total 1400 2309 2059 Balance -1099 Weight 70 kg Intake: Intake, IV Titration 300 Amount Magnesium Sulfate-D5w Pmx 100 1 gm In Dextrose/Water 1 100ml.bag @ 100 mls/hr IVPB ONCE ONE Rx#: [id number] Piperacillin-Tazobactam 3 100 .375 gm In Sodium Chloride 0.9% 100 ml @ 25 mls/hr IVPB Q8HR [facility] Rx# :[id number] Potassium Chloride 20 meq 50 In Water For Injection 1 100ml.bag @ 50 mls/hr IVPB Q2H [facility] Rx#: [id number] Potassium Chloride 20 meq 50 In Water For Injection 1 100ml.bag @ 50 mls/hr IVPB Q2H [facility] Rx#: [id number] Output: Drainage 10 60 Right Abdomen 10 60 Urine 1400 2300 2000 Uretheral (Coello) 1400 700 Other: Voiding Method Indwelling Catheter Indwelling Catheter Indwelling Catheter # Bowel Movements 1 - Labs CBC & Chem 7: 09/04/23 05:35 09/04/23 05:35 Labs: Abnormal Lab Results - Last 24 Hours (Table) 09/03/23 09/04/23 09/04/23 Range/Units 17:02 05:35 05:35 RBC 3.33 L (4.30-5.90) m/uL Hgb 11.1 L (13.0-17.5) gm/dL Hct 34.2 L (39.0-53.0) % MCV 102.7 H (80.0-100.0) fL Sodium 130 L (137-145) mmol/L Chloride 97 L (98-107) mmol/L BUN 22 H (9-20) mg/dL Creatinine 0.57 L (0.66-1.25) mg/dL POC Glucose (mg/dL) 112 H (70-110) mg/dL Microbiology - Last 24 Hours (Table) 08/29/23 13:55 Blood Culture - Final Blood 08/29/23 13:40 Blood Culture - Final Blood
[2023-09-04 17:08] LABS: Glucose,Whole Blood 129 mg/dL (70-110)
[2023-09-04] MEDS: PIPERACILLIN-TAZOBACTAM 3.375 GM in SODIUM CHLORIDE 0.9% 100 ML IVPB SCH (17:45)
[2023-09-04] MEDS: ACETAMINOPHEN TAB 325 MG TAB PO PRN (20:04)
[2023-09-04 20:48] LABS: Glucose,Whole Blood 126 mg/dL (70-110)
[2023-09-04 23:45] LABS: Glucose,Whole Blood 100 mg/dL (70-110)
[2023-09-05 06:11] LABS: Glucose,Whole Blood 134 mg/dL (70-110)
[2023-09-05 07:09] LABS: African American GFR (CKD) >90 (>60 ml/min/1.73 sqM); Anion Gap 4 mmol/L; Blood Urea Nitrogen 28 mg/dL (9-20); Calcium 7.9 mg/dL (8.4-10.2); Carbon Dioxide 28 mmol/L (22-30); Chloride 99 mmol/L (98-107); Glucose 102 mg/dL (74-99); Magnesium 2.2 mg/dL (1.6-2.3); Non-African American GFR(CKD) >90 (>60 ml/min/1.73 sqM); Phosphorus 3.9 mg/dL (2.5-4.5); Potassium 3.7 mmol/L (3.5-5.1); Sodium 131 mmol/L (137-145)
[2023-09-05 11:20] LABS: Glucose,Whole Blood 126 mg/dL (70-110)
--- NOTE | 2023-09-05 13:26 | P.PN ---
Subjective Progress Note Date: 09/05/23 Patient is a 63-year-old white male with past medical history significant for hypertension, alcoholism, seizure disorder, and current everyday smoker. Patient is currently sedated and intubated to the mechanical ventilator, unable to provide any information. After review of the ER documentation, patient presented yesterday morning with a chief complaint of abdominal pain radiating to the left abdomen with sudden onset. Mild associated nausea. A follow-up abdominal and pelvis CT demonstrated severe gastric wall thickening in conjunction with mild to moderate free air and free fluid. Suspected gastritis with perforated gastric ulcer. Patient was subsequently taken to the operating room for exploratory laparotomy, and underwent subtotal gastrectomy with Ariel-en-Y gastrojejunostomy. No significant reported perioperative complications. I am told he has received a total of 5 L crystalloid fluid perioperatively. No vasopressors at the moment. Patient was reportedly difficult to extubate in recovery, and subsequently transferred to the intensive care unit. We were consulted for ICU management and postoperative ventilator management. Follow-up chest x-ray shows the endotracheal tube 3.3 cm above the troy. NG tube extends into the left upper quadrant of the stomach. Chronic lung changes with likely left basilar atelectasis. Possible trace pleural effusions. Patient is currently in the intensive care unit, intubated on the mechanical ventilator. Currently sedated on propofol which is infusing at 40 mcg/kg/min. He is synchronous with mechanical ventilator. Peak pressures 19. Current ventilator settings include assist-control, respiratory rate 14, tidal volume 450, FiO2 of 40%, PEEP of 5. These were adjusted earlier by Dr. Moser after initial blood gas of PaO2 greater than 400, pCO2 of 50, pH of 7.3. Postoperative CBC includes a WBC count of 5.9, hemoglobin 12.4, hematocrit 38.7, platelets 150. Most recent CMP from yesterday includes a sodium of 125, testing 4.8, chloride 95, serum bicarb 22, BUN 10, creatinine 0.63, glucose 83. LFTs not elevated. Total bilirubin 0.5. Pancreatic enzymes not elevated. UA unremarkable. Lactated Ringer's infusing at 130 MLS per hour. Patient was started on a combination of Zosyn and fluconazole for abdominal sepsis. C urrently afebrile.. Analgesics ordered. Blood pressure remains normotensive. Midline abdominal incision appears approximated with clean and dry and intact postoperative dressing. There is a VENUS drain which is compressed. Serosanguineous drainage, approximately 30 MLS has been drained so far. He has multiple superficial diffusely located excoriations. Bedside nurse states the patient had bedbug infestation on arrival, he has been decontaminated in the emergency room. Last reported drink was prior to coming to the emergency room yesterday. CIWA protocol will be initiated. Patient will be monitored in the intensive care unit. Patient was noted today on 08/31/2023, remains in the ICU, patient was extubated yesterday, and he tolerated the extubation well. However the patient is develop ing hypoglycemia, and he was placed on D10 at 10 MLS per hour, patient had a PICC line today, and he is supposed to have TPN started today. In the meantime the patient is doing well,On 2 L nasal cannula, not in distress, he is hemodynamically stable. Not requiring any pressors. WBC count today is 8.4 hemoglobin is 10.6 basic metabolic profile is normal renal profile is normal, patient remains on antibiotics in the form of Zosyn he also remains on fluconazole. Patient remains on the CIWA protocol also The patient is seen today September 01, 2023 in follow-up on the regular medical floor. He is currently resting in bed. Awake and alert in no acute distress. He did develop increasing shortness of breath overnight. He was requiring up to 15 L high flow nasal cannula this morning. Chest x-ray shows interval increase in bilateral airspace disease and pleural effusions. Could be associated with pulmonary edema. Blood cultures revealed no growth. Abdominal wound cultures revealed no growth. White count 7.7. Hemoglobin 10.7. Platelets 160. Sodium 128. Potassium 3.7. Bicarb 26. BUN 6. Creatinine 0.47. Glucose 105. Arterial blood gases on 100% of oxygen revealed a PaO2 of 53, P CO2 of 39 and a pH of 7.45. Echocardiogram revealed preserved left ventricular systolic function with ejection fraction of 50%. No significant valvular heart disease. He was given Lasix 40 mg IVP x 1 this morning. He is continued on Zosyn and bronchodilators. He remains on TPN and lipids for nutritional support. He is on fluconazole. NicoDerm patch in place. Patient was evaluated today on 09/02/2023, patient is now on 10 L high flow nasal cannula, feeling better today compared to yesterday, patient has been diuresed for what seems to be a picture of congestive heart failure superimposed on underlying COPD, underlying pneumonia is not entirely ruled out but felt to be less likely nonetheless the patient is on antibiotics. At any rate his x-ray is better clinically the patient is feeling better, and he remains on diuretics. WBC count today is 6.6 hemoglobin 10.7. Potassium is a bit low at 3.2 renal profile is normal in spite of aggressive diuresis. Patient remains on Lasix at 40 mg IV push twice daily. Patient was reevaluated today on 09/03/2023, patient remains on 10 L high flow nasal cannula, patient has been diuresing significantly with Lasix every 12 hours, significant negative fluid balance noted in the last 2 days, nonetheless his chest x-ray continues to show a picture of groundglass pulmonary edema and small left-sided pleural effusion. His renal functioning seems to be reasonable, hence I will continue diuretics, in the meantime the patient is on antibiotics, it is not certain whether the patient may have sustained some aspiration pneumonia. I still believe the findings are mostly findings of congestive heart failure/diastolic in nature. Labs were reviewed BUN is 16 creatinine 0.5 sugar is 113. The patient is seen today September 04, 2023 in follow-up on the regular medical floor. He is currently resting in bed. Awake and alert in no acute distress. Maintaining O2 saturations in the 90s on 3 L/min per nasal cannula. He is receiving TPN at 73 mL/h. Chest x-ray continues to show similar groundglass appearance of the lungs with relative sparing of the right upper lung. Superimposed COPD. Blood cultures revealed no growth. Abdominal wound cultures revealed no growth. White count 7.1. Hemoglobin 11.1. Platelets 158. Sodium 130. Potassium 3.7. Bicarb 27. BUN 22. Creatinine 0.57. Glucose 102. He remains on bronchodilators. Continued on IV diuretics. Remains on Zosyn and valproic acid. The patient is seen today September 05, 2023 in follow-up on the regular medical floor. He is currently resting comfortably in bed. Awake and alert in no acute distress. He is receiving lipids today and TPN at 75 MLS per hour. Normal saline at KVO. He is maintaining O2 saturations in the 90s on 3 L/min per nasal cannula. Sodium 131. Potassium 3.7. Bicarb 28. BUN 28. Creatinine 0.61. Glucose 102. He remains on fluconazole and Zosyn. Remains on IV diuretics. Heparin for DVT prophylaxis. NicoDerm patch in place. Currently in a -3.5 L balance. Objective - Vital Signs Vital signs: Vital Signs Temp 97.7 F 09/05/23 07:38 Pulse 88 09/05/23 11:52 Resp 20 09/05/23 07:38 BP 154/79 09/05/23 07:38 Pulse Ox 100 09/05/23 08:22 FiO2 40 08/30/23 13:01 Intake & Output 09/04/23 09/05/23 09/05/23 18:59 06:59 18:59 Intake Total 120 Output Total 2079 151 40 Balance -2079 80 Weight 70 kg Intake: Oral 120 Output: Drainage 80 20 40 Right Abdomen 80 20 40 Urine 2000 1495 Uretheral (Coelol) 700 Other: Voiding Method Indwelling Catheter # Voids 1 # Bowel Movements 1 1 - Exam GENERAL EXAM: Alert, pleasant 63-year-old male, resting in bed, on 3 L nasal cannula, comfortable in no apparent distress. HEAD: Normocephalic. EYES: Normal reaction of pupils, equal size. NOSE: Clear with pink turbinates. THROAT: No erythema or exudates. NECK: No masses, no JVD. CHEST: No chest wall deformity. LUNGS: Equal air entry with bilateral scattered rhonchi, crackles in the bases. CVS: S1 and S2 normal with no audible murmur, regular rhythm. ABDOMEN: Dressing clean dry and intact. VENUS drain in place with serosanguineous output, no guarding or rigidity. SPINE: No scoliosis or deformity SKIN: No rashes CENTRAL NERVOUS SYSTEM: No focal deficits, tone is normal in all 4 extremities. EXTREMITIES: There is no peripheral edema. No clubbing, no cyanosis. Peripheral pulses are intact. - Labs CBC & Chem 7: 09/04/23 05:35 09/05/23 05:33 Labs: Abnormal Lab Results - Last 24 Hours (Table) 09/04/23 09/04/23 09/05/23 Range/Units 17:07 20:46 05:33 Sodium 131 L (137-145) mmol/L BUN 28 H (9-20) mg/dL Creatinine 0.61 L (0.66-1.25) mg/dL Glucose 102 H (74-99) mg/dL POC Glucose (mg/dL) 129 H 126 H (70-110) mg/dL Calcium 7.9 L (8.4-10.2) mg/dL 09/05/23 09/05/23 Range/Units 06:10 11:18 Sodium (137-145) mmol/L BUN (9-20) mg/dL Creatinine (0.66-1.25) mg/dL Glucose (74-99) mg/dL POC Glucose (mg/dL) 134 H 126 H (70-110) mg/dL Calcium (8.4-10.2) mg/dL Assessment and Plan Assessment: Perforated gastric ulcer, status postoperative exploratory laparotomy, subtotal gastrectomy, Ariel-en-Y gastrojejunostomy on 08/31/2023. Following the procedure, patient was left intubated and transferred to intensive care unit. Currently extubated Acute hypoxemic respiratory failure, improved and on 3 L nasal cannula History of alcoholism, last reported drink 1 day prior to coming in Chronic ongoing tobacco dependence History of right basilar 1.3 cm subpleural pulmonary nodule, follow up outpatient History of COPD, not active History of seizure disorder, no obvious seizure-like activity noted. History hearing disorder Plan: The patient was seen and evaluated Labs and medications reviewed Titrate down the FiO2 as tolerated Continue bronchodilators Increase use of the incentive spirometer Increase his activity as tolerated We will continue to follow I have personally seen and examined the patient, performed the documentation and the assessment and plan as written. Number of minutes spent on the visit: 10.
--- NOTE | 2023-09-05 13:31 | P.PN ---
Subjective Progress Note Date: 09/05/23 Patient is a 63-year-old male with a history of of hypertension, GERD, hearing loss, and seizure disorder who presented to the ER with acute onset abdominal pain. In the ER he underwent an extensive evaluation. On arrival his vital signs were remarkable for blood pressure of 171/96. Laboratory analysis included CBC, coags, CMP, amylase, lipase which were remarkable for sodium of 125. Urinalysis was negative. CT abdomen and pelvis demonstrated severe gastric wall thickening with mild to moderate free air and free fluid possible gastritis with perforated gastric ulcer. Dr. Catalan was contacted and plans are for urgent surgical intervention. We were asked to consult for medical manage ment. Was taken directly from the ER to the operating room was found to have a perforated posterior gastric ulcer which was treated with subtotal gastrectomy and Ariel-en-Y gastrojejunostomy. Postoperatively patient was admitted to the ICU on a ventilator requiring small amounts of Levophed. He was able to be weaned off of Levophed and was extubated 08/30/2023. He had a PICC line placed and was started on TPN. Infectious disease consulted. He became hypoxic on the morning of 08/31 and was found to have acute fluid overload and started on Lasix. Echo showed preserved EF. He continued to improved. He was started on a diet on 09/03/23. Still remains on TPN, Lasix will be discontinued once patient is complaining on oral intake. Patient seen and examined at bedside. Some abdominal pain, but denies any other complaints. Normal oral intake. She remains on TPN. Vital signs reviewed General: non-toxic, no distress, appears at stated age Cardiovascular: S1S2 reg, no murmur Lungs: Ronchi bilateral bases, no accessory muscle use Abdominal: Soft, tender to palpation diffusely, midline dressing in place without soaked through Ext: No gross muscle atrophy, no edema b/l lower extremities, no contractures Neuro: Cranial nerves II through XII grossly intact, moving all 4 extremities independently Psych: Alert, oriented to self, flat affect Assessment/Plan: Perforated posterior gastric ulcer s/p subtotal gastrectomy and Ariel-en-Y gastrojejunostomy Hypovolemic shock, resolved -Protonix 40 mg IV push twice daily -Zosyn 3.375 g IV piggyback 3 times daily D # 8, fluconazole 100 mg IV piggyback daily D #8 - TPN D #6 -Surgery following, status postrepair of gastric ulcer. Continue liquid diet -If patient tolerates full liquid diet could consider discontinuing TPN -Infectious disease following, continue with Zosyn and Diflucan, transition to oral abx when tolerating a diet Acute hypoxic respiratory failure, resolving Fluid overload without CHF -Lasix 40 mg IV BID D # 5 -Echocardiogram showed ejection fraction 50%, mild pulmonary hypertension, no other significant findings -Pulmonology following, continue to wean oxygen Hyponatremia, initially hypovolemic, now due to poor solute intake. Stable, improving -on TPN -Repeat BMP in AM Acute blood loss anemia, anticipated outcome of surgery stable Iron deficiency anemia Thrombocytopenia, resolved -No indication for transfusion - follow CBC - No IV iron given possible intraabdominal infections, continue ferrous sulfate 325 mg po daily Hypokalemia, resolved EtOH use -IV thiamine 100 mg daily - folic acid 1 mg PO daily Angina, undetermined etiology - further work up once acute condition stabilized. Nicotine dependency -Nicotine patch 14 mcg daily Hypertension -Follow blood pressures -Continue metoprolol 25 daily -Seizure disorder -Keppra 500 mg twice daily IV -Valproic sodium 500 mg IV piggyback 4 times daily -If patient continues to tolerate diet without any difficulties would consider transitioning off of IV Keppra and valproic acid and back on to oral. Hypoglycemia secondary to poor oral intake, resolved Imaging: No new imaging Data Review: Sodium 131, potassium 2.7, creatinine 0.61, potassium 2.2, glucose range between 100-1 34 Thank you for allowing us to participate in the care of this pleasant patient. Do not hesitate to contact us with questions. Someone can be reached from the [facility] hospitalist group all hours of the day at [phone] or via [employer]. Objective - Vital Signs Vital signs: Vital Signs Temp 97.7 F 09/05/23 07:38 Pulse 88 09/05/23 11:52 Resp 20 09/05/23 07:38 BP 154/79 09/05/23 07:38 Pulse Ox 100 09/05/23 08:22 FiO2 40 08/30/23 13:01 Intake & Output 09/04/23 09/05/23 09/05/23 18:59 06:59 18:59 Intake Total 120 Output Total 2079 1515 40 Balance -2079 -1514 80 Weight 70 kg Intake: Oral 120 Output: Drainage 80 20 40 Right Abdomen 80 20 40 Urine 2000 1495 Uretheral (Coello) 700 Other: Voiding Method Indwelling Catheter # Voids 1 # Bowel Movements 1 1 - Labs CBC & Chem 7: 09/04/23 05:35 09/05/23 05:33 Labs: Abnormal Lab Results - Last 24 Hours (Table) 09/04/23 09/04/23 09/05/23 Range/Units 17:07 20:46 05:33 Sodium 131 L (137-145) mmol/L BUN 28 H (9-20) mg/dL Creatinine 0.61 L (0.66-1.25) mg/dL Glucose 102 H (74-99) mg/dL POC Glucose (mg/dL) 129 H 126 H (70-110) mg/dL Calcium 7.9 L (8.4-10.2) mg/dL 09/05/23 09/05/23 Range/Units 06:10 11:18 Sodium (137-145) mmol/L BUN (9-20) mg/dL Creatinine (0.66-1.25) mg/dL Glucose (74-99) mg/dL POC Glucose (mg/dL) 134 H 126 H (70-110) mg/dL Calcium (8.4-10.2) mg/dL
--- NOTE | 2023-09-05 15:19 | P.PN ---
Subjective Progress Note Date: 09/05/23 Principal diagnosis: Gastric perforation Patient doing fairly well today. Mild discomfort. Says it continues to improve. Having bowel movements. Drain remains serosanguineous. On full liquids. TPN weaned off. Objective - Vital Signs Vital signs: Vital Signs Temp 97.7 F 09/05/23 14:49 Pulse 83 09/05/23 14:49 Resp 18 09/05/23 14:49 BP 122/77 09/05/23 14:49 Pulse Ox 100 09/05/23 14:49 FiO2 40 08/30/23 13:01 Intake & Output 09/04/23 09/05/23 09/05/23 18:59 06:59 18:59 Intake Total 120 Output Total 2079 151 40 Balance -2079 -1514 80 Weight 70 kg Intake: Oral 120 Output: Drainage 80 20 40 Right Abdomen 80 20 40 Urine 2000 1495 Uretheral (Coello) 700 Other: Voiding Method Indwelling Catheter # Voids 1 # Bowel Movements 1 1 - Exam Abdomen: Soft, nondistended, incision clean and dry, minimal tenderness - Labs CBC & Chem 7: 09/04/23 05:35 09/05/23 05:33 Labs: Abnormal Lab Results - Last 24 Hours (Table) 09/04/23 09/04/23 09/05/23 Range/Units 17:07 20:46 05:33 Sodium 131 L (137-145) mmol/L BUN 28 H (9-20) mg/dL Creatinine 0.61 L (0.66-1.25) mg/dL Glucose 102 H (74-99) mg/dL POC Glucose (mg/dL) 129 H 126 H (70-110) mg/dL Calcium 7.9 L (8.4-10.2) mg/dL 09/05/23 09/05/23 Range/Units 06:10 11:18 Sodium (137-145) mmol/L BUN (9-20) mg/dL Creatinine (0.66-1.25) mg/dL Glucose (74-99) mg/dL POC Glucose (mg/dL) 134 H 126 H (70-110) mg/dL Calcium (8.4-10.2) mg/dL Assessment and Plan (1) Perforated abdominal viscus Narrative/Plan: Overall patient seems to be doing fairly well. Continue full liquids for now. Likely will be discharging on a liquid diet to be advanced slowly postdischarge. Continue physical therapy. Continue weaning oxygen. Will follow. Current Visit: Yes Status: Acute Code(s): R19.8 - OTH SYMPTOMS AND SIGNS INVOLVING THE DGSTV SYS AND ABDOMEN SNOMED Code(s): 82214849
[2023-09-05 16:13] LABS: Glucose,Whole Blood 119 mg/dL (70-110)
--- NOTE | 2023-09-05 16:14 | P.PN ---
Subjective Progress Note Date: 09/03/23 Principal diagnosis: Reason for follow-up is perforated peptic ulcer Patient is a 63-year-old male with a past medical history significant for hypertension seizure disorder deafness reflux chest pain patient has been brought into the hospital for evaluation of abdominal pain patient diagnosed with perforated gastric ulcer, in this patient who is status post explorative laparotomy subtotal gastrectomy and gastrojejunostomy. On today's evaluation that is 09/03/2023, Patient is afebrile patient is currently on 5 L nasal cannula oxygen and denies having any shortness of breath, the patient denies any chest pain or cough, the patient denies any nausea vomiting abdominal pain slightly decreased intensity no bowel movement. No CBC was done today his creatinine 0.50 Objective - Vital Signs Vital signs: Vital Signs Temp 98.6 F 09/03/23 07:20 Pulse 94 09/03/23 11:25 Resp 20 09/03/23 07:20 BP 161/88 09/03/23 07:20 Pulse Ox 100 09/03/23 07:20 FiO2 40 08/30/23 13:01 Intake & Output 09/02/23 09/03/23 09/03/23 18:59 06:59 18:59 Intake Total 1000 Output Total 2960 2200 Balance -1959 -2199 Intake: Intake, IV Titration 1000 Amount Amino Acid 5%-D20w+Lytes* 1000 E* 1,000 ml @ 75 mls/hr IV .BY DURATION [facility] Rx#: [id number] Output: Drainage 50 Right Abdomen 50 Urine 2910 2200 Other: Voiding Method Indwelling Catheter Indwelling Catheter - Exam GENERAL DESCRIPTION: An elderly male lying in bed in no distress RESPIRATORY SYSTEM: Unlabored breathing , coarse breath sound bilaterally HEART: S1 S2 regular rate and rhythm , ABDOMEN: Soft , mild tenderness EXTREMITIES: No edema feet - Labs CBC & Chem 7: 09/04/23 05:35 09/05/23 05:33 Labs: Abnormal Lab Results - Last 24 Hours (Table) 09/02/23 09/02/23 09/02/23 Range/Units 11:42 16:49 23:44 Sodium (137-145) mmol/L Chloride (98-107) mmol/L Creatinine (0.66-1.25) mg/dL Glucose (74-99) mg/dL POC Glucose (mg/dL) 111 H 112 H 130 H (70-110) mg/dL Calcium (8.4-10.2) mg/dL Total Protein (6.3-8.2) g/dL Albumin (3.5-5.0) g/dL 09/03/23 09/03/23 Range/Units 05:35 05:50 Sodium 130 L (137-145) mmol/L Chloride 96 L (98-107) mmol/L Creatinine 0.50 L (0.66-1.25) mg/dL Glucose 102 H (74-99) mg/dL POC Glucose (mg/dL) 113 H (70-110) mg/dL Calcium 8.2 L (8.4-10.2) mg/dL Total Protein 4.7 L (6.3-8.2) g/dL Albumin 2.3 L (3.5-5.0) g/dL Microbiology - Last 24 Hours (Table) 08/29/23 18:10 Anaerobic Culture - Final Abdomen Assessment and Plan (1) Perforated abdominal viscus Current Visit: Yes Status: Acute Code(s): R19.8 - OTH SYMPTOMS AND SIGNS INVOLVING THE DGSTV SYS AND ABDOMEN SNOMED Code(s): 30426426 (2) Peritonitis Current Visit: Yes Status: Acute Code(s): K65.9 - PERITONITIS, UNSPECIFIED SNOMED Code(s): 24782068 Plan: 1patient presented hospital with acute abdominal pain and this patient has been diagnosed with perforated gastric ulcer status post laparotomy partial gastrectomy and gastrojejunostomy need to cover for the enteric gram-negative as well as cannula to the likely pathogen for the peritonitis component 2-patient is afebrile white count has been normal, patient abdominal culture has been negative for resistant pathogen, patient is covered with the Diflucan and Zosyn and monitor clinical course closely Dictation was produced using [employer] dictation software. please excuse any grammatical, word or spelling errors. Time with Patient: Less than 30
--- NOTE | 2023-09-05 16:15 | P.PN ---
Subjective Progress Note Date: 09/04/23 Principal diagnosis: Reason for follow-up is perforated peptic ulcer Patient is a 63-year-old male with a past medical history significant for hypertension seizure disorder deafness reflux chest pain patient has been brought into the hospital for evaluation of abdominal pain patient diagnosed with perforated gastric ulcer, in this patient who is status post explorative laparotomy subtotal gastrectomy and gastrojejunostomy. On today's evaluation that is 09/04/2023, patient has been afebrile, patient is breathing comfortably and is currently down to 3 L current oxygen, patient denies having any significant cough no chest pain shortness of breath, patient denies nausea vomiting or diarrhea still, some abdominal pain but controlled with the pain medication Patient did have white count of 7.1, creatinine 0.57 Objective - Vital Signs Vital signs: Vital Signs Temp 98.2 F 09/04/23 07:22 Pulse 93 09/04/23 11:54 Resp 18 09/04/23 07:22 BP 156/71 09/04/23 07:22 Pulse Ox 95 09/04/23 08:17 FiO2 40 08/30/23 13:01 Intake & Output 09/03/23 09/04/23 09/04/23 18:59 06:59 18:59 Intake Total 300 Output Total 1399 Weight 70 kg Intake: Intake, IV Titration 300 Amount Magnesium Sulfate-D5w Pmx 100 1 gm In Dextrose/Water 1 100ml.bag @ 100 mls/hr IVPB ONCE ONE Rx#: [id number] Piperacillin-Tazobactam 3 100 .375 gm In Sodium Chloride 0.9% 100 ml @ 25 mls/hr IVPB Q8HR [facility] Rx# :[id number] Potassium Chloride 20 meq 50 In Water For Injection 1 100ml.bag @ 50 mls/hr IVPB Q2H [facility] Rx#: [id number] Potassium Chloride 20 meq 50 In Water For Injection 1 100ml.bag @ 50 mls/hr IVPB Q2H [facility] Rx#: [id number] Output: Drainage 10 10 Right Abdomen 10 10 Urine 1400 2300 2000 Uretheral (Coello) 1400 700 Other: Voiding Method Indwelling Catheter Indwelling Catheter Indwelling Catheter - Exam GENERAL DESCRIPTION: An elderly male lying in bed in no distress RESPIRATORY SYSTEM: Unlabored breathing , coarse breath sound bilaterally HEART: S1 S2 regular rate and rhythm , ABDOMEN: Soft , mild tenderness EXTREMITIES: No edema feet - Labs CBC & Chem 7: 09/04/23 05:35 09/05/23 05:33 Labs: Abnormal Lab Results - Last 24 Hours (Table) 09/03/23 09/04/23 09/04/23 Range/Units 17:02 05:35 05:35 RBC 3.33 L (4.30-5.90) m/uL Hgb 11.1 L (13.0-17.5) gm/dL Hct 34.2 L (39.0-53.0) % MCV 102.7 H (80.0-100.0) fL Sodium 130 L (137-145) mmol/L Chloride 97 L (98-107) mmol/L BUN 22 H (9-20) mg/dL Creatinine 0.57 L (0.66-1.25) mg/dL POC Glucose (mg/dL) 112 H (70-110) mg/dL Microbiology - Last 24 Hours (Table) 08/29/23 13:55 Blood Culture - Final Blood 08/29/23 13:40 Blood Culture - Final Blood Assessment and Plan (1) Perforated abdominal viscus Current Visit: Yes Status: Acute Code(s): R19.8 - OTH SYMPTOMS AND SIGNS INVOLVING THE DGSTV SYS AND ABDOMEN SNOMED Code(s): 44967596 (2) Peritonitis Current Visit: Yes Status: Acute Code(s): K65.9 - PERITONITIS, UNSPECIFIED SNOMED Code(s): 57961002 Plan: 1patient presented hospital with acute abdominal pain and this patient has been diagnosed with perforated gastric ulcer status post laparotomy partial gastrectomy and gastrojejunostomy need to cover for the enteric gram-negative as well as cannula to the likely pathogen for the peritonitis component 2-patient is afebrile white count has been normal, patient abdominal culture has been negative for resistant pathogen, 3- patient is covered with the Diflucan and Zosyn and plan for oral antibiotics on discharge Dictation was produced using [employer] dictation software. please excuse any grammatical, word or spelling errors. Time with Patient: Less than 30
--- NOTE | 2023-09-05 16:16 | P.PN ---
Subjective Progress Note Date: 09/05/23 Principal diagnosis: Reason for follow-up is perforated peptic ulcer Patient is a 63-year-old male with a past medical history significant for hypertension seizure disorder deafness reflux chest pain patient has been brought into the hospital for evaluation of abdominal pain patient diagnosed with perforated gastric ulcer, in this patient who is status post explorative laparotomy subtotal gastrectomy and gastrojejunostomy. On today's evaluation that is 09/05/2023,the patient denies any fever or any chills, patient is breathing comfortably on 2 L nasal cannula oxygen the patient denies chest pain shortness of breath and no significant cough, patient denies nausea vomiting however still complaining of some abdominal discomfort no worsening though. Patient did have a creatinine 0.61 no CBC was done today Objective - Vital Signs Vital signs: Vital Signs Temp 97.7 F 09/05/23 14:49 Pulse 82 09/05/23 15:55 Resp 18 09/05/23 14:49 BP 122/77 09/05/23 14:49 Pulse Ox 100 09/05/23 14:49 FiO2 40 08/30/23 13:01 Intake & Output 09/04/23 09/05/23 09/05/23 18:59 06:59 18:59 Intake Total 120 Output Total 2079 1515 40 Balance -2079 -1514 80 Weight 70 kg Intake: Oral 120 Output: Drainage 80 20 40 Right Abdomen 80 20 40 Urine 2000 1495 Uretheral (Coello) 700 Other: Voiding Method Indwelling Catheter # Voids 1 # Bowel Movements 1 1 - Exam GENERAL DESCRIPTION: An elderly male lying in bed in no distress RESPIRATORY SYSTEM: Unlabored breathing , coarse breath sound bilaterally HEART: S1 S2 regular rate and rhythm , ABDOMEN: Soft , mild tenderness EXTREMITIES: No edema feet - Labs CBC & Chem 7: 09/04/23 05:35 09/05/23 05:33 Labs: Abnormal Lab Results - Last 24 Hours (Table) 09/04/23 09/04/23 09/05/23 Range/Units 17:07 20:46 05:33 Sodium 131 L (137-145) mmol/L BUN 28 H (9-20) mg/dL Creatinine 0.61 L (0.66-1.25) mg/dL Glucose 102 H (74-99) mg/dL POC Glucose (mg/dL) 129 H 126 H (70-110) mg/dL Calcium 7.9 L (8.4-10.2) mg/dL 09/05/23 09/05/23 09/05/23 Range/Units 06:10 11:18 16:09 Sodium (137-145) mmol/L BUN (9-20) mg/dL Creatinine (0.66-1.25) mg/dL Glucose (74-99) mg/dL POC Glucose (mg/dL) 134 H 126 H 119 H (70-110) mg/dL Calcium (8.4-10.2) mg/dL Assessment and Plan (1) Perforated abdominal viscus Current Visit: Yes Status: Acute Code(s): R19.8 - OTH SYMPTOMS AND SIGNS INVOLVING THE DGSTV SYS AND ABDOMEN SNOMED Code(s): 21963338 (2) Peritonitis Current Visit: Yes Status: Acute Code(s): K65.9 - PERITONITIS, UNSPECIFIED SNOMED Code(s): 85909865 Plan: 1patient presented hospital with acute abdominal pain and this patient has been diagnosed with perforated gastric ulcer status post laparotomy partial gastrectomy and gastrojejunostomy need to cover for the enteric gram-negative as well as cannula to the likely pathogen for the peritonitis component 2-patient is afebrile white count has been normal, patient abdominal culture has been negative for resistant pathogen, 3- patient to continue with the Diflucan and Zosyn and plan for oral short course of oral Augmentin and Diflucan on discharge Dictation was produced using [employer] dictation software. please excuse any gr ammatical, word or spelling errors. Time with Patient: Less than 30
[2023-09-05] MEDS: [UNRECOGNIZED DRUG - REMARK] IV SCH (16:34)
[2023-09-05 23:51] LABS: Glucose,Whole Blood 132 mg/dL (70-110)
[2023-09-06 05:57] LABS: Glucose,Whole Blood 129 mg/dL (70-110)
[2023-09-06 07:09] LABS: African American GFR (CKD) >90 (>60 ml/min/1.73 sqM); Anion Gap 3 mmol/L; Blood Urea Nitrogen 26 mg/dL (9-20); Calcium 8.1 mg/dL (8.4-10.2); Carbon Dioxide 29 mmol/L (22-30); Chloride 103 mmol/L (98-107); Glucose 109 mg/dL (74-99); Magnesium 2.2 mg/dL (1.6-2.3); Non-African American GFR(CKD) >90 (>60 ml/min/1.73 sqM); Phosphorus 3.6 mg/dL (2.5-4.5); Potassium 3.9 mmol/L (3.5-5.1); Sodium 135 mmol/L (137-145)
[2023-09-06] MEDS: levETIRAcetam 500 MG TAB PO SCH (09:04)
[2023-09-06] MEDS: DIVALPROEX ER 500 MG TAB.ER.24H PO SCH (09:04)
--- NOTE | 2023-09-06 11:51 | P.PN ---
Subjective Progress Note Date: 09/06/23 Principal diagnosis: Gastric perforation Patient doing about the same today. No significant pain at this time. Continues to tolerate full liquids. TPN is being weaned off today. He is ambulating. VENUS drain remained serosanguineous. Objective - Vital Signs Vital signs: Vital Signs Temp 98.4 F 09/06/23 07:05 Pulse 76 09/06/23 09:08 Resp 18 09/06/23 07:05 BP 150/73 09/06/23 07:05 Pulse Ox 98 09/06/23 09:00 FiO2 40 08/30/23 13:01 Intake & Output 09/05/23 09/06/23 09/06/23 18:59 06:59 18:59 Intake Total 822 237 Output Total 55 1350 810 Balance 767 -5020 573 Intake: Intake, IV Titration 200 Amount Piperacillin-Tazobactam 3 200 .375 gm In Sodium Chloride 0.9% 100 ml @ 25 mls/hr IVPB Q8HR [facility] Rx# :[id number] Oral 622 237 Output: Drainage 55 50 10 Right Abdomen 55 50 10 Urine 1300 800 Other: # Voids 2 1 # Bowel Movements 1 2 - Exam Abdomen: Soft, nondistended, incision clean and dry, minimal tenderness - Labs CBC & Chem 7: 09/04/23 05:35 09/06/23 05:36 Labs: Abnormal Lab Results - Last 24 Hours (Table) 09/05/23 09/05/23 09/06/23 Range/Units 16:09 23:49 05:36 Sodium 135 L (137-145) mmol/L BUN 26 H (9-20) mg/dL Glucose 109 H (74-99) mg/dL POC Glucose (mg/dL) 119 H 132 H (70-110) mg/dL Calcium 8.1 L (8.4-10.2) mg/dL 09/06/23 Range/Units 05:50 Sodium (137-145) mmol/L BUN (9-20) mg/dL Glucose (74-99) mg/dL POC Glucose (mg/dL) 129 H (70-110) mg/dL Calcium (8.4-10.2) mg/dL Assessment and Plan (1) Perforated abdominal viscus Narrative/Plan: 63-year-old male doing well after recent subtotal gastrectomy for perforated ul cer. Pathology noted to be negative for malignancy thankfully. Continue full liquids. Wean off TPN. Discharge planning in place. Possible discharge versus rehab at this time. Current Visit: Yes Status: Acute Code(s): R19.8 - OTH SYMPTOMS AND SIGNS INVOLVING THE DGSTV SYS AND ABDOMEN SNOMED Code(s): 93182084
[2023-09-06 11:55] LABS: Glucose,Whole Blood 95 mg/dL (70-110)
--- NOTE | 2023-09-06 11:58 | P.PN ---
Subjective Progress Note Date: 09/06/23 Patient is a 63-year-old white male with past medical history significant for hypertension, alcoholism, seizure disorder, and current everyday smoker. Patient is currently sedated and intubated to the mechanical ventilator, unable to provide any information. After review of the ER documentation, patient presented yesterday morning with a chief complaint of abdominal pain radiating to the left abdomen with sudden onset. Mild associated nausea. A follow-up abdominal and pelvis CT demonstrated severe gastric wall thickening in conjunction with mild to moderate free air and free fluid. Suspected gastritis with perforated gastric ulcer. Patient was subsequently taken to the operating room for exploratory laparotomy, and underwent subtotal gastrectomy with Ariel-en-Y gastrojejunostomy. No significant reported perioperative complications. I am told he has received a total of 5 L crystalloid fluid perioperatively. No vasopressors at the moment. Patient was reportedly difficult to extubate in recovery, and subsequently transferred to the intensive care unit. We were consulted for ICU management and postoperative ventilator management. Follow-up chest x-ray shows the endotracheal tube 3.3 cm above the troy. NG tube extends into the left upper quadrant of the stomach. Chronic lung changes with likely left basilar atelectasis. Possible trace pleural effusions. Patient is currently in the intensive care unit, intubated on the mechanical ventilator. Currently sedated on propofol which is infusing at 40 mcg/kg/min. He is synchronous with mechanical ventilator. Peak pressures 19. Current ventilator settings include assist-control, respiratory rate 14, tidal volume 450, FiO2 of 40%, PEEP of 5. These were adjusted earlier by Dr. Moser after initial blood gas of PaO2 greater than 400, pCO2 of 50, pH of 7.3. Postoperative CBC includes a WBC count of 5.9, hemoglobin 12.4, hematocrit 38.7, platelets 150. Most recent CMP from yesterday includes a sodium of 125, testing 4.8, chloride 95, serum bicarb 22, BUN 10, creatinine 0.63, glucose 83. LFTs not elevated. Total bilirubin 0.5. Pancreatic enzymes not elevated. UA unremarkable. Lactated Ringer's infusing at 130 MLS per hour. Patient was started on a combination of Zosyn and fluconazole for abdominal sepsis. C urrently afebrile.. Analgesics ordered. Blood pressure remains normotensive. Midline abdominal incision appears approximated with clean and dry and intact postoperative dressing. There is a VENUS drain which is compressed. Serosanguineous drainage, approximately 30 MLS has been drained so far. He has multiple superficial diffusely located excoriations. Bedside nurse states the patient had bedbug infestation on arrival, he has been decontaminated in the emergency room. Last reported drink was prior to coming to the emergency room yesterday. CIWA protocol will be initiated. Patient will be monitored in the intensive care unit. Patient was noted today on 08/31/2023, remains in the ICU, patient was extubated yesterday, and he tolerated the extubation well. However the patient is develop ing hypoglycemia, and he was placed on D10 at 10 MLS per hour, patient had a PICC line today, and he is supposed to have TPN started today. In the meantime the patient is doing well,On 2 L nasal cannula, not in distress, he is hemodynamically stable. Not requiring any pressors. WBC count today is 8.4 hemoglobin is 10.6 basic metabolic profile is normal renal profile is normal, patient remains on antibiotics in the form of Zosyn he also remains on fluconazole. Patient remains on the CIWA protocol also The patient is seen today September 01, 2023 in follow-up on the regular medical floor. He is currently resting in bed. Awake and alert in no acute distress. He did develop increasing shortness of breath overnight. He was requiring up to 15 L high flow nasal cannula this morning. Chest x-ray shows interval increase in bilateral airspace disease and pleural effusions. Could be associated with pulmonary edema. Blood cultures revealed no growth. Abdominal wound cultures revealed no growth. White count 7.7. Hemoglobin 10.7. Platelets 160. Sodium 128. Potassium 3.7. Bicarb 26. BUN 6. Creatinine 0.47. Glucose 105. Arterial blood gases on 100% of oxygen revealed a PaO2 of 53, P CO2 of 39 and a pH of 7.45. Echocardiogram revealed preserved left ventricular systolic function with ejection fraction of 50%. No significant valvular heart disease. He was given Lasix 40 mg IVP x 1 this morning. He is continued on Zosyn and bronchodilators. He remains on TPN and lipids for nutritional support. He is on fluconazole. NicoDerm patch in place. Patient was evaluated today on 09/02/2023, patient is now on 10 L high flow nasal cannula, feeling better today compared to yesterday, patient has been diuresed for what seems to be a picture of congestive heart failure superimposed on underlying COPD, underlying pneumonia is not entirely ruled out but felt to be less likely nonetheless the patient is on antibiotics. At any rate his x-ray is better clinically the patient is feeling better, and he remains on diuretics. WBC count today is 6.6 hemoglobin 10.7. Potassium is a bit low at 3.2 renal profile is normal in spite of aggressive diuresis. Patient remains on Lasix at 40 mg IV push twice daily. Patient was reevaluated today on 09/03/2023, patient remains on 10 L high flow nasal cannula, patient has been diuresing significantly with Lasix every 12 hours, significant negative fluid balance noted in the last 2 days, nonetheless his chest x-ray continues to show a picture of groundglass pulmonary edema and small left-sided pleural effusion. His renal functioning seems to be reasonable, hence I will continue diuretics, in the meantime the patient is on antibiotics, it is not certain whether the patient may have sustained some aspiration pneumonia. I still believe the findings are mostly findings of congestive heart failure/diastolic in nature. Labs were reviewed BUN is 16 creatinine 0.5 sugar is 113. The patient is seen today September 04, 2023 in follow-up on the regular medical floor. He is currently resting in bed. Awake and alert in no acute distress. Maintaining O2 saturations in the 90s on 3 L/min per nasal cannula. He is receiving TPN at 73 mL/h. Chest x-ray continues to show similar groundglass appearance of the lungs with relative sparing of the right upper lung. Superimposed COPD. Blood cultures revealed no growth. Abdominal wound cultures revealed no growth. White count 7.1. Hemoglobin 11.1. Platelets 158. Sodium 130. Potassium 3.7. Bicarb 27. BUN 22. Creatinine 0.57. Glucose 102. He remains on bronchodilators. Continued on IV diuretics. Remains on Zosyn and valproic acid. The patient is seen today September 05, 2023 in follow-up on the regular medical floor. He is currently resting comfortably in bed. Awake and alert in no acute distress. He is receiving lipids today and TPN at 75 MLS per hour. Normal saline at KVO. He is maintaining O2 saturations in the 90s on 3 L/min per nasal cannula. Sodium 131. Potassium 3.7. Bicarb 28. BUN 28. Creatinine 0.61. Glucose 102. He remains on fluconazole and Zosyn. Remains on IV diuretics. Heparin for DVT prophylaxis. NicoDerm patch in place. Currently in a -3.5 L balance. The patient is seen today September 06, 2023 in follow-up on the regular medical floor. He is awake and alert in no acute distress. Resting fairly comfortably in bed. He is maintaining good O2 saturation in the 90s on room air. He is afebrile. Hemodynamically stable. Normal saline at KVO. Receiving TPN at 75 MLS per hour. He is continued on Zosyn. Working with the incentive spirometer. Continued on bronchodilators. NicoDerm patch in place. Sodium 135. Potassium 3.9. Bicarb 29. BUN 26. Creatinine 0.68. Glucose 109. Currently in a -600 mL balance. Tolerating a full liquid diet. Objective - Vital Signs Vital signs: Vital Signs Temp 98.4 F 09/06/23 07:05 Pulse 76 09/06/23 09:08 Resp 18 09/06/23 07:05 BP 150/73 09/06/23 07:05 Pulse Ox 98 09/06/23 09:00 FiO2 40 08/30/23 13:01 Intake & Output 09/05/23 09/06/23 09/06/23 18:59 06:59 18:59 Intake Total 822 237 Output Total 55 1350 810 Balance 277 -6320 573 Intake: Intake, IV Titration 200 Amount Piperacillin-Tazobactam 3 200 .375 gm In Sodium Chloride 0.9% 100 ml @ 25 mls/hr IVPB Q8HR [facility] Rx# :[id number] Oral 622 237 Output: Drainage 55 50 10 Right Abdomen 55 50 10 Urine 1300 800 Other: # Voids 2 1 # Bowel Movements 1 2 - Exam GENERAL EXAM: Alert, 63-year-old male, on 3 L nasal cannula, comfortable in no apparent distress. HEAD: Normocephalic. EYES: Normal reaction of pupils, equal size. NOSE: Clear with pink turbinates. THROAT: No erythema or exudates. NECK: No masses, no JVD. CHEST: No chest wall deformity. LUNGS: Equal air entry with bilateral scattered rhonchi, crackles in the bases. CVS: S1 and S2 normal with no audible murmur, regular rhythm. ABDOMEN: Dressing clean dry and intact. VENUS drain in place with serosanguineous output, no guarding or rigidity. SPINE: No scoliosis or deformity SKIN: No rashes CENTRAL NERVOUS SYSTEM: No focal deficits, tone is normal in all 4 extremities. EXTREMITIES: There is no peripheral edema. No clubbing, no cyanosis. Peripheral pulses are intact. - Labs CBC & Chem 7: 09/04/23 05:35 09/06/23 05:36 Labs: Abnormal Lab Results - Last 24 Hours (Table) 09/05/23 09/05/23 09/06/23 Range/Units 16:09 23:49 05:36 Sodium 135 L (137-145) mmol/L BUN 26 H (9-20) mg/dL Glucose 109 H (74-99) mg/dL POC Glucose (mg/dL) 119 H 132 H (70-110) mg/dL Calcium 8.1 L (8.4-10.2) mg/dL 09/06/23 Range/Units 05:50 Sodium (137-145) mmol/L BUN (9-20) mg/dL Glucose (74-99) mg/dL POC Glucose (mg/dL) 129 H (70-110) mg/dL Calcium (8.4-10.2) mg/dL Assessment and Plan Assessment: Perforated gastric ulcer, status postoperative exploratory laparotomy, subtotal gastrectomy, Ariel-en-Y gastrojejunostomy on 08/31/2023. Following the procedure, patient was left intubated and transferred to intensive care unit. Currently extubated Acute hypoxemic respiratory failure, improved and on room air History of alcoholism, last reported drink 1 day prior to coming in Chronic ongoing tobacco dependence History of right basilar 1.3 cm subpleural pulmonary nodule, follow up outpatient History of COPD, not active History of seizure disorder, no obvious seizure-like activity noted. History hearing disorder Plan: The patient was seen and evaluated Labs and medications reviewed Continue bronchodilators Increase use of the incentive spirometer Increase his activity as tolerated Tolerating a full liquid diet We will continue to follow I have personally seen and examined the patient, performed the documentation and the assessment and plan as written. Number of minutes spent on the visit: 10.
--- NOTE | 2023-09-06 16:33 | P.PN ---
Subjective Progress Note Date: 09/06/23 (delayed charting seen at 1015) Patient is a 63-year-old male with a history of of hypertension, GERD, hearing loss, and seizure disorder who presented to the ER with acute onset abdominal pain. In the ER he underwent an extensive evaluation. On arrival his vital signs were remarkable for blood pressure of 171/96. Laboratory analysis included CBC, coags, CMP, amylase, lipase which were remarkable for sodium of 125. Urinalysis was negative. CT abdomen and pelvis demonstrated severe gastri c wall thickening with mild to moderate free air and free fluid possible gastritis with perforated gastric ulcer. Dr. Catalan was contacted and plans are for urgent surgical intervention. We were asked to consult for medical management. Was taken directly from the ER to the operating room was found to have a perforated posterior gastric ulcer which was treated with subtotal gastrectomy and Ariel-en-Y gastrojejunostomy. Postoperatively patient was admitted to the ICU on a ventilator requiring small amounts of Levophed. He was able to be weaned off of Levophed and was extubated 08/30/2023. He had a PICC line placed and was started on TPN. Infectious disease consulted. He became hypoxic on the morning of 08/31 and was found to have acute fluid overload and started on Lasix. Echo showed preserved EF. He continued to improved. He was started on a diet on 09/03/23. Patient seen and examined at bedside. He has no complaints currently. He is having bowel movements. He is tolerating his full liquid diet. Pain is well- controlled. Vital signs reviewed General: non-toxic, no distress, appears at stated age Cardiovascular: S1S2 reg, no murmur Lungs: Ronchi bilateral bases, no accessory muscle use Abdominal: Soft, tender to palpation diffusely, Ext: No gross muscle atrophy, no edema b/l lower extremities, no contractures Neuro: Cranial nerves II through XII grossly intact, moving all 4 extremities independently Psych: Alert, oriented to self, flat affect Assessment/Plan: Perforated posterior gastric ulcer s/p subtotal gastrectomy and Ariel-en-Y gastrojejunostomy Hypovolemic shock, resolved -Protonix 40 mg IV push twice daily -Zosyn 3.375 g IV piggyback 3 times daily D # 9, fluconazole 100 mg IV piggyback daily D #9 - TPN D #7 -Pulmonary note reviewed: Continue current care -General surgery note reviewed: Wean TPN today. Discharge planning in place -ID note reviewed: Changed to Augmentin and Diflucan on discharge. Acute hypoxic respiratory failure, resolved Fluid overload without CHF, resolved - improved - stop IV lasix -Echocardiogram ordered: Ejection fraction 50%, mild pulmonary hypertension, no other significant findings Acute blood loss anemia, anticipated outcome of surgery Iron deficiency anemia Thrombocytopenia, resolved -No indication for transfusion - follow CBC -Continue with ferrous sulfate 325 mg with lunch Seizure disorder -Discontinue IV Keppra and valproic acid start Keppra 500 mg oral twice daily and Depakote 500 mg oral twice daily. EtOH use -CIWA protocol with Ativan dosing per CIWA scale. -IV thiamine 100 mg daily - folic acid 1 mg PO daily Angina, undetermined etiology - further work up once acute condition stabilized. Nicotine dependency -Nicotine patch 14 mcg daily Hypertension -Follow blood pressures - metoprolol 25 mg po daily Hypoglycemia secondary to poor oral intake, resolved Hyponatremia, initially hypovolemic, now due to poor solute intake, improved Hypokalemia, resolved Imaging: None new Data Review: Labs reviewed from today include basic metabolic profile, phosphorus, and magnesium which are remarkable for sodium of 135 and BUN of 26 This dictation was prepared using [email or web address] voice recognition software. Though every attempt is made to correct errors during dictation some may still exist. Objective - Vital Signs Vital signs: Vital Signs Temp 98.3 F 09/06/23 14:10 Pulse 80 09/06/23 16:06 Resp 17 09/06/23 14:10 BP 145/69 09/06/23 14:10 Pulse Ox 98 09/06/23 14:10 FiO2 40 08/30/23 13:01 Intake & Output 09/05/23 09/06/23 09/06/23 18:59 06:59 18:59 Intake Total 822 237 Output Total 55 1350 1070 Balance 521 -8966 -637 Intake: Intake, IV Titration 200 Amount Piperacillin-Tazobactam 3 200 .375 gm In Sodium Chloride 0.9% 100 ml @ 25 mls/hr IVPB Q8HR [facility] Rx# :[id number] Oral 622 237 Output: Drainage 55 50 20 Right Abdomen 55 50 20 Urine 1300 1050 Other: # Voids 2 1 # Bowel Movements 1 2 - Labs CBC & Chem 7: 09/04/23 05:35 09/06/23 05:36 Labs: Abnormal Lab Results - Last 24 Hours (Table) 09/05/23 09/06/23 09/06/23 Range/Units 23:49 05:36 05:50 Sodium 135 L (137-145) mmol/L BUN 26 H (9-20) mg/dL Glucose 109 H (74-99) mg/dL POC Glucose (mg/dL) 132 H 129 H (70-110) mg/dL Calcium 8.1 L (8.4-10.2) mg/dL
[2023-09-06 17:08] LABS: Glucose,Whole Blood 93 mg/dL (70-110)
[2023-09-06 20:36] LABS: Glucose,Whole Blood 113 mg/dL (70-110)
[2023-09-07 05:44] LABS: Glucose,Whole Blood 83 mg/dL (70-110)
[2023-09-07 07:44] LABS: African American GFR (CKD) >90 (>60 ml/min/1.73 sqM); Anion Gap 6 mmol/L; Blood Urea Nitrogen 23 mg/dL (9-20); Calcium 8.4 mg/dL (8.4-10.2); Carbon Dioxide 24 mmol/L (22-30); Chloride 105 mmol/L (98-107); Glucose 89 mg/dL (74-99); Magnesium 2.2 mg/dL (1.6-2.3); Non-African American GFR(CKD) >90 (>60 ml/min/1.73 sqM); Phosphorus 3.7 mg/dL (2.5-4.5); Potassium 4.3 mmol/L (3.5-5.1); Sodium 135 mmol/L (137-145)
--- NOTE | 2023-09-07 11:13 | P.PN ---
Subjective Progress Note Date: 09/07/23 Patient is a 63-year-old white male with past medical history significant for hypertension, alcoholism, seizure disorder, and current everyday smoker. Patient is currently sedated and intubated to the mechanical ventilator, unable to provide any information. After review of the ER documentation, patient presented yesterday morning with a chief complaint of abdominal pain radiating to the left abdomen with sudden onset. Mild associated nausea. A follow-up abdominal and pelvis CT demonstrated severe gastric wall thickening in conjunction with mild to moderate free air and free fluid. Suspected gastritis with perforated gastric ulcer. Patient was subsequently taken to the operating room for exploratory laparotomy, and underwent subtotal gastrectomy with Ariel-en-Y gastrojejunostomy. No significant reported perioperative complications. I am told he has received a total of 5 L crystalloid fluid perioperatively. No vasopressors at the moment. Patient was reportedly difficult to extubate in recovery, and subsequently transferred to the intensive care unit. We were consulted for ICU management and postoperative ventilator management. Follow-up chest x-ray shows the endotracheal tube 3.3 cm above the troy. NG tube extends into the left upper quadrant of the stomach. Chronic lung changes with likely left basilar atelectasis. Possible trace pleural effusions. Patient is currently in the intensive care unit, intubated on the mechanical ventilator. Currently sedated on propofol which is infusing at 40 mcg/kg/min. He is synchronous with mechanical ventilator. Peak pressures 19. Current ventilator settings include assist-control, respiratory rate 14, tidal volume 450, FiO2 of 40%, PEEP of 5. These were adjusted earlier by Dr. Moser after initial blood gas of PaO2 greater than 400, pCO2 of 50, pH of 7.3. Postoperative CBC includes a WBC count of 5.9, hemoglobin 12.4, hematocrit 38.7, platelets 150. Most recent CMP from yesterday includes a sodium of 125, testing 4.8, chloride 95, serum bicarb 22, BUN 10, creatinine 0.63, glucose 83. LFTs not elevated. Total bilirubin 0.5. Pancreatic enzymes not elevated. UA unremarkable. Lactated Ringer's infusing at 130 MLS per hour. Patient was started on a combination of Zosyn and fluconazole for abdominal sepsis. C urrently afebrile.. Analgesics ordered. Blood pressure remains normotensive. Midline abdominal incision appears approximated with clean and dry and intact postoperative dressing. There is a VENUS drain which is compressed. Serosanguineous drainage, approximately 30 MLS has been drained so far. He has multiple superficial diffusely located excoriations. Bedside nurse states the patient had bedbug infestation on arrival, he has been decontaminated in the emergency room. Last reported drink was prior to coming to the emergency room yesterday. CIWA protocol will be initiated. Patient will be monitored in the intensive care unit. Patient was noted today on 08/31/2023, remains in the ICU, patient was extubated yesterday, and he tolerated the extubation well. However the patient is develop ing hypoglycemia, and he was placed on D10 at 10 MLS per hour, patient had a PICC line today, and he is supposed to have TPN started today. In the meantime the patient is doing well,On 2 L nasal cannula, not in distress, he is hemodynamically stable. Not requiring any pressors. WBC count today is 8.4 hemoglobin is 10.6 basic metabolic profile is normal renal profile is normal, patient remains on antibiotics in the form of Zosyn he also remains on fluconazole. Patient remains on the CIWA protocol also The patient is seen today September 01, 2023 in follow-up on the regular medical floor. He is currently resting in bed. Awake and alert in no acute distress. He did develop increasing shortness of breath overnight. He was requiring up to 15 L high flow nasal cannula this morning. Chest x-ray shows interval increase in bilateral airspace disease and pleural effusions. Could be associated with pulmonary edema. Blood cultures revealed no growth. Abdominal wound cultures revealed no growth. White count 7.7. Hemoglobin 10.7. Platelets 160. Sodium 128. Potassium 3.7. Bicarb 26. BUN 6. Creatinine 0.47. Glucose 105. Arterial blood gases on 100% of oxygen revealed a PaO2 of 53, P CO2 of 39 and a pH of 7.45. Echocardiogram revealed preserved left ventricular systolic function with ejection fraction of 50%. No significant valvular heart disease. He was given Lasix 40 mg IVP x 1 this morning. He is continued on Zosyn and bronchodilators. He remains on TPN and lipids for nutritional support. He is on fluconazole. NicoDerm patch in place. Patient was evaluated today on 09/02/2023, patient is now on 10 L high flow nasal cannula, feeling better today compared to yesterday, patient has been diuresed for what seems to be a picture of congestive heart failure superimposed on underlying COPD, underlying pneumonia is not entirely ruled out but felt to be less likely nonetheless the patient is on antibiotics. At any rate his x-ray is better clinically the patient is feeling better, and he remains on diuretics. WBC count today is 6.6 hemoglobin 10.7. Potassium is a bit low at 3.2 renal profile is normal in spite of aggressive diuresis. Patient remains on Lasix at 40 mg IV push twice daily. Patient was reevaluated today on 09/03/2023, patient remains on 10 L high flow nasal cannula, patient has been diuresing significantly with Lasix every 12 hours, significant negative fluid balance noted in the last 2 days, nonetheless his chest x-ray continues to show a picture of groundglass pulmonary edema and small left-sided pleural effusion. His renal functioning seems to be reasonable, hence I will continue diuretics, in the meantime the patient is on antibiotics, it is not certain whether the patient may have sustained some aspiration pneumonia. I still believe the findings are mostly findings of congestive heart failure/diastolic in nature. Labs were reviewed BUN is 16 creatinine 0.5 sugar is 113. The patient is seen today September 04, 2023 in follow-up on the regular medical floor. He is currently resting in bed. Awake and alert in no acute distress. Maintaining O2 saturations in the 90s on 3 L/min per nasal cannula. He is receiving TPN at 73 mL/h. Chest x-ray continues to show similar groundglass appearance of the lungs with relative sparing of the right upper lung. Superimposed COPD. Blood cultures revealed no growth. Abdominal wound cultures revealed no growth. White count 7.1. Hemoglobin 11.1. Platelets 158. Sodium 130. Potassium 3.7. Bicarb 27. BUN 22. Creatinine 0.57. Glucose 102. He remains on bronchodilators. Continued on IV diuretics. Remains on Zosyn and valproic acid. The patient is seen today September 05, 2023 in follow-up on the regular medical floor. He is currently resting comfortably in bed. Awake and alert in no acute distress. He is receiving lipids today and TPN at 75 MLS per hour. Normal saline at KVO. He is maintaining O2 saturations in the 90s on 3 L/min per nasal cannula. Sodium 131. Potassium 3.7. Bicarb 28. BUN 28. Creatinine 0.61. Glucose 102. He remains on fluconazole and Zosyn. Remains on IV diuretics. Heparin for DVT prophylaxis. NicoDerm patch in place. Currently in a -3.5 L balance. The patient is seen today September 06, 2023 in follow-up on the regular medical floor. He is awake and alert in no acute distress. Resting fairly comfortably in bed. He is maintaining good O2 saturation in the 90s on room air. He is afebrile. Hemodynamically stable. Normal saline at KVO. Receiving TPN at 75 MLS per hour. He is continued on Zosyn. Working with the incentive spirometer. Continued on bronchodilators. NicoDerm patch in place. Sodium 135. Potassium 3.9. Bicarb 29. BUN 26. Creatinine 0.68. Glucose 109. Currently in a -600 mL balance. Tolerating a full liquid diet. The patient is seen today September 07, 2023 in follow-up on the regular medical floor. He is currently resting comfortably in bed. Awake and alert in no acute distress. Maintaining good O2 saturations in the 90s on room air. Normal saline at 10 mph. TPN has been discontinued. He is tolerating a full liquid diet. Sodium 135. Potassium 4.3. Bicarb 24. BUN 23. Creatinine 0.69. G lucose 89. He remains on bronchodilators. Continued on fluconazole, Zosyn. Heparin for DVT prophylaxis. Objective - Vital Signs Vital signs: Vital Signs Temp 98.7 F 09/07/23 07:03 Pulse 82 09/07/23 09:30 Resp 16 09/07/23 07:30 BP 138/67 09/07/23 07:03 Pulse Ox 98 09/07/23 09:23 FiO2 40 08/30/23 13:01 Intake & Output 09/06/23 09/07/23 09/07/23 18:59 06:59 18:59 Intake Total 1477 1021 Output Total 1530 1055 Balance -53 -34 Intake: Intake, IV Titration 200 1021 Amount Piperacillin-Tazobactam 3 200 .375 gm In Sodium Chloride 0.9% 100 ml @ 25 mls/hr IVPB Q8HR COUNT INCLUDES THE [facility] Rx# :[id number] Potassium Chloride 26 meq 1021 Sodium Chloride 4Meq/ml Vial 32 meq In Amino Acid 5%-D20w+Lytes*E* 1,000 ml @ 75 mls/hr IV .BY DURATION COUNT INCLUDES THE [facility] Rx#: [id number] Oral 1277 Output: Drainage 30 5 Right Abdomen 30 5 Urine 1500 1050 Other: Voiding Method Toilet Urinal # Voids 2 # Bowel Movements 2 - Exam GENERAL EXAM: Alert, 63-year-old male, resting in bed, on room air, in no apparent distress. HEAD: Normocephalic. EYES: Normal reaction of pupils, equal size. NOSE: Clear with pink turbinates. THROAT: No erythema or exudates. NECK: No masses, no JVD. CHEST: No chest wall deformity. LUNGS: Equal air entry with bilateral scattered rhonchi, crackles in the bases. CVS: S1 and S2 normal with no audible murmur, regular rhythm. ABDOMEN: Dressing clean dry and intact. VENUS drain in place with serosanguineous output, no guarding or rigidity. SPINE: No scoliosis or deformity SKIN: No rashes CENTRAL NERVOUS SYSTEM: No focal deficits, tone is normal in all 4 extremities. EXTREMITIES: There is no peripheral edema. No clubbing, no cyanosis. Peripheral pulses are intact. - Labs CBC & Chem 7: 09/04/23 05:35 09/07/23 07:04 Labs: Abnormal Lab Results - Last 24 Hours (Table) 09/06/23 09/07/23 Range/Units 20:35 07:04 Sodium 135 L (137-145) mmol/L BUN 23 H (9-20) mg/dL POC Glucose (mg/dL) 113 H (70-110) mg/dL Assessment and Plan Assessment: Perforated gastric ulcer, status postoperative exploratory laparotomy, subtotal gastrectomy, Ariel-en-Y gastrojejunostomy on 08/31/2023. Following the procedure, patient was left intubated and transferred to intensive care unit. Currently extubated Acute hypoxemic respiratory failure, improved and on room air History of alcoholism, last reported drink 1 day prior to coming in Chronic ongoing tobacco dependence History of right basilar 1.3 cm subpleural pulmonary nodule, follow up outpatient History of COPD, not active History of seizure disorder, no obvious seizure-like activity noted. History hearing disorder Plan: The patient was seen and evaluated Labs and medications reviewed Remains stable and on room air Tolerating a full liquid diet, off TPN Working well with PT/OT We will continue to follow I have personally seen and examined the patient, performed the documentation and the assessment and plan as written. Number of minutes spent on the visit: 10.
[2023-09-07 11:23] LABS: Glucose,Whole Blood 113 mg/dL (70-110)
--- NOTE | 2023-09-07 13:57 | P.PN ---
Subjective Progress Note Date: 09/07/23 (delayed charting seen at 1030) Patient is a 63-year-old male with a history of of hypertension, GERD, hearing loss, and seizure disorder who presented to the ER with acute onset abdominal pain. In the ER he underwent an extensive evaluation. On arrival his vital signs were remarkable for blood pressure of 171/96. Laboratory analysis included CBC, coags, CMP, amylase, lipase which were remarkable for sodium of 125. Urinalysis was negative. CT abdomen and pelvis demonstrated severe gastri c wall thickening with mild to moderate free air and free fluid possible gastritis with perforated gastric ulcer. Dr. Catalan was contacted and plans are for urgent surgical intervention. We were asked to consult for medical management. Was taken directly from the ER to the operating room was found to have a perforated posterior gastric ulcer which was treated with subtotal gastrectomy and Ariel-en-Y gastrojejunostomy. Postoperatively patient was admitted to the ICU on a ventilator requiring small amounts of Levophed. He was able to be weaned off of Levophed and was extubated 08/30/2023. He had a PICC line placed and was started on TPN. Infectious disease consulted. He became hypoxic on the morning of 08/31 and was found to have acute fluid overload and started on Lasix. Echo showed preserved EF. He continued to improved. He was started on a diet on 09/03/23. He tolerated this well. Patient seen and examined at bedside. He is still tolerating his diet. He is eating small frequent amounts. He denies any significant abdominal pain. He states he is having several bowel movements a day. They have been getting better. Vital signs reviewed General: non-toxic, no distress, appears at stated age Cardiovascular: S1S2 reg, no murmur Lungs: Decreased bs b/l bases, no accessory muscle use Abdominal: Soft, non tender to palpation Ext: No gross muscle atrophy, no edema b/l lower extremities, no contractures Neuro: Cranial nerves II through XII grossly intact, moving all 4 extremities independently Psych: Alert, oriented, appropriate affect Assessment/Plan: Perforated posterior gastric ulcer s/p subtotal gastrectomy and Ariel-en-Y gastrojejunostomy Hypovolemic shock, resolved -Protonix 40 mg IV push twice daily -Zosyn 3.375 g IV piggyback 3 times daily D # 10, fluconazole 100 mg IV piggyback daily D #10 - Off TPN -Pulmonary note reviewed: Continue current care -Await further gen surg recs -Await further ID recs. Plan is for Augmentin and oral diflucan on discharge. Acute blood loss anemia, anticipated outcome of surgery Iron deficiency anemia Thrombocytopenia, resolved -No indication for transfusion - follow CBC -Continue with ferrous sulfate 325 mg with lunch Seizure disorder -Keppra 500 mg oral twice daily and Depakote 500 mg oral twice daily. EtOH use -CIWA protocol with Ativan dosing per CIWA scale. -IV thiamine 100 mg daily - folic acid 1 mg PO daily Angina, undetermined etiology -Outpatient follow-up with cardiology Nicotine dependency -Nicotine patch 14 mcg daily Hypertension -Follow blood pressures - metoprolol 25 mg po daily Hypoglycemia secondary to poor oral intake, resolved Hyponatremia, initially hypovolemic, now due to poor solute intake, improved Hypokalemia, resolved Acute hypoxic respiratory failure, resolved Fluid overload without CHF, resolved Medically Optimized for discharge at the discretion of general surgery Imaging: None new Data Review: Laboratory analysis from today includes basic metabolic profile, phosphorus, and magnesium which are unremarkable. This dictation was prepared using [employer] voice recognition software. Though every attempt is made to correct errors during dictation some may still exist. Objective - Vital Signs Vital signs: Vital Signs Temp 98.7 F 09/07/23 07:03 Pulse 77 09/07/23 12:40 Resp 16 09/07/23 07:30 BP 138/67 09/07/23 07:03 Pulse Ox 98 09/07/23 09:23 FiO2 40 08/30/23 13:01 Intake & Output 09/06/23 09/07/23 09/07/23 18:59 06:59 18:59 Intake Total 1477 1021 484 Output Total 1530 1055 Balance -53 -34 484 Weight 70 kg Intake: Intake, IV Titration 200 1021 Amount Piperacillin-Tazobactam 3 200 .375 gm In Sodium Chloride 0.9% 100 ml @ 25 mls/hr IVPB Q8HR [facility] Rx# :[id number] Potassium Chloride 26 meq 1021 Sodium Chloride 4Meq/ml Vial 32 meq In Amino Acid 5%-D20w+Lytes*E* 1,000 ml @ 75 mls/hr IV .BY DURATION [facility] Rx#: [id number] Oral 1277 484 Output: Drainage 30 5 Right Abdomen 30 5 Urine 1500 1050 Other: Voiding Method Toilet Urinal # Voids 2 # Bowel Movements 2 - Labs CBC & Chem 7: 09/04/23 05:35 09/07/23 07:04 Labs: Abnormal Lab Results - Last 24 Hours (Table) 09/06/23 09/07/23 09/07/23 Range/Units 20:35 07:04 11:21 Sodium 135 L (137-145) mmol/L BUN 23 H (9-20) mg/dL POC Glucose (mg/dL) 113 H 113 H (70-110) mg/dL
[2023-09-07 14:10] VITALS: BP 126/75; RESP 18; TEMP 98.4
--- NOTE | 2023-09-07 15:04 | P.DS ---
Providers Date of admission: 08/29/23 13:45 Expected date of discharge: 09/07/23 Attending physician: Fede Catalan Consults: 08/29/23 13:44 Consult Physician Routine Consulting Provider: China Ford Consult Reason/Comments: medical management Do you want consulting provider notified?: Yes 08/29/23 19:16 Consult Physician Routine Consulting Provider: Trevor Moser Consult Reason/Comments: Vent management Do you want consulting provider notified?: Yes Consult Physician Routine Consulting Provider: Shaniqua Christensen Consult Reason/Comments: Perforated ulcer Do you want consulting provider notified?: Yes Primary care physician: [facility] Course: Discharge diagnosis 1. Perforated proximal posterior gastric ulcer status post exploratory laparotomy, subtotal gastrectomy, Airel-en-Y gastrojejunostomy Hospital course This is a 63-year-old male who presented to the hospital with complaints of abdominal pain and was mildly confused. CT scan performed showing free fluid in the upper mid abdomen as well as multiple pockets of pneumoperitoneum. Patient taken to the OR and is status post Exploratory laparotomy, subtotal gastrectomy, Ariel-en-Y gastrojejunostomy for perforated proximal posterior gastric ulcer. Patient was placed on TPN for his nutrition support while he remained n.p.o. He was also on IV Protonix BID. Patient had his diet advanced slowly to full liquids. He was able to be weaned off of the TPN. Patient's pain is controlled. He is tolerating diet. He is afebrile. He is ambulating. He is stable for discharge. He will be discharged with Augmentin for 5 days per infectious disease recommendations. Patient is stable for discharge. Please refer to chart for any further details. Physician Tire Retreader note has been reviewed by physician. Signing provider agrees with the documented findings, assessment, and plan of care. I have personally seen and examined the patient, reviewed the SURFACE SUPERVISOR /PAs history, exam and MDM and agree with the assessment and plan as written. Based on total visit time, I have performed more than 50% of the visit. As above: Patient doing well today. No significant abdominal pain. VENUS is unchanged. Tolerating full liquids. Will discharge on full liquid diet. Encourage protein shake daily. Aim for 60 g of protein. Daily antiacids. Finish course of antibiotics. Follow-up 1 week. Patient Condition at Discharge: Stable Plan - Discharge Summary Discharge Rx Participant: No New Discharge Prescriptions: New Amoxic-Pot Clav 875-125Mg [Augmentin 875-125] 1 tab PO Q12HR 5 Days #10 tab Pantoprazole Sodium [Protonix] 40 mg PO BID #60 tab Acetaminophen Tab [Tylenol] 1,000 mg PO Q6HR PRN #30 tablet PRN Reason: Pain Discontinued Naproxen [Naprosyn] 500 mg PO BID PRN PRN Reason: Pain No Action Baclofen [Lioresal] 10 mg PO BID Butalb/Acetaminophen/Caffeine [Fioricet 50-325-40] 1 tab PO TID PRN PRN Reason: Headache Gabapentin [Neurontin] 300 mg PO BID@0900,1500 Gabapentin [Neurontin] 600 mg PO HS@2100 Divalproex ER [Depakote ER] 500 mg PO BID levETIRAcetam [Keppra] 500 mg PO BID Lidocaine 5% Patch [Lidoderm] 1 patch TOPICAL DAILY PRN PRN Reason: Pain Metoprolol Tartrate [Lopressor] 25 mg PO DAILY Loratadine [Claritin] 10 mg PO DAILY Discharge Medication List Baclofen [Lioresal] 10 mg PO BID 08/04/18 [History] Butalb/Acetaminophen/Caffeine [Fioricet 50-325-40] 1 tab PO TID PRN 03/30/19 [History] Gabapentin [Neurontin] 300 mg PO BID@0900,1500 03/30/19 [History] Gabapentin [Neurontin] 600 mg PO HS@2100 03/30/19 [History] Divalproex ER [Depakote ER] 500 mg PO BID 11/10/21 [History] levETIRAcetam [Keppra] 500 mg PO BID 11/11/21 [History] Lidocaine 5% Patch [Lidoderm] 1 patch TOPICAL DAILY PRN 05/17/22 [History] Loratadine [Claritin] 10 mg PO DAILY 08/29/23 [History] Metoprolol Tartrate [Lopressor] 25 mg PO DAILY 08/29/23 [History] Acetaminophen Tab [Tylenol] 1,000 mg PO Q6HR PRN #30 tablet 09/07/23 [Rx] Amoxic-Pot Clav 875-125Mg [Augmentin 875-125] 1 tab PO Q12HR 5 Days #10 tab 09/07/23 [Rx] Pantoprazole Sodium [Protonix] 40 mg PO BID #60 tab 09/07/23 [Rx] Follow up Appointment(s)/Referral(s): Nic Hart MD [STAFF PHYSICIAN] - 1 Week [facility] [Primary Care Provider] - 1-2 days Fede Catalan MD [Medical Doctor] - 1 Week Activity/Diet/Wound Care/Special Instructions: No lifting over 10 pounds You may shower. No soaking or tub baths for 2 weeks Very light activity until you are reevaluated at your follow up appointment with your surgeon Continue a full liquid diet until seen by surgeon Do not take any NSAID medications. For example do not take any Naproxen, Motrin, Aleve or ibuprofen. Discharge Disposition: HOME SELF-CARE
--- NOTE | 2023-09-07 15:20 | P.PN ---
Subjective Progress Note Date: 09/07/23 Principal diagnosis: Reason for follow-up is perforated peptic ulcer Patient is a 63-year-old male with a past medical history significant for hypertension seizure disorder deafness reflux chest pain patient has been brought into the hospital for evaluation of abdominal pain patient diagnosed with perforated gastric ulcer, in this patient who is status post explorative laparotomy subtotal gastrectomy and gastrojejunostomy. On today's evaluation that is 09/07/2023, the patient continues to be afebrile, the patient is on room air and breathing comfortably, the Pt denies having any chest pain or cough, the patient abdominal pain has improved denies any nausea vomiting mention did have bowel movement and tolerating his diet wants to go home. No CBC was done today his creatinine 0.69 Objective - Vital Signs Vital signs: Vital Signs Temp 98.4 F 09/07/23 13:52 Pulse 83 09/07/23 13:52 Resp 18 09/07/23 13:52 BP 126/75 09/07/23 13:52 Pulse Ox 91 L 09/07/23 13:52 FiO2 40 08/30/23 13:01 Intake & Output 09/06/23 09/07/23 09/07/23 18:59 06:59 18:59 Intake Total 1477 1021 484 Output Total 1530 1055 Balance -53 -34 484 Weight 70 kg Intake: Intake, IV Titration 200 1021 Amount Piperacillin-Tazobactam 3 200 .375 gm In Sodium Chloride 0.9% 100 ml @ 25 mls/hr IVPB Q8HR [facility] Rx# :[id number] Potassium Chloride 26 meq 1021 Sodium Chloride 4Meq/ml Vial 32 meq In Amino Acid 5%-D20w+Lytes*E* 1,000 ml @ 75 mls/hr IV .BY DURATION [facility] Rx#: [id number] Oral 1277 484 Output: Drainage 30 5 Right Abdomen 30 5 Urine 1500 1050 Other: Voiding Method Toilet Urinal # Voids 2 # Bowel Movements 2 - Exam GENERAL DESCRIPTION: An elderly male lying in bed in no distress RESPIRATORY SYSTEM: Unlabored breathing , coarse breath sound bilaterally HEART: S1 S2 regular rate and rhythm , ABDOMEN: Soft , mild tenderness EXTREMITIES: No edema feet - Labs CBC & Chem 7: 09/04/23 05:35 09/07/23 07:04 Labs: Abnormal Lab Results - Last 24 Hours (Table) 09/06/23 09/07/23 09/07/23 Range/Units 20:35 07:04 11:21 Sodium 135 L (137-145) mmol/L BUN 23 H (9-20) mg/dL POC Glucose (mg/dL) 113 H 113 H (70-110) mg/dL Assessment and Plan (1) Perforated abdominal viscus Current Visit: Yes Status: Acute Code(s): R19.8 - OTH SYMPTOMS AND SIGNS INVOLVING THE DGSTV SYS AND ABDOMEN SNOMED Code(s): 12611572 (2) Peritonitis Current Visit: Yes Status: Acute Code(s): K65.9 - PERITONITIS, UNSPECIFIED SNOMED Code(s): 64327357 Plan: 1patient presented hospital with acute abdominal pain and this patient has been diagnosed with perforated gastric ulcer status post laparotomy partial gastrectomy and gastrojejunostomy need to cover for the enteric gram-negative as well as cannula to the likely pathogen for the peritonitis component 2-patient is afebrile white count has been normal, patient abdominal culture has been negative for resistant pathogen, 3- patient has received adequate Diflucan and Zosyn while inpatient will consider short course of oral Augmentin on discharge discussed with surgical RUG BACKING STENCILER working on discharge Dictation was produced using [employer] dictation software. please excuse any grammatical, word or spelling errors. Time with Patient: Less than 30
--- NOTE | 2023-09-07 15:20 | P.PN ---
Subjective Progress Note Date: 09/06/23 Principal diagnosis: Reason for follow-up is perforated peptic ulcer Patient is a 63-year-old male with a past medical history significant for hypertension seizure disorder deafness reflux chest pain patient has been brought into the hospital for evaluation of abdominal pain patient diagnosed with perforated gastric ulcer, in this patient who is status post explorative laparotomy subtotal gastrectomy and gastrojejunostomy. On today's evaluation that is 09/06/2023,the patient remains to be afebrile, patient is on room air not requiring supplemental oxygen and denies any shortness of breath no chest pain or cough.Patient denies having any nausea or vomiting, abdominal pain has decreased in intensity did have a bowel movement. No CBC was done today his creatinine 0.68 Objective - Vital Signs Vital signs: Vital Signs Temp 98.3 F 09/06/23 14:10 Pulse 80 09/06/23 16:06 Resp 17 09/06/23 14:10 BP 145/69 09/06/23 14:10 Pulse Ox 98 09/06/23 14:10 FiO2 40 08/30/23 13:01 Intake & Output 09/05/23 09/06/23 09/06/23 18:59 06:59 18:59 Intake Total 822 237 Output Total 55 1350 1080 Balance 682 -4275 -939 Intake: Intake, IV Titration 200 Amount Piperacillin-Tazobactam 3 200 .375 gm In Sodium Chloride 0.9% 100 ml @ 25 mls/hr IVPB Q8HR [facility] Rx# :[id number] Oral 622 237 Output: Drainage 55 50 30 Right Abdomen 55 50 30 Urine 1300 1050 Other: # Voids 2 1 # Bowel Movements 1 2 - Exam GENERAL DESCRIPTION: An elderly male lying in bed in no distress RESPIRATORY SYSTEM: Unlabored breathing , coarse breath sound bilaterally HEART: S1 S2 regular rate and rhythm , ABDOMEN: Soft , mild tenderness EXTREMITIES: No edema feet - Labs CBC & Chem 7: 09/04/23 05:35 09/07/23 07:04 Labs: Abnormal Lab Results - Last 24 Hours (Table) 09/05/23 09/06/23 09/06/23 Range/Units 23:49 05:36 05:50 Sodium 135 L (137-145) mmol/L BUN 26 H (9-20) mg/dL Glucose 109 H (74-99) mg/dL POC Glucose (mg/dL) 132 H 129 H (70-110) mg/dL Calcium 8.1 L (8.4-10.2) mg/dL Assessment and Plan (1) Perforated abdominal viscus Current Visit: Yes Status: Acute Code(s): R19.8 - OTH SYMPTOMS AND SIGNS INVOLVING THE DGSTV SYS AND ABDOMEN SNOMED Code(s): 00599496 (2) Peritonitis Current Visit: Yes Status: Acute Code(s): K65.9 - PERITONITIS, UNSPECIFIED SNOMED Code(s): 55661147 Plan: 1patient presented hospital with acute abdominal pain and this patient has been diagnosed with perforated gastric ulcer status post laparotomy partial gastrectomy and gastrojejunostomy need to cover for the enteric gram-negative as well as cannula to the likely pathogen for the peritonitis component 2-patient is afebrile white count has been normal, patient abdominal culture has been negative for resistant pathogen, 3- patient to continue with the Diflucan and Zosyn while inpatient and monitor clinical course closely Dictation was produced using [employer] dictation software. please excuse any grammatical, word or spelling errors. Time with Patient: Less than 30
[2023-09-07 16:04] VITALS: PULSE 80
== END 2023-09-07 18:02 | disposition home or self-care (01) | DRG 326 ==
LOC: EC 10:13 → 4SSUR 13:45 → 2SICU 18:20 → 4SSUR 08-31 15:54
PROVIDERS: ADMIT Surgery; ATTEND Surgery
PROC: 0D160ZA Bypass Stomach to Jejunum, Open Approach (ICD-10-PCS; 2023-08-29)
PROC: 0DB60ZZ Excision of Stomach, Open Approach (ICD-10-PCS; principal; 2023-08-29 09:25)
PROC: 3E0336Z Introduction of Nutritional Substance into Peripheral Vein, Percutaneous Approach (ICD-10-PCS; 2023-08-30)
PROC: 02HV33Z Insertion of Infusion Device into Superior Vena Cava, Percutaneous Approach (ICD-10-PCS; 2023-08-31)
PROC: B5181ZA Fluoroscopy of Superior Vena Cava using Low Osmolar Contrast, Guidance (ICD-10-PCS; 2023-08-31)
PROC: B548ZZA Ultrasonography of Superior Vena Cava, Guidance (ICD-10-PCS; 2023-08-31)
PROC: 05HC33Z Insertion of Infusion Device into Left Basilic Vein, Percutaneous Approach (ICD-10-PCS; 2023-08-31)
DX: K25.5 Chronic or unspecified gastric ulcer with perforation (principal); A41.9 Sepsis, unspecified organism; J96.01 Acute respiratory failure with hypoxia; R57.1 Hypovolemic shock; K65.9 Peritonitis, unspecified; K63.1 Perforation of intestine (nontraumatic); E87.1 Hypo-osmolality and hyponatremia; N17.9 Acute kidney failure, unspecified; D62 Acute posthemorrhagic anemia; I50.32 Chronic diastolic (congestive) heart failure; I25.119 Atherosclerotic heart disease of native coronary artery with unspecified angina pectoris; I11.0 Hypertensive heart disease with heart failure; I10 Essential (primary) hypertension; E86.1 Hypovolemia; F10.20 Alcohol dependence, uncomplicated; H91.93 Unspecified hearing loss, bilateral; K21.9 Gastro-esophageal reflux disease without esophagitis; D69.6 Thrombocytopenia, unspecified; D50.9 Iron deficiency anemia, unspecified; E87.6 Hypokalemia; E86.0 Dehydration; G40.909 Epilepsy, unspecified, not intractable, without status epilepticus; I27.20 Pulmonary hypertension, unspecified; Z79.899 Other long term (current) drug therapy; Z98.1 Arthrodesis status; Z97.4 Presence of external hearing-aid
CPT/HCPCS: 36415; 36573; 36600; 71045; 74177; 80048; 80053; 81003; 82150; 82330; 82728; 82805; 83540; 83550; 83605; 83690; 83735; 83880; 83935; 84100; 84300; 84478; 85025; 85027; 85610; 85730; 87040; 87070; 87075; 87205; 88307; 88312; 88342; 93005; 93306; 94003; 94640; 94760; 96361; 96365; 96375; 96376; 99285

== ENCOUNTER → 2024-01-02 | Outpatient (CLI) | payer OTHER ==
--- NOTE | 2024-01-02 14:44 | US ---
EXAMINATION TYPE: US arterial LE multi level DATE OF EXAM: 01/02/2024 2:30 PM CLINICAL INDICATION: Male, 63 years old with history of M79.609 PAIN IN LEG; Patient gets pain in his legs, right worse than left. History of: Smoker: Current Smoker Hypertension: Yes Diabetic: No Hyperlipidemia: Yes TIA/CVA: Patient is unsure Previous Vascular Surgery: No CAD: ? TN: Patient is unsure Vascular Ulcers: No Claudication: Both Gangrene: No Doppler Waveforms: Right: Monophasic Left: Monophasic Right Brachial Pressure: 116 Left Brachial Pressure: 112 Ankle-Brachial Indices: Right: 0.62 Left: 0.94 (Vessel hardening > 1.4; Normal 0.9 - 1.4, Moderate 0.7 - 0.9, Severe 0.5-0.7) Toe Brachial Indices: Right: 0.46 Left: 0.76 IMPRESSION: Severe right and normal left ankle-brachial indices.
== END | disposition home or self-care (01) ==
LOC: RADUSWWP 13:38
PROVIDERS: ATTEND Family Medicine
DX: I70.211 Atherosclerosis of native arteries of extremities with intermittent claudication, right leg (principal)
CPT/HCPCS: 93923

== ENCOUNTER 2024-01-04 17:19 | Inpatient (IN) | payer OTHER, MEDICARE ==
[2024-01-04 17:28] VITALS: TEMP 97.8
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
--- NOTE | 2024-01-04 18:50 | CT ---
EXAMINATION TYPE: CT brain wo con CT DLP: 1078.4 mGycm, Automated exposure control for dose reduction was used. DATE OF EXAM: 01/04/2024 6:38 PM COMPARISON: 11/10/2021. CLINICAL INDICATION: Male, 63 years old with history of weakness, Weakness. TECHNIQUE: Brain: Axial CT images of the brain were obtained with coronal and sagittal reformats created and rev iewed. Contrast used: None. Oral contrast used: None. FINDINGS: Brain: Extra-axial spaces: No abnormal extra-axial fluid collections. Ventricular system: Within normal limits Cerebral parenchyma: No acute intraparenchymal hemorrhage or mass effect. The hayward-white junction is well differentiated. Scattered hypoattenuating areas are seen within the white matter. Cerebellum: Unremarkable. Mass effect: No evidence of midline shift. Intracranial vasculature: unremarkable Soft tissues: Normal. Calvarium/osseous structures: No depressed skull fracture. Paranasal sinuses and mastoid air cells: Mild scattered paranasal sinus disease. Visualized orbits: Bilateral aphakia IMPRESSION: 1. No acute intracranial process. 2. Nonspecific white matter changes, likely secondary to chronic small vessel ischemic disease.
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
[2024-01-04 18:53] LABS: Anisocytosis Slight; Basophils % (A) 0 %; Eosinophils % (A) 1 %; HCT 37.4 % (39.0-53.0); HGB 12.2 gm/dL (13.0-17.5); Lymphocytes # (A) 2.1 k/uL (1.0-4.8); Lymphocytes % (A) 48 %; MCH 32.6 pg (25.0-35.0); MCHC 32.7 g/dL (31.0-37.0); MCV 99.9 fL (80.0-100.0); Macrocytosis Moderate; Mean Platelet Volume 7.9; Monocytes # (A) 0.2 k/uL (0-1.0); Monocytes % (A) 6 %; Neutrophils # (A) 1.8 k/uL (1.3-7.7); Neutrophils % (A) 43 %; Platelet Count 131 k/uL (150-450); RBC 3.75 m/uL (4.30-5.90); RDW 18.4 % (11.5-15.5); WBC 4.3 k/uL (3.8-10.6)
[2024-01-04] MEDS: SODIUM CHLORIDE 0.9% 1,000 ML IV STA (18:56)
[2024-01-04] MEDS: SODIUM CHLORIDE 0.9% 500 ML 500 ML IV STA (18:56)
[2024-01-04 19:02] LABS: INR 1.1 (<1.2); Partial Thromboplastin Time 26.7 sec (22.0-30.0); Prothrombin Time 11.9 sec (10.0-12.5)
[2024-01-04 19:03] LABS: Appearance,Urine Clear (Clear); Bilirubin,Urine Negative (Negative); Blood,Urine Negative (Negative); Color,Urine Colorless; Glucose,Urine (UA) Negative (Negative); Ketones,Urine Negative (Negative); Leukocyte Esterase,Urine Negative (Negative); Nitrite,Urine Negative (Negative); Protein,Urine Negative (Negative); Specific Gravity,Urine 1.011 (1.001-1.035); Urobilinogen,Urine <2.0 mg/dL (<2.0)
[2024-01-04 19:07] LABS: ALT 11 U/L (4-49); AST 26 U/L (17-59); African American GFR (CKD) >90 (>60 ml/min/1.73 sqM); Albumin 3.4 g/dL (3.5-5.0); Alkaline Phosphatase 63 U/L (38-126); Anion Gap 10 mmol/L; Blood Urea Nitrogen 5 mg/dL (9-20); Calcium 8.4 mg/dL (8.4-10.2); Carbon Dioxide 18 mmol/L (22-30); Chloride 97 mmol/L (98-107); Glucose 73 mg/dL (74-99); Magnesium 1.8 mg/dL (1.6-2.3); Non-African American GFR(CKD) >90 (>60 ml/min/1.73 sqM); Phosphorus 2.9 mg/dL (2.5-4.5); Potassium 4.3 mmol/L (3.5-5.1); Sodium 125 mmol/L (137-145); Total Bilirubin 0.6 mg/dL (0.2-1.3); Total Protein 5.6 g/dL (6.3-8.2)
[2024-01-04 19:14] LABS: NT-Pro-B-Type Natriuretic Pept 240 pg/mL
[2024-01-04 19:52] LABS: Alcohol 154 mg/dL
[2024-01-04] MEDS ORDERED: LORazepam 2 MG/ML INJ IV PRN ×3 (20:14)
[2024-01-04] MEDS ORDERED: LORazepam 0.5 MG TAB PO PRN (20:14)
[2024-01-04] MEDS ORDERED: ONDANSETRON 4 MG/2 ML VIAL IVP PRN (20:14)
[2024-01-04] MEDS ORDERED: NALOXONE 0.4 MG/ML 1 ML VIAL IV PRN (20:14)
[2024-01-04] MEDS ORDERED: LORazepam 1 MG TAB PO PRN ×3 (20:14)
[2024-01-04] MEDS: SODIUM CHLORIDE 0.9% 1,000 ML IV SCH (21:32)
[2024-01-04] MEDS ORDERED: ACETAMINOPHEN TAB 500 MG TAB PO PRN (21:38)
[2024-01-04] MEDS: ACETAMINOPHEN TAB 325 MG TAB PO STA (21:48)
[2024-01-05 07:28] LABS: Anisocytosis Slight; Basophils # (A) 0.1 k/uL (0-0.2); Basophils % (A) 1 %; Eosinophils # (A) 0.1 k/uL (0-0.7); Eosinophils % (A) 1 %; HCT 39.9 % (39.0-53.0); HGB 13.4 gm/dL (13.0-17.5); Lymphocytes # (A) 1.6 k/uL (1.0-4.8); Lymphocytes % (A) 31 %; MCH 33.5 pg (25.0-35.0); MCHC 33.5 g/dL (31.0-37.0); Macrocytosis Moderate; Mean Platelet Volume 7.8; Monocytes # (A) 0.3 k/uL (0-1.0); Monocytes % (A) 6 %; Neutrophils % (A) 60 %; Platelet Count 128 k/uL (150-450); RBC 3.99 m/uL (4.30-5.90); RDW 18.5 % (11.5-15.5); WBC 5.1 k/uL (3.8-10.6)
[2024-01-05 07:44] LABS: ALT 10 U/L (4-49); AST 22 U/L (17-59); African American GFR (CKD) >90 (>60 ml/min/1.73 sqM); Albumin 3.3 g/dL (3.5-5.0); Albumin/Globulin Ratio 1.5; Alkaline Phosphatase 78 U/L (38-126); Anion Gap 3 mmol/L; Blood Urea Nitrogen 7 mg/dL (9-20); Calcium 8.4 mg/dL (8.4-10.2); Carbon Dioxide 25 mmol/L (22-30); Chloride 107 mmol/L (98-107); Globulin 2.2 g/dL; Glucose 80 mg/dL (74-99); Magnesium 1.8 mg/dL (1.6-2.3); Non-African American GFR(CKD) >90 (>60 ml/min/1.73 sqM); Phosphorus 3.4 mg/dL (2.5-4.5); Potassium 4.4 mmol/L (3.5-5.1); Sodium 135 mmol/L (137-145); Total Bilirubin 0.4 mg/dL (0.2-1.3); Total Protein 5.5 g/dL (6.3-8.2)
[2024-01-05] MEDS: PANTOPRAZOLE 40 MG/10 ML VIAL IV SCH (08:57)
[2024-01-05] MEDS ORDERED: BUTALB/APAP/CAFF 50-325-40MG TAB PO PRN (11:06)
[2024-01-05] MEDS ORDERED: BACLOFEN 10 MG TAB PO PRN (11:06)
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
[2024-01-05] MEDS: METOPROLOL TARTRATE 25 MG TAB PO SCH (12:12)
[2024-01-05] MEDS: levETIRAcetam 500 MG TAB PO SCH (12:12)
[2024-01-05] MEDS: MULTIVITAMINS, THERA 1 EACH TAB PO SCH (12:13)
[2024-01-05] MEDS: dexAMETHasone 4 MG TAB PO SCH (12:13)
[2024-01-05] MEDS: FERROUS SULFATE 325 MG TAB PO SCH (12:13)
[2024-01-05] MEDS: LORATADINE 10 MG TAB PO SCH (12:13)
[2024-01-05] MEDS: DIVALPROEX ER 500 MG TAB.ER.24H PO SCH (12:13)
[2024-01-05] MEDS: THIAMINE 100 MG TAB PO SCH (12:13)
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
--- NOTE | 2024-01-05 12:28 | CT ---
EXAMINATION TYPE: CT cervical spine wo con CT DLP: 246.7 mGycm, Automated exposure control for dose reduction was used. DATE OF EXAM: 01/05/2024 11:55 AM COMPARISON: None. CLINICAL INDICATION: Male, 63 years old with history of extremity weakness/numbness, Extremity weakne ss/numbness. TECHNIQUE: Axial CT images from the skull base to the inferior aspect of T2 we obtained without intra venous contrast. Coronal and sagittal reformatted images were also reviewed. Contrast used: mL of , (if blank None) Oral contrast used: (if blank None) FINDINGS: Fracture: None. Osseous structures: Postsurgical changes at C3, C4-C5 and C6. Hardware appears intact. Discectomy at C3-C4, C4-C5 and C5-C6. Multilevel degenerative disc disease changes with endplate spurring and disc osteophyte complex's. Ankylosis of the spinous processes of T3 and T4 as well as the facet joints. Vertebral alignment: Alignment within normal limits. Spinal canal/Neural Foramina: Osteophyte posterior to the C5-C6 disc space with mild spinal canal cristian nosis. Facet joint uncovertebral joint arthropathy scattered throughout the cervical spine with varyi ng degrees of neural foraminal stenosis. Neck soft tissues: Prevertebral soft tissues are within normal limits. Other: The airway is patent. Mild bronchiectasis in the right lung apex. Left upper lung calcified gr anuloma. IMPRESSION: 1. No evidence of cervical spine fracture. 2. Post surgical changes without evidence for hardware failure. 3. Multilevel degenerative disc disease. There is at least mild spinal canal stenosis at level C5-C6 secondary to osteophyte. No evidence for significant neural foraminal stenosis.
[2024-01-05] MEDS: LOSARTAN 25 MG TAB PO SCH (13:00)
[2024-01-05] MEDS: GABAPENTIN 300 MG CAP PO SCH (15:39)
[2024-01-05 16:10] VITALS: BP 165/85; PULSE 92; RESP 20
[2024-01-05] MEDS ORDERED: GABAPENTIN 300 MG CAP PO SCH (21:00)
== END 2024-01-05 16:10 | disposition left against medical advice (07) | DRG 74 ==
LOC: EC 17:19 → 4SSUR 20:21
PROVIDERS: ADMIT Hospitalist; ATTEND Hospitalist
DX: G62.1 Alcoholic polyneuropathy (principal); E87.1 Hypo-osmolality and hyponatremia; F10.129 Alcohol abuse with intoxication, unspecified; Y90.6 Blood alcohol level of 120-199 mg/100 ml; F17.210 Nicotine dependence, cigarettes, uncomplicated; H91.93 Unspecified hearing loss, bilateral; G89.29 Other chronic pain; M48.02 Spinal stenosis, cervical region; I10 Essential (primary) hypertension; G40.909 Epilepsy, unspecified, not intractable, without status epilepticus; Z79.899 Other long term (current) drug therapy
CPT/HCPCS: 36415; 70450; 71046; 72125; 80053; 80164; 80320; 81003; 82607; 82746; 83036; 83605; 83735; 83880; 84100; 84443; 84484; 85025; 85610; 85730; 93005; 96361; 96374; 99285

== ENCOUNTER → 2024-02-22 | Outpatient (CLI) | payer MEDICARE, OTHER ==
[2024-02-22 13:58] VITALS: BP 132/69; PULSE 72; RESP 16
--- NOTE | 2024-02-26 07:42 | P.PAINPG ---
PQRS Measure Charge Sheet Comment: HISTORY OF PRESENT ILLNESS: A 64 yr old male as a referral from Dr Cooper presents today w severe and chronic LBP > 1 yr secondary to radiculopathy, spondylosis and facet arthropathy without myelopathy for evaluation. Pt states pain level is provoked at 9/10 in intensity, constant, localized in the L lower cervical spine, predominantly axial, sharp in character w occasional shooting pain towards the L shoulder. Pain is provoked by any movement. Pain is alleviated by PT x 6 wks which ended in 2017, physician guided home exercises from Dr Cooper 4-5 times weekly since mid Jan 2024, medications (Baclofen, Naproxyn, Neurontin, [place] 7.5/325mg, Lidoderm, Tyl 325mg) repositioning and rest . PMH: OA, Angina, GERD, HoF, HTN, Seizure Disorder PSH: R Ear Surgery w Implant, Tonsillectomy, BL Cataracts, ACDF C3-C4-C5-C6 (2018), Colon Resection SH: Daily tobacco use, Occ ETOH use, No illicit drug use FH: Mo- [place] All: See list Meds: See list REVIEW OF ORGAN SYSTEMS: CONSTITUTIONAL: No fevers or chills. No recent weight loss. NEUROLOGICAL: + numbness and tingling along the distal extremities. No seizure disorders or headaches. MUSCULOSKELETAL: + pain PSYCHIATRIC: Denies current depression or suicidal thoughts. Physical Examinations : Constitutional : Cooperative , not in acute distress . Neurologic : Cranial nerve II to XII intact. No focal neurological deficits. Psychiatric : alert & oriented x 3. Matching mood & appropriate affect. Judgment & insight intact. Musculoskeletal : Cervical Spine +Incisional scar intact Motor strength in the deltoid and biceps: Normal right side. Normal Left side Motor strength biceps and the wrist extensors: Normal right side . Normal left side Motor strength in the triceps muscle: Normal right side. Normal left side Deep tendon reflexes: Normal at the biceps. Normal at Brachioradialis. Normal at triceps Vertebral body tenderness to deep palpation over C7 Cervical facet loading test: positive bilaterally Spurling test: positive L C6-C7/ C7-T1 Neck distraction test: positive bilaterally Milly sign: positive bilaterally Lumbar spine Motor strength lower extremities ,thigh and legs 5/5 Right side , 5/5 Left side Deep tendon reflexes : Normal Knee Jerk. Normal Ankle Jerk Vertebral body tenderness over Ceja Test positive Lumbar facet Loading Test: positive Right / positive Left Range of motion of the lumbar spine Flexion 30 degrees, extension 10 degrees Straight Leg Raise test: Left/ Right positive at degrees Yudy test: positive right / positive left. Severe tenderness over the Sacroiliac joint on the Right / Left sides Gaenslen test: positive bilaterally Seated flexion test: positive bilaterally. Sacral spine : Severe tenderness over the Sacroiliac joint: right side / left side Range of motion: Flexion of the lumbar spine <60 degrees Range of motion: Extension of the lumbar spine <20 degrees Gaenslen's Test positive Yudy test: positive right side / left side Thigh Thrust Test Sacral Thrust Test Imaging: CT non contrast cervical spine from 01/05/24 reviewed Assessment/ Plan : C3-C4-C5-C6 ACDF Recommendation of L TFESI C6-C7/ C7-T1 #1. Risks, benefits of procedure discussed and patient verbalized understanding. Admits to anti- coagulant use or medical history of diabetes. Protocol for discontinuation/ continuation of medications fausto procedure discussed. All questions answered. I have spent greater than 30 minutes on patient care today. Dr Elam was available by phone for the evaluation of this patient. The time was used to review the medical records including relevant urine studies and Prescription history (MAPs), review of the available imaging, evaluation and examination of the patient, coordination of care with the medical staff and if applicable referring physicians, as well as creation of the medical record PQRS Narrative: Smoking Status Current every day smoker Home Medications: Ambulatory Orders Butalb/Acetaminophen/Caffeine [Fioricet 50-325-40] 1 tab PO TID PRN 03/30/19 Divalproex ER [Depakote ER] 500 mg PO BID 11/10/21 levETIRAcetam [Keppra] 500 mg PO BID 11/11/21 Loratadine [Claritin] 10 mg PO DAILY 08/29/23 Metoprolol Tartrate [Lopressor] 25 mg PO DAILY 08/29/23 Pantoprazole Sodium [Protonix] 40 mg PO BID #60 tab 09/07/23 Baclofen [Lioresal] 5 mg PO BID 01/04/24 Ferrous Sulfate [Iron (65 MG Elemental)] 325 mg PO DAILY 01/04/24 Gabapentin [Neurontin] 300 mg PO BID@0800,1500 01/04/24 Gabapentin [Neurontin] 600 mg PO HS 01/04/24 Losartan [Cozaar] 25 mg PO DAILY 01/04/24 Controlled Substance Measures - Controlled Substance Measures Is patient prescribed a controlled substance at discharge?: No
== END ==
LOC: PNWHC3 13:34
PROVIDERS: ATTEND Specialist
DX: M43.22 Fusion of spine, cervical region (principal); F17.200 Nicotine dependence, unspecified, uncomplicated
CPT/HCPCS: 99211

== ENCOUNTER → 2024-03-19 | Outpatient (CLI) | payer OTHER, MEDICARE ==
[2024-03-19 13:02] LABS: African American GFR (CKD) >90 (>60 ml/min/1.73 sqM); Blood Urea Nitrogen 8 mg/dL (9-20); Non-African American GFR(CKD) >90 (>60 ml/min/1.73 sqM)
--- NOTE | 2024-03-19 14:46 | CT ---
EXAMINATION TYPE: CT angio abd aorta w/Runoff DATE OF EXAM: 03/19/2024 2:24 PM COMPARISON: None. CLINICAL INDICATION: Male, 64 years old with history of I73.9 UNSPEC PERIPHERAL VASCULAR DISEASE; PHH , right leg pain TECHNIQUE: Noncontrast CT chest abdomen pelvis with bilateral runoff followed by Multiple thin slice sub-millimeter images were obtained after administration of contrast. 3-D reconstructed images and m aximum intensity projection images were obtained. CT angio abd aorta w/Runoff CT Contrast: Contrast used:125cc mL of Isovue 370 without and with IV Contrast, Oral contrast used: None CT DLP: 1534 mGycm, Automated exposure control for dose reduction was used. FINDINGS: CTA Abdomen and pelvis: No intramural hematoma on noncontrast imaging. The abdominal aorta does not d emonstrate aneurysmal dilatation. No intimal flap identified. Atherosclerotic plaquing is identified within the abdominal aorta. The origins of the superior mesenteric artery, renal arteries, inferior mesenteric artery, and celiac axis are patent. Narrowing of the celiac axis with poststenotic dilatio n. There is up to 50% stenosis. There are 2 renal arteries bilaterally both appear patent bilaterally . The inferior mesenteric artery is patent. The iliac vessels are normal in morphology CTA Lower extremities: Right: The common femoral and superficial femoral artery demonstrates high-grade stenosis series 5 im age 29 and extends 5 mm in length.. The remainder of the superficial femoral artery is patent. The po pliteal artery is patent. Anterior and posterior tibial arteries as well as the peroneal artery are p atent. Anterior and posterior tibial arteries cross the ankle. Left: The common femoral and superficial femoral arteries are patent. The popliteal artery is patent. Anterior and posterior tibial arteries as well as the peroneal artery are patent. Anterior and poste rior tibial arteries cross the ankle. Varicosities are seen in the superficial tissues of the left lo wer externally. LOWER CHEST: No evidence of focal consolidation, pneumothorax or pleural effusion. LIVER: Unremarkable GALLBLADDER AND BILE DUCTS: Unremarkable. PANCREAS: Unremarkable. SPLEEN: Unremarkable. ADRENAL GLANDS: Unremarkable. KIDNEYS AND URETERS: No evidence of hydronephrosis or renal calculus. The ureters are unremarkable. PELVIS BLADDER: Unremarkable REPRODUCTIVE: Unremarkable. ABDOMEN & PELVIS STOMACH AND BOWEL: No evidence of bowel obstruction. Postsurgical changes of the upper abdomen. Posts urgical changes to the bowel in the mid abdomen. PERITONEUM: No evidence of pneumoperitoneum or free fluid. VASCULATURE: No evidence of aortic aneurysm. MUSCULOSKELETAL: No acute osseous abnormalities LYMPH NODES: No gross evidence for lymphadenopathy. SOFT TISSUE/ABDOMINAL WALL: Unremarkable IMPRESSION: 1. 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 2. Atherosclerotic disease involving abdominal aorta and lower extremity vasculature. 3. At least two vessels are seen crossing the ankle joint bilaterally. 4. 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 5. No evidence for aneurysm or dissection. [facility], , 03/19/2024 2:44 PM
== END | disposition home or self-care (01) ==
LOC: RADCTMAIN 12:07
PROVIDERS: ATTEND Surgery
DX: I70.201 Unspecified atherosclerosis of native arteries of extremities, right leg (principal); I70.0 Atherosclerosis of aorta
CPT/HCPCS: 82565; 84520; 75635; 36415; Q9967

== ENCOUNTER 2024-04-22 17:49 | Emergency (ER) | payer MEDICARE, OTHER ==
[2024-04-22 18:14] VITALS: RESP 17
--- NOTE | 2024-04-22 20:34 | XR ---
EXAMINATION TYPE: XR chest 2V DATE OF EXAM: 04/22/2024 8:23 PM COMPARISON: 01/04/2024 , CT 01/05/2024 CLINICAL INDICATION: Male, 64 years old with history of Dizziness, TECHNIQUE: XR chest 2V view(s) obtained. FINDINGS: The heart size is normal. The pulmonary vasculature is normal. Right apical thickening is present. Some hyperinflation is present suggesting COPD. Retrosternal air space increase is present. IMPRESSION: 1. No acute pulmonary process. 2. Right apical thickening 3. COPD [facility], , 04/22/2024 8:32 PM
--- NOTE | 2024-04-22 20:47 | CT ---
EXAMINATION TYPE: CT brain wo con DATE OF EXAM: 04/22/2024 8:40 PM COMPARISON: 01/04/2024 CLINICAL INDICATION: Male, 64 years old with history of weakness, dizziness, Weakness, dizziness TECHNIQUE: CT of the brain is performed utilizing 3 mm thick sections through the posterior fossa and 3 mm thick sections through the remaining calvarium. Study is performed within 24 hours of arrival to the hospital. Contrast used: mL of , (none if empty) CT DLP: 1110.2 mGycm, Automated exposure control for dose reduction was used. FINDINGS: No abnormal hyperdensity is present to suggest an acute intracranial hemorrhage. No mass lesion is evident. No acute infarcts are evident. Some minimal subcortical white matter ischemic-type changes may be wit hin the right centrum semiovale. This was present previously Ventricles and sulci are appropriate for the patient age. There are prior right mastoidectomy. Left mastoid air cells are clear. Paranasal sinuses are clear. R ight septal deviation is noted. IMPRESSION: 1. No acute intracranial process. Follow up MRI can be performed as clinically indicated. 2. Probable mild old subcortical white matter ischemic change right centrum semiovale [facility], , 04/22/2024 8:45 PM
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
[2024-04-22 22:01] LABS: ALT 13 U/L (4-49); AST 21 U/L (17-59); African American GFR (CKD) >90 (>60 ml/min/1.73 sqM); Albumin 3.5 g/dL (3.5-5.0); Alkaline Phosphatase 103 U/L (38-126); Anion Gap 5 mmol/L; Blood Urea Nitrogen 14 mg/dL (9-20); Carbon Dioxide 26 mmol/L (22-30); Chloride 107 mmol/L (98-107); Glucose 92 mg/dL (74-99); Non-African American GFR(CKD) >90 (>60 ml/min/1.73 sqM); Potassium 4.4 mmol/L (3.5-5.1); Sodium 138 mmol/L (137-145); Total Bilirubin 0.2 mg/dL (0.2-1.3); Total Protein 5.7 g/dL (6.3-8.2)
[2024-04-22 22:10] LABS: Prothrombin Time 10.8 sec (10.0-12.5)
[2024-04-22 22:12] LABS: Basophils % (A) 1 %; Eosinophils # (A) 0.1 k/uL (0-0.7); Eosinophils % (A) 2 %; HCT 33.8 % (39.0-53.0); HGB 11.5 gm/dL (13.0-17.5); Lymphocytes # (A) 1.8 k/uL (1.0-4.8); Lymphocytes % (A) 39 %; MCV 120.6 fL (80.0-100.0); Macrocytosis Marked; Mean Platelet Volume 7.4; Monocytes # (A) 0.4 k/uL (0-1.0); Monocytes % (A) 8 %; Neutrophils # (A) 2.1 k/uL (1.3-7.7); Neutrophils % (A) 47 %; Platelet Count 147 k/uL (150-450); RDW 14.1 % (11.5-15.5); WBC 4.6 k/uL (3.8-10.6)
[2024-04-22] MEDS: MORPHINE SULFATE 4 MG/ML SYRINGE IVP STA (23:04)
[2024-04-23] MEDS: MECLIZINE 12.5 MG TAB PO STA (00:08)
[2024-04-23 01:15] LABS: Appearance,Urine Clear (Clear); Bilirubin,Urine Negative (Negative); Blood,Urine Negative (Negative); Color,Urine Light Yellow; Glucose,Urine (UA) Negative (Negative); Ketones,Urine Negative (Negative); Leukocyte Esterase,Urine Negative (Negative); Nitrite,Urine Negative (Negative); Protein,Urine Negative (Negative)
[2024-04-23 02:10] VITALS: BP 145/83; PULSE 83; TEMP 98.2
== END 2024-04-23 02:10 | disposition home or self-care (01) ==
LOC: EC 17:49
DX: R42 Dizziness and giddiness (principal); F17.200 Nicotine dependence, unspecified, uncomplicated
CPT/HCPCS: 36415; 93005; 80053; 83605; 84484; 85025; 85610; 81003; 71046; 70450; 99285; 96374; J2270

== ENCOUNTER 2024-04-23 21:05 | Emergency (ER) | payer MEDICARE, OTHER ==
[2024-04-23 21:16] VITALS: PULSE 79; RESP 16; TEMP 97.9
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
[2024-04-23 23:12] VITALS: BP 138/82
== END 2024-04-23 22:38 | disposition home or self-care (01) ==
LOC: EC 21:05
DX: R53.1 Weakness (principal); F17.200 Nicotine dependence, unspecified, uncomplicated
CPT/HCPCS: 87636; 99285

== ENCOUNTER 2024-04-29 06:08 | Day surgery (SDC) | payer MEDICARE, OTHER ==
[~2024-04-29 06:08] MED LIST changes: +ALPRAZolam 0.25 MG TAB PO PRN; +ALPRAZolam 0.5 MG TAB PO PRN; +ASPIRIN 325 MG TAB PO PRN; -BACITRACIN 50,000 UNIT, POLYMYXIN B 500,000 UNIT in SODIUM CHLORIDE 0.9% IRRIGATIO 1,00... IRRIGATION ONE; +HEPARIN SODIUM,PORCINE (1 ML) 2,500 UNIT in SODIUM CHLORIDE 0.9% 250 ML IRRIGATION PRN; +HEPARIN SODIUM,PORCINE 10,000 UNIT in SODIUM CHLORIDE 0.9% 1,000 ML IRRIGATION PRN; +ZOLPIDEM 5 MG TAB PO PRN; -ceFAZolin IN SWFI 2 GM/20 ML SYRINGE IVP ONE
[2024-04-29 06:40] VITALS: RESP 18; TEMP 97.8
[2024-04-29] MEDS: IV FLUID CONTINUATION 1,000 ML IV ONE (06:40)
[2024-04-29] MEDS: SODIUM CHLORIDE 0.9% 1,000 ML in EMPTY BAG 1 BAG IV ONE (06:40)
[2024-04-29 07:00] LABS: Mean Platelet Volume 7.5; Platelet Count 140 k/uL (150-450)
[2024-04-29] MEDS: HEPARIN SODIUM,PORCINE 10,000 UNIT in SODIUM CHLORIDE 0.9% 1,000 ML IRRIGATION ONE (07:29)
[2024-04-29] MEDS: MIDAZOLAM 2 MG/2 ML VIAL IVP ONE (07:50)
[2024-04-29] MEDS: fentaNYL (PF) 50 MCG/1 ML VIAL IVP ONE (07:50)
[2024-04-29] MEDS: LIDOCAINE 1% INJ 10MG/ML (20 ML MDV) SQ ONE ×2 (07:53→07:54)
[2024-04-29] MEDS: IOPAMIDOL-250 100ML BTL INTRAARTER ONE (08:29)
[2024-04-29] MEDS: IOPAMIDOL-370 100ML BTL INJ ONE (08:29)
--- NOTE | 2024-04-29 08:44 | P.OP ---
Date of Procedure: 04/29/24 Preoperative Diagnosis: Focally severe right superficial femoral artery stenosis with secondary right calf claudication which was described by the patient as lifestyle limiting. Postoperative Diagnosis: Same. Procedure(s) Performed: 1: Ultrasound-guided cannulation left femoral artery. 2: Selective catheterization right superficial femoral artery from contralateral approach. 3: Right femoral angiogram. 4: Balloon dilation right superficial femoral artery stenosis. Implants: None. Anesthesia: local (1% Xylocaine with 50 mcg of fentanyl and 1 mg of Versed administered intravenously for moderate conscious sedation purposes.) Surgeon: Trever Cloud Estimated Blood Loss (ml): 20 Pathology: none sent Condition: stable Disposition: no change Indications for Procedure: Patient is a 64-year-old male who presented with complaint of lifestyle limiting right calf claudication. Physical examination revealed femoral pulse with a popliteal and pedal pulses were absent on the right. He did undergo CT angiography which demonstrated hemodynamically severe right superficial femoral artery stenosis. This was felt to be amenable to percutaneous intervention. The procedure, risk and benefits were discussed with the patient. All questions were answered to patient's satisfaction. Consent form was signed as the patient wished to proceed. Description of Procedure: Patient was brought to the cardiac catheterization laboratory. Both groins were sterilely prepped and draped in usual manner. The patient did receive 1 mg of Versed and 50 mcg of fentanyl for moderate conscious sedation purposes. Utilizing ultrasound the left femoral artery was identified. 1% Xylocaine was utilized for local anesthesia of the tissues overlying this imaged segment. Through this anesthetized area in the with the aid of ultrasound a micropuncture needle was utilized to cannulate the artery. Once cannulated soft tipped guidewire was advanced into the artery. The needle was withdrawn and a micropuncture sheath and dilator advanced over the guidewire. Guidewire and dilator were withdrawn and a 0.035 inch guidewire was advanced through the sheath. The micropuncture sheath was then exchanged for 6 [place] sheath. Glidewire and angled catheter combination were utilized to select the right common iliac artery. Guidewire and catheter were advanced under roadmapping into the superficial femoral artery. Right femoral angiogram was performed. This demonstrated a focal hemodynamically severe stenosis of the mid to distal segment of the superficial femoral artery. Guidewire was utilized to cross this lesion. A 4 mm x 60 mm drug-eluting balloon catheter was selected and advanced over the guidewire and balloon dilation of the segment was performed. Insufflation was held for 3 minutes and the balloon was deflated. Repeat angiogram demonstrated complete resolution of the previously identified stenosis with no flow-limiting lesion noted. Subsequently imaging of the distal SFA, popliteal and tibial arterial segments were performed. The distal SFA and popliteal were normal in caliber and demonstrated no evidence of stenosis. The anterior and posterior tibial arteries appeared normally patent. The peroneal artery demonstrated significant occlusive disease. With the above findings noted the catheter and sheath were withdrawn and the left femoral puncture wound was closed with Angio-Seal device. Patient tolerated the procedure well and was taken to the outpatient area in satisfactory and stable condition. Palpable posterior tibial pulse was noted on the right at the completion of the procedure. Total fluoroscopy time: 5.0 minutes. Total moderate conscious sedation time: 30 minutes. Total contrast volume: 25 mL of Isovue-370. Plan - Discharge Summary New Discharge Prescriptions: No Action Divalproex ER [Depakote ER] 500 mg PO BID levETIRAcetam [Keppra] 500 mg PO BID HYDROcodone/APAP 7.5-325MG [[place] 7.5-325] 1 tab PO Q6HR PRN 3 Days #12 tab PRN Reason: Pain Naproxen Sodium [Naprelan] 500 mg PO DAILY Lidocaine [Aspercreme Patch] 1 patch TRANSDERM Metoprolol Tartrate [Lopressor] 25 mg PO DAILY Gabapentin [Neurontin] 600 mg PO HS Gabapentin [Neurontin] 300 mg PO BID@0800,1500 Meclizine [Antivert] 25 mg PO TID PRN PRN Reason: Vertigo Discharge Medication List Divalproex ER [Depakote ER] 500 mg PO BID 11/10/21 [History] levETIRAcetam [Keppra] 500 mg PO BID 11/11/21 [History] Metoprolol Tartrate [Lopressor] 25 mg PO DAILY 08/29/23 [History] Gabapentin [Neurontin] 300 mg PO BID@0800,1500 01/04/24 [History] Gabapentin [Neurontin] 600 mg PO HS 01/04/24 [History] HYDROcodone/APAP 7.5-325MG [[place] 7.5-325] 1 tab PO Q6HR PRN 3 Days #12 tab 04/23/24 [Rx] Lidocaine [Aspercreme Patch] 1 patch TRANSDERM 04/29/24 [History] Meclizine [Antivert] 25 mg PO TID PRN 04/29/24 [History] Naproxen Sodium [Naprelan] 500 mg PO DAILY 04/29/24 [History]
--- NOTE | 2024-04-29 09:08 | IR ---
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 [facility], Workstation: [id number], 04/29/2024 9:06 AM
[2024-04-29 11:35] VITALS: BP 114/56; PULSE 83
== END 2024-04-29 12:35 | disposition home or self-care (01) ==
LOC: CATHCVL 06:08
PROVIDERS: ATTEND Surgery
DX: I70.211 Atherosclerosis of native arteries of extremities with intermittent claudication, right leg (principal); I10 Essential (primary) hypertension; F17.200 Nicotine dependence, unspecified, uncomplicated; Z79.899 Other long term (current) drug therapy
CPT/HCPCS: 37224; 75710; 76937; 85049; C1894; C1769 ×3; C1760; C2623; J2250; J1644; J2003; Q9967; J3010

== ENCOUNTER 2024-04-29 15:49 | Emergency (ER) | payer OTHER, MEDICARE ==
[2024-04-29 15:55] VITALS: RESP 20; TEMP 97.9
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
[2024-04-29 20:14] VITALS: BP 145/81; PULSE 98
== END 2024-04-29 20:23 | disposition home or self-care (01) ==
LOC: EC 15:49
DX: N99.841 Postprocedural hematoma of a genitourinary system organ or structure following other procedure (principal); F17.200 Nicotine dependence, unspecified, uncomplicated
CPT/HCPCS: 99284

== ENCOUNTER 2024-05-17 04:20 | Observation (INO) | payer OTHER, MEDICARE ==
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
[2024-05-17 05:45] LABS: Basophils % (A) 1 %; Eosinophils # (A) 0.1 k/uL (0-0.7); Eosinophils % (A) 2 %; HCT 34.5 % (39.0-53.0); HGB 11.6 gm/dL (13.0-17.5); Lymphocytes # (A) 1.2 k/uL (1.0-4.8); Lymphocytes % (A) 17 %; MCH 38.9 pg (25.0-35.0); MCHC 33.7 g/dL (31.0-37.0); Macrocytosis Marked; Mean Platelet Volume 7.3; Monocytes # (A) 0.6 k/uL (0-1.0); Monocytes % (A) 8 %; Neutrophils # (A) 5.2 k/uL (1.3-7.7); Neutrophils % (A) 71 %; Platelet Count 203 k/uL (150-450); RBC 2.99 m/uL (4.30-5.90); RDW 12.1 % (11.5-15.5); WBC 7.2 k/uL (3.8-10.6)
[2024-05-17] MEDS: SODIUM CHLORIDE 0.9% 500 ML 500 ML IV STA (05:48)
[2024-05-17 05:54] LABS: MCV 115.4 fL (80.0-100.0)
[2024-05-17 06:10] LABS: Appearance,Urine Clear (Clear); Bilirubin,Urine Negative (Negative); Blood,Urine Negative (Negative); Color,Urine Colorless; Glucose,Urine (UA) Negative (Negative); Ketones,Urine Negative (Negative); Leukocyte Esterase,Urine Negative (Negative); Nitrite,Urine Negative (Negative); Protein,Urine Negative (Negative); Specific Gravity,Urine 1.005 (1.001-1.035); Urobilinogen,Urine <2.0 mg/dL (<2.0)
[2024-05-17 06:30] LABS: ALT 19 U/L (4-49); AST 36 U/L (17-59); African American GFR (CKD) >90 (>60 ml/min/1.73 sqM); Albumin 3.6 g/dL (3.5-5.0); Alcohol <10 mg/dL; Alkaline Phosphatase 128 U/L (38-126); Anion Gap 7 mmol/L; Blood Urea Nitrogen 14 mg/dL (9-20); Carbon Dioxide 26 mmol/L (22-30); Chloride 96 mmol/L (98-107); Glucose 78 mg/dL (74-99); Non-African American GFR(CKD) >90 (>60 ml/min/1.73 sqM); Potassium 4.7 mmol/L (3.5-5.1); Sodium 129 mmol/L (137-145); Total Bilirubin 0.4 mg/dL (0.2-1.3)
--- NOTE | 2024-05-17 06:51 | XR ---
EXAM: XR Left Shoulder Complete, 2 or More Views CLINICAL HISTORY: ITS.REASON XR Reason: fall, left shoulder pain TECHNIQUE: Two or more views of the left shoulder. COMPARISON: No relevant prior studies available. FINDINGS: Bones/joints: Degenerative changes is seen at the glenohumeral and acromioclavicular joints. No acute fracture. No dislocation. Soft tissues: Unremarkable. IMPRESSION: No acute osseous abnormality. No evidence of fracture.
[2024-05-17] MEDS: HYDROcodone/APAP 5-325MG 1 EACH TAB PO STA (07:30)
--- NOTE | 2024-05-17 07:47 | CT ---
EXAMINATION TYPE: CT brain wo con DATE OF EXAM: 05/17/2024 7:35 AM COMPARISON: 04/22/2024 CLINICAL INDICATION: Male, 64 years old with history of multiple falls, dizziness TECHNIQUE: CT of the brain is performed utilizing 3 mm thick sections through the posterior fossa and 3 mm thick sections through the remaining calvarium. Study is performed within 24 hours of arrival to the hospital. Contrast used: mL of , (none if empty) CT DLP: 1139.4 mGycm, Automated exposure control for dose reduction was used. FINDINGS: No abnormal hyperdensity is present to suggest an acute intracranial hemorrhage. No mass lesion is evident. No acute infarcts are evident. Patchy periventricular white matter hypodensities are present, likely on the basis of chronic white matter ischemic changes. Ventricles and sulci are appropriate for the patient age. Paranasal sinuses and mastoid air cells within the [id number] are clear. There has been a prior ri ght mastoidectomy IMPRESSION: 1. No acute intracranial process. Follow up MRI can be performed as clinically indicated. 2. Patchy chronic appearing periventricular white matter ischemic-type changes. [facility], , 05/17/2024 7:44 AM
[2024-05-17] MEDS ORDERED: ONDANSETRON 4 MG/2 ML VIAL IVP PRN (07:54)
[2024-05-17] MEDS ORDERED: NALOXONE 0.4 MG/ML 1 ML VIAL IV PRN (07:54)
[2024-05-17] MEDS ORDERED: LORazepam 1 MG TAB PO PRN ×3 (08:12)
[2024-05-17] MEDS ORDERED: LORazepam 0.5 MG TAB PO PRN (08:12)
[2024-05-17] MEDS ORDERED: THIAMINE 100 MG TAB PO SCH (09:00)
[2024-05-17] MEDS: SODIUM CHLORIDE 0.9% 1,000 ML IV SCH (09:14)
[2024-05-17] MEDS: THIAMINE 500 MG in SODIUM CHLORIDE 0.9% 50 ML IVPB SCH (09:15)
[2024-05-17] MEDS: FOLIC ACID 1 MG TAB PO SCH (09:20)
[2024-05-17 10:28] LABS: Amphetamine Screen,Urine Not Detected (NotDetected); Barbiturate Screen,Urine Detected (NotDetected); Benzodiazepines Screen,Urine Not Detected (NotDetected); Cocaine Screen,Urine Not Detected (NotDetected); Methadone Screen, Urine Not Detected (NotDetected); Opiate Screen,Urine Not Detected (NotDetected); Oxycodone Screen, Urine Not Detected (NotDetected); Phencyclidine Screen,Urine Not Detected (NotDetected); Tricyclic Antidepressant,Urine Not Detected (NotDetected); Urn Cannabinoid Scrn Not Detected (NotDetected)
[2024-05-17] MEDS ORDERED: MECLIZINE 25 MG TAB PO PRN (11:34)
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
[2024-05-17] MEDS: HYDROcodone/APAP 5-325MG 1 EACH TAB PO PRN (12:22)
[2024-05-17] MEDS: LIDOCAINE 4% PATCH TOPICAL PRN (12:23)
[2024-05-17] MEDS: GABAPENTIN 300 MG CAP PO SCH ×2 (15:12→21:09)
[2024-05-17] MEDS: PANTOPRAZOLE 40 MG TABLET PO SCH (17:34)
[2024-05-17] MEDS: DIVALPROEX ER 500 MG TAB.ER.24H PO SCH (21:09)
[2024-05-17] MEDS: levETIRAcetam 500 MG TAB PO SCH (21:09)
[2024-05-17 21:48] LABS: Phosphorus 3.5 mg/dL (2.5-4.5)
[2024-05-17 21:54] LABS: Valproic Acid (Depakene) <10.0 ug/mL
[2024-05-18] MEDS: ASPIRIN 81 MG PO SCH (08:21)
[2024-05-18] MEDS: METOPROLOL TARTRATE 25 MG TAB PO SCH (08:21)
[2024-05-18] MEDS: CLOPIDOGREL 75 MG TAB PO SCH (08:21)
[2024-05-18 14:11] VITALS: BMI 18.6
--- NOTE | 2024-05-18 17:09 | P.PN ---
Subjective Progress Note Date: 05/18/24 Hospital Course: Patient is a 74-year-old gentleman with past medical history of alcohol abuse, hypertension, tobacco use disorder, recurrent hyponatremia, history of seizure on Keppra, hard of hearing, GERD, history of perforated gastric ulcer, subtotal gastrectomy, Ariel-en-Y gastrojejunostomy, history of cervical stenosis status post decompression and fusion, who came in due to generalized weakness, dizziness, unsteady gait that started several days ago. No LOC, did have a fall without trauma. Patient feels unsteady upon standing up, walking, denies spinning sensation, vision changes hearing changes, focal weakness, sensation changes besides chronic neuropathy. Also complains of acute on chronic left shoulder pain, previously evaluated by neurology, had steroid shots without symptoms improvement. Patient also reports having femoral left sided endarterectomy last week, no has nonpainful bruising on the medial side of the left side, scrotum, pubic area. Has been taking ibuprofen every 4 hours, counseled on stopping NSAIDs due to history of perforated peptic ulcer ER course: Afebrile, BP elevated 168/93, satting well on room air, heart rate in 70s. Lab work significant for hemoglobin of 11.6, seems to be at around baseline, no leukocytosis, MCV elevated 115, platelet count 203, sodium 129, patient has chronic hyponatremia with episodes of sodium going down to 123, potassium normal, AST ALT normal, creatinine normal, UA negative for UTI, serum alcohol level negative.A1c 4.9, magnesium 1.9 Patient was started on IV fluids, folic acid, high-dose thiamine. His Keppra and Depakote levels are subtherapeutic, he shared that he was not really taking his medications as he ran out and did not refill it. Vitamin D came back very low 17.9, replaced. Started feeling better after above interventions Pertinent Imaging: No new imaging Subjective: Feeling better today, was able to ambulate, unsteadiness is better Pertinent positives and negatives as discussed above, a complete review of systems was performed and all other systems are negative. Vitals Signs Reviewed. General: nontoxic, no distress, appears at stated age Derm: warm, dry, extensive bruising on the left medial thigh, scrotum, pubic Head: atraumatic, normocephalic, symmetric Eyes: EOMI, no lid lag, anicteric sclera, pupils equal round reactive to light ENT: Nose and ears atraumatic Neck: No thyromegaly, supple Mouth: no lip lesion, mucus membranes moist Cardiovascular: S1S2 reg, no murmur, no edema Lungs: clear to auscultation bilateral, no rhonchi, no rales, no wheeze, no accessory muscle use Abdominal: soft, nontender to palpation, no guarding, no appreciable organomegaly Ext: no gross muscle atrophy, muscle strength muscle strength 5 out of 5 in all 4 extremities, no contractures, left shoulder tenderness, decreased ROM Neuro: CN II-XII grossly intact, Psych: Alert, oriented, appropriate affect Data Reviewed Today: Pertinent Labs: As discussed in hospital course Assessment and Plan: Unsteady gait Concern for Wernicke's encephalopathy Hx of EtOH, has a drink couple time a month Acute on chronic recurrent hyponatremia History of seizure, subtherapeutic Keppra and Depakote levels, due to noncompliance Peripheral neuropathy Vitamin D deficiency History of cervical spine stenosis status post decompression and fusion -Continue NS at 75 cc/h, no lab work from 05/18 available -Folic acid daily -High-dose thiamine 500 mg 3 times daily for 2 days -Check TSH normal A1c-4.9, B12 normal, B9 level normal, vitamin D level, will start on vitamin D supplements, not available 50,000 IU in our pharmacy, started on 1000 IU, [place] [address] weekly for 8 weeks -follow up BMP -Check magnesium, normal - PT OT, social work -Keppra and Depakote levels due to noncompliance, patient was educated on importance of compliance with seizure medications, demonstrated understanding. -Continue Keppra 1500 twice daily, divalproex 500 twice daily, gabapentin -nutrition consult GERD History of perforated peptic ulcer Chronic left shoulder pain -Has been taking ibuprofen every 4 hours, counseled on stopping NSAIDs due to history of perforated peptic ulcer -Protonix 40 twice daily Hypertension: Continue Lopressor 25 daily Tobacco use disorder:counseled on quitting Peripheral arterial disease: Reportedly had femoral arthrectomy a week ago, now has extensive bruising affecting his medial left thigh, scrotum, pubic area, not really painful -Continue DAPT, not on statins, needs to follow-up with vascular surgery in PCP DVT ppx: Lovenox Anticipated discharge place: TBD, likely home] Anticipated discharge time: 05/19 Objective - Vital Signs Vital signs: Vital Signs Temp 97.9 F 05/18/24 14:40 Pulse 61 05/18/24 14:40 Resp 17 05/18/24 14:40 BP 138/70 05/18/24 14:40 Pulse Ox 100 05/18/24 14:40 FiO2 Intake & Output 05/17/24 05/18/24 05/18/24 18:59 06:59 18:59 Intake Total 0 240 Output Total 1725 Balance 0 -1725 240 Weight 57.153 kg 57.153 kg Intake: Intake, IV Titration 0 Amount Sodium Chloride 0.9% 1, 0 000 ml @ 75 mls/hr IV . [id number] [facility] Rx#:[id number] Oral 240 Output: Urine 1725 Other: Voiding Method Urinal Urinal # Voids 4 # Bowel Movements 0 - Labs CBC & Chem 7: 05/17/24 05:30 05/17/24 05:30 Labs: Abnormal Lab Results - Last 24 Hours (Table) 05/17/24 Range/Units 05:30 Vitamin D 25-Hydroxy 17.9 L (30.0-100.0) ng/mL
[2024-05-19] MEDS: CHOLECALCIFEROL 25 MCG (1000 IU) TABLET PO SCH (08:12)
[2024-05-19 14:59] VITALS: BP 158/80; PULSE 85; RESP 16; TEMP 97.9
--- NOTE | 2024-05-19 15:38 | P.DS ---
Providers Date of admission: 05/17/24 07:55 Attending physician: Mynor Yancey Primary care physician: [facility] Hospital Course: Discharge Diagnosis: Unsteady gait Concern for Wernicke's encephalopathy Hx of EtOH, has a drink couple time a month Acute on chronic recurrent hyponatremia History of seizure, subtherapeutic Keppra and Depakote levels, due to noncompliance Peripheral neuropathy Vitamin D deficiency History of cervical spine stenosis status post decompression and fusion GERD History of perforated peptic ulcer Chronic left shoulder pain Hospital Course: Patient is a 74-year-old gentleman with past medical history of alcohol abuse, hypertension, tobacco use disorder, recurrent hyponatremia, history of seizure on Keppra, hard of hearing, GERD, history of perforated gastric ulcer, subtotal gastrectomy, Ariel-en-Y gastrojejunostomy, history of cervical stenosis status post decompression and fusion, who came in due to generalized weakness, dizziness, unsteady gait that started several days ago. No LOC, did have a fall without trauma. Patient feels unsteady upon standing up, walking, denies spinning sensation, vision changes hearing changes, focal weakness, sensation changes besides chronic neuropathy. Also complains of acute on chronic left shoulder pain, previously evaluated by neurology, had steroid shots without symptoms improvement. Patient also reports having femoral left sided endarterectomy last week, no has nonpainful bruising on the medial side of the left side, scrotum, pubic area. Has been taking ibuprofen every 4 hours, counseled on limiting NSAIDs due to history of perforated peptic ulcer ER course: Afebrile, BP elevated 168/93, satting well on room air, heart rate in 70s. Lab work significant for hemoglobin of 11.6, seems to be at around baseline, no leukocytosis, MCV elevated 115, platelet count 203, sodium 129, patient has chronic hyponatremia with episodes of sodium going down to 123, potassium normal, AST ALT normal, creatinine normal, UA negative for UTI, serum alcohol level negative.A1c 4.9, magnesium 1.9 Patient was started on IV fluids, folic acid, high-dose thiamine. His Keppra and Depakote levels are subtherapeutic, he shared that he was not really taking his medications as he ran out and did not refill it. Vitamin D came back very low 17.9, replaced. Started feeling better after above interventions Patient will be discharged on thiamine, folic acid, vitamin D, instructed to take his seizure medications as prescribed, follow-up with PCP and neurology. He will also follow-up with his vascular surgeon, medial left thigh and scrotum/pelvic area bruising is improving. Ambulated well before discharge Patient seen and examined at bedside. He walked in hallway without difficulties. General: nontoxic, no distress, appears at stated age Derm: warm, dry, extensive bruising on the left medial thigh, scrotum, pubic Head: atraumatic, normocephalic, symmetric Eyes: EOMI, no lid lag, anicteric sclera, pupils equal round reactive to light ENT: Nose and ears atraumatic Neck: No thyromegaly, supple Mouth: no lip lesion, mucus membranes moist Cardiovascular: S1S2 reg, no murmur, no edema Lungs: clear to auscultation bilateral, no rhonchi, no rales, no wheeze, no accessory muscle use Abdominal: soft, nontender to palpation, no guarding, no appreciable organomegaly Ext: no gross muscle atrophy, muscle strength muscle strength 5 out of 5 in all 4 extremities, no contractures, left shoulder tenderness, decreased ROM Neuro: CN II-XII grossly intact, Psych: Alert, oriented, appropriate affect A total of 40 minutes of time were spent preparing this complex discharge summary. Patient was discharged on 05/19/2024. Patient Condition at Discharge: Fair Plan - Discharge Summary Discharge Rx Participant: No New Discharge Prescriptions: New Folic Acid 1 mg PO DAILY #30 tab Cholecalciferol (Vitamin D3) [Vitamin D3 (1250 Mcg = 50,000 Iu)] 1,250 mcg PO WEEKLY #8 tab Pantoprazole [Protonix] 40 mg PO DAILY #30 tab Thiamine [Vitamin B-1] 100 mg PO DAILY #30 tablet Continue Divalproex ER [Depakote ER] 500 mg PO BID levETIRAcetam [Keppra] 500 mg PO BID Naproxen Sodium [Naprelan] 500 mg PO DAILY Lidocaine [Aspercreme Patch] 1 patch TRANSDERM DAILY PRN PRN Reason: Pain Aspirin [Adult Low Dose Aspirin EC] 81 mg PO DAILY #30 tab Metoprolol Tartrate [Lopressor] 25 mg PO DAILY Gabapentin [Neurontin] 600 mg PO HS Gabapentin [Neurontin] 300 mg PO BID@0800,1500 Meclizine [Antivert] 25 mg PO TID PRN PRN Reason: Vertigo Clopidogrel [Plavix] 75 mg PO DAILY #30 tablet Discharge Medication List Divalproex ER [Depakote ER] 500 mg PO BID 11/10/21 [History] levETIRAcetam [Keppra] 500 mg PO BID 11/11/21 [History] Metoprolol Tartrate [Lopressor] 25 mg PO DAILY 08/29/23 [History] Gabapentin [Neurontin] 300 mg PO BID@0800,1500 01/04/24 [History] Gabapentin [Neurontin] 600 mg PO HS 01/04/24 [History] Aspirin [Adult Low Dose Aspirin EC] 81 mg PO DAILY #30 tab 04/29/24 [Rx] Clopidogrel [Plavix] 75 mg PO DAILY #30 tablet 04/29/24 [Rx] Lidocaine [Aspercreme Patch] 1 patch TRANSDERM DAILY PRN 04/29/24 [History] Meclizine [Antivert] 25 mg PO TID PRN 04/29/24 [History] Naproxen Sodium [Naprelan] 500 mg PO DAILY 04/29/24 [History] Cholecalciferol (Vitamin D3) [Vitamin D3 (1250 Mcg = 50,000 Iu)] 1,250 mcg PO WEEKLY #8 tab 05/19/24 [Rx] Folic Acid 1 mg PO DAILY #30 tab 05/19/24 [Rx] Pantoprazole [Protonix] 40 mg PO DAILY #30 tab 05/19/24 [Rx] Thiamine [Vitamin B-1] 100 mg PO DAILY #30 tablet 05/19/24 [Rx] Follow up Appointment(s)/Referral(s): [facility],Clinic [Primary Care Provider] - 1-2 days Activity/Diet/Wound Care/Special Instructions: Please, follow up with your PCP, neurologist. Make sure you take all your medications as prescribed, take your seizure medication without skipping the doses Discharge Disposition: HOME SELF-CARE
== END 2024-05-19 16:59 | disposition home or self-care (01) ==
LOC: EC 04:20 → 6NMEDSUR 07:55
PROVIDERS: ADMIT Student in an Organized Health Care Education/Training Program; ATTEND Student in an Organized Health Care Education/Training Program
DX: R26.81 Unsteadiness on feet (principal); E87.1 Hypo-osmolality and hyponatremia; G62.9 Polyneuropathy, unspecified; K21.9 Gastro-esophageal reflux disease without esophagitis; I10 Essential (primary) hypertension; G89.29 Other chronic pain; M25.512 Pain in left shoulder; I73.9 Peripheral vascular disease, unspecified; E55.9 Vitamin D deficiency, unspecified; G40.909 Epilepsy, unspecified, not intractable, without status epilepticus; F17.200 Nicotine dependence, unspecified, uncomplicated; Z91.199 Patient's noncompliance with other medical treatment and regimen due to unspecified reason; Z86.16 Personal history of COVID-19; Z87.11 Personal history of peptic ulcer disease; Z79.02 Long term (current) use of antithrombotics/antiplatelets; Z79.82 Long term (current) use of aspirin; Z79.899 Other long term (current) drug therapy
CPT/HCPCS: 96365 ×2; 96366; 99285; 36415; 93005; 80164; 80053; 80177; 84443; 82607; 82746; 83605; 83735; 84100; 84484; 85025; 81003; 82306; 80306; 80320; 83036; 73030; 70450; G0378 ×3; J3411 ×2

== ENCOUNTER 2024-06-28 12:25 | Day surgery (SDC) | payer MEDICARE, OTHER ==
[2024-06-26 09:20] VITALS: BMI 18.6
[~2024-06-28 12:25] MED LIST changes: -ALPRAZolam 0.25 MG TAB PO PRN; -ALPRAZolam 0.5 MG TAB PO PRN; -ASPIRIN 325 MG TAB PO PRN; -HEPARIN SODIUM,PORCINE (1 ML) 2,500 UNIT in SODIUM CHLORIDE 0.9% 250 ML IRRIGATION PRN; -HEPARIN SODIUM,PORCINE 10,000 UNIT in SODIUM CHLORIDE 0.9% 1,000 ML IRRIGATION PRN; +LACTATED RINGERS 1,000 ML IV SCH; -ZOLPIDEM 5 MG TAB PO PRN
[2024-06-28 13:55] VITALS: TEMP 97.3
[2024-06-28] MEDS ORDERED: DEXAMETHASONE SOD PHOSPHATE 10 MG/ML 1 ML VIAL ONE (15:01)
[2024-06-28] MEDS ORDERED: IOPAMIDOL M200 10 ML VIAL ONE (15:01)
--- NOTE | 2024-06-28 15:19 | P.PCN ---
Date of Procedure: 06/28/24 Procedure(s) Performed: PREOPERATIVE DIAGNOSIS: 1-cervical radiculopathy . POSTOPERATIVE DIAGNOSIS: Same as preop diagnosis. PROCEDURE 1. Transforaminal epidural steroid injection under fluoroscopic guidance at left C6-7 level, and left C7-T1. (Fluoroscopy images in in the radiology Department ) 2. Cervical epidurogram . ANESTHESIA: Local with 1% lidocaine 3 ml. EBL: Minimal PROCEDURE INDICATION: The patient with neck pain and radiculopathy symptoms unresponsive to conservative treatment. PROCEDURE DESCRIPTION / TECHNIQUE: The patient was seen and identified in the preoperative area. Risks, benefits, complications, and alternatives were discussed with the patient. The patient agreed to proceed with the procedure and signed the consent, and vital signs were stable. Patient was taken to the OR and time out was completed. The patient was placed in the Lateral position ( Left side up ) on procedure table . The cervical area was prepped and draped in the usual sterile fashion. Critical pause was taken. Vital signs were closely monitored during the procedure. Using oblique fluoroscopy, the chin of the `Willy dog at Left C6-7 level was identified, and the skin and deeper tissues just below was localized with 1% lidocaine. Subsequently, a 22-gauge 3.5-inch spinal needle was advanced under a tunneled view fluoroscopic guidance just underneath the chin of the `Willy dog at the Left C6-7 Under lateral fluoroscopy, the needle was then advanced to the posterior border of the interforaminal space. After negative aspiration of CSF and blood and with no paresthesias, 1 mL Isovue 200 contrast dye was injected excellent epidurogram and outlining of the nerve root Subsequently, 2 mL of block solution containing 10 mg Dexamethasone and 1 mL of 0.9% normal saline PF was injected. Needle was removed , and the exact same procedure was repeated for the left side C7-T1 . At the end of the procedure, skin was cleansed, and bandages were applied. COMPLICATIONS:none DISPOSITION / PLANS: The patient was placed in a supine position and transferred to the recovery area in a stable condition for observation. There was no evidence of lower extremity motor or sensory deficit after the procedure. Patient was discharged from the recovery room after meeting discharge criteria. Home discharge instructions were given to the patient by the staff. The patient was reexamined prior to discharge.
--- NOTE | 2024-06-28 15:27 | FL ---
EXAMINATION TYPE: FL guided pain mgmt statistic DATE OF EXAM: 06/28/2024 CLINICAL INDICATION: Male, 64 years old with history of PAIN; [facility], TECHNIQUE: Fluoroscopy. COMPARISON: None. FINDINGS: Fluoroscopic guidance was provided during pain relief procedure performed by Dr. Elam . A total of 11.1 seconds of fluoroscopic time was utilized during the procedure and three spot imag es are acquired. Images acquired shows needle localization in the lower cervical spine. There is mult ilevel anterior fusion plate in the cervical spine noted. Total DAP: 0.32433 mGym2. IMPRESSION: As Above. [facility], , 06/28/2024 3:25 PM
[2024-06-28 15:47] VITALS: BP 138/66; PULSE 65; RESP 20
== END 2024-06-28 16:49 | disposition home or self-care (01) ==
LOC: ORPAIN 12:25
PROVIDERS: ATTEND Specialist
DX: M54.12 Radiculopathy, cervical region (principal)
CPT/HCPCS: 64479; 64480; J1100; Q9966; 64483; 64484

== ENCOUNTER → 2024-07-15 | Outpatient (CLI) | payer MEDICARE, OTHER ==
[2024-07-15 13:57] VITALS: BP 158/76; PULSE 54; RESP 16; TEMP 97.3
--- NOTE | 2024-07-15 14:47 | P.PAINPG ---
PQRS Measure Charge Sheet Comment: HISTORY OF PRESENT ILLNESS: A 64 yr old male presents today w severe and chronic LBP > 1 yr secondary to radiculopathy, spondylosis and facet arthropathy without myelopathy, ACDF C3-C4-C5-C6 (2018) for evaluation s/p L TFESI C6-C7/ C7-T1 #1. Pt states he experienced 75 % pain relief x 2 wks s/p procedure. Pt states pain level is provoked at 7 /10 in intensity, constant, localized in the L lower cervical spine, predominantly axial, sharp in character w occasional shooting pain towards the LUE. Pain is provoked by any movement. Pain is alleviated by PT x 6 wks which ended in 2017, physician guided home exercises from Dr Cooper 4-5 times weekly since mid Jan 2024, medications repositioning and rest . Interventional procedure include L TFESI C6-T1 x1 (07/16) Medications include Baclofen, Naproxyn, Neurontin, Johnson 7.5/325mg, Lidoderm, Tyl 325mg REVIEW OF ORGAN SYSTEMS: CONSTITUTIONAL: No fevers or chills. No recent weight loss. NEUROLOGICAL: + numbness and tingling along the distal extremities. No seizure disorders or headaches. MUSCULOSKELETAL: + pain PSYCHIATRIC: Denies current depression or suicidal thoughts. Physical Examinations : Constitutional : Cooperative , not in acute distress . Neurologic : Cranial nerve II to XII intact. No focal neurological deficits. Psychiatric : alert & oriented x 3. Matching mood & appropriate affect. Judgment & insight intact. Musculoskeletal : Cervical Spine +Incisional scar intact Motor strength in the deltoid and biceps: Normal right side. Normal Left side Motor strength biceps and the wrist extensors: Normal right side . Normal left side Motor strength in the triceps muscle: Normal right side. Normal left side Deep tendon reflexes: Normal at the biceps. Normal at Brachioradialis. Normal at triceps Vertebral body tenderness to deep palpation over C7 Cervical facet loading test: positive bilaterally Spurling test: positive L C6-C7/ C7-T1 Neck distraction test: positive bilaterally Milly sign: positive bilaterally Lumbar spine Motor strength lower extremities ,thigh and legs 5/5 Right side , 5/5 Left side Deep tendon reflexes : Normal Knee Jerk. Normal Ankle Jerk Vertebral body tenderness over Ceja Test positive Lumbar facet Loading Test: positive Right / positive Left Range of motion of the lumbar spine Flexion 30 degrees, extension 10 degrees Straight Leg Raise test: Left/ Right positive at degrees Yudy test: positive right / positive left. Severe tenderness over the Sacroiliac joint on the Right / Left sides Gaenslen test: positive bilaterally Seated flexion test: positive bilaterally. Sacral spine : Severe tenderness over the Sacroiliac joint: right side / left side Range of motion: Flexion of the lumbar spine <60 degrees Range of motion: Extension of the lumbar spine <20 degrees Gaenslen's Test positive Yudy test: positive right side / left side Thigh Thrust Test Sacral Thrust Test Imaging: CT non contrast cervical spine from 01/05/24 reviewed Assessment/ Plan : C3-C4-C5-C6 ACDF Recommendation of L TFESI C6-C7/ C7-T1 #2. Risks, benefits of procedure discussed and patient verbalized understanding. Admits to anti- coagulant use or medical history of diabetes. Protocol for discontinuation/ continuation of medications fausto procedure discussed. All questions answered. I have spent greater than 30 minutes on patient care today. Dr Elam was available by phone for the evaluation of this patient. The time was used to review the medical records including relevant urine studies and Prescription history (MAPs), review of the available imaging, evaluation and examination of the patient, coordination of care with the medical staff and if applicable referring physicians, as well as creation of the medical record PQRS Narrative: Smoking Status Current every day smoker Hx Alcohol Use (MH) Yes Home Medications: Ambulatory Orders Divalproex ER [Depakote ER] 500 mg PO BID 11/10/21 levETIRAcetam [Keppra] 500 mg PO BID 11/11/21 Metoprolol Tartrate [Lopressor] 25 mg PO DAILY 08/29/23 Gabapentin [Neurontin] 300 mg PO BID@0800,1500 01/04/24 Gabapentin [Neurontin] 600 mg PO HS 01/04/24 Aspirin [Adult Low Dose Aspirin EC] 81 mg PO DAILY #30 tab 04/29/24 Clopidogrel [Plavix] 75 mg PO DAILY #30 tablet 04/29/24 Lidocaine [Aspercreme Patch] 1 patch TRANSDERM DAILY PRN 04/29/24 Meclizine [Antivert] 25 mg PO TID PRN 04/29/24 Naproxen Sodium [Naprelan] 500 mg PO DAILY 04/29/24 Cholecalciferol (Vitamin D3) [Vitamin D3 (1250 Mcg = 50,000 Iu)] 1,250 mcg PO WEEKLY #8 tab 05/19/24 Folic Acid 1 mg PO DAILY #30 tab 05/19/24 Pantoprazole [Protonix] 40 mg PO DAILY #30 tab 05/19/24 Thiamine [Vitamin B-1] 100 mg PO DAILY #30 tablet 05/19/24 Acetaminophen Tab [Tylenol] 325 mg PO Q8H 06/05/24 Atorvastatin [Lipitor] 20 mg PO HS 06/05/24 Losartan(Unk) 25 mg PO HS 06/05/24 Controlled Substance Measures - Controlled Substance Measures Is patient prescribed a controlled substance at discharge?: No
== END ==
LOC: PNWHC3 11:10
PROVIDERS: ATTEND Specialist
DX: M43.22 Fusion of spine, cervical region (principal); F17.210 Nicotine dependence, cigarettes, uncomplicated
CPT/HCPCS: 99211

== ENCOUNTER 2024-09-11 13:55 | Emergency (ER) | payer OTHER, MEDICARE ==
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
[2024-09-11 16:30] LABS: Basophils % (A) 0.5 %; Eosinophils % (A) 1.9 %; HCT 33.2 % (39.6-50.0); HGB 11.4 g/dL (13.0-17.0); Lymphocytes # (A) 1.42 10*3/uL (0.90-5.00); Lymphocytes % (A) 22.7 %; MCH 36.2 pg (27.0-32.0); MCHC 34.3 g/dL (32.0-37.0); MCV 105.4 fL (80.0-97.0); Mean Platelet Volume 10.3 fL (9.5-12.2); Monocytes % (A) 14.2 %; Neutrophils # (A) 3.78 10*3/uL (1.80-7.70); Neutrophils % (A) 60.4 %; RBC 3.15 10*6/uL (4.40-5.60); RDW 18.6 % (11.5-14.5); WBC 6.26 10*3/uL (4.50-10.00)
[2024-09-11 16:31] LABS: Basophils # (A) 0.03 10*3/uL (0.00-0.10); Eosinophils # (A) 0.12 10*3/uL (0.04-0.35); Immature Platelet Fraction 4.3 % (1.1-6.1); Monocytes # (A) 0.89 10*3/uL (0.20-1.00)
[2024-09-11 16:43] LABS: Platelet Count 101 10*3/uL (140-440)
[2024-09-11 16:44] LABS: Appearance,Urine Clear (Clear); Bilirubin,Urine Negative (Negative); Blood,Urine Negative (Negative); Color,Urine Yellow; Glucose,Urine (UA) Negative (Negative); Ketones,Urine Negative (Negative); Leukocyte Esterase,Urine Negative (Negative); Nitrite,Urine Negative (Negative); Protein,Urine Negative (Negative); Specific Gravity,Urine 1.027 (1.001-1.035)
[2024-09-11] MEDS: SODIUM CHLORIDE 0.9% 1,000 ML IV ONE (16:44)
[2024-09-11 16:46] LABS: ALT 11 U/L (4-49); AST 23 U/L (17-59); African American GFR (CKD) >90 (>60 ml/min/1.73 sqM); Albumin 3.7 g/dL (3.5-5.0); Alkaline Phosphatase 60 U/L (38-126); Anion Gap 6 mmol/L; Blood Urea Nitrogen 9 mg/dL (9-20); Calcium 9.5 mg/dL (8.4-10.2); Carbon Dioxide 31 mmol/L (22-30); Chloride 99 mmol/L (98-107); Glucose 74 mg/dL (74-99); Magnesium 1.8 mg/dL (1.6-2.3); Non-African American GFR(CKD) >90 (>60 ml/min/1.73 sqM); Phosphorus 3.9 mg/dL (2.5-4.5); Potassium 4.3 mmol/L (3.5-5.1); Sodium 136 mmol/L (137-145); Total Bilirubin 0.5 mg/dL (0.2-1.3); Total Protein 6.2 g/dL (6.3-8.2)
[2024-09-11] MEDS: LORazepam 1 MG TAB PO STA (17:32)
[2024-09-11 17:44] LABS: Glucose,Whole Blood 86 mg/dL (70-110)
[2024-09-11 18:29] VITALS: BP 161/85; PULSE 74; RESP 18; TEMP 98
== END 2024-09-11 18:29 | disposition home or self-care (01) ==
LOC: EC 13:55
DX: R25.1 Tremor, unspecified (principal); E16.2 Hypoglycemia, unspecified; F17.200 Nicotine dependence, unspecified, uncomplicated
CPT/HCPCS: 36415; 80053; 80164; 81003; 83735; 84100; 85025; 93005; 96360; 96361; 99285

== ENCOUNTER 2024-10-11 11:16 | Day surgery (SDC) | payer MEDICARE, OTHER ==
[2024-10-10 09:17] VITALS: BMI 18.1
[2024-10-11] MEDS ORDERED: LACTATED RINGERS 1,000 ML IV SCH (11:34)
[2024-10-11 11:46] VITALS: RESP 16; TEMP 96.7
[2024-10-11] MEDS ORDERED: DEXAMETHASONE SOD PHOSPHATE 10 MG/ML 1 ML VIAL ONE (12:45)
[2024-10-11] MEDS ORDERED: IOPAMIDOL M200 10 ML VIAL ONE (12:45)
--- NOTE | 2024-10-11 13:00 | P.PCN ---
Date of Procedure: 10/11/24 Procedure(s) Performed: PREOPERATIVE DIAGNOSIS: 1-cervical radiculopathy . POSTOPERATIVE DIAGNOSIS: Same as preop diagnosis. PROCEDURE 1. Transforaminal epidural steroid injection under fluoroscopic guidance at left C6-7 level, and left C7-T1. (Fluoroscopy images in in the radiology Department ) 2. Cervical epidurogram . ANESTHESIA: Local with 1% lidocaine 3 ml. EBL: Minimal PROCEDURE INDICATION: The patient with neck pain and radiculopathy symptoms unresponsive to conservative treatment. PROCEDURE DESCRIPTION / TECHNIQUE: The patient was seen and identified in the preoperative area. Risks, benefits, complications, and alternatives were discussed with the patient. The patient agreed to proceed with the procedure and signed the consent, and vital signs were stable. Patient was taken to the OR and time out was completed. The patient was placed in the Prone position on procedure table . The cervical area was prepped and draped in the usual sterile fashion. Critical pause was taken. Vital signs were closely monitored during the procedure. Using oblique fluoroscopy, the chin of the `Jonathony dog at Left C6-7 level was identified, and the skin and deeper tissues just below was localized with 1% lidocaine. Subsequently, a 22-gauge 3.5-inch spinal needle was advanced under a tunneled view fluoroscopic guidance just underneath the chin of the `Jonathony dog at the Left C6-7 Under lateral fluoroscopy, the needle was then advanced to the posterior border of the interforaminal space. After negative aspiration of CSF and blood and with no paresthesias, 1 mL Isovue 200 contrast dye was injected excellent epidurogram and outlining of the nerve root Subsequently, 2 mL of block solution containing 10 mg Dexamethasone and 1 mL of 0.9% normal saline PF was injected. Needle was removed , and the exact same procedure was repeated for the left side C7-T1 . At the end of the procedure, skin was cleansed, and bandages were applied. COMPLICATIONS:none DISPOSITION / PLANS: The patient was placed in a supine position and transferred to the recovery area in a stable condition for observation. There was no evidence of lower extremity motor or sensory deficit after the procedure. Patient was discharged from the recovery room after meeting discharge criteria. Home discharge instructions were given to the patient by the staff. The patient was reexamined prior to discharge.
--- NOTE | 2024-10-11 13:21 | FL ---
EXAMINATION TYPE: FL guided pain mgmt statistic DATE OF EXAM: 10/11/2024 1:06 PM COMPARISON: Pre Operative Images if available both CT/MRI or plain film CLINICAL INDICATION: Male, 64 years old with history of Transforaminal Inj; TECHNIQUE: FL guided pain mgmt statistic, multiple fluoroscopic images provided for procedure. DAP: 0.94354 mGym2 Gycm2 uGym2 cGycm2 or equivalent. FINDINGS: Fluoroscopic images during injection for pain management demonstrate multilevel degeneration changes throughout the spine. No evidence for fracture. No acute process identified. IMPRESSION: 1. No evidence for intraoperative complication. 2. Please see the operative/procedural note for further details. [facility], , 10/11/2024 1:19 PM
[2024-10-11 13:24] VITALS: BP 146/76; PULSE 68
== END 2024-10-11 13:36 | disposition home or self-care (01) ==
LOC: ORPAIN 11:16
PROVIDERS: ATTEND Specialist
DX: M54.12 Radiculopathy, cervical region (principal); M62.838 Other muscle spasm
CPT/HCPCS: 64483; 64484; J1100; Q9966

== ENCOUNTER → 2024-11-11 | Outpatient (CLI) | payer MEDICARE ==
[2024-11-11 13:51] VITALS: BP 134/74; PULSE 68; RESP 18
--- NOTE | 2024-11-11 17:33 | P.PAINPG ---
Objective - Vital Signs Vital signs: Intake & Output 11/10/24 11/11/24 11/11/24 18:59 06:59 18:59 Weight 57.153 kg PQRS Measure Charge Sheet Comment: HISTORY OF PRESENT ILLNESS: A 64 yr old male presents today w severe and chronic LBP > 1 yr secondary to radiculopathy, spondylosis and facet arthropathy without myelopathy, ACDF C3-C4-C5-C6 (2018) for evaluation s/p L TFESI C6-C7/ C7-T1 #2. Pt states he experienced 55 % pain relief x 2 wks s/p procedure. Pt states pain level is provoked at 7 /10 in intensity, constant, localized in the L lower cervical spine, predominantly axial, sharp in character w occasional shooting pain towards the LUE. Pain is provoked by any movement. Pain is alleviated by PT x 6 wks which ended in 2017, physician guided home exercises from Dr Cooper 4-5 times weekly since mid Jan 2024, medications repositioning and rest . Interventional procedure include L TFESI C6-T1 x1 (07/16) Medications include Zanaflex 4mg #90, Naproxyn, Neurontin, [place] 7.5/325mg, Lidoderm, Tyl 325mg REVIEW OF ORGAN SYSTEMS: CONSTITUTIONAL: No fevers or chills. No recent weight loss. NEUROLOGICAL: + numbness and tingling along the distal extremities. No seizure disorders or headaches. MUSCULOSKELETAL: + pain PSYCHIATRIC: Denies current depression or suicidal thoughts. Physical Examinations : Constitutional : Cooperative , not in acute distress . Neurologic : Cranial nerve II to XII intact. No focal neurological deficits. Psychiatric : alert & oriented x 3. Matching mood & appropriate affect. Judgment & insight intact. Musculoskeletal : Cervical Spine +Incisional scar intact Motor strength in the deltoid and biceps: Normal right side. Normal Left side Motor strength biceps and the wrist extensors: Normal right side . Normal left side Motor strength in the triceps muscle: Normal right side. Normal left side Deep tendon reflexes: Normal at the biceps. Normal at Brachioradialis. Normal at triceps Vertebral body tenderness to deep palpation over C7 Cervical facet loading test: positive L C6-C7, C7-T1 Spurling test: positive L C6-C7/ C7-T1 Neck distraction test: positive bilaterally Milly sign: positive bilaterally Lumbar spine Motor strength lower extremities ,thigh and legs 5/5 Right side , 5/5 Left side Deep tendon reflexes : Normal Knee Jerk. Normal Ankle Jerk Vertebral body tenderness over Ceja Test positive Lumbar facet Loading Test: positive Right / positive Left Range of motion of the lumbar spine Flexion 30 degrees, extension 10 degrees Straight Leg Raise test: Left/ Right positive at degrees Yudy test: positive right / positive left. Severe tenderness over the Sacroiliac joint on the Right / Left sides Gaenslen test: positive bilaterally Seated flexion test: positive bilaterally. Sacral spine : Severe tenderness over the Sacroiliac joint: right side / left side Range of motion: Flexion of the lumbar spine <60 degrees Range of motion: Extension of the lumbar spine <20 degrees Gaenslen's Test positive Yudy test: positive right side / left side Thigh Thrust Test Sacral Thrust Test Imaging: CT non contrast cervical spine from 01/05/24 reviewed Assessment/ Plan : C3-C4-C5-C6 ACDF Recommendation of L SHANAEB C6-C7, C7-T1 #1. Risks, benefits of procedure discussed and patient verbalized understanding. Admits to anti- coagulant use or medical history of diabetes. Protocol for discontinuation/ continuation of medications fausto procedure discussed. Minimal anesthesia including Fentanyl and Versed if clinically indicated. Opiate/ narcotic agreement signed 11/11/24. [place] 7.5/325mg #60 w RF. Use, side effects, adverse reactions, safe storage discussed. All questions answered. I have spent greater than 30 minutes on patient care today. Dr Elam was available by phone for the evaluation of this patient. The time was used to review the medical records including relevant urine studies and Prescription history (MAPs), review of the available imaging, evaluation and examination of the patient, coordination of care with the medical staff and if applicable referring physicians, as well as creation of the medical record - Pain Location Neck Pharmacological Interventions: Medication PQRS Narrative: Smoking Status Current every day smoker Hx Alcohol Use (MH) Yes Home Medications: Ambulatory Orders Divalproex ER [Depakote ER] 500 mg PO BID 11/10/21 levETIRAcetam [Keppra] 500 mg PO BID 11/11/21 Metoprolol Tartrate [Lopressor] 25 mg PO DAILY 08/29/23 Gabapentin [Neurontin] 300 mg PO BID@0900,1500 01/04/24 Gabapentin [Neurontin] 600 mg PO HS 01/04/24 Clopidogrel [Plavix] 75 mg PO DAILY #30 tablet 04/29/24 Atorvastatin [Lipitor] 20 mg PO HS 06/05/24 Butalb/APAP/Caff 50-325-40Mg [Fioricet 50-325-40] 1 tab PO TID PRN 09/11/24 Cholecalciferol (Vitamin D3) [Vitamin D3 (50 Mcg = 2000 Iu)] 50 mcg PO DAILY 09/11/24 Ferrous Sulfate [Feosol] 325 mg PO DAILY 09/11/24 Loratadine [Claritin] 10 mg PO DAILY 09/11/24 Losartan [Cozaar] 25 mg PO DAILY 09/11/24 Pantoprazole [Protonix] 40 mg PO BID 09/11/24 Aspirin 81 mg PO DAILY 10/11/24 tiZANidine HCL [Zanaflex] 4 mg PO AC-TID 30 Days #90 capsule 10/11/24 HYDROcodone/APAP 7.5-325MG [[place] 7.5-325] 1 tab PO BID PRN 30 Days #60 tab 11/11/24 HYDROcodone/APAP 7.5-325MG [[place] 7.5-325] 1 tab PO BID PRN 30 Days #60 tab 11/11/24 Controlled Substance Measures - Controlled Substance Measures Is patient prescribed a controlled substance at discharge?: Yes When asked, does pt state using other controlled substances?: Yes If prescribed controlled substance>3 days was MAPS reviewed?: Yes If Rx opioid, was Start Talking consent form obtained?: Yes Was information provided regarding opioid addiction?: Yes
== END ==
LOC: PNWHC3 13:16
PROVIDERS: ATTEND Specialist
DX: M47.26 Other spondylosis with radiculopathy, lumbar region (principal); F17.200 Nicotine dependence, unspecified, uncomplicated; Z98.1 Arthrodesis status
CPT/HCPCS: 99212